=== PATIENT | female | born 1935 | race American Indian/Alaskan Native ===

== ENCOUNTER 2018-09-12 00:26 | Inpatient (IN) | payer MEDICARE ==
--- NOTE | 2018-09-12 01:00 | ED PDOC ---
Arrival/HPI <Nicolas Pruitt - Last Filed: 09/12/18 03:29> - General Historian: Patient - History of Present Illness Narrative History of Present Illness (Text): 09/12/18 00:57 83F w/ complaints of r shoulder pain. Patient is AAO3 on interview; reporting complaints of R shoulder pain w/ sudden onset over the past 48 hours. She reports pain is interfering w/ her ability to sleep very tender / sensitive to movement. No complaint of numbness/ tingling in her arm. Patient cannot recall any trauma or inciting factor as to cause of her new onset R shoulder pain. Has never had such issue in the past either. Remainder 12 point ROS is otherwise negative; no complaints of chest pain, sob, abd pain, n/v/d/c, urinary discomfort <Petros Marrero - Last Filed: 09/12/18 03:49> - General Chief Complaint: Upper Extremity Problem/Injury Time Seen by Provider: 09/12/18 00:57 Past Medical History - Provider Review Nursing Documentation Reviewed: Yes - Infectious Disease Hx of Infectious Diseases: None - Cardiac Hx Hypertension: Yes - Pulmonary Hx Respiratory Disorders: No - Neurological Hx Neurological Disorder: Yes (syncope) - HEENT Hx HEENT Disorder: Yes (eyeglasses) - Renal Hx Renal Disorder: No - Endocrine/Metabolic Hx Diabetes Mellitus Type 2: Yes - Hematological/Oncological Hx Blood Disorders: No - Integumentary Hx Dermatological Disorder: Yes - Musculoskeletal/Rheumatological Hx Falls: Yes (past) Other/Comment: DVT in left leg - Gastrointestinal Hx Gastrointestinal Disorders: No - Genitourinary/Gynecological Hx Incontinence: Yes - Psychiatric Hx Psychophysiologic Disorder: No Hx Substance Use: No - Surgical History Other/Comment: R/T BLEEDING ULCER - Anesthesia Hx Anesthesia Reactions: No <Petros Marrero - Last Filed: 09/12/18 03:49> Family/Social History - Physician Review Nursing Documentation Reviewed: Yes Family/Social History: Unknown Family HX Smoking Status: Former Smoker Hx Alcohol Use: No Hx Substance Use: No <Petros Marrero - Last Filed: 09/12/18 03:49> Allergies/Home Meds <Nicolas Pruitt - Last Filed: 09/12/18 03:29> <Petros Marrero - Last Filed: 09/12/18 03:49> Allergies/Adverse Reactions: Allergies No Known Allergies Allergy (Verified 09/12/18 00:33) Home Medications: Home Meds Medication Instructions Recorded Confirmed Pentoxifylline [Pentoxil] 400 mg PO TID 06/09/16 04/03/18 Warfarin Sodium [Jantoven] 1 mg PO ONCE 04/03/18 04/03/18 Warfarin [Coumadin] 3 mg PO ONCE 04/03/18 04/03/18 amLODIPine [Norvasc] 10 mg PO DAILY 04/03/18 04/03/18 [id number] CD [Cardizem CD] 240 mg PO DAILY 04/03/18 04/03/18 hydrALAZINE [Apresoline] 50 mg PO TID 04/03/18 04/03/18 Review of Systems - Review of Systems Constitutional: Normal Eyes: Normal ENT: Normal Respiratory: Normal Cardiovascular: Normal Gastrointestinal: Normal Genitourinary Female: Normal Musculoskeletal: Other (R shouler pain) Skin: Normal Neurological: Normal Endocrine: Normal Hemo/Lymphatic: Normal Psychiatric: Normal <Petros Marrero - Last Filed: 09/12/18 03:49> Physical Exam Vital Signs Temp Pulse Resp BP Pulse Ox 09/12/18 02:11 98.1 F 94 H 203/104 H 09/12/18 00:31 97 H 18 175/82 H 99 <Nicolas Pruitt - Last Filed: 09/12/18 03:29> Temperature: Afebrile Blood Pressure: Normal Pulse: Regular Respiratory Rate: Normal Appearance: Positive for: Well-Appearing, Non-Toxic, Comfortable Pain Distress: None Mental Status: Positive for: Alert and Oriented X 3 - Systems Exam Head: Present: Atraumatic, Normocephalic Pupils: Present: PERRL Extroacular Muscles: Present: EOMI Conjunctiva: Present: Normal Mouth: Present: Moist Mucous Membranes Neck: Present: Normal Range of Motion Respiratory/Chest: Present: Clear to Auscultation, Good Air Exchange. No: Respiratory Distress, Accessory Muscle Use Cardiovascular: Present: Regular Rate and Rhythm, Normal S1, S2. No: Murmurs Abdomen: No: Tenderness, Distention, Peritoneal Signs Back: Present: Normal Inspection Upper Extremity: Present: Other (RUE is neurovascularly intact however there is significant tenderness to palpation in the area of the R scapular spine , no tenderness noted over the humeral head, ACTIVE AND PASSIVE ROM is signifcantly reduced by pain). No: Normal ROM Lower Extremity: Present: Normal Inspection. No: Edema Neurological: Present: GCS=15, CN II-XII Intact, Speech Normal Skin: Present: Warm, Dry, Normal Color. No: Rashes Psychiatric: Present: Alert, Oriented x 3, Normal Insight, Normal Concentration <Petros Marrero - Last Filed: 09/12/18 03:49> Medical Decision Making - Lab Interpretations Lab Results: PT 55.5 SECONDS (9.4-12.5) H 09/12/18 02:20 INR 5.00 H* 09/12/18 02:20 APTT 58.9 Seconds (26.9-38.3) H 09/12/18 02:20 - RAD Interpretation Radiology Orders: 09/12/18 00:56 SHOULDER RIGHT [RAD] Stat - Medication Orders Current Medication Orders: Discontinued Medications Acetaminophen (Tylenol 325mg Tab) 650 mg PO STAT STA Stop: 09/12/18 00:57 Last Admin: 09/12/18 01:03 Dose: 650 mg MAR Pain/Vitals Document 09/12/18 01:03 RD (Rec: 09/12/18 01:04 RD [id number]) Pain Reassessment Is This A Pain ReAssessment? No Sleep Is patient sleeping during reassessment? No Presence of Pain Presence of Pain Yes Location Left, Right or Bilateral Right Pain Location Body Site Shoulder Labetalol HCl (Trandate) 20 mg IV STAT STA Stop: 09/12/18 02:13 Last Admin: 09/12/18 02:35 Dose: 20 mg eMAR Start Stop Document 09/12/18 02:35 RD (Rec: 09/12/18 02:35 RD [id number]) Intravenous Solution Start Date 09/12/18 Start Time 02:33 End Date 09/12/18 End time 02:35 Total Infusion Time 2 Lidocaine (Lidoderm) 1 ea TD ONCE ONE Stop: 09/12/18 01:41 Last Admin: 09/12/18 02:07 Dose: 1 ea MAR Transdermal Patch Site Document 09/12/18 02:07 RD (Rec: 09/12/18 02:07 RD [id number]) Transdermal Patch Site Transdermal Patch Site Right Shoulder <Nicolas Pruitt - Last Filed: 09/12/18 03:29> ED Course and Treatment: 09/12/18 01:03 83F w/ new onset R shoulder pain Analgesia R/o fracture plan: R shoulder XR tylenol progress note: 09/12/18 02:13 XR completed pending results Patient hypertensive systolic 200s Labetolol 20 IVP 09/12/18 03:38 Pressures improved XR shows no overt fracture or abnormality; pending radiologist reading INR elevated - 5.0 Patient still has intractable pain despite Tylenol + Lidocaine patch 09/12/18 03:[address] Adamson who accepts patient to her service w/ dx of HTN urgency, Elevated INR, Intractable Shoulder pain - RAD Interpretation Radiology Orders: 09/12/18 00:56 SHOULDER RIGHT [RAD] Stat <Petros Marrero - Last Filed: 09/12/18 03:49> Disposition/Present on Arrival <Nicolas Pruitt - Last Filed: 09/12/18 03:29> - Present on Arrival Any Indicators Present on Arrival: Yes History of DVT/PE: No History of Uncontrolled Diabetes: Yes Urinary Catheter: No History of Decub. Ulcer: No History Surgical Site Infection Following: None - Disposition Have Diagnosis and Disposition been Completed?: Yes Disposition Time: 03:48 Patient Plan: Admission <Petros Marrero - Last Filed: 09/12/18 03:49> - Disposition Diagnosis: Hypertensive urgency, Intractable pain, Elevated INR Disposition: HOSPITALIZED Patient Problems: Current Active Problems Problem Status Onset Elevated INR Acute Hypertensive urgency Acute Intractable pain Acute Condition: STABLE Forms: Epic! Connect (Spanish)
[2018-09-12] MEDS ORDERED: Lidocaine 5% Patch TD ONE (01:40)
[2018-09-12] MEDS ORDERED: Labetalol 5mg/ml (4ml) IV STA (02:12)
[2018-09-12 03:07] LABS: PARTIAL THROMBOPLASTIN TIME 58.9 Seconds (26.9-38.3)
[2018-09-12 03:19] LABS: PROTHROMBIN TIME 55.5 SECONDS (9.4-12.5)
[2018-09-12 04:25] LABS: BASO # 0.01 K/mm3 (0.0-2.0); BASO % 0.1 % (0.0-3.0); EOS % 0.1 % (1.5-5.0); HEMOGLOBIN 8.2 g/dL (12.0-16.0); LYMPH # 0.5 (1.2-3.4); LYMPH % 5.9 % (22.0-35.0); MEAN CELL VOLUME 88.8 fl (80.0-105.0); MEAN CORPUSCULAR HEMOGLOBIN 27.8 pg (25.0-35.0); MEAN CORPUSCULAR HGB CONC 31.3 g/dl (31.0-37.0); MEAN PLATELET VOLUME 9.5 fl (7.0-11.0); MONO # 0.3 (0.1-0.6); MONO % 3.9 % (1.0-6.0); RBC 2.95 10^6/uL (3.5-6.1); RED CELL DISTRIBUTION WIDTH 15.1 % (11.5-14.5); WHITE BLOOD COUNT 8.1 10^3/uL (4.5-11.0)
[2018-09-12 04:51] LABS: ALB/GLOB RATIO 1.2 (1.1-1.8); ALBUMIN 4.3 g/dL (3.0-4.8); AST/SGOT 21 U/L (14-36); BLOOD UREA NITROGEN 61 mg/dL (7-21); CALCIUM 9.3 mg/dL (8.4-10.5); GFR NON-AFRICAN AMERICAN 10
[2018-09-12 05:02] LABS: ALT/SGPT < 6 U/L (7-56)
[2018-09-12] MEDS ORDERED: Morphine 2 mg/ml ISec IVP STA (05:14)
[2018-09-12 05:51] LABS: PH,URINE 6.5 (4.7-8.0); URINE BILIRUBIN NEGATIVE (NEGATIVE); URINE BLOOD SMALL (NEGATIVE); URINE GLUCOSE (UA) NEGATIVE (NEGATIVE); URINE LEUKOCYTE ESTERASE NEGATIVE Leu/uL (NEGATIVE); URINE PROTEIN 100 mg/dL (<30 mg/dL); URINE UROBILINOGEN 0.2 E.U./dL (<1 E.U./dL)
[2018-09-12 06:06] LABS: URINE APPEARANCE SL CLOUDY (CLEAR); URINE COLOR LIGHT YELLOW (YELLOW)
[2018-09-12 06:20] LABS: URINE BACTERIA MANY /hpf
--- NOTE | 2018-09-12 09:31 | RAD ---
PROCEDURE: Radiographs of the Right Shoulder HISTORY: R shoulder pain r/o FX COMPARISON: None available. FINDINGS: BONES: No acute displaced fracture. The distal clavicle and underlying ribs appear intact. JOINTS: No acute dislocation. Clinic humeral joint space narrowing. Acromioclavicular arthropathy. SOFT TISSUES: Soft tissues appear unremarkable.No evidence of radiopaque foreign body. Calcified granulomas scattered the included portions right hemithorax. IMPRESSION: Degenerative changes. No acute displaced fracture or dislocation evident. If symptoms persist or if there is continued clinical concern, x-ray follow-up in 7-10 days should be considered. Evidence of prior granulomatous infection.
[2018-09-12] MEDS: diltiaZEM 240 mg/24 Hours CD Cap PO SCH (11:44)
--- NOTE | 2018-09-12 14:39 | CARD ---
APPROVED REPORT Date of service: 09/12/2018 EKG Measurement Heart [id number] 336P [id number] <Conclusion> Sinus rhythm with 1st degree AV block with occasional premature ventricular complexes Right bundle branch block Left anterior fascicular block Bifascicular block Abnormal ECG
[2018-09-12] MEDS ORDERED: Oxycodone/Acetaminophen 5/325 mg Tab PO PRN (17:44)
[2018-09-12] MEDS ORDERED: Sodium Chloride 0.45% 1,000 ML IV SCH (17:45)
--- NOTE | 2018-09-12 20:15 | CON ---
DATE: 09/12/2018 LOCATION: Room 577, bed 1. HISTORY OF PRESENT ILLNESS: The patient is an 83-year-old female, came in complaining of severe unremitting pain of the right shoulder. 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 Has a large calcium deposit subacromial area. She must have had a fall at home. She came in complaining of severe pain and swelling of the right shoulder. The aspirated fluid from the shoulder was 40 mL of blood, no fat particles and we injected with Depo-Medrol and Marcaine after I irrigated out the shoulder with normal saline. We will see how she does. If the fluid reaccumulates, I could re-aspirate again and send it for culture, but does not look infectious, it looks like severe case of calcific bursitis and tendinitis of the right shoulder with hemorrhagic synovitis. There is a question of trauma, but she cannot relate to it right now. PLAN: So, I will see how she does with the cortisone injection of the right shoulder and I will follow her while she is in the hospital. Phoenix Zee DO
--- NOTE | 2018-09-12 21:00 | HP ---
DATE OF EXAM: 09/12/2018 HISTORY OF PRESENT ILLNESS: The patient is an 83-year-old who came to emergency room because of severe intractable right shoulder pain. Patient states she woke up this morning, she had some pain for the last day or two, but it got worse this morning and was having difficulty moving right arm. Denies any weakness, but it is pain that is letting her not move her right arm. No history of fall. No history of trauma to that area. PAST MEDICAL HISTORY: She has past medical history significant for; 1. Mild dementia. 2. History of DVT. 3. Hypertension. 4. Hyperlipidemia. 5. Noninsulin-dependent diabetes. 6. Chronic kidney disease. 7. Chronic anemia. 8. Mild dementia. 9. Aortic regurgitation. 10. History of mitral regurgitation. ALLERGIES: SHE IS NOT ALLERGIC TO ANY MEDICATION. HOME MEDICATIONS: She is on lorazepam 0.5 mg twice a day as needed. She is on tramadol 1 tablet three times a day as needed, hydralazine 550 mg twice a day, metformin 500 mg twice a day, Coumadin 4 mg daily. SOCIAL HISTORY: She lives with her son. Denies smoking, drinking or alcohol use. She used to be smoker in the past. 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 PHYSICAL EXAMINATION GENERAL: She is awake, alert, oriented, complaining of right shoulder pain. VITAL SIGNS: She is afebrile, pulse 80, respirations 16, blood pressure 166/72. CARDIOPULMONARY: Heart is S1, S2 audible. LUNGS: Bilateral fair airflow. No rhonchi or crackle. ABDOMEN: Soft, nontender. No rebound. No guarding. EXTREMITIES: Right shoulder, she has pain in her right shoulder and right upper arm. NEUROLOGIC: She is awake and alert, able to communicate. LABORATORY DATA: WBC is 8.1, hemoglobin 8.2, hematocrit 26.2, platelet 266. PT 55.5, INR 5.0. Chemistry; sodium 139, potassium 4.2, chloride 107, CO2 of 21, BUN 61, creatinine 4.4, blood sugar of 86. Wbc is 123, urinalysis is unremarkable. She has x-ray of the shoulder done that shows severe degenerative changes, no acute displaced fracture or dislocation evident. ASSESSMENT: 1. Supratherapeutic PT/INR. 2. Intractable right shoulder pain. 3. Acute on chronic kidney disease. 4. Hypertension. 5. Hyperlipidemia. 6. History of deep venous thrombosis. PLAN: We will hold her Coumadin for today. Request Dr. Zee to evaluate the patient for right shoulder pain. We will follow up her CBC and CMP in the a.m. Currently she is on Cardizem 240 mg daily, she is on clonidine, she is on amlodipine 10 mg daily. We will start her on Protonix, start her on IV fluids. Follow up her electrolytes, CBC, and CMP in a.m. Torrie Adamson MD
[2018-09-13] MEDS: Pantoprazole 40 mg EC Tab PO SCH (06:41)
--- NOTE | 2018-09-13 07:33 | PN ---
DATE: 09/12/2018 I just talked to the family at about 3:45 p.m. The family said she was on Coumadin, but was brought in with a high INR. I see the labs, it was 5.0. So the blood in the right shoulder could very well be from a coagulopathy of too much Coumadin. The INR is quite high and aggravated by calcific bursitis because there is no fracture and there is no fat particles in the blood. So hopefully, she will better with stopping the Coumadin that she was on and the cortisone drip take over also. FINAL DIAGNOSIS: Hemorrhagic synovitis, right shoulder from coagulopathy of too much Coumadin. Phoenix Zee DO
[2018-09-13 08:02] LABS: LYMPH # 0.4 (1.2-3.4); LYMPH % 6.4 % (22.0-35.0); MEAN CELL VOLUME 87.3 fl (80.0-105.0); MEAN CORPUSCULAR HEMOGLOBIN 28.1 pg (25.0-35.0); MEAN CORPUSCULAR HGB CONC 32.2 g/dl (31.0-37.0); MEAN PLATELET VOLUME 9.4 fl (7.0-11.0); MONO # 0.1 (0.1-0.6); MONO % 2.4 % (1.0-6.0); PLATELET COUNT 218 10^3/uL (120.0-450.0); RBC 2.28 10^6/uL (3.5-6.1); RED CELL DISTRIBUTION WIDTH 14.9 % (11.5-14.5); WHITE BLOOD COUNT 5.8 10^3/uL (4.5-11.0)
[2018-09-13 08:12] LABS: PROTHROMBIN TIME 41.8 SECONDS (9.4-12.5)
[2018-09-13 08:15] LABS: INR 3.7
[2018-09-13 08:23] LABS: HEMOGLOBIN 6.4 g/dL (12.0-16.0)
[2018-09-13 08:25] LABS: ALB/GLOB RATIO 1.1 (1.1-1.8); ALBUMIN 3.5 g/dL (3.0-4.8); CALCIUM 8.8 mg/dL (8.4-10.5)
[2018-09-13 09:15] LABS: LYMPHOCYTE 6 % (22.0-35.0); NEUTROPHIL 94 % (50.0-70.0)
[2018-09-13 09:16] LABS: ANISOCYTOSIS SLIGHT; MICROCYTOSIS SLIGHT; PLATELET ESTIMATE NORMAL (NORMAL)
[2018-09-13] MEDS: diltiaZEM 240 mg/24 Hours CD Cap PO SCH (09:42)
[2018-09-13] MEDS: Sodium Chloride 0.45% 1,000 ML IV SCH ×2 (17:34→22:36)
--- NOTE | 2018-09-14 00:25 | PN ---
DATE: 09/13/2018 SUBJECTIVE: The patient is an 83-year-old, seen and examined, looks more alert. States her shoulder pain is better. Denies any nausea or vomiting. PHYSICAL EXAMINATION: VITAL SIGNS: She is afebrile. Pulse 64, respirations 14, blood pressure 156/57. LUNGS: Bilateral fair airflow. No rhonchi or crackle. HEART: S1 and S2 audible. ABDOMEN: Soft, nontender. No rebound. No guarding. NEUROLOGIC: The patient is awake and alert, able to communicate. LABORATORY DATA: WBC 5.8, hemoglobin 6.4, hematocrit 19.9, platelets 280. PT 41.8, INR 3.70. Chemistry: Sodium 133, potassium 5.6, chloride 106, CO2 of 19, BUN 69, creatinine 4.1, blood sugar of 93. ASSESSMENT: 1. Anemia, etiology unclear yet. 2. Bdats-or-rlbibvk renal failure. 3. History of deep venous thrombosis. PLAN: The patient will get 2+ packed RBCs. We will give her one dose of Kayexalate and order stool for Hemoccult. Continue her on IV fluid. We will follow up her CBC and CMP in a.m. I have also requested Dr. Martell for evaluation if her stool for Hemoccult is positive. Torrie Adamson MD
[2018-09-14 07:27] LABS: LYMPH # 0.3 (1.2-3.4); LYMPH % 3.5 % (22.0-35.0); MEAN CORPUSCULAR HEMOGLOBIN 28.2 pg (25.0-35.0); MEAN CORPUSCULAR HGB CONC 33.1 g/dl (31.0-37.0); MEAN PLATELET VOLUME 9.6 fl (7.0-11.0); MONO # 0.7 (0.1-0.6); MONO % 7.9 % (1.0-6.0); RBC 3.8 10^6/uL (3.5-6.1); RED CELL DISTRIBUTION WIDTH 14.4 % (11.5-14.5); WHITE BLOOD COUNT 8.2 10^3/uL (4.5-11.0)
[2018-09-14 07:34] LABS: HEMOGLOBIN 10.7 g/dL (12.0-16.0)
[2018-09-14 07:39] LABS: ALBUMIN 3.1 g/dL (3.0-4.8); CALCIUM 8.1 mg/dL (8.4-10.5)
[2018-09-14] MEDS: diltiaZEM 240 mg/24 Hours CD Cap PO SCH (09:42)
[2018-09-14] MEDS ORDERED: Albuterol-Ipratrop 3 mg / 0.5 (3 ml) UD ONE (11:48)
[2018-09-14] MEDS: Albuterol-Ipratrop 3 mg / 0.5 (3 ml) UD IH PRN ×2 (11:51→16:12)
[2018-09-14] MEDS ORDERED: Phytonadione 10 mg/ml Inj (Adult) SC ONE (12:38)
--- NOTE | 2018-09-14 15:28 | PN ---
DATE: 09/14/2018 SUBJECTIVE: The patient is an 83-year-old, seen and examined, complaining of cough and she had multiple episodes of hemoptysis. Complaining of feeling nauseous and did not have appetite today, although she was feeling well up until yesterday evening. PHYSICAL EXAMINATION VITAL SIGNS: He is afebrile, pulse 76, respirations 18, blood pressure 143/73. LUNGS: Bilateral soft crackles in upper lung region. HEART: S1 and S2 audible. ABDOMEN: Soft, nontender. No rebound. No guarding. NEUROLOGICAL: The patient is awake, alert, oriented, able to communicate. EXTREMITIES: Bilateral leg, no edema. Right shoulder has mobility secondary to pain; however, she has good motor in left upper and both lower extremities. LABORATORY DATA: WBC is 8.2, hemoglobin 10.7, hematocrit 32.3, platelet 222. Chemistry; sodium 131, potassium 4.1, chloride 103, CO2 of 17, BUN 85, creatinine 4.5, blood sugar of 76. ASSESSMENT: 1. Intractable right shoulder pain. 2. Supratherapeutic PT/INR. 3. Acute on chronic kidney disease. 4. Hypertension. 5. History of deep venous thrombosis. PLAN: The patient is currently on IV fluids. She is on hydralazine. We will continue her on diltiazem. Her Coumadin on hold, I will give her 5 mg subcutaneous vitamin K. We will follow up her CBC and CMP in a.m. I will request for Dr. Rand to evaluate the patient. I will order CT scan of the chest also. We will follow CBC and CMP. Torrie Adamson MD
[2018-09-14 17:08] LABS: INR 2.65; PROTHROMBIN TIME 29.4 SECONDS (9.4-12.5)
--- NOTE | 2018-09-14 19:00 | CON ---
DATE OF CONSULTATION: 09/14/2018 The patient is admitted for Dr. Adamson. REQUESTING PHYSICIAN: Dr. Adamson. REASON FOR CONSULTATION: Evaluation of the patient unknown to me, who presents with acute renal failure superimposed on chronic kidney disease stage III in the setting of hemoptysis and right shoulder pain. HISTORY OF PRESENT ILLNESS: The patient is an 83-year-old black female with a history of mild dementia, history of anemia, history of chronic kidney disease stage III with a baseline BUN in the 20-30 range and baseline creatinine in the 1.6-1.8 range, history of NIDDM, history of valvular heart disease, history of DVT on chronic anticoagulation, and history of hypertension. The patient presented to the hospital with increased right shoulder pain. The patient is status post an aspiration of the shoulder with bloody fluid. According to the nursing staff, the patient has been having hemoptysis today. Her INR when she came into the hospital was 5, is currently down to 2.65, status post vitamin K. The patient does have a history of DVT. The patient's BUN and creatinine on admission were 61 with a BUN up to 85, creatinine was 4.4 up to 4.5. Again, her baseline BUN is in the 20-30 and a creatinine in the 1.6-1.8 range. We are asked to evaluate the patient for her worsening renal parameters. PAST MEDICAL HISTORY: Significant for dementia, past history of cigarette smoking, history of hypertension, history of chronic kidney disease stage III, history of anemia, history of mild valvular heart disease, history of a DVT on chronic anticoagulation. MEDICATIONS AT HOME: Include that of clonidine patch, Pentoxil, Coumadin, Cardizem, Norvasc, hydralazine, MultiVites, and Pepcid. ALLERGIES: NO KNOWN ALLERGIES TO MEDICATIONS. CURRENT MEDICATIONS IN HOSPITAL: Include that of hydralazine, diltiazem, clonidine, DuoNeb, Norvasc, Percocet, Protonix, half-normal saline at 60 mL an hour, and Tylenol p.r.n. SOCIAL HISTORY: Past history of cigarette smoking. No history of alcohol use. FAMILY HISTORY: Unobtainable from the patient. REVIEW OF SYSTEMS: Review of systems is for the last part unobtainable from the patient. She denies having any weight loss or loss of appetite. Denies having any vision or hearing problems. PULMONARY: No shortness of breath. CARDIAC: No history of ASHD. GASTROINTESTINAL: No nausea, vomiting, diarrhea, constipation, or abdominal pain. GENITOURINARY: History of chronic kidney disease stage III. GYNECOLOGICAL: Postmenopausal. ENDOCRINE: History of NIDDM. The patient is diet-controlled. MUSCULOSKELETAL: Right shoulder pain as noted above. NEURO: No history of CVA, TIA, seizures, or syncope. HEMATOLOGY-ONCOLOGY: History of anemia. No history of malignancy. PSYCHIATRIC: History is negative. PHYSICAL EXAMINATION: GENERAL: The patient is currently seen on 5R. She is lying comfortable in bed. She appears to be in no acute distress. She appears to be somewhat confused when she is relating information to me. VITAL SIGNS: Blood pressure 151/63, temperature 98.6, pulse of 52 with a respiratory rate of 18, pulse ox is 97%. HEENT: Exam shows her to be normocephalic, atraumatic. Conjunctivae are pale. Sclerae are nonicteric. Pupils equal and reactive to light and accommodation. Extraocular muscles are intact. Posterior pharynx is normal. NECK: Supple. No neck vein distention. No thyromegaly. No lymphadenopathy. No bruits. CHEST: Decreased breath sounds. No audible rales, rhonchi or wheezing. CARDIOVASCULAR: Shows a regular rate and rhythm with soft systolic murmur at the left lower sternal border. Positive AI/MR. No S3, no S4, no rub. ABDOMEN: Soft. Bowel sounds normal. No rebound, guarding, or masses. BACK: No CVAT. No spinal tenderness. EXTREMITIES: Showed decreased range of motion of her right shoulder. No lower extremity cyanosis, clubbing, or edema. Diminished lower extremity pulses 1 to 2+ bilaterally. NEURO: Shows her to be alert, oriented, but somewhat confused when relating information. No gross focal motor or sensory deficits noted. LABORATORY DATA AND IMAGING STUDIES: X-ray of her right shoulder showed DJD. EKG on admission showed a first-degree AV block, right bundle-branch block, left anterior hemiblock. No chest x-ray was done. A chest CT scan is pending. No renal ultrasound was done. Labs: CBC, white blood cell count 8.2, hemoglobin was as low as 6.4, post 2 units of blood it is 10.7?, platelet count is 222,000. Coags showed an INR of 5 on admission and is currently down to 2.65. Coumadin is on hold. The patient did receive vitamin K. Chemistries show a sodium level, which was 139, it has dropped to 131. Potassium was as high as 5.6 yesterday. The patient was not hemolyzed. Repeat potassium level today was 4.1. CO2 level was low at 17. BUN is 85, up from 61. Her baseline is in the 20-30 range. Her creatinine is up from 4.1-4.4, now 4.5. Baseline is in the 1.6-1.8 range. Calcium level was 8.1. Albumin 3.1, corrects to normal. Liver enzymes are normal. Glucose was 76. Urine showed 2+ protein. Positive red blood cells, few white blood cells, positive bacteria, positive yeast. Microbiology, no cultures available for comment. ASSESSMENT: 1. Acute renal failure superimposed on chronic kidney disease stage III. This is in the setting of significant right shoulder pain. The patient denied taking any anti-inflammatories at home, nonsteroidals, or MURILLO-2 inhibitors. We will need to rule out acute interstitial nephritis, obstructive uropathy, renal hypoperfusion, or possible acute tubular necrosis. No documented hypotension. Of note, the patient did have 1 to 2 episodes of hemoptysis. We will also rule out any kind of pulmonary renal syndrome, vasculitis, microscopic polyangiitis, Bela's, Goodpasture's disease, etc. Appropriate serologies will be ordered. 2. Status post mild hyperkalemia with developing metabolic acidosis. I will switch the patient over to IV fluids with sodium bicarbonate. We will obtain a renal ultrasound. We will obtain a urine sodium creatinine, a urine Prabhakar stain, and a urine culture and sensitivities. We will need to monitor accurate I's and O's. A Wick device will be placed to try and obtain accurate urine output without placing a Fish catheter. 3. Baseline chronic kidney disease stage III. 4. History of hypertension, currently controlled on medication in the outpatient setting. 5. History of [id number] diabetes mellitus, perhaps diet controlled. The patient is on no medication. 6. History of severe anemia, perhaps secondary to bleeding associated with her coagulopathy. No evidence for gastrointestinal bleeding as best I could tell. No stool guaiacs were sent. We will obtain stool for occult blood. 7. History of mild dementia. 8. History of deep venous thrombosis with recent history of anticoagulation. 9. History of aortic insufficiency/mitral regurgitation. 10. 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 11. 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 PLAN: 1. The patient is in the process of going down for a chest CT in light of her episode of hemoptysis. 2. We will obtain a renal ultrasound. 3. May continue the patient on current blood pressure medication, avoid CRISTOBAL inhibitors, and angiotensin receptor blockers. 4. Urine Prabhakar stain, urine sodium, urine creatinine, and urine C and S as noted above. 5. Stool for occult blood. 6. We will switch IV fluids over to half-normal saline with sodium bicarbonate in light of her CO2 dropped to 17, developing metabolic acidosis. 7. We will obtain ABBEY, ANCA titer, and anti-GBM in light of the fact that she has hemoptysis associated with her renal failure. 8. I did verify with her that she did not take any anti-inflammatories, aspirin, Aleve, Motrin, or any MURILLO-2 inhibitors for her shoulder pain. 9. Case discussed with nursing staff. 10. Need to obtain accurate I's and O's. Thank you for letting me partake and share in the care of your patient. Roderick Faith MD SUNDE[facility]
[2018-09-15] MEDS: Albuterol-Ipratrop 3 mg / 0.5 (3 ml) UD IH PRN ×3 (00:57→11:25)
[2018-09-15 02:21] LABS: CREATININE,RANDOM URINE 49 mg/dL
[2018-09-15] MEDS: Pantoprazole 40 mg EC Tab PO SCH (05:17)
[2018-09-15 07:08] LABS: INR 2.56; PROTHROMBIN TIME 28.9 SECONDS (9.4-12.5)
[2018-09-15 07:11] LABS: EOS % 0.1 % (1.5-5.0); HEMOGLOBIN 9.7 g/dL (12.0-16.0); LYMPH # 0.5 (1.2-3.4); LYMPH % 3.5 % (22.0-35.0); MEAN CELL VOLUME 84.4 fl (80.0-105.0); MEAN CORPUSCULAR HEMOGLOBIN 28.5 pg (25.0-35.0); MEAN CORPUSCULAR HGB CONC 33.8 g/dl (31.0-37.0); MEAN PLATELET VOLUME 9.4 fl (7.0-11.0); MONO # 0.5 (0.1-0.6); MONO % 3.5 % (1.0-6.0); RBC 3.4 10^6/uL (3.5-6.1); RED CELL DISTRIBUTION WIDTH 14.6 % (11.5-14.5); WHITE BLOOD COUNT 14.7 10^3/uL (4.5-11.0)
[2018-09-15 07:26] LABS: ALBUMIN 2.9 g/dL (3.0-4.8); CALCIUM 7.9 mg/dL (8.4-10.5)
[2018-09-15] MEDS: diltiaZEM 240 mg/24 Hours CD Cap PO SCH (09:47)
--- NOTE | 2018-09-15 10:45 | CT ---
Date of service: 09/14/2018 PROCEDURE: CT Chest without contrast HISTORY: hemoptysis COMPARISON: None available. TECHNIQUE: Contiguous axial images were obtained through the chest without intravenous contrast enhancement. Sagittal and coronal reconstructions were performed. Radiation dose: Total exam DLP = 197.05 mGy-cm. This CT exam was performed using one or more of the following dose reduction techniques: Automated exposure control, adjustment of the mA and/or kV according to patient size, and/or use of iterative reconstruction technique. FINDINGS: LUNGS: There is an extensive alveolar infiltrate in the right upper lobe and right lower lobe consistent with pneumonia. Air bronchograms are seen. Minimal patchy infiltrates are seen in the periphery of the left upper lobe MEDIASTINUM: Unremarkable thoracic aorta. No aneurysm. Normal sized heart. Main pulmonary artery unremarkable. No vascular congestion. No lymphadenopathy. Aortic and coronary artery calcifications are seen PLEURA: No pleural fluid. No pneumothorax. BONES: No fracture. No destructive lesion. UPPER ABDOMEN: Grossly unremarkable. OTHER FINDINGS: None. IMPRESSION: There is an extensive alveolar infiltrate in the right upper lobe and right lower lobe consistent with pneumonia. Air bronchograms are seen. Minimal patchy infiltrates are seen in the periphery of the left upper lobe
--- NOTE | 2018-09-15 12:41 | US ---
Date of service: 09/14/2018 PROCEDURE: Ultrasound of the Kidneys HISTORY: ARF, CKD 3 baseline COMPARISON: 09/11/2016 abdominal ultrasound including both kidneys. TECHNIQUE: Sonogram of the kidneys. FINDINGS: RIGHT KIDNEY: Measures: 4.6 x 7.5 cm. Normal in size, contour and echogenicity. No stone, solid mass lesion or hydronephrosis visualized. Multiple simple renal cysts similar to that seen previously LEFT KIDNEY: Measures: 6.1 x 9.4 cm. Normal in size, contour and echogenicity. No stone, solid mass lesion or hydronephrosis visualized. Stable simple hepatic cysts. The largest cyst midpole region 2.4 x 2.7 cm. OTHER FINDINGS: None. IMPRESSION: No acute findings related to/ accounting for the clinical presentation. Medical renal disease identified. Bilateral simple cysts. No significant interval change compared to the prior examination(s).
[2018-09-15] MEDS ORDERED: Vancomycin 500mg in NS 500 MG/100 ML BAG IVPB STA (12:44)
[2018-09-15] MEDS ORDERED: Cefepime 1gm in NS 100ml 1 GM/100 ML BAG IVPB SCH ×2 (12:45→16:28)
[2018-09-15 12:47] LABS: COMPLEMENT C4 37.4 mg/dL (14.0-44.0)
--- NOTE | 2018-09-15 14:54 | PN ---
DATE: 09/15/2018 SUBJECTIVE: The patient is seen lying in bed. She is awake, she is alert. She is complaining of pain in her butt. She denies any shortness of breath today. She denies any nausea or vomiting. She reports that she ate breakfast. PHYSICAL EXAMINATION GENERAL: Elderly lady lying in bed. VITAL SIGNS: Blood pressure 147/49, heart rate 78, respiratory rate 18 and temperature 98.5. HEENT: Normocephalic, atraumatic, positive pallor. NECK: Supple, no JVD. LUNGS: Bilateral equal entry, bilateral equal expansion, basal rales right greater than left. CARDIAC: S1 and S2, regular rate and rhythm, no murmur, no rub. ABDOMEN: Soft, nondistended, nontender, bowel sounds present. EXTREMITIES: No lower extremity edema. INTAKE AND OUTPUT: 900/500. LABORATORY DATA: WBC 14.7, hemoglobin 9.7, hematocrit 28.7 and platelets 235. Sodium 134, potassium 3.5, chloride 105, CO2 of 21, BUN 84, creatinine 4.5, glucose 74, calcium 7.9, uric acid 7.0 and albumin 2.9. Urine eosinophils negative, urine sodium 100, and urine creatinine 49. CT of the chest; extensive alveolar infiltrate in the right upper lobe and the right lower lobe consistent with pneumonia, air bronchograms are seen, minimal patchy infiltrates are seen in the periphery of the left upper lobe. The patient is status post 2 units of blood transfusion on the 4th. INR is 2.5. CURRENT MEDICATIONS: Apresoline 50 t.i.d., Cardizem CD 240, Catapres 0.1 p.o. q.i.d. p.r.n., amlodipine 10, Percocet and Protonix. Half-normal saline with 50 mEq of sodium bicarbonate at 75 mL/hour. ASSESSMENT: 1. Acute kidney injury superimposed on chronic kidney disease stage IV, in the setting of hemoptysis, severe anemia, and multilobar pneumonia. 2. Hyperkalemia secondary to acute kidney injury, now resolved. 3. Hypertension. 4. Noninsulin-dependent diabetes mellitus. 5. Severe anemia in the setting of coagulopathy, multilobar pneumonia, hemoptysis. 6. Mild dementia. 7. Aortic insufficiency/mitral regurgitation. 8. Degenerative joint disease. PLAN: 1. Continue IV fluids, reduced to 60 mL/hour. 2. Correct coagulopathy. 3. ID evaluation for treatment of multilobar pneumonia. 4. Avoid nephrotoxins. 5. Dose all antibiotics for creatinine clearance 10-30 mL/minute. 6. Monitor urine output closely. 7. No indication for renal replacement therapy at this time. 8. Discussed with . . Samantha Rand MD
[2018-09-15] MEDS: Albuterol-Ipratrop 3 mg / 0.5 (3 ml) UD IH SCH ×2 (14:56→19:47)
--- NOTE | 2018-09-15 16:05 | PN ---
DATE: 09/15/2018 SUBJECTIVE: The patient is 83-year-old seen and examined, lying in bed, complained of pain in the buttock area. According to nurse there is no wound there noted. She is eating and tolerating. OBJECTIVE: VITAL SIGNS: She is afebrile, pulse 78, respiration 18, blood pressure 147/49. LUNGS: Bilateral fair airflow. No rhonchi or crackle. HEART: S1, S2 audible. ABDOMEN: Soft, nontender. No rebound, no guarding. NEUROLOGIC: She is awake and alert. Able to communicate. LABORATORY EXAMINATION: WBC 14.7, hemoglobin 9.7, hematocrit 28.7, platelet of 235. PT 28.9, INR 2.56. Chemistry; sodium 134, potassium 3.5, chloride 105, CO2 of 21, BUN 84, creatinine 4.5, blood sugar of 74. She had CT scan of the chest done that shows infiltrates in the right upper lobe and right lower lobe consistent with pneumonia. ASSESSMENT AND PLAN: 1. Right upper lobe pneumonia. 2. Status post right shoulder pain and had intra-articular injection done with significant improvement. 3. History of deep venous thrombosis. 4. Supratherapeutic INR. 5. Hypertension. 6. Deconditioning and difficulty walking. PLAN: I will request Dr. Frausto to evaluate the patient for coagulopathy and aggressive physical therapy both the input noted and appreciated for followup her electrolyte and CBC and CMP in a.m. and start her on IV antibiotic and watch her closely clinically. Torrie Adamson MD
[2018-09-16] MEDS: Albuterol-Ipratrop 3 mg / 0.5 (3 ml) UD IH SCH ×6 (00:05→20:47)
[2018-09-16 07:58] LABS: BASO # 0.01 K/mm3 (0.0-2.0); BASO % 0.1 % (0.0-3.0); EOS % 0.1 % (1.5-5.0); LYMPH # 0.5 (1.2-3.4); LYMPH % 3.4 % (22.0-35.0); MEAN CELL VOLUME 84.6 fl (80.0-105.0); MEAN CORPUSCULAR HEMOGLOBIN 28.8 pg (25.0-35.0); MEAN CORPUSCULAR HGB CONC 34.1 g/dl (31.0-37.0); MEAN PLATELET VOLUME 9.6 fl (7.0-11.0); MONO # 0.6 (0.1-0.6); MONO % 3.6 % (1.0-6.0); PLATELET COUNT 241 10^3/uL (120.0-450.0); RBC 3.12 10^6/uL (3.5-6.1); RED CELL DISTRIBUTION WIDTH 14.5 % (11.5-14.5)
[2018-09-16 08:22] LABS: ALBUMIN 3.1 g/dL (3.0-4.8); CALCIUM 8.1 mg/dL (8.4-10.5)
[2018-09-16] MEDS: diltiaZEM 240 mg/24 Hours CD Cap PO SCH (09:35)
[2018-09-16 10:20] LABS: LYMPHOCYTE 3 % (22.0-35.0); MONOCYTE 4 % (1.0-6.0); NEUTROPHIL 93 % (50.0-70.0)
--- NOTE | 2018-09-16 11:19 | CON ---
DATE: 09/16/2018 HISTORY OF PRESENT ILLNESS: Ms. Liz is an 83-year-old female admitted to the hospital with right shoulder pain. She was found to have B/L pneumonia, difficulty in walking, weakness. She is not very mobile. [facility] It showed that she had DVT in 2016 in left femoral vein. She has been on Coumadin since then. She was admitted with supratherapeutic INR and low hemoglobin of 6 g/dL, receiving 2 units of blood transfusion during this hospitalization. PAST MEDICAL HISTORY: Dementia, history of DVT, hypertension, hyperlipidemia, chronic kidney disease, chronic anemia, aortic regurgitation, history of mitral regurgitation. ALLERGIES: NO KNOWN DRUG ALLERGIES. HOME MEDICATIONS: Lorazepam, tramadol, hydralazine, metformin, and Coumadin. SOCIAL HISTORY: Lives at home with her son. No history of smoking. No history of alcohol abuse. REVIEW OF SYSTEMS: She is complaining of back pain. Not able to ambulate. Shortness of breath. Rest of 12-point review of systems were reviewed and negative. PHYSICAL EXAMINATION: GENERAL: Awake, alert, and oriented. VITAL SIGNS: Stable. Afebrile. Temperature 98.7, heart rate 85, respiratory rate 15 per minute, blood pressure 160/70. HEART: S1 and S2 normal. No murmur or gallops. ABDOMEN: Soft, nontender. No hepatosplenomegaly. EXTREMITIES: Bilateral extremities; no edema. No calf tenderness. No tenderness on the thigh area. NEUROLOGIC: Awake, alert, and oriented. SKIN: Pallor positive. LABORATORY DATA: White count 16,000, hemoglobin 9, hematocrit 26.4, platelet 241. Sodium 136, potassium 3.9, creatinine 4, bilirubin 0.3. ASSESSMENT: 1. Coagulopathy, on hypercoagulable state, supratherapeutic INR on admission 2. Severe anemia. 3. Eebxg-zw-cmmyste renal failure. 4. Bilateral pneumonia. PLAN: She is not a candidate for anticoagulation. No acute DVT now. She had DVT in 2016 in left femoral. she is high risk for DVT and pulmonary embolism. I would recommend IVC filter and observe her off anticoagulation. Newer anticoagulation have increased risk of bleeding and because of the acute renal failure, she is not a candidate for that. She is home bound and medical management is done at home only. If she develops acute DVT in lower extremity, Coumadin can be restarted. Severe anemia, status post 2 units of blood transfusion, she will need erythropoietin support to maintain normal hemoglobin. Hemoglobin is 9, now we will give one dose aranesp 100 mcgm now. Thank you, Dr. Adamson, for allowing us to participate in Ms. Liz's care. Shiloh Frausto MD MTDD
[2018-09-16 11:23] LABS: IRON 17 ug/dL (45-180)
[2018-09-16 11:32] LABS: % IRON SATURATION 9 % (20-55); TOTAL IRON BINDING CAPACITY 194 ug/dL (265-497)
--- NOTE | 2018-09-16 13:19 | PN ---
DATE: 09/16/2018 SUBJECTIVE: The patient is currently seen on 5R. She appears to be comfortable. She is continuing on IV antibiotic therapy for her multi lobe pneumonia. Her creatinine is stable in the low four range. Actually, improved down to 4.0 from 4.5. Initial workup for vasculitis appears to be negative. MEDICATIONS: Medication list reviewed. The patient is currently on Apresoline, Cardizem, clonidine, doxycycline, DuoNeb, meropenem, Norvasc, Protonix, IV fluid with sodium bicarbonate, Tylenol p.r.n. OBJECTIVE: INTAKE/OUTPUT: Intake is 1320, output is 400. VITAL SIGNS: Blood pressure is 157/58, temperature 98.3, respiratory rate 80 with a pulse of 77. Oxygen saturation is 94%. HEENT: Shows her to be normocephalic, atraumatic. Conjunctivae are pale. Sclerae nonicteric. NECK: Supple. No neck vein distention. CHEST: Decreased breath sounds with scattered rhonchi and rales. No wheezing. CARDIOVASCULAR: Shows a regular rate and rhythm with a soft systolic murmur left lower sternal border. Positive AI/MR. No S3, no S4, no rub. ABDOMEN: Soft. Bowel sounds normal, no rebound, guarding or masses. EXTREMITIES: Show decreased range of motion of her right shoulder. No lower extremity cyanosis, clubbing, or edema. Diminished lower extremity pulses bilaterally. LABORATORY DATA AND IMAGING STUDIES: Chest CT on admission showed a multi lobe pneumonia. Renal ultrasound showed chronic medical renal disease with no hydronephrosis and simple renal cysts. Labs, CBC, white blood cell count is up 16 from 8.1 on admission, hemoglobin 9.0, platelet count is 241,000. Last PT was 28.9 with an INR of 2.56. Chemistries show a normal electrolytes with the exception of a CO2 level which is improved up from 17-20 on sodium bicarbonate. BUN remains elevated, with a creatinine of 4.0. The creatinine of 4.0 is down from 4.5. Her baseline creatinine is in the 1.6-1.8 range with a baseline BUN in the 20-30 range. Calcium is 8.1. His phosphorus level is pending. Liver enzymes are normal. Albumin level was low at 3.1. Urine showed 2+ protein. Urine eosinophil stain was negative. Fractional secretion of sodium was greater than 1%. ABBEY was negative. ANCA titers were negative. C3 and C4 normal. Anti-GBM is pending. Microbiology, urine cultures were positive at greater than 100,000, sensitivities are pending. I do not see any results of blood cultures or sputum cultures. ASSESSMENT: 1. Acute renal failure in a patient with a history of chronic kidney disease stage III. This is in the setting of multi lobe pneumonia. Likely no evidence for any systemic vasculitis. No evidence for interstitial nephritis, obstructive uropathy. Possible acute tubular necrosis. Fractional secretion of sodium is greater than 1%. 2. Metabolic acidosis. The patient will continue IV fluid with sodium bicarbonate. Continue to monitor accurate intake and output. 3. Status post hyperkalemia. This has resolved. 4. Baseline chronic kidney disease stage III. 5. History of hypertension, controlled on calcium channel wily therapy. 6. History of NIDDM. The patient is on no medication. She is diet controlled in the outpatient setting. 7. History of severe anemia. No evidence for any GI bleeding. Stool guaiacs were requested but not done. Hemoglobin is stable at 9.0. Would check iron TIBC and ferritin. The patient may receive Aranesp on an as-needed basis. 8. History of mild dementia, stable. 9. History of deep venous thrombosis with a recent history of anticoagulation. 10. History of aortic insufficiency / mitral regurgitation. 11. 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 12. 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 13. Status post episode of hemoptysis, likely secondary to coagulopathy with pneumonia. PLAN: 1. We will continue to monitor the patient closely. Avoid CRISTOBAL inhibitors, angiotensin receptor blockers. 2. Check stool for occult blood. 3. Continue IV fluid with sodium bicarbonate. 4. Followup for the anti-GBM titers. 5. Avoid all nephrotoxic agents. 6. Hoping to see improvement in her urine output with treatment of her pneumonia and stabilization of her acute state. 7. Check phosphorus level. 8. Check iron studies and start Aranesp on an as-needed basis. Roderick Faith MD [facility] # [id number] SUN[place]
--- NOTE | 2018-09-16 18:25 | CON ---
DATE OF CONSULTATION: 09/16/2018 The patient is in bed. CHIEF COMPLAINT: Weakness times several days. HISTORY OF PRESENT ILLNESS: This is an 83-year-old female with hypertension, diabetes, peripheral vascular disease, DVT, concentric left ventricular hypertrophy, aortic and mitral valve regurgitation, left foot heel ulcer and coag-negative staph, was found to have CT scan of the chest on 09/14/2018, 2 days after her admission, which was on 09/12/2018. The patient had extensive alveolar infiltrate. Infectious Disease consultation requested. REVIEW OF SYSTEMS: Reveals the patient has had low-grade fevers, no chills. Review of system reveals a 12-point review of systems performed. No abdominal pain, diarrhea, or constipation now. PAST MEDICAL HISTORY: Significant for hypertension, diabetes, peripheral vascular disease, DVT, concentric left ventricular hypertrophy, aortic and mitral valve regurgitation, left foot and left heel ulcer, history of coag-negative staph bacteremia. PAST SURGICAL HISTORY: Significant for a Pap smear. ALLERGIES: THE PATIENT HAS NO KNOWN ALLERGIES TO ANY ANTIBIOTICS. MEDICATIONS: Medications at home reviewed and reveals the patient to be on clonidine, Pantec, Coumadin, , and Norvasc. PHYSICAL EXAMINATION: GENERAL: The patient is in bed, in no acute distress, nontoxic. VITAL SIGNS: Temperature of 98, blood pressure is 150/70, respiratory rate of 18, heart rate of 77. HEENT: Examination of HEENT is unremarkable. NECK: Supple. LUNGS: Have decreased breath sounds. HEART: Normal S1, S2. ABDOMEN: Soft, nontender. LABORATORY DATA: Laboratory examination reveals a white count of 16,000, hemoglobin of 9, creatinine is 4. Urinalysis is noted. Immunology is reviewed. Microbiology reveals a gram-positive cocci in the urine. CT scan of the chest is reviewed. Renal ultrasound is noted. Dr. Adamson's note is reviewed. ASSESSMENT AND PLAN: An 83-year-old female, admitted with bilateral community-acquired multilobar pneumonia with acute kidney injury on top of chronic kidney injury, stage IV kidney disease, and with a history of deep venous thrombosis, supratherapeutic INR, hypertension, diabetes, and aortic and mitral valve regurgitation. We will treat the patient with p.o. doxycycline, and one dose of vancomycin was given. The patient will be started on meropenem and doxycycline pending urine Legionella antigen, procalcitonin, blood cultures, urine cultures, sputum cultures, and we will make further recommendations. Urbano Herring MD
--- NOTE | 2018-09-16 18:47 | CP.PCM.PCO ---
Physician Communication Note - Physician Communication Note Physician Communication Note: Check DVT-?IVC Filter vs anticoag Rx/Pneumonia delay now
--- NOTE | 2018-09-16 21:02 | CP.PCM.CON ---
<John Wall - Last Filed: 09/16/18 20:55> History of Present Illness - History of Present Illness History of Present Illness: Surgery Consult Note for Dr. Guzmán Consult: IVC Filter HPI: 83F, past medical history significant for Dementia, DVT, HTN, HLD, CKD, DM, and anemia, consulted for IVC filter placement. Patient initially admitted for shoulder pain, found to have hemarthroses. Patient was taking Coumadin for a femoral DVT diagnosed in 2016, which was then discontinued on this admission secondary to being supratherapeutic. After discontinuation, patient developed hemoptysis and was found to have a significantly large right upper/middle lobe consolidation consistent with pneumonia. ID began antibiotics. Heme/onc was also consulted for "hypercoagulable state" and stated that patient may be a candidate for IVC filter instead of anticoagulation. Patient states hemoptysis has improved and decreased since initial episode. Denies f/c, n/v/d, SOB, CP, headaches, dizziness, melena, or urinary symptoms. PMH: See above PSH: Denies FH: Noncontributory SH: Smokes approximately 1PPD for over 30 years, denies alcohol or drug usage. Lives in [place] alone. Son is primary mental hygiene consultant. ALL: NKDA Meds: See MAR Review of Systems - Constitutional Constitutional: absent: Chills, Fever, Weakness - EENT Eyes: absent: Blurred Vision, Change in Vision Nose/Mouth/Throat: absent: Nasal Congestion, Nasal Discharge - Cardiovascular Cardiovascular: absent: Chest Pain, Dyspnea - Respiratory Respiratory: Cough, Hemoptysis - Gastrointestinal Gastrointestinal: absent: Abdominal Pain, Melena, Nausea, Vomiting - Genitourinary Genitourinary: absent: Difficulty Urinating, Dysuria - Musculoskeletal Musculoskeletal: absent: Back Pain, Neck Pain - Integumentary Integumentary: absent: Bleeding Lesions, Changing Lesions - Neurological Neurological: absent: Confusion, Dizziness - Psychiatric Psychiatric: absent: Anxiety, Depression Past Patient History - Infectious Disease Hx of Infectious Diseases: None - Past Social History Smoking Status: Former Smoker - CARDIAC Hx Hypercholesterolemia: Yes Hx Hypertension: Yes - PULMONARY Hx Respiratory Disorders: No - NEUROLOGICAL Hx Neurological Disorder: Yes (syncope) - HEENT Hx HEENT Problems: Yes (eyeglasses) - RENAL Hx Chronic Kidney Disease: No - ENDOCRINE/METABOLIC Hx Diabetes Mellitus Type 2: Yes - HEMATOLOGICAL/ONCOLOGICAL Hx Blood Disorders: No - INTEGUMENTARY Hx Dermatological Problems: Yes - MUSCULOSKELETAL/RHEUMATOLOGICAL Hx Falls: Yes Other/Comment: DVT in left leg - GASTROINTESTINAL Hx Gastrointestinal Disorders: No Hx Crohn's Disease: Yes - GENITOURINARY/GYNECOLOGICAL Hx Incontinence: Yes - PSYCHIATRIC Hx Psychophysiologic Disorder: No Hx Substance Use: No - SURGICAL HISTORY Other/Comment: R/T BLEEDING ULCER - ANESTHESIA Hx Anesthesia Reactions: No Meds Allergies/Adverse Reactions: Allergies Allergy/AdvReac Type Severity Reaction Status Date / Time No Known Allergies Allergy Verified 09/12/18 00:33 - Medications Medications: Current Medications Acetaminophen (Tylenol 325mg Tab) 650 mg PO Q6H PRN PRN Reason: Pain, moderate (4-7) Last Admin: 09/16/18 09:35 Dose: 650 mg Albuterol/Ipratropium (Duoneb 3 Mg/0.5 Mg (3 Ml) Ud) 3 ml IH [id number] [facility] Last Admin: 09/16/18 20:47 Dose: 3 ml Amlodipine Besylate (Norvasc) 10 mg PO DAILY [facility] Last Admin: 09/16/18 09:36 Dose: 10 mg Aspirin (Ecotrin) 81 mg PO DAILY [facility] Clonidine HCl (Catapres) 0.1 mg PO QID PRN PRN Reason: SBP above 150 Last Admin: 09/12/18 08:53 Dose: 0.1 mg Diltiazem HCl (Cardizem Cd) 240 mg PO DAILY [facility] Last Admin: 09/16/18 09:35 Dose: 240 mg Doxycycline Hyclate (Doryx) 100 mg PO Q12 [facility]; Protocol Stop: 09/24/18 22:01 Last Admin: 09/16/18 09:36 Dose: 100 mg Hydralazine HCl (Apresoline) 50 mg PO TID [facility] Last Admin: 09/16/18 17:17 Dose: 50 mg Sodium Bicarbonate 50 meq/ (Sodium Chloride) 1,050 mls @ 60 mls/hr IV .[id number] [facility] Last Admin: 09/16/18 17:18 Dose: 60 mls/hr Meropenem 250 mg/ Sodium (Chloride) 100 mls @ 100 mls/hr IVPB Q12H [facility]; Protocol Stop: 09/20/18 21:31 Last Admin: 09/16/18 09:36 Dose: 100 mls/hr Pantoprazole Sodium (Protonix Ec Tab) 40 mg PO 0630 [facility] Last Admin: 09/15/18 05:17 Dose: 40 mg Physical Exam - Constitutional Appears: Well, Non-toxic, No Acute Distress - Head Exam Head Exam: ATRAUMATIC, NORMAL INSPECTION, NORMOCEPHALIC - Eye Exam Eye Exam: EOMI - ENT Exam ENT Exam: Mucous Membranes Dry - Respiratory Exam Respiratory Exam: NORMAL BREATHING PATTERN. absent: Respiratory Distress - Cardiovascular Exam Cardiovascular Exam: REGULAR RHYTHM. absent: Tachycardia - GI/Abdominal Exam GI & Abdominal Exam: Normal Bowel Sounds, Soft. absent: Tenderness - Extremities Exam Extremities exam: Negative for: calf tenderness, joint swelling, pedal edema, tenderness, pedal pulses present Additional comments: Nonpalpable DP/PT pulses bilaterally, cool extremities No tenderness to palpation in the LE bilaterally - Neurological Exam Neurological exam: Alert - Psychiatric Exam Psychiatric exam: Normal Affect, Normal Mood - Skin Skin Exam: Dry, Intact, Normal Color, Warm Results - Vital Signs Recent Vital Signs: Last Vital Signs Temp 99.2 F 09/16/18 14:52 Pulse 76 09/16/18 17:17 Resp 20 09/16/18 14:52 BP 136/86 09/16/18 17:17 Pulse Ox 90 L 09/16/18 14:52 - Labs Result Diagrams: 09/16/18 07:30 09/16/18 07:30 Labs: Laboratory Results - last 24 hr 09/15/18 09/16/18 09/16/18 21:58 07:30 07:30 WBC 16.0 H RBC 3.12 L Hgb 9.0 L Hct 26.4 L MCV 84.6 MCH 28.8 MCHC 34.1 RDW 14.5 Plt Count 241 MPV 9.6 Neut % (Auto) 92.8 H Lymph % (Auto) 3.4 L [place] % (Auto) 3.6 Eos % (Auto) 0.1 L Baso % (Auto) 0.1 Lymph # (Auto) 0.5 L [place] # (Auto) 0.6 Eos # (Auto) 0.0 Baso # (Auto) 0.01 Absolute Neuts (auto) 14.84 H Neutrophils % (Manual) 93 H Lymphocytes % (Manual) 3 L Monocytes % (Manual) 4 Sodium 136 Potassium 3.9 Chloride 106 Carbon Dioxide 20 L Anion Gap 13 BUN 88 H Creatinine 4.0 H Est GFR ( Amer) 13 Est GFR (Non-Af Amer) 11 Random Glucose 101 Calcium 8.1 L Iron TIBC % Saturation Ferritin Total Bilirubin 0.3 AST 16 ALT 12 Alkaline Phosphatase 53 Total Protein 6.2 Albumin 3.1 Globulin 3.1 Albumin/Globulin Ratio 1.0 L Procalcitonin 117.39 H Stool Occult Blood 09/16/18 09/16/18 09/16/18 11:00 11:00 18:00 WBC RBC Hgb Hct MCV MCH MCHC RDW Plt Count MPV Neut % (Auto) Lymph % (Auto) [place] % (Auto) Eos % (Auto) Baso % (Auto) Lymph # (Auto) [place] # (Auto) Eos # (Auto) Baso # (Auto) Absolute Neuts (auto) Neutrophils % (Manual) Lymphocytes % (Manual) Monocytes % (Manual) Sodium Potassium Chloride Carbon Dioxide Anion Gap BUN Creatinine Est GFR ( Amer) Est GFR (Non-Af Amer) Random Glucose Calcium Iron 17 L TIBC 194 L % Saturation 9 L Ferritin 181.0 Total Bilirubin AST ALT Alkaline Phosphatase Total Protein Albumin Globulin Albumin/Globulin Ratio Procalcitonin Stool Occult Blood Positive H Assessment & Plan - Assessment and Plan (Free Text) Assessment: 83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 Ramirez Wall PGY1 <Ghanshyam Guzmán - Last Filed: 09/17/18 11:29> Meds - Medications Medications: Current Medications Acetaminophen (Tylenol 325mg Tab) 650 mg PO Q6H PRN PRN Reason: Pain, moderate (4-7) Last Admin: 09/17/18 11:04 Dose: 650 mg Albuterol/Ipratropium (Duoneb 3 Mg/0.5 Mg (3 Ml) Ud) 3 ml IH [id number] Last Admin: 09/17/18 11:06 Dose: 3 ml Amlodipine Besylate (Norvasc) 10 mg PO DAILY [facility] Last Admin: 09/17/18 09:44 Dose: 10 mg Aspirin (Ecotrin) 81 mg PO DAILY [facility] Last Admin: 09/17/18 09:44 Dose: 81 mg Clonidine HCl (Catapres) 0.1 mg PO QID PRN PRN Reason: SBP above 150 Last Admin: 09/12/18 08:53 Dose: 0.1 mg Diltiazem HCl (Cardizem Cd) 240 mg PO DAILY [facility] Last Admin: 09/17/18 09:44 Dose: 240 mg Doxycycline Hyclate (Doryx) 100 mg PO Q12 [facility]; Protocol Stop: 09/24/18 22:01 Last Admin: 09/17/18 09:43 Dose: 100 mg Hydralazine HCl (Apresoline) 50 mg PO TID [facility] Last Admin: 09/17/18 09:44 Dose: 50 mg Sodium Bicarbonate 50 meq/ (Sodium Chloride) 1,050 mls @ 60 mls/hr IV .[id number] [facility] Last Admin: 09/17/18 09:45 Dose: 60 mls/hr Meropenem 250 mg/ Sodium (Chloride) 100 mls @ 100 mls/hr IVPB Q12H [facility]; Protocol Stop: 09/20/18 21:31 Last Admin: 09/17/18 09:44 Dose: 100 mls/hr Pantoprazole Sodium (Protonix Ec Tab) 40 mg PO 0630 [facility] Last Admin: 09/15/18 05:17 Dose: 40 mg Results - Vital Signs Recent Vital Signs: Last Vital Signs Temp 98.7 F 09/17/18 06:00 Pulse 69 09/17/18 09:44 Resp 18 09/17/18 06:00 BP 152/65 H 09/17/18 09:44 Pulse Ox 91 L 09/17/18 06:00 - Labs Result Diagrams: 09/17/18 06:20 09/17/18 06:20 Labs: Laboratory Results - last 24 hr 09/15/18 09/16/18 09/16/18 21:58 11:00 11:00 WBC RBC Hgb Hct MCV MCH MCHC RDW Plt Count MPV PT INR APTT Sodium Potassium Chloride Carbon Dioxide Anion Gap BUN Creatinine Est GFR ( Amer) Est GFR (Non-Af Amer) Random Glucose Calcium Phosphorus TIBC 194 L % Saturation 9 L Ferritin 181.0 Total Bilirubin AST ALT Alkaline Phosphatase Total Protein Albumin Globulin Albumin/Globulin Ratio Procalcitonin 117.39 H Stool Occult Blood 09/16/18 09/17/18 09/17/18 18:00 06:20 06:20 WBC 15.3 H RBC 3.15 L Hgb 8.8 L Hct 26.7 L MCV 84.8 MCH 27.9 MCHC 33.0 RDW 14.4 Plt Count 268 MPV 9.5 PT INR APTT Sodium 136 Potassium 3.7 Chloride 106 Carbon Dioxide 22 Anion Gap 13 BUN 84 H Creatinine 4.0 H Est GFR ( Amer) 13 Est GFR (Non-Af Amer) 11 Random Glucose 82 Calcium 8.6 Phosphorus 4.4 TIBC % Saturation Ferritin Total Bilirubin 0.3 AST 22 ALT 9 Alkaline Phosphatase 59 Total Protein 6.4 Albumin 3.2 Globulin 3.2 Albumin/Globulin Ratio 1.0 L Procalcitonin Stool Occult Blood Positive H 09/17/18 06:20 WBC RBC Hgb Hct MCV MCH MCHC RDW Plt Count MPV PT 15.6 H INR 1.38 APTT 30.3 Sodium Potassium Chloride Carbon Dioxide Anion Gap BUN Creatinine Est GFR ( Amer) Est GFR (Non-Af Amer) Random Glucose Calcium Phosphorus TIBC % Saturation Ferritin Total Bilirubin AST ALT Alkaline Phosphatase Total Protein Albumin Globulin Albumin/Globulin Ratio Procalcitonin Stool Occult Blood Assessment & Plan - Assessment and Plan (Free Text) Plan: Hem-Onc rerco IVC Filter NOT Coumadin DVT PAD Eval in progress OR Delayed by aspir pneumoniaThis consult done under my direct supervision Thong Guzmán MD FACS
--- NOTE | 2018-09-16 21:55 | PN ---
DATE: 09/16/2018 SUBJECTIVE: The patient is 83 years old. Seen and examined. Still had cough, congestion, scanty phlegm upon expectorating but felt fine. PHYSICAL EXAMINATION: VITAL SIGNS: The patient is afebrile. Pulse 79, respirations 20, blood pressure 133/49. LUNGS: Bilateral soft crackles in upper lung region. HEART: S1 and S2 audible. ABDOMEN: Soft, nontender. No rebound. No guarding. NEUROLOGICAL: The patient is awake and alert, able to communicate. LABORATORY DATA: WBC of 16, hemoglobin 9, hematocrit 26.4, platelets 241. Chemistry: Sodium 136, potassium 3.9, chloride 106, CO2 of 20, BUN 88, creatinine 4, blood sugar of 101. Procalcitonin . CT scan of the chest, bilateral pneumonia. Renal ultrasound, bilateral simple cysts. ASSESSMENT: 1. Bilateral pneumonia. 2. Hemoptysis. 3. History of deep venous thrombosis. PLAN: The patient was on Coumadin for almost two years. Discussed with Dr. Frausto. We will discontinue Coumadin. We will put her on Plavix and aspirin. Continue her on IV fluids. She is on meropenem and doxycycline as per ID recommendation. Continue nebulizer treatment. Discuss with Dr. Guzmán. Plan for inferior vena cava filter. We will start her on Plavix after IVC placement. Torrie Adamson MD
[2018-09-17] MEDS: Albuterol-Ipratrop 3 mg / 0.5 (3 ml) UD IH SCH ×6 (00:30→20:50)
[2018-09-17 06:48] LABS: HEMOGLOBIN 8.8 g/dL (12.0-16.0); MEAN CELL VOLUME 84.8 fl (80.0-105.0); MEAN CORPUSCULAR HEMOGLOBIN 27.9 pg (25.0-35.0); MEAN PLATELET VOLUME 9.5 fl (7.0-11.0); RBC 3.15 10^6/uL (3.5-6.1); RED CELL DISTRIBUTION WIDTH 14.4 % (11.5-14.5); WHITE BLOOD COUNT 15.3 10^3/uL (4.5-11.0)
[2018-09-17 06:52] LABS: INR 1.38; PARTIAL THROMBOPLASTIN TIME 30.3 Seconds (26.9-38.3); PROTHROMBIN TIME 15.6 SECONDS (9.4-12.5)
[2018-09-17 07:06] LABS: ALBUMIN 3.2 g/dL (3.0-4.8); CALCIUM 8.6 mg/dL (8.4-10.5)
--- NOTE | 2018-09-17 08:49 | RAD ---
Date of service: 09/16/2018 HISTORY: f/u pneumonia COMPARISON: 09/10/2016 TECHNIQUE: Chest PA and lateral FINDINGS: LUNGS: There is dense consolidation in the right upper lobe consistent with pneumonia. There is also an infiltrate at the right lung base. PLEURA: No significant pleural effusion identified. No pneumothorax apparent. CARDIOVASCULAR: Aortic calcification Mild cardiomegaly no pulmonary vascular congestion. OSSEOUS STRUCTURES: No significant abnormalities. VISUALIZED UPPER ABDOMEN: Normal. OTHER FINDINGS: None. IMPRESSION: There is dense consolidation in the right upper lobe consistent with pneumonia. There is also an infiltrate at the right lung base.
--- NOTE | 2018-09-17 09:02 | CP.PCM.PN ---
Subjective - Date & Time of Evaluation Date of Evaluation: 09/17/18 Time of Evaluation: 08:59 - Subjective Subjective: Surgery Progress Note for Dr. Guzmán S/E at bedside. Sleeping comfortably prior to examination. No acute complaints. Denied fevers, cp, sob, n/v, constipation or diarrhea, and dysuria. Objective - Vital Signs/Intake and Output Vital Signs (last 24 hours): Temp Pulse Resp BP Pulse Ox 98.7 F 69 18 152/65 H 91 L 09/17/18 06:00 09/17/18 06:00 09/17/18 06:00 09/17/18 06:00 09/17/18 06:00 Intake and Output: 09/17/18 09/17/18 06:59 18:59 Intake Total 120 Balance 120 - Medications Medications: Current Medications Acetaminophen (Tylenol 325mg Tab) 650 mg PO Q6H PRN PRN Reason: Pain, moderate (4-7) Last Admin: 09/16/18 09:35 Dose: 650 mg Albuterol/Ipratropium (Duoneb 3 Mg/0.5 Mg (3 Ml) Ud) 3 ml IH [id number] [facility] Last Admin: 09/17/18 07:39 Dose: 3 ml Amlodipine Besylate (Norvasc) 10 mg PO DAILY [facility] Last Admin: 09/16/18 09:36 Dose: 10 mg Aspirin (Ecotrin) 81 mg PO DAILY [facility] Clonidine HCl (Catapres) 0.1 mg PO QID PRN PRN Reason: SBP above 150 Last Admin: 09/12/18 08:53 Dose: 0.1 mg Diltiazem HCl (Cardizem Cd) 240 mg PO DAILY [facility] Last Admin: 09/16/18 09:35 Dose: 240 mg Doxycycline Hyclate (Doryx) 100 mg PO Q12 [facility]; Protocol Stop: 09/24/18 22:01 Last Admin: 09/16/18 23:04 Dose: 100 mg Hydralazine HCl (Apresoline) 50 mg PO TID [facility] Last Admin: 09/16/18 17:17 Dose: 50 mg Sodium Bicarbonate 50 meq/ (Sodium Chloride) 1,050 mls @ 60 mls/hr IV .[id number] [facility] Last Admin: 09/16/18 17:18 Dose: 60 mls/hr Meropenem 250 mg/ Sodium (Chloride) 100 mls @ 100 mls/hr IVPB Q12H [facility]; Protocol Stop: 09/20/18 21:31 Last Admin: 09/16/18 23:04 Dose: 100 mls/hr Pantoprazole Sodium (Protonix Ec Tab) 40 mg PO 0630 [facility] Last Admin: 09/15/18 05:17 Dose: 40 mg - Labs Labs: 09/17/18 06:20 09/17/18 06:20 PT 15.6 SECONDS (9.4-12.5) H 09/17/18 06:20 INR 1.38 09/17/18 06:20 APTT 30.3 Seconds (26.9-38.3) 09/17/18 06:20 - Constitutional Appears: Non-toxic, No Acute Distress - Head Exam Head Exam: NORMAL INSPECTION, NORMOCEPHALIC - Eye Exam Eye Exam: EOMI. absent: Nystagmus, Scleral icterus - Respiratory Exam Respiratory Exam: NORMAL BREATHING PATTERN. absent: Respiratory Distress - Cardiovascular Exam Cardiovascular Exam: absent: JVD - GI/Abdominal Exam GI & Abdominal Exam: Soft. 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 Guzmán PGY-1 Juan David Castaneda
[2018-09-17] MEDS: diltiaZEM 240 mg/24 Hours CD Cap PO SCH (09:44)
--- NOTE | 2018-09-17 11:26 | CP.PCM.PCO ---
Physician Communication Note - Physician Communication Note Physician Communication Note: IVC Filter on hold today-Pneumo trevor(?Aspir)resolving
--- NOTE | 2018-09-17 15:45 | PN ---
DATE: 09/17/2018 SUBJECTIVE: The patient is 83-year-old, seen and examined. Fully awake, alert, oriented and communicative. According to nurse she ate well this morning. Still has productive cough. PHYSICAL EXAMINATION: VITAL SIGNS: She is afebrile. Pulse 69, respiration 18 and blood pressure 152/65. LUNGS: Bilateral fair airflow. Soft crackle in bilateral upper lung region. HEART: S1 and S2, audible. ABDOMEN: Soft and nontender. No rebound. No guarding. NEUROLOGIC: She is awake, alert and able to communicate. LABORATORY DATA: WBC 15.6, hemoglobin 8.8, hematocrit 26.7 and platelet 268. Her PT is 15.6 and INR 1.38. Chemistry; sodium 136, potassium 3.7, chloride 106, CO2 of 22, BUN 84, creatinine 4.0 and blood sugar 82. Urine has beta hemolytic Streptococcus group B. Blood cultures are negative. ASSESSMENT: 1. Bilateral pneumonia. 2. Supratherapeutic INR. 3. Acute on chronic renal failure. 4. Hypertension. PLAN: We will continue the patient on hydralazine and diltiazem. She is on doxycycline. Continue nebulizer treatment. Continue meropenem. We will continue current medical treatment. We will followup arterial and venous Doppler. Then, we will make plan for the choice of anticoagulation, because DVT has resolved. She might benefit from IVC, otherwise we have to put her on anticoagulation. Torrie Adamson MD
--- NOTE | 2018-09-17 16:41 | US ---
PROCEDURE: Lower extremity DEDE exam HISTORY: Peripheral vascular disease with ischemic rest pain. Smoker. Diabetes. PHYSICIAN(S): Michael Brown MD. FINDINGS: The resting DEDE's are severely abnormal: Right, 0.42 and left, 0.3 The brachial systolic pressures are symmetric. The high thigh PVR waveforms are relatively normal and symmetric. However, there is a significant gradient between the high thigh pressures, lower on the left. This is suggestive of left iliac and/or common femoral artery disease The calf PVR waveforms are very blunted bilaterally. This is consistent with bilateral SFA disease. There are significant gradients across both knees. In addition the ankle and metatarsal waveforms are severely blunted and nearly flat. This is consistent with bilateral popliteal, trifurcation, and/or tibial disease IMPRESSION: 1. Severely abnormal ABIs at rest. 2. Bilateral SFA occlusive disease. 3. Bilateral popliteal, trifurcation, and/or tibial disease. 4. Left iliac and/or common femoral artery disease. 5. If clinically indicated, further evaluation with MRA with gadolinium runoff, CTA runoff, or conventional arteriography can be considered
--- NOTE | 2018-09-17 17:28 | US ---
HISTORY: Leg pain and swelling. Evaluate for DVT PHYSICIAN(S): Michael Brown MD. TECHNIQUE: Duplex sonography and color-flow Doppler with graded compression were used to evaluate the deep venous systems of both lower extremities. The exam is somewhat limited by edema FINDINGS: The visualized deep venous systems of both lower extremities are sonographically normal and compressible. Normal wave forms and augmentation are seen. There is no sonographic evidence for deep venous thrombosis in the visualized segments of both lower extremities. IMPRESSION: No sonographic evidence for deep venous thrombosis in the visualized segments of both lower extremities.
--- NOTE | 2018-09-17 17:34 | PN ---
DATE: 09/17/2018 SUBJECTIVE: The patient is currently seen on 5R. She appears to be comfortable lying supine in bed. She continues on IV fluid with sodium bicarbonate and continues on IV antibiotics for her bilateral multi lobe pneumonia. The patient's creatinine remains stable at 4.0, her baseline creatinine is in the upper 1 range. Her BUN is 84. Her baseline BUN is in the 20-30 range. MEDICATIONS: Medication list reviewed. The patient is currently on hydralazine, Cardizem, clonidine, doxycycline, DuoNeb, Ecotrin, meropenem, Norvasc, Protonix, IV fluid with sodium bicarbonate, and Tylenol p.r.n. OBJECTIVE INTAKE/OUTPUT: Intake is 420, output is 100, which would be a significant fall in urine output if correct. VITAL SIGNS: Blood pressure 152/65, temperature 98.7, respiratory rate 18 with a pulse of 69 and a pulse ox of 91%. HEENT: Shows her to be normocephalic, atraumatic. Conjunctivae are pale. Sclerae are nonicteric. NECK: Supple. No neck vein distention. CHEST: Decreased breath sounds with scattered rhonchi and rales bilaterally. No wheezing. CARDIOVASCULAR: Shows a regular rate and rhythm with a soft systolic murmur left lower sternal border. Positive AI/MR. No ST, no S4, no rub. ABDOMEN: Soft. Bowel sounds normal. No rebound, guarding or masses. EXTREMITIES: Show no lower extremity edema. No cyanosis or clubbing. LABORATORY DATA AND IMAGING: CBC; white blood cell count today slightly improved at 15.3, hemoglobin low at 8.8 with a platelet count of 268,000. Chemistries show a BUN of 84 with a creatinine of 4.0. Her CO2 is slightly improved at 22 up from 17 with sodium bicarbonate and her IV fluids. Glucose is 82. Calcium is 8.6 with a phosphorus of 4.4, iron saturations were low at 9%. Urine is negative for eosinophils. Fractional excretion of sodium is greater than 1%. Screen for vasculitis; negative ABBEY, negative ANCA titers, C3 and C4 are normal. Legionella pneumophila antigen is negative. HIV is negative. Blood cultures are negative. Urine is positive for beta-hemolytic strep. ASSESSMENT 1. Acute renal failure in a patient with a history of chronic kidney disease, stage III. This is in the setting of multi lobe pneumonia. There does not appear to be any evidence at this point in time for vasculitis or anti-GBM. Titer is pending. Possible acute tubular necrosis. No evidence for acute interstitial nephritis. 2. Metabolic acidosis. Right now, we will continue the patient on IV fluid with sodium bicarbonate as her CO2 level continues to improve. Her potassium levels have remained normal with correction of the acidosis. 3. Chronic kidney disease, stage III, baseline. 4. History of hypertension, controlled on calcium channel wily therapy. 5. History of noninsulin-dependent diabetes mellitus. The patient is on no medication. 6. History of severe anemia. No evidence for gastrointestinal bleeding. Stool guaiacs were requested, but not done. Her iron saturations are low at 9%. The patient may start iron supplements. The patient will receive Aranesp to help raise her hemoglobin to the 9-10 range. 7. History of dementia, stable. 8. History of deep venous thrombosis with a recent history of anticoagulation. 9. History of aortic insufficiency, mitral regurgitation. 10. 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 11. 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 12. Status post isolated episode of hemoptysis, likely secondary to coagulopathy with pneumonia. Again, no evidence for vasculitis presently. PLAN 1. We will continue the patient on IV fluids, continue to monitor her urine output. Hope to see an improvement in her urine output as the last 24-hour total was charted at 100 ml. 2. Still awaiting for stool occult blood studies. 3. Continue IV fluid with sodium bicarbonate. 4. Followup with anti-GBM titers. 5. Avoid all nephrotoxic agents. 6. Hoping disease stability of her BUN and creatinine with fall back to her baseline levels. 7. We will start the patient on iron and Aranesp. The patient may receive IV Venofer as her blood cultures to date are negative. Roderick Faith MD
[2018-09-18] MEDS: Albuterol-Ipratrop 3 mg / 0.5 (3 ml) UD IH SCH ×6 (00:46→19:25)
--- NOTE | 2018-09-18 00:59 | PN ---
DATE: 09/17/2018 LOCATION: Room 577, bed 1. SUBJECTIVE: The patient is in bed, in no acute distress. PHYSICAL EXAMINATION: VITAL SIGNS: Temperature is 98, blood pressure is 150/60, respiratory rate of 18. HEENT: Unremarkable. NECK: Supple. LUNGS: Have decreased breath sounds. HEART: Normal S1, S2. ABDOMEN: Soft. LABORATORY DATA: Laboratory examination reveals a white count of 15,300, BUN 84, creatinine of 4. Urinalysis is noted. Urine for Legionella antigen is negative. Microbiology reveals a group B strep, resistant to clindamycin and sensitive to ampicillin, penicillin. The patient had an ultrasound of the lower extremities, normal ABIs at rest. Review of medications reveals the patient is on doxycycline and meropenem. 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 Currently on p.o. doxycycline and intravenous meropenem day #2. Concerned about the leukocytosis still. HIV is negative and urine Legionella is negative. Procalcitonin of 117.39, however, with a creatinine of 4. We will follow the WBCs and make further recommendations. Urbano Herring MD
[2018-09-18] MEDS: Pantoprazole 40 mg EC Tab PO SCH (06:39)
[2018-09-18 07:54] LABS: HEMOGLOBIN 8.5 g/dL (12.0-16.0); MEAN CELL VOLUME 86.4 fl (80.0-105.0); MEAN CORPUSCULAR HEMOGLOBIN 28.2 pg (25.0-35.0); MEAN CORPUSCULAR HGB CONC 32.7 g/dl (31.0-37.0); MEAN PLATELET VOLUME 9.5 fl (7.0-11.0); RBC 3.01 10^6/uL (3.5-6.1); RED CELL DISTRIBUTION WIDTH 14.5 % (11.5-14.5); WHITE BLOOD COUNT 9.5 10^3/uL (4.5-11.0)
[2018-09-18 08:16] LABS: CALCIUM 8.4 mg/dL (8.4-10.5)
[2018-09-18] MEDS ORDERED: Darbepoetin Alfa 60 mcg/ml Inj SC ONE (10:00)
[2018-09-18] MEDS: diltiaZEM 240 mg/24 Hours CD Cap PO SCH (10:13)
--- NOTE | 2018-09-18 10:34 | PN ---
DATE: 09/18/2018 UPDATED REPORT LOCATION: Room 577, bed 2. SUBJECTIVE: Right shoulder discomfort is much better; no effusion and Coumadin level has been corrected. Otherwise, the patient is doing well; no complaint of right shoulder pain. Just do mild physical therapy. Phoenix Zee DO
--- NOTE | 2018-09-18 11:03 | PN ---
DATE: 09/18/2018 SUBJECTIVE: The patient is in bed, in no acute distress, was seen earlier today in 570. PHYSICAL EXAMINATION: VITAL SIGNS: Temperature is 99, blood pressure is 150/70, respiratory rate 16. HEENT: Unremarkable. NECK: Supple. LUNGS: Have decreased breath sounds. HEART: Normal S1, S2. ABDOMEN: Soft, nontender. LABORATORY DATA: The patient's microbiology is a group B strep in the urine, beta-hemolytic strep and resistant to clindamycin. The patient's white count of 15,000 from yesterday is reviewed. This morning's white count is pending. Creatinine is 4. Procalcitonin is elevated to 117. Review of orders reveals the patient to be on doxycycline, meropenem. The patient had an ultrasound of the extremities, shows severe abnormal ABIs at rest. ASSESSMENT AND PLAN: This is an 83-year-old female with hypertension, diabetes, peripheral vascular disease, deep vein thrombosis, concentric left ventricular hypertrophy, aortic and mitral valve regurgitation, left heel ulcer, coagulase-negative Staphylococcus, found to have a CAT scan that demonstrated pneumonia after 2 days of admission, with alveolar, admitted with bilateral community-acquired pneumonia, acute kidney injury on top of chronic kidney injury and stage 4 kidney disease with a history of deep vein thrombosis and a supratherapeutic INR, hypertension, diabetes. Currently on p.o. doxycycline and IV meropenem day #3. We will follow the white count and make further recommendations. Urbano Herring MD
--- NOTE | 2018-09-18 17:44 | CP.PCM.PN ---
Subjective - Date & Time of Evaluation Date of Evaluation: 09/18/18 Time of Evaluation: 16:00 - Subjective Subjective: Providing nephrology coverage for Dr. Faith: 83F, w/ pmh of Dementia, DVT, HTN, HLD, DM, and CKD IIIB/IV, admitted with BREANA; Not eating as much lately per nursing staff; Objective - Vital Signs/Intake and Output Vital Signs (last 24 hours): Temp Pulse Resp BP Pulse Ox 98.0 F 69 16 135/86 92 L 09/18/18 14:00 09/18/18 17:36 09/18/18 14:00 09/18/18 17:36 09/18/18 14:00 Intake and Output: 09/18/18 09/18/18 06:59 18:59 Intake Total 960 240 Balance 960 240 - Medications Medications: Current Medications Acetaminophen (Tylenol 325mg Tab) 650 mg PO Q6H PRN PRN Reason: Pain, moderate (4-7) Last Admin: 09/18/18 17:35 Dose: 650 mg Albuterol/Ipratropium (Duoneb 3 Mg/0.5 Mg (3 Ml) Ud) 3 ml IH [id number] [facility] Last Admin: 09/18/18 14:33 Dose: 3 ml Amlodipine Besylate (Norvasc) 10 mg PO DAILY [facility] Last Admin: 09/18/18 10:12 Dose: 10 mg Aspirin (Ecotrin) 81 mg PO DAILY [facility] Last Admin: 09/18/18 10:13 Dose: 81 mg Clonidine HCl (Catapres) 0.1 mg PO QID PRN PRN Reason: SBP above 150 Last Admin: 09/12/18 08:53 Dose: 0.1 mg Diltiazem HCl (Cardizem Cd) 240 mg PO DAILY [facility] Last Admin: 09/18/18 10:13 Dose: 240 mg Doxycycline Hyclate (Doryx) 100 mg PO Q12 [facility]; Protocol Stop: 09/24/18 22:01 Last Admin: 09/18/18 10:12 Dose: 100 mg Hydralazine HCl (Apresoline) 50 mg PO TID [facility] Last Admin: 09/18/18 17:36 Dose: 50 mg Sodium Bicarbonate 50 meq/ (Sodium Chloride) 1,050 mls @ 60 mls/hr IV .[id number] [facility] Last Admin: 09/18/18 10:14 Dose: 60 mls/hr Meropenem 250 mg/ Sodium (Chloride) 100 mls @ 100 mls/hr IVPB Q12H [facility]; Protocol Stop: 09/20/18 21:31 Last Admin: 09/18/18 10:12 Dose: 100 mls/hr Pantoprazole Sodium (Protonix Ec Tab) 40 mg PO 0630 [facility] Last Admin: 09/18/18 06:39 Dose: 40 mg - Labs Labs: 09/18/18 07:45 09/18/18 07:00 PT 15.6 SECONDS (9.4-12.5) H 09/17/18 06:20 INR 1.38 09/17/18 06:20 APTT 30.3 Seconds (26.9-38.3) 09/17/18 06:20 - Constitutional Appears: Non-toxic, No Acute Distress - Eye Exam Eye Exam: Normal appearance - Respiratory Exam Respiratory Exam: Clear to Ausculation Bilateral. absent: Respiratory Distress - Cardiovascular Exam Cardiovascular Exam: RRR, +S1, +S2 - GI/Abdominal Exam GI & Abdominal Exam: Soft. absent: Distended, Tenderness - Extremities Exam Additional comments: mild leg edema - Neurological Exam Neurological Exam: Alert, Awake - Psychiatric Exam Psychiatric exam: absent: Agitated - Skin Skin Exam: Warm. absent: Cyanosis Assessment and Plan (1) Acute kidney injury superimposed on CKD Assessment & Plan: BREANA on CKD IIIB/IV (eGFR 20 ml/min in Mar 2018); etiology not entirely clear; does have 2+ proteinuria on UA; slight improvement in renal function since yesterday; relatively stable volume and electrolyte status but decreased appet ite may reflect uremic symptoms; no definite indication for initiating dialysis at this time; -continue gentle IVF since patient not eating much; -avoid nephrotoxic agents; -obtaining random urine to assess total protein/creatinine; Status: Acute (2) Hypertensive chronic kidney disease Assessment & Plan: SBP consistently in 150's; will increase hydralazine to 75 mg tid, continue cardizem and norvasc; Status: Acute (3) Anemia in CKD (chronic kidney disease) Assessment & Plan: Hgb below goal, getting dose of aranesp today; starting IV iron loading; Status: Acute
[2018-09-19] MEDS: Albuterol-Ipratrop 3 mg / 0.5 (3 ml) UD IH SCH ×6 (00:56→20:14)
[2018-09-19] MEDS: Pantoprazole 40 mg EC Tab PO SCH (06:24)
[2018-09-19 07:34] LABS: HEMOGLOBIN 8.8 g/dL (12.0-16.0); MEAN CELL VOLUME 86.4 fl (80.0-105.0); MEAN CORPUSCULAR HEMOGLOBIN 27.8 pg (25.0-35.0); MEAN CORPUSCULAR HGB CONC 32.1 g/dl (31.0-37.0); MEAN PLATELET VOLUME 9.3 fl (7.0-11.0); RBC 3.17 10^6/uL (3.5-6.1); RED CELL DISTRIBUTION WIDTH 14.3 % (11.5-14.5); WHITE BLOOD COUNT 7.9 10^3/uL (4.5-11.0)
[2018-09-19 08:02] LABS: ALBUMIN 3.1 g/dL (3.0-4.8); CALCIUM 8.6 mg/dL (8.4-10.5)
[2018-09-19] MEDS: diltiaZEM 240 mg/24 Hours CD Cap PO SCH (10:51)
--- NOTE | 2018-09-19 15:23 | PN ---
DATE: 09/19/2018 SUBJECTIVE: The patient is in bed in no acute distress, nontoxic. PHYSICAL EXAMINATION VITAL SIGNS: On exam, temperature is 97, blood pressure is 150/60 and respiratory rate of 18. HEENT: Unremarkable. NECK: Supple. LUNGS: Have decreased breath sounds. HEART: Normal S1 and S2. ABDOMEN: Soft. LABORATORY EXAMINATION: Reveals a white count of 7.9, and hemoglobin of 8. Chemistries reveals creatinine is 3.8. The patient did have a procalcitonin of 117. Urinalysis is noted and immunology is noted. HIV is negative. Urine for Legionella antigen is negative. Microbiology reveals urine is positive for group B beta hemolytic strep. Blood cultures are no growth. ASSESSMENT AND PLAN: This is an 83-year-old female with hypertension, diabetes, peripheral vascular disease, deep venous thrombosis, concentric left ventricular hypertrophy, aortic and mitral valve regurgitation, left heel ulcer, coag-negative Staphylococcus, found to have a CT scan demonstrated pneumonia after 2 days of admission with alveolar infiltrates admitted with bilateral community-acquired pneumonia and acute kidney injury on top of chronic kidney injury, stage IV kidney disease, history of deep venous thrombosis. Currently on p.o. doxycycline and meropenem day #4, would complete 4-7 days of antibiotics, today is day #4 of 4-7 days of antibiotics. Urbano Herring MD
--- NOTE | 2018-09-19 18:37 | RAD ---
Date of service: 09/19/2018 HISTORY: preop COMPARISON: Chest radiographs 09/16/2018. FINDINGS: LUNGS: No interval change in right upper lobe infiltrate. Right hemidiaphragm is obscured which may reflect atelectasis though added infiltrate is not excluded here as well. No left-sided infiltrate appreciable. Bilateral punctate granulomata scattered diffusely once again. PLEURA: No significant pleural effusion identified, no pneumothorax apparent. CARDIOVASCULAR: Calcific atherosclerotic changes are seen related to the thoracic aorta. Stable mild cardiomegaly. No pulmonary vascular congestion. OSSEOUS STRUCTURES: No significant abnormalities. VISUALIZED UPPER ABDOMEN: Normal. OTHER FINDINGS: None. IMPRESSION: No interval change in right upper lobe infiltrate. Atelectasis versus added infiltrate minimally noted right base.
--- NOTE | 2018-09-19 21:33 | CP.PCM.PN ---
Subjective - Date & Time of Evaluation Date of Evaluation: 09/19/18 Time of Evaluation: 17:00 - Subjective Subjective: Providing nephrology coverage for Dr. Faith: 83F, w/ pmh of Dementia, DVT, HTN, HLD, DM, and CKD IIIB/IV, admitted with pneumonia, BREANA; Consuming about half of her meal per nursing staff; still with dyspnea at times; reports urinating normally; Objective - Vital Signs/Intake and Output Vital Signs (last 24 hours): Temp Pulse Resp BP Pulse Ox 98.3 F 70 22 156/85 H 92 L 09/19/18 14:00 09/19/18 14:48 09/19/18 14:00 09/19/18 14:48 09/19/18 14:00 - Medications Medications: Current Medications Acetaminophen (Tylenol 325mg Tab) 650 mg PO Q6H PRN PRN Reason: Pain, moderate (4-7) Last Admin: 09/18/18 22:04 Dose: 650 mg Albuterol/Ipratropium (Duoneb 3 Mg/0.5 Mg (3 Ml) Ud) 3 ml IH [id number] [facility] Last Admin: 09/19/18 20:14 Dose: 3 ml Amlodipine Besylate (Norvasc) 10 mg PO DAILY [facility] Last Admin: 09/19/18 10:51 Dose: 10 mg Aspirin (Ecotrin) 81 mg PO DAILY [facility] Last Admin: 09/19/18 10:51 Dose: 81 mg Clonidine HCl (Catapres) 0.1 mg PO QID PRN PRN Reason: SBP above 150 Last Admin: 09/12/18 08:53 Dose: 0.1 mg Diltiazem HCl (Cardizem Cd) 240 mg PO DAILY [facility] Last Admin: 09/19/18 10:51 Dose: 240 mg Doxycycline Hyclate (Doryx) 100 mg PO Q12 [facility]; Protocol Stop: 09/24/18 22:01 Last Admin: 09/19/18 10:51 Dose: 100 mg Hydralazine HCl (Apresoline) 75 mg PO Q8 [facility] Meropenem 250 mg/ Sodium (Chloride) 100 mls @ 100 mls/hr IVPB Q12H [facility]; Protocol Stop: 09/20/18 21:31 Last Admin: 09/19/18 10:52 Dose: 100 mls/hr Iron Sucrose 100 mg/ Sodium (Chloride) 105 mls @ 210 mls/hr IVPB DAILY [facility] Stop: 09/28/18 10:29 Last Admin: 09/19/18 10:53 Dose: 210 mls/hr Pantoprazole Sodium (Protonix Ec Tab) 40 mg PO 0630 [facility] Last Admin: 09/19/18 06:24 Dose: 40 mg Warfarin Sodium (Coumadin) 3 mg PO 1800 [facility]; Protocol - Labs Labs: 09/19/18 07:00 09/19/18 07:00 PT 15.6 SECONDS (9.4-12.5) H 09/17/18 06:20 INR 1.38 09/17/18 06:20 APTT 30.3 Seconds (26.9-38.3) 09/17/18 06:20 - Constitutional Appears: Non-toxic, No Acute Distress - Eye Exam Eye Exam: Normal appearance - Respiratory Exam Respiratory Exam: absent: Respiratory Distress Additional comments: decreased breath sounds on R, clear on L; - Cardiovascular Exam Cardiovascular Exam: RRR, +S1, +S2 - GI/Abdominal Exam GI & Abdominal Exam: Soft. absent: Distended, Tenderness - Extremities Exam Additional comments: no leg edema; - Neurological Exam Neurological Exam: Alert, Awake - Psychiatric Exam Psychiatric exam: Normal Mood. absent: Agitated - Skin Skin Exam: Warm. absent: Cyanosis Assessment and Plan (1) Acute kidney injury superimposed on CKD Assessment & Plan: BREANA on advanced CKD; relatively stable renal function; stable electrolyte and volume status; no definite indication to initiate dialysis at this time; -avoid nephrotoxic agents; -avoid precipitous drops in BP; Status: Acute (2) Hypertensive chronic kidney disease Assessment & Plan: BP still elevated, should try to bring down BP closer to 140 systolic slowly; -stopping IVF; -increasing hydralazine to 75 mg q8h; Status: Acute (3) Anemia in CKD (chronic kidney disease) Assessment & Plan: Secondary to renal failure and component of iron deficiency; starting IV iron loading; Status: Acute
--- NOTE | 2018-09-19 23:03 | PN ---
DATE: 09/19/2018 SUBJECTIVE: The patient has no complaints. PHYSICAL EXAMINATION: VITAL SIGNS: Temperature is 98.3, pulse of 70, blood pressure is 156/85, and respiration is 22. GENERAL: The patient is lying in bed, flat, comfortable. HEENT: No oral lesion. Anicteric sclerae. Moist mucosa. NECK: No JVD, adenopathy, or thyromegaly. CARDIOVASCULAR: S1 and S2, regular. No murmurs, rubs, or gallops. LUNGS: Clear to auscultation bilaterally. No wheeze, rales, or rhonchi. ABDOMEN: Bowel sounds are positive, soft, nontender and nondistended. EXTREMITIES: No cyanosis, clubbing or edema. LABORATORY DATA: White count of 7.9, hemoglobin 8.8, and creatinine is 3.8. ASSESSMENT AND PLAN: 1. Bilateral community-acquired pneumonia. 2. Diabetes type 2. 3. Hypertension. 4. Peripheral arterial disease. 5. Acute kidney injury. 6. Anemia, iron deficiency. PLAN: The patient is currently comfortable. She is on clonidine and Norvasc for her hypertension. She is receiving IV iron because of iron deficiency. The patient is on doxycycline and antibiotics. She is on Protonix daily. The patient is on a heart-healthy diet. Hemoglobin is 8.8. The patient's creatinine remains stable at 3.8. The patient's Coumadin had been on hold because of an elevated INR. I will restart the patient's Coumadin. Gerard Sebastian MD
[2018-09-20] MEDS: Albuterol-Ipratrop 3 mg / 0.5 (3 ml) UD IH SCH ×6 (00:30→23:46)
[2018-09-20] MEDS: Pantoprazole 40 mg EC Tab PO SCH (05:37)
[2018-09-20 08:01] LABS: HEMOGLOBIN 8.5 g/dL (12.0-16.0); MEAN CELL VOLUME 87.2 fl (80.0-105.0); MEAN CORPUSCULAR HGB CONC 32.1 g/dl (31.0-37.0); MEAN PLATELET VOLUME 9.2 fl (7.0-11.0); RBC 3.04 10^6/uL (3.5-6.1); RED CELL DISTRIBUTION WIDTH 14.2 % (11.5-14.5); WHITE BLOOD COUNT 10.1 10^3/uL (4.5-11.0)
[2018-09-20 08:16] LABS: ALBUMIN 3.4 g/dL (3.0-4.8); CALCIUM 8.8 mg/dL (8.4-10.5)
--- NOTE | 2018-09-20 09:07 | PN ---
DATE: 09/18/2018 SUBJECTIVE: The patient is 83 years old, seen and examined, seems to be more alert, still has productive cough. No hemoptysis is noted. PHYSICAL EXAMINATION: VITAL SIGNS: She is afebrile. Pulse 60, respirations 20, blood pressure 153/54. LUNGS: Bilateral soft crackle in upper lung region. HEART: S1, S2 audible. ABDOMEN: Soft. Nontender. No rebound. No guarding. NEUROLOGIC: She is awake and alert. Able to communicate. A little hard of hearing. LABORATORY DATA: WBC 9.5, hemoglobin 8.5, hematocrit 26, and platelet 76. D-dimer 783. Chemistry; sodium 137, potassium 3.8, chloride 107, CO2 of 22, BUN 74, creatinine 3.8. Blood cultures are negative. ASSESSMENT: 1. Status post bilateral pneumonia. Currently on intravenous antibiotic and nebulizer treatment. 2. History of leg deep venous thrombosis. 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 3. Acute on chronic renal failure. 4. Anemia status post blood transfusion. PLAN: So the plan is currently the patient is on intravenous antibiotics. She is on nebulizer treatment. Currently she is on aspirin 81 mg daily. She is getting intravenous Venofer Thursday, Thursday and Thursday. We will continue on meropenem. She is on Norvasc and she is on gastrointestinal prophylaxis. Continue intravenous fluids. We will reevaluate the patient. Torrie Adamson MD
[2018-09-20] MEDS: diltiaZEM 240 mg/24 Hours CD Cap PO SCH (10:15)
--- NOTE | 2018-09-20 11:16 | CP.PCM.PCO ---
Physician Communication Note - Physician Communication Note Physician Communication Note: NO IVC Filter Now/RUL Infiltrate still present
--- NOTE | 2018-09-20 18:24 | PN ---
DATE: 09/20/2018 SUBJECTIVE: The patient is 83 years old, seen and examined, lying in bed, complaining of left lower quadrant discomfort, feeling gassy, she did not have bowel movements for two days. She has cough and congestion. PHYSICAL EXAMINATION: VITAL SIGNS: She is afebrile, pulse 82, respirations 18, blood pressure 145/58. LUNGS: Bilateral fair airflow. Soft crackle in upper lung region, right more than the left. HEART: S1, S2 audible. ABDOMEN: Soft. Nontender. No rebound. No guarding. NEUROLOGIC: The patient is awake and alert. Able to communicate. LABORATORY DATA: WBC 10.1, hemoglobin 8.5, hematocrit 26.5, and platelet 332. D-dimer 783. Chemistry; sodium 141, potassium 4.1, chloride 109, CO2 of 20, BUN 65, creatinine 4. Blood sugar 171. Vitamin D is less than 12. Blood cultures, urine cultures are negative. ASSESSMENT: 1. Bilateral upper lobe infiltrate, currently on antibiotics. 2. History of peripheral vascular disease. 3. History of deep venous thrombosis. 4. Acute on chronic renal failure. 5. History of hypertension. 6. Constipation. PLAN: Currently the patient is on hydralazine. She is on diltiazem. She is on clonidine. Continue her on doxycycline. Continue nebulizer treatment. She is getting meropenem. Out of bed to chair. We will reevaluate in the morning. If the patient is stable, she will be transferred to subacute rehab. Torrie Adamson MD
--- NOTE | 2018-09-20 21:37 | PN ---
DATE: 09/20/2018 SUBJECTIVE: The patient is in bed in no acute distress, nontoxic. PHYSICAL EXAMINATION VITAL SIGNS: Temperature is 98, blood pressure is 160/70, respiratory rate 16. HEENT: Unremarkable. NECK: Supple. CARDIOPULMONARY: Heart, normal S1, S2. LUNGS: Have decreased breath sounds. ABDOMEN: Soft. LABORATORY DATA: Reveals a white count is now 10,000, creatinine is 4. Urinalysis is noted. Serology HIV is negative. Urine for Legionella antigen is negative. Urine cultures noted to have beta strep. MEDICATIONS: Review of orders reveal the patient to be on doxycycline and meropenem. Dr. Ghanshyam Guzmán's communication report is noted. No IVC filter now. There is a right upper lobe infiltrate that is still present. Dr. Sebastian's note is reviewed. ASSESSMENT AND PLAN: An 83-year-old female with hypertension, diabetes, peripheral vascular ease, deep venous thrombosis, concentric left ventricular hypertrophy, aortic and mitral valve regurgitation, left heel ulcer, coagulase-negative staphylococcus and I have on CT scan pneumonia of 2 days with alveolar infiltrates with; 1. Bilateral community-acquired pneumonia with acute kidney injury on top of chronic kidney injury and stage IV kidney disease. 2. History of deep venous thrombosis, currently on doxycycline and meropenem day #5. Would complete 4 to 7 days of antibiotics. The patient's white count is improved. Urbano Herring MD
[2018-09-20] MEDS ORDERED: Darbepoetin Alfa 60 mcg/ml Inj SC ONE (21:43)
--- NOTE | 2018-09-21 02:25 | PN ---
DATE: 09/20/2018 SUBJECTIVE: The patient is seen lying in bed. She is awake. She alert. She is comfortable. She complains of pain in her belly. PHYSICAL EXAMINATION: GENERAL: Elderly lady, lying in bed. VITAL SIGNS: Blood pressure 160/62, heart rate 89, respiratory rate 18, temperature 97.6. HEENT: Normocephalic, atraumatic, positive pallor. NECK: Supple. No JVD. LUNGS: Bilateral equal air entry, bilateral equal expansion, scattered rhonchi. CARDIAC: S1 and S2, regular rate and rhythm. No murmur, no rub. ABDOMEN: Soft, nondistended, positive tenderness in the lower abdomen. EXTREMITIES: No lower extremity edema. LABORATORY DATA: WBC 10, hemoglobin 8.5, hematocrit 27, platelets 332. Sodium 141, potassium 4.1, chloride 109, CO2 of 20, BUN 65, creatinine 4, glucose 71, calcium 8.8. Blood cultures, no growth. Urine culture, beta-hemolytic Strep from 09/15/2018. CURRENT MEDICATIONS: Apresoline 75 every 8 hours, Cardizem 240, Catapres 0.1 four times daily p.r.n., Coumadin, doxycycline, aspirin, Venofer 100 mg IV piggyback daily, amlodipine 10, Protonix 40, Solu-Medrol 125 daily, meropenem 250 every 12 hours. ASSESSMENT: 1. Acute kidney injury superimposed on chronic kidney disease stage IV. 2. Pneumonia. 3. Severe anemia. 4. Hypertension. 5. [id number] diabetes mellitus. 6. History of deep venous thrombosis. 7. History of dementia. PLAN: 1. Stable renal parameters, somewhat improved. Avoid nephrotoxins. 2. Continue current antihypertensives. 3. Continue IV iron. 4. Aranesp 60 mcg subcu x1 dose. Samantha Rand MD
[2018-09-21] MEDS: Albuterol-Ipratrop 3 mg / 0.5 (3 ml) UD IH SCH ×5 (03:07→21:11)
[2018-09-21] MEDS: Pantoprazole 40 mg EC Tab PO SCH ×2 (06:27→06:29)
[2018-09-21 07:54] LABS: HEMOGLOBIN 8.1 g/dL (12.0-16.0); MEAN CELL VOLUME 87.8 fl (80.0-105.0); MEAN CORPUSCULAR HEMOGLOBIN 28.1 pg (25.0-35.0); MEAN PLATELET VOLUME 9.4 fl (7.0-11.0); RBC 2.88 10^6/uL (3.5-6.1); RED CELL DISTRIBUTION WIDTH 14.3 % (11.5-14.5); WHITE BLOOD COUNT 7.9 10^3/uL (4.5-11.0)
[2018-09-21 08:09] LABS: ALB/GLOB RATIO 1.1 (1.1-1.8); ALBUMIN 3.5 g/dL (3.0-4.8); CALCIUM 9.1 mg/dL (8.4-10.5)
[2018-09-21] MEDS: diltiaZEM 240 mg/24 Hours CD Cap PO SCH (09:42)
[2018-09-21] MEDS ORDERED: MethylPREDNISolone 40 mg Vial IVP SCH (10:00)
--- NOTE | 2018-09-21 12:20 | PN ---
DATE: 09/21/2018 SUBJECTIVE: The patient is currently seen on 5R. She appears to be comfortable lying in bed. She remains on oxygen. She is continuing her IV antibiotic therapy. She is off IV fluid hydration. It is not clear to me if she is taking in enough fluids orally. Her BUN has risen from 65 to 73. Her creatinine has risen from 4 to 4.4. Her CO2 level remains at 17. MEDICATIONS: Medication list reviewed. The patient is currently on hydralazine, Cardizem, clonidine, doxycycline, DuoNeb, Ecotrin, iron, Norvasc, Protonix, Risperdal, Solu-Medrol, and Tylenol p.r.n. OBJECTIVE: INTAKE: 640. OUTPUT: Not charted. VITAL SIGNS: Blood pressure 130/90, temperature 98.3, respiratory rate 18 with a pulse of 88. HEENT: Exam shows her to be normocephalic, atraumatic. Conjunctivae are pale. Sclerae nonicteric. NECK: No neck vein distention. Supple. CHEST: Decreased breath sounds with no rhonchi, wheezing or rales audible today. CARDIOVASCULAR: Regular rate and rhythm with a soft systolic murmur left lower sternal border. Positive AI/MR. No S3, no S4, no rub. ABDOMEN: Soft. Bowel sounds normal. No rebound, guarding or masses. EXTREMITIES: No lower extremity cyanosis, clubbing or edema. LABORATORY DATA: CBC; white blood cell count improved at 7.9, hemoglobin low at 8.1 but stable. Platelet count 391,000. Chemistries show normal sodium 141, potassium 4.7, CO2 is low at 17. BUN is 73 with a creatinine of 4.4. Glucose is 141. Liver enzymes are normal. Albumin is 3.5. Microbiology; urine cultures are positive for beta hemolytic strep group B. All other cultures were negative. Followup urine cultures were negative. All studies for possible vasculitis including anti-glomerular basement membrane antibody were negative. ASSESSMENT: 1. Acute renal failure superimposed on chronic kidney disease stage III. Her baseline BUN is in the 20-30 range with baseline creatinine in the upper 1 range. No evidence for vasculitis. This is all in the setting of bilateral pneumonia with possible acute renal failure secondary to acute tubular necrosis. No evidence for acute interstitial nephritis. No evidence for obstructive uropathy. 2. Metabolic acidosis. The patient's carbon dioxide level remains low. Her intravenous fluids have been discontinued. It is not clear to me that she is taking in enough fluid, perhaps intravenous fluid should be restarted once again. 3. Baseline chronic kidney disease stage III. 4. History of hypertension, controlled on calcium channel wily therapy, hydralazine and as-needed clonidine. No angiotensin-converting enzyme inhibitors, no angiotensin receptor blockers. 5. History of anemia. No evidence for gastrointestinal bleeding. Iron saturations were low and the patient is currently receiving intravenous Venofer. She is also receiving Aranesp to increase her hemoglobin. 6. History of dementia, stable. 7. Past history of deep venous thrombosis with a recent history of anticoagulation. 8. History of aortic insufficiency/mitral regurgitation. 9. 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 10. 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 11. Status post one isolated episode of hemoptysis, likely secondary to coagulopathy with pneumonia. Again, no evidence for vasculitis. PLAN: 1. Encouraging the patient to increase oral fluid intake. If this is not going to be possible, then the patient will need to be restarted back on IV fluid hydration. 2. For metabolic acidosis we will start the patient on oral sodium bicarbonate supplements. Should we restart IV fluids, IV fluid may contain sodium bicarbonate. 3. Stool occult blood is positive. Perhaps, GI evaluation. 4. Avoid all nephrotoxic agents. 5. Continue Aranesp and iron for her anemia. 6. Monitor accurate Is and Os and again we will restart IV fluids in the next 24 hours if her BUN and creatinine continue to drift upward and her p.o. intake is low. Roderick Faith MD
--- NOTE | 2018-09-21 15:23 | CT ---
Date of service: 09/21/2018 PROCEDURE: CT Chest without contrast HISTORY: sob, r/o pneumonia COMPARISON: Comparison is made to the previous study dated 09/14/2018 TECHNIQUE: Contiguous axial images were obtained through the chest without intravenous contrast enhancement. Sagittal and coronal reconstructions were performed. Radiation dose: Total exam DLP = 1121.72 mGy-cm. This CT exam was performed using one or more of the following dose reduction techniques: Automated exposure control, adjustment of the mA and/or kV according to patient size, and/or use of iterative reconstruction technique. FINDINGS: LUNGS: There is interval mild increase in the size of the previously seen airspace consolidation and I volar infiltrate at the right lung since the prior study. Interval appearance of a new opacities at the left upper lobe since the prior study. Foci of ground-glass opacities and bronchiectasis are again noted. Air bronchogram in the right upper lobe consolidation is again noted. The main airway is patent. MEDIASTINUM: Unremarkable thoracic aorta. No aneurysm. Mildly enlarged. Main pulmonary artery unremarkable. [id number] pulmonary vascular congestion is noted.. There are calcified mediastinal and hilar lymph nodes noted again. Diffuse atherosclerotic calcification noted in the thoracic aorta. PLEURA: There is a moderate to large right pleural effusion. There is a small to moderate-sized left pleural effusion. BONES: No fracture. No destructive lesion. UPPER ABDOMEN: Again noted is round low-attenuation lesion the region of the left adrenal gland measures 3.6 centimeter in the transverse diameter and 4.5 centimeter in the AP diameter. OTHER FINDINGS: None. IMPRESSION: Interval mild increase in the size of airspace consolidation and infiltrate at the right lung since the prior study. Interval appearance of new opacities at the left upper lobe since the prior exam. Moderate to large right and small to moderate left pleural effusions. Additional findings as discussed above.
--- NOTE | 2018-09-21 16:27 | PN ---
DATE: 09/21/2018 SUBJECTIVE: The patient is 83-year-old seen and examined. She seem to be more alert. She states I feel can I do you nasal cannula. I got a call later on by the nurse that she seems to be short of breath and she is on Ventimask. PHYSICAL EXAMINATION GENERAL: The patient is awake and alert. Able to communicate. VITAL SIGNS: She has temperature 100.9, pulse 63, respiration 24 and blood pressure 177/67. LUNGS: Bilateral soft crackle in upper lung region better than yesterday. HEART: S1 and S2 audible. ABDOMEN: Soft. Left lower quadrant discomfort. NEUROLOGIC: She is awake and alert. Able to communicate. EXTREMITIES: Bilateral leg no edema. LABORATORY DATA: WBC 7.9, hemoglobin 8.1, hematocrit 25.3 and platelet 391. Chemistry, sodium 141, potassium 4.7, chloride 107, CO2 of 22, BUN 73, creatinine 4.4 and blood sugar of 123. ASSESSMENT: 1. Bilateral pneumonia. 2. Worsening renal failure. 3. Anemia. 4. Hypertension. PLAN: Currently, the patient is on doxycycline. I will increase her prednisone to 40 every 8 hours and we will get CT scan of the chest stat. We will closely follow up the patient. Torrie Adamson MD
[2018-09-21] MEDS: MethylPREDNISolone 40 mg Vial IVP SCH (17:13)
[2018-09-21 20:56] LABS: ARTERIAL BLOOD GAS HCO3 16.6 mmol/L (21-28); ARTERIAL BLOOD GAS O2 CAPACITY 12.5 mL/dl (16-24); ARTERIAL BLOOD GAS O2 CONTENT 12.3 ML/dl (15-23); ARTERIAL BLOOD GAS O2 SAT 98.6 % (95-98); ARTERIAL BLOOD GAS PCO2 25 mm/Hg (35-45); ARTERIAL BLOOD GAS PH 7.43 (7.35-7.45); ARTERIAL BLOOD GAS TCO2 17.4 mmol.L (22-28)
[2018-09-21] MEDS ORDERED: Vancomycin 1gm in NS 250ml 1 GM/250 ML BAG IVPB STA (21:44)
[2018-09-21] MEDS ORDERED: MEROPENEM 500 MG in NS 500 MG/50 ML BAG IVPB SCH (22:00)
--- NOTE | 2018-09-21 22:06 | CP.PCM.CON ---
<Facundo Moeller - Last Filed: 09/21/18 23:00> History of Present Illness - History of Present Illness History of Present Illness: Facundo Moeller DO, PGY-2: ICU Consult Note for Dr. Bob 83-year-old female with a past medical history of dementia, DVT, hypertension, dyslipidemia, CKD, aortic and mitral regurgition who came in for intractable of right shoulder pain and was found to have a supratherapeutic INR, hemarthrosis of the right shoulder, and a right upper lobe consolidation pneumonia. During the course of the patient's hospital stay she was noted to have interval worsening of her pneumonia, likely secondary to aspiration. Today in the evening the patient's opxygen saturation was noted to be in the 80s and was subsequently placed on 100% nonrebreather mask and was maintaining an oxygen saturation in the 90s. An ABG was performed that show the patient had a PaO2 of 87 and a PCO2 of 25 while on 100% FIO2 via Non-rebreather. ICU was consulted for the patient's worsening respiratory status. The patient had no complaints aside from feeling short of breath. A full ROS was limited secondary to the patient's respiratory status and her dementia. The patient denies fever, sputum production, chills, nausea vomiting, diarrhea, or chest pain. Chart review indicates patient has be en febrile and her O2 requirements have increased. PMH: as above PSH: Denies Allergies: NKA Social: Former smoker; denies alcohol or illicit drug use Review of Systems - Review of Systems All systems: reviewed and no additional remarkable complaints except (as per HPI) Past Patient History - Infectious Disease Hx of Infectious Diseases: None - Past Social History Smoking Status: Former Smoker - CARDIAC Hx Hypercholesterolemia: Yes Hx Hypertension: Yes - PULMONARY Hx Respiratory Disorders: No - NEUROLOGICAL Hx Neurological Disorder: Yes (syncope) - HEENT Hx HEENT Problems: Yes (eyeglasses) - RENAL Hx Chronic Kidney Disease: No - ENDOCRINE/METABOLIC Hx Diabetes Mellitus Type 2: Yes - HEMATOLOGICAL/ONCOLOGICAL Hx Blood Disorders: No - INTEGUMENTARY Hx Dermatological Problems: Yes - MUSCULOSKELETAL/RHEUMATOLOGICAL Hx Falls: Yes Other/Comment: DVT in left leg - GASTROINTESTINAL Hx Gastrointestinal Disorders: No Hx Crohn's Disease: Yes - GENITOURINARY/GYNECOLOGICAL Hx Incontinence: Yes - PSYCHIATRIC Hx Psychophysiologic Disorder: No Hx Substance Use: No - SURGICAL HISTORY Other/Comment: R/T BLEEDING ULCER - ANESTHESIA Hx Anesthesia Reactions: No Meds Allergies/Adverse Reactions: Allergies Allergy/AdvReac Type Severity Reaction Status Date / Time No Known Allergies Allergy Verified 09/12/18 00:33 - Medications Medications: Current Medications Acetaminophen (Tylenol 325mg Tab) 650 mg PO Q6H PRN PRN Reason: Pain, moderate (4-7) Last Admin: 09/18/18 22:04 Dose: 650 mg Acetaminophen (Tylenol 325mg Tab) 650 mg PO Q4H PRN PRN Reason: Fever >100.4 F Last Admin: 09/21/18 12:38 Dose: 650 mg Albuterol/Ipratropium (Duoneb 3 Mg/0.5 Mg (3 Ml) Ud) 3 ml IH [id number] [facility] Last Admin: 09/21/18 21:11 Dose: Not Given Amlodipine Besylate (Norvasc) 10 mg PO DAILY [facility] Last Admin: 09/21/18 09:42 Dose: 10 mg Aspirin (Ecotrin) 81 mg PO DAILY [facility] Last Admin: 09/21/18 09:42 Dose: 81 mg Clonidine HCl (Catapres) 0.1 mg PO QID PRN PRN Reason: SBP above 150 Last Admin: 09/12/18 08:53 Dose: 0.1 mg Diltiazem HCl (Cardizem Cd) 240 mg PO DAILY [facility] Last Admin: 09/21/18 09:42 Dose: 240 mg Hydralazine HCl (Apresoline) 75 mg PO Q8 [facility] Last Admin: 09/21/18 14:04 Dose: 75 mg Iron Sucrose 100 mg/ Sodium (Chloride) 105 mls @ 210 mls/hr IVPB DAILY [facility] Stop: 09/28/18 10:29 Last Admin: 09/21/18 09:17 Dose: 210 mls/hr Doxycycline Hyclate 100 mg/ (Sodium Chloride) 100 mls @ 100 mls/hr IVPB Q12 [facility]; Protocol Metronidazole (Flagyl) 500 mg in 100 mls @ 100 mls/hr IVPB Q8 [facility]; Protocol Meropenem 250 mg/ Sodium (Chloride) 100 mls @ 100 mls/hr IVPB Q12H [facility]; Protocol Stop: 09/28/18 22:01 Vancomycin HCl (Vancomycin 1gm) 1 gm in 250 mls @ 167 mls/hr IVPB STAT STA; Pr otocol Stop: 09/21/18 23:13 Methylprednisolone (Solu-Medrol) 40 mg IVP Q6 [facility] Last Admin: 09/21/18 17:13 Dose: 40 mg Pantoprazole Sodium (Protonix Ec Tab) 40 mg PO 0630 [facility] Last Admin: 09/21/18 06:29 Dose: Not Given Risperidone (Risperdal Tab) 0.25 mg PO DAILY PRN; Protocol PRN Reason: Other Sodium Bicarbonate (Sodium Bicarbonate Tab) 650 mg PO BID [facility] Last Admin: 09/21/18 17:13 Dose: 650 mg Physical Exam - Constitutional Appears: Non-toxic, Confused - Head Exam Head Exam: ATRAUMATIC, NORMOCEPHALIC - Eye Exam Eye Exam: EOMI, Normal appearance - ENT Exam ENT Exam: Mucous Membranes Moist, Normal Oropharynx - Neck Exam Neck exam: Positive for: Normal Inspection - Respiratory Exam Respiratory Exam: Decreased Breath Sounds (bilaterally, decreased maximally in RUL field). absent: Accessory Muscle Use - Cardiovascular Exam Cardiovascular Exam: RRR, +S1, +S2 - GI/Abdominal Exam GI & Abdominal Exam: Normal Bowel Sounds, Soft - Extremities Exam Extremities exam: Positive for: normal inspection. Negative for: calf tenderness - Neurological Exam Neurological exam: Alert, CN II-XII Intact - Psychiatric Exam Psychiatric exam: Normal Affect, Normal Mood - Skin Skin Exam: Dry, Intact, Normal Color, Warm Results - Vital Signs Recent Vital Signs: Last Vital Signs Temp 98.4 F 09/21/18 21:08 Pulse 92 H 09/21/18 21:08 Resp 18 09/21/18 14:00 BP 156/56 H 09/21/18 21:08 Pulse Ox 80 L 09/21/18 21:08 - Labs Result Diagrams: 09/21/18 07:30 09/21/18 07:30 Labs: Laboratory Results - last 24 hr 09/18/18 09/19/18 09/19/18 19:40 07:00 10:06 WBC RBC Hgb Hct MCV MCH MCHC RDW Plt Count MPV pCO2 pO2 HCO3 ABG pH ABG Total CO2 ABG O2 Saturation ABG O2 Content ABG Base Excess ABG Hemoglobin ABG Carboxyhemoglobin POC ABG HHb (Measured) ABG Methemoglobin ABG O2 Capacity Hgb O2 Saturation FiO2 Sodium Potassium Chloride Carbon Dioxide Anion Gap BUN Creatinine Est GFR ( Amer) Est GFR (Non-Af Amer) POC Glucose (mg/dL) Random Glucose Calcium Total Bilirubin AST ALT Alkaline Phosphatase Total Protein Albumin Globulin Albumin/Globulin Ratio PTH Intact Whole Molec 453 H U Random Total Protein 3778 H Urine Creatinine 63 Urine Microalbumin 89.3 Microalb/Creat Ratio 1418 H 09/21/18 09/21/18 09/21/18 02:11 06:26 07:30 WBC 7.9 D RBC 2.88 L Hgb 8.1 L Hct 25.3 L MCV 87.8 MCH 28.1 MCHC 32.0 RDW 14.3 Plt Count 391 MPV 9.4 pCO2 pO2 HCO3 ABG pH ABG Total CO2 ABG O2 Saturation ABG O2 Content ABG Base Excess ABG Hemoglobin ABG Carboxyhemoglobin POC ABG HHb (Measured) ABG Methemoglobin ABG O2 Capacity Hgb O2 Saturation FiO2 Sodium Potassium Chloride Carbon Dioxide Anion Gap BUN Creatinine Est GFR ( Amer) Est GFR (Non-Af Amer) POC Glucose (mg/dL) 110 133 H Random Glucose Calcium Total Bilirubin AST ALT Alkaline Phosphatase Total Protein Albumin Globulin Albumin/Globulin Ratio PTH Intact Whole Molec U Random Total Protein Urine Creatinine Urine Microalbumin Microalb/Creat Ratio 09/21/18 09/21/18 09/21/18 07:30 11:04 16:19 WBC RBC Hgb Hct MCV MCH MCHC RDW Plt Count MPV pCO2 pO2 HCO3 ABG pH ABG Total CO2 ABG O2 Saturation ABG O2 Content ABG Base Excess ABG Hemoglobin ABG Carboxyhemoglobin POC ABG HHb (Measured) ABG Methemoglobin ABG O2 Capacity Hgb O2 Saturation FiO2 Sodium 141 Potassium 4.7 Chloride 107 Carbon Dioxide 17 L Anion Gap 22 H BUN 73 H Creatinine 4.4 H Est GFR ( Amer) 12 Est GFR (Non-Af Amer) 10 POC Glucose (mg/dL) 123 H 111 H Random Glucose 141 H Calcium 9.1 Total Bilirubin 0.4 AST 32 ALT 10 Alkaline Phosphatase 61 Total Protein 6.7 Albumin 3.5 Globulin 3.3 Albumin/Globulin Ratio 1.1 PTH Intact Whole Molec U Random Total Protein Urine Creatinine Urine Microalbumin Microalb/Creat Ratio 09/21/18 20:50 WBC RBC Hgb Hct MCV MCH MCHC RDW Plt Count MPV pCO2 25 L pO2 87.0 HCO3 16.6 L ABG pH 7.43 ABG Total CO2 17.4 L ABG O2 Saturation 98.6 H ABG O2 Content 12.3 L ABG Base Excess -6.6 L ABG Hemoglobin 9.0 L ABG Carboxyhemoglobin 1.3 POC ABG HHb (Measured) 1.4 ABG Methemoglobin 0.8 ABG O2 Capacity 12.5 L Hgb O2 Saturation 96.5 FiO2 100.0 Sodium Potassium Chloride Carbon Dioxide Anion Gap BUN Creatinine Est GFR ( Amer) Est GFR (Non-Af Amer) POC Glucose (mg/dL) Random Glucose Calcium Total Bilirubin AST ALT Alkaline Phosphatase Total Protein Albumin Globulin Albumin/Globulin Ratio PTH Intact Whole Molec U Random Total Protein Urine Creatinine Urine Microalbumin Microalb/Creat Ratio Assessment & Plan - Assessment and Plan (Free Text) Assessment: 83-year-old female with a past medical history of dementia, DVT, hypertension, dyslipidemia, CKD, aortic and mitral regurgition admitted to the ICU for impending respiratory failure with worsening pneumonia and increased oxygen req uirement. 1) Impending hypoxemic respiratory failure - NRB with 10 -15 L/min with target oxygen saturation above 94 - PaO2/FIO2 = 87 - Repeat ABG in morning - Duonebs q4h - Solumedrol 40 q6 - HOB 35 - Aspiration precautions 2) Pneumonia with aspiration components - Continue Doxycycline, Merropenem, Vancomycin and Metronidazole - tylenol for fever 3) Hypertension - Clonidine 0.1 mg QID - Diltiazem 240 mg - Amlodipine 10 mg - Hydralazine 75 q8 4) Iron deficiency anemia - Iron Sucrose IV 3 of 10 given 5) CKD - Bicarbonate 650 BID - Aranesp as per nephrology - Avoid nephrotoxins 6) DVT/GI prophylaxis - SCD - Protonix 40 mg 0630 Case was reviewed and discussed with attending physician, Dr. Bob - Date & Time Date: 09/21/18 Time: 22:39 <Norma Bob - Last Filed: 09/22/18 01:30> Meds - Medications Medications: Current Medications Acetaminophen (Tylenol 325mg Tab) 650 mg PO Q6H PRN PRN Reason: Pain, moderate (4-7) Last Admin: 09/18/18 22:04 Dose: 650 mg Acetaminophen (Tylenol 325mg Tab) 650 mg PO Q4H PRN PRN Reason: Fever >100.4 F Last Admin: 09/21/18 12:38 Dose: 650 mg Albuterol/Ipratropium (Duoneb 3 Mg/0.5 Mg (3 Ml) Ud) 3 ml IH [id number] [facility] Last Admin: 09/22/18 00:10 Dose: 3 ml Amlodipine Besylate (Norvasc) 10 mg PO DAILY [facility] Last Admin: 09/21/18 09:42 Dose: 10 mg Aspirin (Ecotrin) 81 mg PO DAILY [facility] Last Admin: 09/21/18 09:42 Dose: 81 mg Clonidine HCl (Catapres) 0.1 mg PO QID PRN PRN Reason: SBP above 150 Last Admin: 09/12/18 08:53 Dose: 0.1 mg Diltiazem HCl (Cardizem Cd) 240 mg PO DAILY [facility] Last Admin: 09/21/18 09:42 Dose: 240 mg Hydralazine HCl (Apresoline) 75 mg PO Q8 [facility] Last Admin: 09/21/18 22:22 Dose: 75 mg Iron Sucrose 100 mg/ Sodium (Chloride) 105 mls @ 210 mls/hr IVPB DAILY [facility] Stop: 09/28/18 10:29 Last Admin: 09/21/18 09:17 Dose: 210 mls/hr Doxycycline Hyclate 100 mg/ (Sodium Chloride) 100 mls @ 100 mls/hr IVPB Q12 [facility]; Protocol Metronidazole (Flagyl) 500 mg in 100 mls @ 100 mls/hr IVPB Q8 [facility]; Protocol Last Admin: 09/21/18 22:22 Dose: 100 mls/hr Meropenem 250 mg/ Sodium (Chloride) 100 mls @ 100 mls/hr IVPB Q12H [facility]; Protocol Stop: 09/28/18 22:01 Methylprednisolone (Solu-Medrol) 40 mg IVP Q6 [facility] Last Admin: 09/22/18 01:04 Dose: 40 mg Pantoprazole Sodium (Protonix Ec Tab) 40 mg PO 0630 [facility] Last Admin: 09/21/18 06:29 Dose: Not Given Risperidone (Risperdal Tab) 0.25 mg PO DAILY [facility]; Protocol PRN Reason: Other Sodium Bicarbonate (Sodium Bicarbonate Tab) 650 mg PO BID [facility] Last Admin: 09/21/18 17:13 Dose: 650 mg Results - Vital Signs Recent Vital Signs: Last Vital Signs Temp 98.4 F 09/21/18 21:08 Pulse 80 09/21/18 22:22 Resp 18 09/21/18 14:00 BP 156/56 H 09/21/18 21:08 Pulse Ox 92 L 09/21/18 21:08 - Labs Result Diagrams: 09/21/18 07:30 09/21/18 07:30 Labs: Laboratory Results - last 24 hr 09/18/18 09/19/18 09/19/18 19:40 07:00 10:06 WBC RBC Hgb Hct MCV MCH MCHC RDW Plt Count MPV pCO2 pO2 HCO3 ABG pH ABG Total CO2 ABG O2 Saturation ABG O2 Content ABG Base Excess ABG Hemoglobin ABG Carboxyhemoglobin POC ABG HHb (Measured) ABG Methemoglobin ABG O2 Capacity Hgb O2 Saturation FiO2 Sodium Potassium Chloride Carbon Dioxide Anion Gap BUN Creatinine Est GFR ( Amer) Est GFR (Non-Af Amer) POC Glucose (mg/dL) Random Glucose Calcium Total Bilirubin AST ALT Alkaline Phosphatase Total Protein Albumin Globulin Albumin/Globulin Ratio PTH Intact Whole Molec 453 H U Random Total Protein 3778 H Urine Creatinine 63 Urine Microalbumin 89.3 Microalb/Creat Ratio 1418 H 09/21/18 09/21/18 09/21/18 02:11 06:26 07:30 WBC 7.9 D RBC 2.88 L Hgb 8.1 L Hct 25.3 L MCV 87.8 MCH 28.1 MCHC 32.0 RDW 14.3 Plt Count 391 MPV 9.4 pCO2 pO2 HCO3 ABG pH ABG Total CO2 ABG O2 Saturation ABG O2 Content ABG Base Excess ABG Hemoglobin ABG Carboxyhemoglobin POC ABG HHb (Measured) ABG Methemoglobin ABG O2 Capacity Hgb O2 Saturation FiO2 Sodium Potassium Chloride Carbon Dioxide Anion Gap BUN Creatinine Est GFR ( Amer) Est GFR (Non-Af Amer) POC Glucose (mg/dL) 110 133 H Random Glucose Calcium Total Bilirubin AST ALT Alkaline Phosphatase Total Protein Albumin Globulin Albumin/Globulin Ratio PTH Intact Whole Molec U Random Total Protein Urine Creatinine Urine Microalbumin Microalb/Creat Ratio 09/21/18 09/21/18 09/21/18 07:30 11:04 16:19 WBC RBC Hgb Hct MCV MCH MCHC RDW Plt Count MPV pCO2 pO2 HCO3 ABG pH ABG Total CO2 ABG O2 Saturation ABG O2 Content ABG Base Excess ABG Hemoglobin ABG Carboxyhemoglobin POC ABG HHb (Measured) ABG Methemoglobin ABG O2 Capacity Hgb O2 Saturation FiO2 Sodium 141 Potassium 4.7 Chloride 107 Carbon Dioxide 17 L Anion Gap 22 H BUN 73 H Creatinine 4.4 H Est GFR ( Amer) 12 Est GFR (Non-Af Amer) 10 POC Glucose (mg/dL) 123 H 111 H Random Glucose 141 H Calcium 9.1 Total Bilirubin 0.4 AST 32 ALT 10 Alkaline Phosphatase 61 Total Protein 6.7 Albumin 3.5 Globulin 3.3 Albumin/Globulin Ratio 1.1 PTH Intact Whole Molec U Random Total Protein Urine Creatinine Urine Microalbumin Microalb/Creat Ratio 09/21/18 20:50 WBC RBC Hgb Hct MCV MCH MCHC RDW Plt Count MPV pCO2 25 L pO2 87.0 HCO3 16.6 L ABG pH 7.43 ABG Total CO2 17.4 L ABG O2 Saturation 98.6 H ABG O2 Content 12.3 L ABG Base Excess -6.6 L ABG Hemoglobin 9.0 L ABG Carboxyhemoglobin 1.3 POC ABG HHb (Measured) 1.4 ABG Methemoglobin 0.8 ABG O2 Capacity 12.5 L Hgb O2 Saturation 96.5 FiO2 100.0 Sodium Potassium Chloride Carbon Dioxide Anion Gap BUN Creatinine Est GFR ( Amer) Est GFR (Non-Af Amer) POC Glucose (mg/dL) Random Glucose Calcium Total Bilirubin AST ALT Alkaline Phosphatase Total Protein Albumin Globulin Albumin/Globulin Ratio PTH Intact Whole Molec U Random Total Protein Urine Creatinine Urine Microalbumin Microalb/Creat Ratio Attending/Attestation - Attestation I have personally seen and examined this patient.: Yes I have fully participated in the care of the patient.: Yes I have reviewed all pertinent clinical information: Yes Notes (Text): 09/22/18 01:30 Received a call from returned item clerk to evaluate patient for ICU admission. Agree with consult note.
[2018-09-21] MEDS: metroNIDAZOLE IV 500 mg/100 ml 500 MG/100 ML BAG IVPB SCH (22:22)
[2018-09-22] MEDS: Albuterol-Ipratrop 3 mg / 0.5 (3 ml) UD IH SCH ×6 (00:10→20:15)
--- NOTE | 2018-09-22 00:22 | PN ---
DATE: 09/21/2018 SUBJECTIVE: The patient is in bed, in no acute distress. The patient was seen earlier this morning in room 577. The patient is weak. However, later tonight the patient had a temperature of 100.9 and transferred to the ICU. PHYSICAL EXAMINATION: VITAL SIGNS: Blood pressure is 150/60, respiratory rate of 18, goes up to 24; saturation 93%. HEENT: Unremarkable. NECK: Supple. LUNGS: Decreased breath sounds. HEART: Normal S1 and S2. ABDOMEN: Soft. LABORATORY DATA: Reveals white count of 7.9, hemoglobin of 8. Chemistries reveals a BUN of 73, creatinine of 4.4, urinalysis is noted and serology is noted. Microbiology reveals beta-hemolytic strep. The patient had a CT of the chest without contrast which shows increase in air space consolidation, infiltrates. ASSESSMENT AND PLAN: This is an 83-year-old female with hypertension, diabetes, peripheral vascular disease, deep venous thrombosis, concentric left ventricular hypertrophy, aortic and mitral valve regurgitation, now with what appears to be bilateral community acquired pneumonia with acute kidney injury, and now with new systemic inflammatory response syndrome and sepsis with healthcare associated pneumonia and history of deep venous thrombosis. The patient is on doxycycline and meropenem. with renal failure. Follow with you. Urbano Herring MD
[2018-09-22] MEDS: MethylPREDNISolone 40 mg Vial IVP SCH ×4 (01:04→21:36)
[2018-09-22] MEDS: Pantoprazole 40 mg EC Tab PO SCH ×2 (05:25→06:38)
[2018-09-22] MEDS: metroNIDAZOLE IV 500 mg/100 ml 500 MG/100 ML BAG IVPB SCH (05:25)
[2018-09-22 06:36] LABS: ARTERIAL BLOOD GAS HCO3 13.6 mmol/L (21-28); ARTERIAL BLOOD GAS O2 CONTENT 9.9 ML/dl (15-23); ARTERIAL BLOOD GAS O2 SAT 89.9 % (95-98); ARTERIAL BLOOD GAS PCO2 23 mm/Hg (35-45); ARTERIAL BLOOD GAS PH 7.38 (7.35-7.45); ARTERIAL BLOOD GAS TCO2 14.3 mmol.L (22-28)
[2018-09-22 06:44] LABS: HEMOGLOBIN 7.3 g/dL (12.0-16.0); MEAN CELL VOLUME 87.9 fl (80.0-105.0); MEAN CORPUSCULAR HEMOGLOBIN 27.7 pg (25.0-35.0); MEAN CORPUSCULAR HGB CONC 31.5 g/dl (31.0-37.0); MEAN PLATELET VOLUME 9.2 fl (7.0-11.0); RBC 2.64 10^6/uL (3.5-6.1); RED CELL DISTRIBUTION WIDTH 14.4 % (11.5-14.5); WHITE BLOOD COUNT 9.6 10^3/uL (4.5-11.0)
[2018-09-22 06:59] LABS: ALB/GLOB RATIO 1.1 (1.1-1.8); ALBUMIN 3.3 g/dL (3.0-4.8)
[2018-09-22] MEDS ORDERED: MethylPREDNISolone 40 mg Vial IVP SCH (07:30)
--- NOTE | 2018-09-22 09:12 | CON ---
DATE: 09/22/2018 PULMONARY CONSULTATION REFERRING PHYSICIAN: Dr. Adamson REASON FOR CONSULTATION: Pneumonia. History is obtained via extensive discussion with the ICU nurse. I have also reviewed the chart at length, and discussed the case with the patient at length. The patient is a chronically ill 83-year-old female, with past medical history significant for dementia, chronic kidney disease, diabetes mellitus, history of deep venous thrombosis, chronic anemia, valvular heart disease, who presented to [facility] - originally on 09/12/2018 - with severe intractable right shoulder pain. The patient was then admitted for additional evaluation and treatment. Again, I did discuss the case with the night nurse at length. On 09/14/2018, the patient did have a CAT scan of the chest. The CAT scan revealed findings consistent with a right-sided pneumonia. The patient was then started on antibiotic therapy. Input by Dr. Herring is noted. I did review the notes by Dr. Bob. Apparently, during the last shift, the patient began to experience more shortness of breath with oxygen desaturation. The patient was then transferred to the medical ICU for additional management. There is no history of significant cough or sputum production. There is no history of chest pain, coughing up of blood, or chest pain - brought on with deep respirations. The patient did have low-grade fevers during the initial part of her hospital stay. These fevers have now resolved. There is no history of chills or infectious exposure. There is no history of night sweats, weight loss, or appetite change prior to the above events. No history of leg or calf pains. No history of syncope or diaphoresis. No history of recent travel or trauma. REVIEW OF SYSTEMS: No history of nausea, vomiting, or diarrhea. No acute urinary symptoms. No new neurologic complaints. Rest of the review of systems is negative. ALLERGIES: NO KNOWN ALLERGIES. SOCIAL HISTORY: Positive for former tobacco usage. No alcohol. FAMILY HISTORY: No inheritable diseases. HOME MEDICATIONS: Include clonidine, Coumadin, Cardizem, Norvasc, Apresoline, Pepcid. PHYSICAL EXAMINATION: GENERAL: The patient appears mildly short of breath this morning. She is in no acute distress. VITALS: Temperature is 98.1, pulse 75, respirations 22, blood pressure 158/72. Oxygen saturation on nasal cannula is 93%. HEENT: Normocephalic, atraumatic. No JVD. CARDIOVASCULAR: Systolic ejection murmur at the lower left sternal border. No S3 gallop. LUNGS: Decreased breath sounds with crackles at both bases. Minimal bilateral rhonchi. No wheezing. EXTREMITIES: Mild edema. No cyanosis, no clubbing. Calves are nontender to palpation. GASTROINTESTINAL: Abdomen is soft, nontender, nondistended. Bowel sounds are positive. 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 There are no acute rashes. NEUROLOGIC: Exam limited at the present time. PERTINENT LABORATORY DATA: CAT scan of the chest was done and reviewed. There are bilateral pulmonary infiltrates noted. There is a large right pleural effusion with compressive atelectasis. There is also a small left pleural effusion. CBC: White count 9.6K, hemoglobin 7.3, hematocrit 23.2, platelets of 389,000. Arterial blood gas was done on nasal cannula. Results are: pH 7.38, pCO2 of 23, pO2 of 51. Complete metabolic profile: Chloride 109, carbon dioxide 16, anion gap 21, BUN 87, creatinine 4.8, glucose 114, phosphorus 6.7, magnesium 1.6. Rest of the metabolic profile is within normal limits. IMPRESSION: 1. Bilateral pneumonia. 2. Bilateral pleural effusions. 3. Acute on chronic renal failure. 4. Severe anemia. 5. Hypoxemia PLAN: Again, I did discuss the case with the night nurse at length. I have also reviewed the chart at length, and discussed the case with the patient at length. The patient originally presented to [facility] - on 09/12/2018 - with intractable severe right shoulder pain. A CAT scan of the chest was done on 09/14/2018. The CAT scan showed findings consistent with a right-sided pneumonia. The patient was started on appropriate antibiotic therapy as per Infectious Disease (Dr. Herring). However, last night, the patient began to experience more shortness of breath with oxygen desaturation. She was thus transferred to the medical ICU. I did review the CAT scan of the chest. Findings are noted above. There are bilateral pulmonary infiltrates noted. The infiltrates do contain air bronchograms and are consistent with pneumonia. There are also bilateral pleural effusions (right much worse than left). I would consider consulting Interventional Radiology for a thoracentesis - given the patient's symptoms and large alveolar-arterial gradient. I will discuss this with the ICU team later this morning. The patient remains on antibiotic therapy as per Infectious Disease. I did discuss the case with Dr. Herring this morning. Temperatures have resolved. The leukocytosis has also resolved. Echocardiogram is also ordered. I will also order a B-type natriuretic peptide - given the bilateral effusions. Cardiology evaluation with Dr. Bird has been ordered. On physical exam, there is only mild bronchospasm noted. I will continue the current nebulizer treatments and decrease the intravenous steroids this morning. The patient appears critically ill at this point in time. I will discuss the above with the entire ICU team in the next few moments. I will also discuss the above with the attending physician later this morning. Thank you very much for this pulmonary consultation. Charles Roland MD [facility]
[2018-09-22] MEDS: diltiaZEM 240 mg/24 Hours CD Cap PO SCH (10:30)
--- NOTE | 2018-09-22 12:00 | CON ---
DATE: 09/22/2018 PAST MEDICAL HISTORY: Mild dementia, history of DVT, hypertension, hyperlipidemia, diabetes mellitus type 2, chronic kidney disease, chronic anemia, aortic regurgitation, history of mitral regurgitation. ALLERGIES: PENICILLIN. HOME MEDICATIONS: Ativan, tramadol, hydralazine, metformin, Coumadin. SOCIAL HISTORY: The patient lives with her son. She used to smoke but not anymore. No alcohol or illicit drug abuse. REVIEW OF SYSTEMS: Review of 12-organ system other than mentioned in history of present illness is negative. FAMILY HISTORY: Noncontributory. HISTORY OF PRESENT ILLNESS: This is an 83-year-old lady who presented to [facility] on 09/12/2018 (10 days ago) with right shoulder pain. On further examination, she was found to have right lobar pneumonia and was started on broad-spectrum antibiotics. Septic workup was initiated, however, did not reveal any diagnostic information. Blood culture, urine culture, urine for Legionella were negative. Procalcitonin was found to be highly elevated; however, the patient did have chronic kidney disease which worsened during the hospital course, and interpretation of highly elevated procalcitonin level is difficult in this situation. The patient was also evaluated by Surgical service to see if putting IVC filter for DVT prophylaxis rather than continuing therapeutic anticoagulation would be indicated; however, it was decided to avoid the procedure. Nephrology service was following the patient as well, however, did not recommend renal replacement therapy up until this point. Last night, the patient developed tachypnea, tachycardia, was restless, and appeared to be in respiratory distress. The patient was transferred to ICU at that point in time for further management and monitoring. No fever, no chills, no sweats. No nausea, no vomiting, no diarrhea, no constipation. PHYSICAL EXAMINATION: VITAL SIGNS: The patient is on 6 liters per minute nasal cannula, her oxygen saturation varies between 88 and 93. Blood pressure 147/67, heart rate 72, respiratory rate 20-30, T-max 100.9, current temperature 98.1. HEENT: Head and neck atraumatic. LUNGS: Few squeaks and crackles bilaterally, right more than left. HEART: Regular rate and rhythm. S1, S2 distant. ABDOMEN: Soft, nontender, nondistended. MUSCULOSKELETAL: No C/C/E. NEUROLOGIC: The patient moves all extremities spontaneously. SKIN: Moist. PSYCHIATRIC: The patient is alert, awake, and oriented. Surprisingly comfortable during the conversation and denies shortness of breath. LABORATORY DATA: WBC 9.6; hemoglobin 7.3, down from 8.1; platelet count 389. Sodium 142, potassium 4.5, chloride 109, carbon dioxide 16, BUN 87, creatinine 4.8, glucose 114, total bilirubin 0.7, AST 63, ALT 32. AB.38/23/51 on 40% FiO2. Complement C3 and compliment C4 are within normal limits. Anti-glomerular basement membrane antibodies negative. ANCA and ABBEY are negative. MEDICATIONS IN HOSPITAL: Tylenol p.r.n., DuoNeb every 6 hours, Norvasc, aspirin, clonidine, Cardizem CD, doxycycline, Flagyl, Lasix 40 mg IV every 12, hydralazine, iron, meropenem, Solu-Medrol 20 mg IV every 12, Protonix, risperidone, sodium bicarb. CT chest showed interval mild increase in the size of airspace consolidation and infiltrate in the right lung since the prior study, interval appearance of new opacities in the left upper lobe since the prior exam, moderate to large right and small to moderate left pleural effusion. ASSESSMENT AND PLAN: This is an 83-year-old lady with hypoxemic respiratory failure, requiring incremental FiO2 supplementation secondary to severe and progressive community-acquired pneumonia in the setting of acute on chronic kidney disease, mild dementia. The patient currently is on intermittent vancomycin, meropenem, and doxycycline. It appears that the pneumonia is progressing despite broad-spectrum antibiotics. Blood culture, urine culture are not revealing. Sputum culture showed yeast, but no other microorganisms. Procalcitonin is highly elevated; however, it is hard to interpret that in the setting of acute on chronic kidney disease. I will get echocardiogram, proBNP to evaluate whether there is a cardiac component to her hypoxemic respiratory failure. I will try and diurese her and then touch base with Renal service whether renal replacement therapy will be of any value. The patient, however, does not appear to be significantly fluid overloaded. I will continue with low-dose steroids. We will continue to maintaining mean arterial pressure more than 65, to avoiding any hyperchloremia and maintaining euvolemia and euglycemia. Maintain blood glucose within 140-180 range according to NICE-SUGAR trial. Nephrology followup will also be appreciated. Low threshold for intubation. ccm time 40 min Patrick Pierson MD [facility]
--- NOTE | 2018-09-22 14:04 | CP.CCUPN ---
<Burak Serrano - Last Filed: 09/22/18 15:59> CCU Subjective - Physician Review Events Since Last Encounter (Free Text): 09/22/18 14:01 Pt transferred to ICU last night due to progressive SOB Subjective (Free Text): 09/22/18 14:03 Pt seen and examined this morning at bedside. Pt reports SOB, but denies chest pain. Critical Care Time Spent (in minutes): 45 CCU Objective - Vital Signs / Intake & Output Vital Signs (Last 4 hours): Vital Signs Pulse Resp BP Pulse Ox 09/22/18 12:30 72 34 H 97 09/22/18 12:20 75 34 H 98 09/22/18 12:12 79 38 H 09/22/18 12:10 77 17 78 L 09/22/18 12:00 76 164/54 H 73 L 09/22/18 11:50 78 26 H 95 09/22/18 11:40 70 83 L 09/22/18 11:30 77 85 L 09/22/18 11:20 73 37 H 94 L 09/22/18 11:10 68 32 H 89 L 09/22/18 11:00 70 30 H 160/57 H 91 L 09/22/18 10:50 72 36 H 96 09/22/18 10:40 76 32 H 84 L 09/22/18 10:30 78 30 H 134/81 90 L 09/22/18 10:29 134/81 09/22/18 10:20 74 32 H 93 L 09/22/18 10:10 74 30 H 92 L 09/22/18 10:01 78 30 H 134/81 89 L Intake and Output (Last 8hrs): Intake & Output 09/21/18 09/22/18 09/22/18 22:59 06:59 14:59 Intake Total 850 Balance 850 Intake: IV 650 Left Antecubital 650 Oral 200 Other: # Voids Urine, Voided 2 - Physical Exam Head: Positive for: Atraumatic, Normocephalic Pupils: Positive for: PERRL Extroacular Muscles: Positive for: EOMI Conjunctiva: Positive for: Normal Mouth: Positive for: Moist Mucous Membranes Neck: Positive for: Normal Range of Motion Respiratory/Chest: Positive for: Clear to Auscultation, Good Air Exchange, Wheezes. Negative for: Respiratory Distress, Accessory Muscle Use Cardiovascular: Positive for: Regular Rate and Rhythm, Normal S1, S2. Negative for: Murmurs Abdomen: Positive for: Normal Bowel Sounds. Negative for: Tenderness, Distention, Peritoneal Signs Back: Positive for: Normal Inspection Upper Extremity: Positive for: Other (RUE is neurovascularly intact however there is significant tenderness to palpation in the area of the R scapular spine , no tenderness noted over the humeral head, ACTIVE AND PASSIVE ROM is signifcantly reduced by pain). Negative for: Normal ROM Lower Extremity: Positive for: Normal Inspection. Negative for: Edema Neurological: Positive for: GCS=15, CN II-XII Intact, Speech Normal Skin: Positive for: Warm, Dry, Normal Color. Negative for: Rashes Psychiatric: Positive for: Alert, Oriented x 3, Normal Insight, Normal Concentr ation - Medications Active Medications: Active Medications Generic Name Dose Route Start Last Admin Trade Name Freq PRN Reason Stop Dose Admin Acetaminophen 650 mg 09/12/18 05:16 09/18/18 22:04 Tylenol 325mg Tab PO 650 mg Q6H PRN Administration Pain, moderate (4-7) Acetaminophen 650 mg 09/21/18 12:17 09/21/18 12:38 Tylenol 325mg Tab PO 650 mg Q4H PRN Administration Fever >100.4 F Albuterol/Ipratropium 3 ml 09/22/18 08:00 09/22/18 13:09 Duoneb 3 Mg/0.5 Mg (3 Ml) Ud IH 3 ml [id number] JESUS Administration Amlodipine Besylate 10 mg 09/12/18 08:28 09/22/18 10:29 Norvasc PO 10 mg DAILY JESUS Administration Aspirin 81 mg 09/17/18 10:00 09/22/18 10:31 Ecotrin PO 81 mg DAILY JESUS Administration Clonidine HCl 0.1 mg 09/12/18 08:28 09/22/18 03:11 Catapres PO 0.1 mg QID PRN Administration SBP above 150 Clonidine HCl 1 patch 09/22/18 10:15 Catapres-Tts2 0.2 Mg/24 Hr TD Q7D@1000 JESUS Diltiazem HCl 240 mg 09/12/18 10:00 09/22/18 10:30 Cardizem Cd PO 240 mg DAILY JESUS Administration Furosemide 40 mg 09/22/18 10:00 09/22/18 10:29 Lasix IVP 40 mg Q12 JESUS Administration Hydralazine HCl 75 mg 09/19/18 15:00 09/22/18 05:25 Apresoline PO 75 mg Q8 JESUS Administration Iron Sucrose 100 mg/ Sodium 105 mls @ 210 mls/hr 09/19/18 10:00 09/22/18 10:25 Chloride IVPB 09/28/18 10:29 210 mls/hr DAILY JESUS Administration Doxycycline Hyclate 100 mg/ 100 mls @ 100 mls/hr 09/21/18 22:00 09/22/18 10:26 Sodium Chloride IVPB 100 mls/hr Q12 JESUS Administration Protocol Meropenem 250 mg/ Sodium 100 mls @ 100 mls/hr 09/22/18 10:00 09/22/18 10:22 Chloride IVPB 09/28/18 22:01 100 mls/hr Q12H JESUS Administration Protocol Methylprednisolone 20 mg 09/22/18 09:15 09/22/18 10:28 Solu-Medrol IVP 20 mg Q12H JESUS Administration Pantoprazole Sodium 40 mg 09/13/18 06:30 09/22/18 06:38 Protonix Ec Tab PO 40 mg 0630 JESUS Administration Risperidone 0.25 mg 09/20/18 21:40 Risperdal Tab PO DAILY PRN Other Protocol Sodium Bicarbonate 650 mg 09/21/18 11:15 09/22/18 10:30 Sodium Bicarbonate Tab PO 650 mg BID JESUS Administration - Patient Studies Lab Studies: Microbiology Studies 09/20/18 16:55 Gram Stain - Final Sputum Sputum Culture - Final Yeast Species Lab Studies 09/22/18 09/22/18 09/22/18 Range/Units 13:25 11:10 09:12 WBC (4.5-11.0) 10^3/uL RBC (3.5-6.1) 10^6/uL Hgb (12.0-16.0) g/dL Hct (36.0-48.0) % MCV (80.0-105.0) fl MCH (25.0-35.0) pg MCHC (31.0-37.0) g/dl RDW (11.5-14.5) % Plt Count (120.0-450.0) 10^3/uL MPV (7.0-11.0) fl pCO2 (35-45) mm/Hg pO2 (80-100) mm/Hg HCO3 (21-28) mmol/L ABG pH (7.35-7.45) ABG Total CO2 (22-28) mmol.L ABG O2 Saturation (95-98) % ABG O2 Content (15-23) ML/dl ABG Base Excess (-2.0-3.0) mmol/L ABG Hemoglobin (11.7-17.4) g/dL ABG Carboxyhemoglobin (0.5-1.5) % POC ABG HHb (Measured) (0-5) % ABG Methemoglobin (0.0-3.0) % ABG O2 Capacity (16-24) mL/dl Hgb O2 Saturation (95.0-98.0) % FiO2 % Sodium (132-148) mmol/L Potassium (3.6-5.0) mmol/L Chloride (98-107) mmol/L Carbon Dioxide (21-33) mmol/L Anion Gap (10-20) BUN (7-21) mg/dL Creatinine (0.7-1.2) mg/dl Est GFR ( Amer) Est GFR (Non-Af Amer) POC Glucose (mg/dL) 135 H (65-110) mg/dL Random Glucose (70-110) mg/dL Calcium (8.4-10.5) mg/dL Phosphorus (2.5-4.5) mg/dL Magnesium (1.7-2.2) mg/dL Total Bilirubin (0.2-1.3) mg/dL AST (14-36) U/L ALT (7-56) U/L Alkaline Phosphatase (38-126) U/L NT-Pro-B Natriuret Pep 22973 H (0-450) pg/mL Total Protein (5.8-8.3) g/dL Albumin (3.0-4.8) g/dL Globulin gm/dL Albumin/Globulin Ratio (1.1-1.8) Crossmatch See Detail BBK History Checked Patient has bt 09/22/18 09/22/18 09/22/18 Range/Units 06:10 05:40 05:40 WBC 9.6 D (4.5-11.0) 10^3/uL RBC 2.64 L (3.5-6.1) 10^6/uL Hgb 7.3 L (12.0-16.0) g/dL Hct 23.2 L (36.0-48.0) % MCV 87.9 (80.0-105.0) fl MCH 27.7 (25.0-35.0) pg MCHC 31.5 (31.0-37.0) g/dl RDW 14.4 (11.5-14.5) % Plt Count 389 (120.0-450.0) 10^3/uL MPV 9.2 (7.0-11.0) fl pCO2 23 L (35-45) mm/Hg pO2 51.0 L (80-100) mm/Hg HCO3 13.6 L (21-28) mmol/L ABG pH 7.38 (7.35-7.45) ABG Total CO2 14.3 L (22-28) mmol.L ABG O2 Saturation 89.9 L (95-98) % ABG O2 Content 9.9 L (15-23) ML/dl ABG Base Excess -10.3 L (-2.0-3.0) mmol/L ABG Hemoglobin 8.0 L (11.7-17.4) g/dL ABG Carboxyhemoglobin 1.7 H (0.5-1.5) % POC ABG HHb (Measured) 9.8 H (0-5) % ABG Methemoglobin 0.8 (0.0-3.0) % ABG O2 Capacity 11.0 L (16-24) mL/dl Hgb O2 Saturation 87.7 L (95.0-98.0) % FiO2 40.0 % Sodium 142 (132-148) mmol/L Potassium 4.5 (3.6-5.0) mmol/L Chloride 109 H (98-107) mmol/L Carbon Dioxide 16 L (21-33) mmol/L Anion Gap 21 H (10-20) BUN 87 H (7-21) mg/dL Creatinine 4.8 H (0.7-1.2) mg/dl Est GFR ( Amer) 10 Est GFR (Non-Af Amer) 9 POC Glucose (mg/dL) (65-110) mg/dL Random Glucose 114 H (70-110) mg/dL Calcium 9.0 (8.4-10.5) mg/dL Phosphorus 6.7 H (2.5-4.5) mg/dL Magnesium 1.6 L (1.7-2.2) mg/dL Total Bilirubin 0.7 (0.2-1.3) mg/dL AST 63 H D (14-36) U/L ALT 32 (7-56) U/L Alkaline Phosphatase 61 (38-126) U/L NT-Pro-B Natriuret Pep (0-450) pg/mL Total Protein 6.3 (5.8-8.3) g/dL Albumin 3.3 (3.0-4.8) g/dL Globulin 3.0 gm/dL Albumin/Globulin Ratio 1.1 (1.1-1.8) Crossmatch BBK History Checked 09/21/18 09/21/18 Range/Units 20:50 16:19 WBC (4.5-11.0) 10^3/uL RBC (3.5-6.1) 10^6/uL Hgb (12.0-16.0) g/dL Hct (36.0-48.0) % MCV (80.0-105.0) fl MCH (25.0-35.0) pg MCHC (31.0-37.0) g/dl RDW (11.5-14.5) % Plt Count (120.0-450.0) 10^3/uL MPV (7.0-11.0) fl pCO2 25 L (35-45) mm/Hg pO2 87.0 (80-100) mm/Hg HCO3 16.6 L (21-28) mmol/L ABG pH 7.43 (7.35-7.45) ABG Total CO2 17.4 L (22-28) mmol.L ABG O2 Saturation 98.6 H (95-98) % ABG O2 Content 12.3 L (15-23) ML/dl ABG Base Excess -6.6 L (-2.0-3.0) mmol/L ABG Hemoglobin 9.0 L (11.7-17.4) g/dL ABG Carboxyhemoglobin 1.3 (0.5-1.5) % POC ABG HHb (Measured) 1.4 (0-5) % ABG Methemoglobin 0.8 (0.0-3.0) % ABG O2 Capacity 12.5 L (16-24) mL/dl Hgb O2 Saturation 96.5 (95.0-98.0) % FiO2 100.0 % Sodium (132-148) mmol/L Potassium (3.6-5.0) mmol/L Chloride (98-107) mmol/L Carbon Dioxide (21-33) mmol/L Anion Gap (10-20) BUN (7-21) mg/dL Creatinine (0.7-1.2) mg/dl Est GFR ( Amer) Est GFR (Non-Af Amer) POC Glucose (mg/dL) 111 H (65-110) mg/dL Random Glucose (70-110) mg/dL Calcium (8.4-10.5) mg/dL Phosphorus (2.5-4.5) mg/dL Magnesium (1.7-2.2) mg/dL Total Bilirubin (0.2-1.3) mg/dL AST (14-36) U/L ALT (7-56) U/L Alkaline Phosphatase (38-126) U/L NT-Pro-B Natriuret Pep (0-450) pg/mL Total Protein (5.8-8.3) g/dL Albumin (3.0-4.8) g/dL Globulin gm/dL Albumin/Globulin Ratio (1.1-1.8) Crossmatch BBK History Checked Laboratory Results - last 24 hr 09/21/18 09/21/18 09/22/18 16:19 20:50 05:40 WBC 9.6 D RBC 2.64 L Hgb 7.3 L Hct 23.2 L MCV 87.9 MCH 27.7 MCHC 31.5 RDW 14.4 Plt Count 389 MPV 9.2 pCO2 25 L pO2 87.0 HCO3 16.6 L ABG pH 7.43 ABG Total CO2 17.4 L ABG O2 Saturation 98.6 H ABG O2 Content 12.3 L ABG Base Excess -6.6 L ABG Hemoglobin 9.0 L ABG Carboxyhemoglobin 1.3 POC ABG HHb (Measured) 1.4 ABG Methemoglobin 0.8 ABG O2 Capacity 12.5 L Hgb O2 Saturation 96.5 FiO2 100.0 Sodium Potassium Chloride Carbon Dioxide Anion Gap BUN Creatinine Est GFR ( Amer) Est GFR (Non-Af Amer) POC Glucose (mg/dL) 111 H Random Glucose Calcium Phosphorus Magnesium Total Bilirubin AST ALT Alkaline Phosphatase NT-Pro-B Natriuret Pep Total Protein Albumin Globulin Albumin/Globulin Ratio Crossmatch BBK History Checked 09/22/18 09/22/18 09/22/18 05:40 06:10 09:12 WBC RBC Hgb Hct MCV MCH MCHC RDW Plt Count MPV pCO2 23 L pO2 51.0 L HCO3 13.6 L ABG pH 7.38 ABG Total CO2 14.3 L ABG O2 Saturation 89.9 L ABG O2 Content 9.9 L ABG Base Excess -10.3 L ABG Hemoglobin 8.0 L ABG Carboxyhemoglobin 1.7 H POC ABG HHb (Measured) 9.8 H ABG Methemoglobin 0.8 ABG O2 Capacity 11.0 L Hgb O2 Saturation 87.7 L FiO2 40.0 Sodium 142 Potassium 4.5 Chloride 109 H Carbon Dioxide 16 L Anion Gap 21 H BUN 87 H Creatinine 4.8 H Est GFR ( Amer) 10 Est GFR (Non-Af Amer) 9 POC Glucose (mg/dL) Random Glucose 114 H Calcium 9.0 Phosphorus 6.7 H Magnesium 1.6 L Total Bilirubin 0.7 AST 63 H D ALT 32 Alkaline Phosphatase 61 NT-Pro-B Natriuret Pep 06553 H Total Protein 6.3 Albumin 3.3 Globulin 3.0 Albumin/Globulin Ratio 1.1 Crossmatch BBK History Checked 09/22/18 09/22/18 11:10 13:25 WBC RBC Hgb Hct MCV MCH MCHC RDW Plt Count MPV pCO2 pO2 HCO3 ABG pH ABG Total CO2 ABG O2 Saturation ABG O2 Content ABG Base Excess ABG Hemoglobin ABG Carboxyhemoglobin POC ABG HHb (Measured) ABG Methemoglobin ABG O2 Capacity Hgb O2 Saturation FiO2 Sodium Potassium Chloride Carbon Dioxide Anion Gap BUN Creatinine Est GFR ( Amer) Est GFR (Non-Af Amer) POC Glucose (mg/dL) 135 H Random Glucose Calcium Phosphorus Magnesium Total Bilirubin AST ALT Alkaline Phosphatase NT-Pro-B Natriuret Pep Total Protein Albumin Globulin Albumin/Globulin Ratio Crossmatch See Detail BBK History Checked Patient has bt Radiology Impressions: Radiology Impressions Chest CT 09/21/18 12:19 IMPRESSION: Interval mild increase in the size of airspace consolidation and infiltrate at the right lung since the prior study. Interval appearance of new opacities at the left upper lobe since the prior exam. Moderate to large right and small to moderate left pleural effusions. Additional findings as discussed above. Fingerstick Blood Sugar Results: 111 Critical Care Progress Note - Nutrition Nutrition: Nutrition Category Date Time Status Heart Healthy Diet [DIET] Diets 09/12/18 Breakfast Active Assessment/Plan - Assessment and Plan (Free Text) Assessment: Pt is am 83 yo female with a PMH of DVT, HTN, HLD, CKD, dementia who presented to the emergency department after a fall and injuring her right shoulder, and who was later transferred to the ICU because of worsening SOB. Plan: Neuro - AOx3 Cadio - Maintain MAP >65 - BNP 80437 - no tachycardia - amlodipine, ASA, clonidine, diltiazem, hydralazine - ECHO completed, waiting for official read Pulm - PNA - duonebs - Maintain O2 sat >92 - Chest CT: new opacity of BRETT, left and right pleural effusion - CXR shows signs of PNA - lasix, solu medrol - Pulm consulted, Dr Roland BL PNA, BL pleural effusions, acute on chronic renal failure GI - continue to monitor - FOBT positive 09/16/18 - GI ppx, pantoprazole Heme - monitor H/H - Hgb 7.3 - INR 1.38 - D dimer 783 - LEUS: no radiographic signs of DVT - venofer Nephro - BREANA on CKD - continue to monitor electrolytes - Cr 4.8 - BUN 87 - sodium bicarb - renal US simple cysts Endo - maintain euglycemia ID - no leukocytosis - BL PNA continue doxy and merrem, pt is in renal failure - doxy, merrem - ID consulted, following Pt seen, examined, assessment and plan discussed with Dr Dangelo Serrano PGY1 - Date & Time Date: 09/22/18 Time: 07:00 <Patrick Pierson - Last Filed: 09/22/18 18:08> CCU Objective - Vital Signs / Intake & Output Vital Signs (Last 4 hours): Vital Signs Temp Pulse Resp BP Pulse Ox 09/22/18 17:30 146/59 L 03/13/19 17:29 77 46 H 80 L 09/22/18 17:20 76 38 H 92 L 09/22/18 17:15 77 35 H 148/68 100 09/22/18 17:10 72 40 H 96 09/22/18 17:00 71 29 H 145/56 L 96 09/22/18 16:53 98 F 74 30 H 153/64 H 09/22/18 16:50 76 32 H 96 09/22/18 16:45 78 50 H 153/64 H 100 09/22/18 16:40 72 32 H 89 L 09/22/18 16:37 98 F 71 28 H 140/52 L 09/22/18 16:35 98 F 80 28 H 140/52 L 09/22/18 16:30 77 140 H 89 L 09/22/18 16:20 69 44 H 98 09/22/18 16:10 71 29 H 93 L 09/22/18 16:01 74 59 H 140/52 L 94 L 09/22/18 16:00 98 F 76 51 H 94 L 09/22/18 15:50 76 31 H 89 L 09/22/18 15:40 78 26 H 87 L 09/22/18 15:30 72 30 H 140/82 89 L 09/22/18 15:20 72 21 95 09/22/18 15:10 76 31 H 96 09/22/18 15:00 81 127/69 97 09/22/18 14:50 77 59 H 95 09/22/18 14:40 69 27 H 97 09/22/18 14:30 70 31 H 96 09/22/18 14:20 74 36 H 95 09/22/18 14:10 71 30 H 94 L Intake and Output (Last 8hrs): Intake & Output 09/22/18 09/22/18 09/22/18 06:59 14:59 22:59 Intake Total 850 0 Balance 850 0 Intake: IV 650 Left Antecubital 650 Oral 200 Blood Product 0 Red Blood Cells Cpd As1 0 Lr Unit [id number] Other: # Voids Urine, Voided 2 - Medications Active Medications: Active Medications Generic Name Dose Route Start Last Admin Trade Name Freq PRN Reason Stop Dose Admin Acetaminophen 650 mg 09/12/18 05:16 09/18/18 22:04 Tylenol 325mg Tab PO 650 mg Q6H PRN Administration Pain, moderate (4-7) Acetaminophen 650 mg 09/21/18 12:17 09/21/18 12:38 Tylenol 325mg Tab PO 650 mg Q4H PRN Administration Fever >100.4 F Albuterol/Ipratropium 3 ml 09/22/18 08:00 09/22/18 13:09 Duoneb 3 Mg/0.5 Mg (3 Ml) Ud IH 3 ml [id number] JESUS Administration Amlodipine Besylate 10 mg 09/12/18 08:28 09/22/18 10:29 Norvasc PO 10 mg DAILY JESUS Administration Aspirin 81 mg 09/17/18 10:00 09/22/18 10:31 Ecotrin PO 81 mg DAILY JESUS Administration Clonidine HCl 0.1 mg 09/12/18 08:28 09/22/18 03:11 Catapres PO 0.1 mg QID PRN Administration SBP above 150 Clonidine HCl 1 patch 09/22/18 10:15 Catapres-Tts2 0.2 Mg/24 Hr TD Q7D@1000 JESUS Diltiazem HCl 240 mg 09/12/18 10:00 09/22/18 10:30 Cardizem Cd PO 240 mg DAILY JESUS Administration Furosemide 40 mg 09/22/18 10:00 09/22/18 10:29 Lasix IVP 40 mg Q12 JESUS Administration Hydralazine HCl 75 mg 09/19/18 15:00 09/22/18 15:30 Apresoline PO 75 mg Q8 JESUS Administration Iron Sucrose 100 mg/ Sodium 105 mls @ 210 mls/hr 09/19/18 10:00 09/22/18 10:25 Chloride IVPB 09/28/18 10:29 210 mls/hr DAILY JESUS Administration Doxycycline Hyclate 100 mg/ 100 mls @ 100 mls/hr 09/21/18 22:00 09/22/18 10:26 Sodium Chloride IVPB 100 mls/hr Q12 JESUS Administration Protocol Meropenem 250 mg/ Sodium 100 mls @ 100 mls/hr 09/22/18 10:00 09/22/18 10:22 Chloride IVPB 09/28/18 22:01 100 mls/hr Q12H JESUS Administration Protocol Methylprednisolone 20 mg 09/22/18 09:15 09/22/18 10:28 Solu-Medrol IVP 20 mg Q12H JESUS Administration Pantoprazole Sodium 40 mg 09/13/18 06:30 09/22/18 06:38 Protonix Ec Tab PO 40 mg 0630 JESUS Administration Risperidone 0.25 mg 09/20/18 21:40 Risperdal Tab PO DAILY PRN Other Protocol Sodium Bicarbonate 650 mg 09/21/18 11:15 09/22/18 10:30 Sodium Bicarbonate Tab PO 650 mg BID JESUS Administration - Patient Studies Lab Studies: Microbiology Studies 09/20/18 16:55 Gram Stain - Final Sputum Sputum Culture - Final Yeast Species Lab Studies 09/22/18 09/22/18 09/22/18 Range/Units 15:52 13:25 11:10 WBC (4.5-11.0) 10^3/uL RBC (3.5-6.1) 10^6/uL Hgb (12.0-16.0) g/dL Hct (36.0-48.0) % MCV (80.0-105.0) fl MCH (25.0-35.0) pg MCHC (31.0-37.0) g/dl RDW (11.5-14.5) % Plt Count (120.0-450.0) 10^3/uL MPV (7.0-11.0) fl pCO2 (35-45) mm/Hg pO2 (80-100) mm/Hg HCO3 (21-28) mmol/L ABG pH (7.35-7.45) ABG Total CO2 (22-28) mmol.L ABG O2 Saturation (95-98) % ABG O2 Content (15-23) ML/dl ABG Base Excess (-2.0-3.0) mmol/L ABG Hemoglobin (11.7-17.4) g/dL ABG Carboxyhemoglobin (0.5-1.5) % POC ABG HHb (Measured) (0-5) % ABG Methemoglobin (0.0-3.0) % ABG O2 Capacity (16-24) mL/dl Hgb O2 Saturation (95.0-98.0) % FiO2 % Sodium (132-148) mmol/L Potassium (3.6-5.0) mmol/L Chloride (98-107) mmol/L Carbon Dioxide (21-33) mmol/L Anion Gap (10-20) BUN (7-21) mg/dL Creatinine (0.7-1.2) mg/dl Est GFR ( Amer) Est GFR (Non-Af Amer) POC Glucose (mg/dL) 178 H 135 H (65-110) mg/dL Random Glucose (70-110) mg/dL Calcium (8.4-10.5) mg/dL Phosphorus (2.5-4.5) mg/dL Magnesium (1.7-2.2) mg/dL Total Bilirubin (0.2-1.3) mg/dL AST (14-36) U/L ALT (7-56) U/L Alkaline Phosphatase (38-126) U/L NT-Pro-B Natriuret Pep (0-450) pg/mL Total Protein (5.8-8.3) g/dL Albumin (3.0-4.8) g/dL Globulin gm/dL Albumin/Globulin Ratio (1.1-1.8) Blood Type A POSITIVE Antibody Screen Negative Crossmatch See Detail BBK History Checked Patient has bt 09/22/18 09/22/18 09/22/18 Range/Units 09:12 06:10 05:40 WBC (4.5-11.0) 10^3/uL RBC (3.5-6.1) 10^6/uL Hgb (12.0-16.0) g/dL Hct (36.0-48.0) % MCV (80.0-105.0) fl MCH (25.0-35.0) pg MCHC (31.0-37.0) g/dl RDW (11.5-14.5) % Plt Count (120.0-450.0) 10^3/uL MPV (7.0-11.0) fl pCO2 23 L (35-45) mm/Hg pO2 51.0 L (80-100) mm/Hg HCO3 13.6 L (21-28) mmol/L ABG pH 7.38 (7.35-7.45) ABG Total CO2 14.3 L (22-28) mmol.L ABG O2 Saturation 89.9 L (95-98) % ABG O2 Content 9.9 L (15-23) ML/dl ABG Base Excess -10.3 L (-2.0-3.0) mmol/L ABG Hemoglobin 8.0 L (11.7-17.4) g/dL ABG Carboxyhemoglobin 1.7 H (0.5-1.5) % POC ABG HHb (Measured) 9.8 H (0-5) % ABG Methemoglobin 0.8 (0.0-3.0) % ABG O2 Capacity 11.0 L (16-24) mL/dl Hgb O2 Saturation 87.7 L (95.0-98.0) % FiO2 40.0 % Sodium 142 (132-148) mmol/L Potassium 4.5 (3.6-5.0) mmol/L Chloride 109 H (98-107) mmol/L Carbon Dioxide 16 L (21-33) mmol/L Anion Gap 21 H (10-20) BUN 87 H (7-21) mg/dL Creatinine 4.8 H (0.7-1.2) mg/dl Est GFR ( Amer) 10 Est GFR (Non-Af Amer) 9 POC Glucose (mg/dL) (65-110) mg/dL Random Glucose 114 H (70-110) mg/dL Calcium 9.0 (8.4-10.5) mg/dL Phosphorus 6.7 H (2.5-4.5) mg/dL Magnesium 1.6 L (1.7-2.2) mg/dL Total Bilirubin 0.7 (0.2-1.3) mg/dL AST 63 H D (14-36) U/L ALT 32 (7-56) U/L Alkaline Phosphatase 61 (38-126) U/L NT-Pro-B Natriuret Pep 18702 H (0-450) pg/mL Total Protein 6.3 (5.8-8.3) g/dL Albumin 3.3 (3.0-4.8) g/dL Globulin 3.0 gm/dL Albumin/Globulin Ratio 1.1 (1.1-1.8) Blood Type Antibody Screen Crossmatch BBK History Checked 09/22/18 09/21/18 09/21/18 Range/Units 05:40 20:50 16:19 WBC 9.6 D (4.5-11.0) 10^3/uL RBC 2.64 L (3.5-6.1) 10^6/uL Hgb 7.3 L (12.0-16.0) g/dL Hct 23.2 L (36.0-48.0) % MCV 87.9 (80.0-105.0) fl MCH 27.7 (25.0-35.0) pg MCHC 31.5 (31.0-37.0) g/dl RDW 14.4 (11.5-14.5) % Plt Count 389 (120.0-450.0) 10^3/uL MPV 9.2 (7.0-11.0) fl pCO2 25 L (35-45) mm/Hg pO2 87.0 (80-100) mm/Hg HCO3 16.6 L (21-28) mmol/L ABG pH 7.43 (7.35-7.45) ABG Total CO2 17.4 L (22-28) mmol.L ABG O2 Saturation 98.6 H (95-98) % ABG O2 Content 12.3 L (15-23) ML/dl ABG Base Excess -6.6 L (-2.0-3.0) mmol/L ABG Hemoglobin 9.0 L (11.7-17.4) g/dL ABG Carboxyhemoglobin 1.3 (0.5-1.5) % POC ABG HHb (Measured) 1.4 (0-5) % ABG Methemoglobin 0.8 (0.0-3.0) % ABG O2 Capacity 12.5 L (16-24) mL/dl Hgb O2 Saturation 96.5 (95.0-98.0) % FiO2 100.0 % Sodium (132-148) mmol/L Potassium (3.6-5.0) mmol/L Chloride (98-107) mmol/L Carbon Dioxide (21-33) mmol/L Anion Gap (10-20) BUN (7-21) mg/dL Creatinine (0.7-1.2) mg/dl Est GFR ( Amer) Est GFR (Non-Af Amer) POC Glucose (mg/dL) 111 H (65-110) mg/dL Random Glucose (70-110) mg/dL Calcium (8.4-10.5) mg/dL Phosphorus (2.5-4.5) mg/dL Magnesium (1.7-2.2) mg/dL Total Bilirubin (0.2-1.3) mg/dL AST (14-36) U/L ALT (7-56) U/L Alkaline Phosphatase (38-126) U/L NT-Pro-B Natriuret Pep (0-450) pg/mL Total Protein (5.8-8.3) g/dL Albumin (3.0-4.8) g/dL Globulin gm/dL Albumin/Globulin Ratio (1.1-1.8) Blood Type Antibody Screen Crossmatch BBK History Checked 09/13/18 Range/Units 09:35 WBC (4.5-11.0) 10^3/uL RBC (3.5-6.1) 10^6/uL Hgb (12.0-16.0) g/dL Hct (36.0-48.0) % MCV (80.0-105.0) fl MCH (25.0-35.0) pg MCHC (31.0-37.0) g/dl RDW (11.5-14.5) % Plt Count (120.0-450.0) 10^3/uL MPV (7.0-11.0) fl pCO2 (35-45) mm/Hg pO2 (80-100) mm/Hg HCO3 (21-28) mmol/L ABG pH (7.35-7.45) ABG Total CO2 (22-28) mmol.L ABG O2 Saturation (95-98) % ABG O2 Content (15-23) ML/dl ABG Base Excess (-2.0-3.0) mmol/L ABG Hemoglobin (11.7-17.4) g/dL ABG Carboxyhemoglobin (0.5-1.5) % POC ABG HHb (Measured) (0-5) % ABG Methemoglobin (0.0-3.0) % ABG O2 Capacity (16-24) mL/dl Hgb O2 Saturation (95.0-98.0) % FiO2 % Sodium (132-148) mmol/L Potassium (3.6-5.0) mmol/L Chloride (98-107) mmol/L Carbon Dioxide (21-33) mmol/L Anion Gap (10-20) BUN (7-21) mg/dL Creatinine (0.7-1.2) mg/dl Est GFR ( Amer) Est GFR (Non-Af Amer) POC Glucose (mg/dL) (65-110) mg/dL Random Glucose (70-110) mg/dL Calcium (8.4-10.5) mg/dL Phosphorus (2.5-4.5) mg/dL Magnesium (1.7-2.2) mg/dL Total Bilirubin (0.2-1.3) mg/dL AST (14-36) U/L ALT (7-56) U/L Alkaline Phosphatase (38-126) U/L NT-Pro-B Natriuret Pep (0-450) pg/mL Total Protein (5.8-8.3) g/dL Albumin (3.0-4.8) g/dL Globulin gm/dL Albumin/Globulin Ratio (1.1-1.8) Blood Type Antibody Screen Crossmatch See Detail BBK History Checked Laboratory Results - last 24 hr 09/13/18 09/21/18 09/21/18 09:35 16:19 20:50 WBC RBC Hgb Hct MCV MCH MCHC RDW Plt Count MPV pCO2 25 L pO2 87.0 HCO3 16.6 L ABG pH 7.43 ABG Total CO2 17.4 L ABG O2 Saturation 98.6 H ABG O2 Content 12.3 L ABG Base Excess -6.6 L ABG Hemoglobin 9.0 L ABG Carboxyhemoglobin 1.3 POC ABG HHb (Measured) 1.4 ABG Methemoglobin 0.8 ABG O2 Capacity 12.5 L Hgb O2 Saturation 96.5 FiO2 100.0 Sodium Potassium Chloride Carbon Dioxide Anion Gap BUN Creatinine Est GFR ( Amer) Est GFR (Non-Af Amer) POC Glucose (mg/dL) 111 H Random Glucose Calcium Phosphorus Magnesium Total Bilirubin AST ALT Alkaline Phosphatase NT-Pro-B Natriuret Pep Total Protein Albumin Globulin Albumin/Globulin Ratio Blood Type Antibody Screen Crossmatch See Detail BBK History Checked 09/22/18 09/22/18 09/22/18 05:40 05:40 06:10 WBC 9.6 D RBC 2.64 L Hgb 7.3 L Hct 23.2 L MCV 87.9 MCH 27.7 MCHC 31.5 RDW 14.4 Plt Count 389 MPV 9.2 pCO2 23 L pO2 51.0 L HCO3 13.6 L ABG pH 7.38 ABG Total CO2 14.3 L ABG O2 Saturation 89.9 L ABG O2 Content 9.9 L ABG Base Excess -10.3 L ABG Hemoglobin 8.0 L ABG Carboxyhemoglobin 1.7 H POC ABG HHb (Measured) 9.8 H ABG Methemoglobin 0.8 ABG O2 Capacity 11.0 L Hgb O2 Saturation 87.7 L FiO2 40.0 Sodium 142 Potassium 4.5 Chloride 109 H Carbon Dioxide 16 L Anion Gap 21 H BUN 87 H Creatinine 4.8 H Est GFR ( Amer) 10 Est GFR (Non-Af Amer) 9 POC Glucose (mg/dL) Random Glucose 114 H Calcium 9.0 Phosphorus 6.7 H Magnesium 1.6 L Total Bilirubin 0.7 AST 63 H D ALT 32 Alkaline Phosphatase 61 NT-Pro-B Natriuret Pep Total Protein 6.3 Albumin 3.3 Globulin 3.0 Albumin/Globulin Ratio 1.1 Blood Type Antibody Screen Crossmatch BBK History Checked 09/22/18 09/22/18 09/22/18 09:12 11:10 13:25 WBC RBC Hgb Hct MCV MCH MCHC RDW Plt Count MPV pCO2 pO2 HCO3 ABG pH ABG Total CO2 ABG O2 Saturation ABG O2 Content ABG Base Excess ABG Hemoglobin ABG Carboxyhemoglobin POC ABG HHb (Measured) ABG Methemoglobin ABG O2 Capacity Hgb O2 Saturation FiO2 Sodium Potassium Chloride Carbon Dioxide Anion Gap BUN Creatinine Est GFR ( Amer) Est GFR (Non-Af Amer) POC Glucose (mg/dL) 135 H Random Glucose Calcium Phosphorus Magnesium Total Bilirubin AST ALT Alkaline Phosphatase NT-Pro-B Natriuret Pep [id number] H Total Protein Albumin Globulin Albumin/Globulin Ratio Blood Type A POSITIVE Antibody Screen Negative Crossmatch See Detail BBK History Checked Patient has bt 09/22/18 15:52 WBC RBC Hgb Hct MCV MCH MCHC RDW Plt Count MPV pCO2 pO2 HCO3 ABG pH ABG Total CO2 ABG O2 Saturation ABG O2 Content ABG Base Excess ABG Hemoglobin ABG Carboxyhemoglobin POC ABG HHb (Measured) ABG Methemoglobin ABG O2 Capacity Hgb O2 Saturation FiO2 Sodium Potassium Chloride Carbon Dioxide Anion Gap BUN Creatinine Est GFR ( Amer) Est GFR (Non-Af Amer) POC Glucose (mg/dL) 178 H Random Glucose Calcium Phosphorus Magnesium Total Bilirubin AST ALT Alkaline Phosphatase NT-Pro-B Natriuret Pep Total Protein Albumin Globulin Albumin/Globulin Ratio Blood Type Antibody Screen Crossmatch BBK History Checked Critical Care Progress Note - Nutrition Nutrition: Nutrition Category Date Time Status Heart Healthy Diet [DIET] Diets 09/12/18 Breakfast Active Attending/Attestation - Attestation I have personally seen and examined this patient.: Yes I have fully participated in the care of the patient.: Yes I have reviewed all pertinent clinical information: Yes Notes (Text): 09/22/18 18:[address] Pierson note
--- NOTE | 2018-09-22 15:57 | PN ---
DATE: 09/22/2018 SUBJECTIVE: The patient is an 83-year-old, yesterday evenings events noted. The patient was hypoxic, tachycardic and tachypneic. She was on 100% nonrebreather, I spoke to the patient's [id number] who states that the patient is not DNR. She wants everything done. The patient was transferred to ICU. Started on IV antibiotic again. She has been intermittently on diuretics. She is on nebulizer treatment. She is on steroids. PHYSICAL EXAMINATION: GENERAL: This morning, she is doing fairly well. Awake, alert, oriented and communicative. Shortness of breath is better. She is on nasal cannula, saturating 93%. VITAL SIGNS: She is afebrile. Pulse 75, respiration 23 and blood pressure 158/72. LUNGS: Bilateral soft crackle in upper lung region. HEART: S1 and S2, audible. ABDOMEN: Soft and nontender. No rebound. No guarding. NEUROLOGIC: The patient is awake, alert and able to communicate. Able to move all extremities. No complaint of abdominal pain anymore. LABORATORY DATA: WBC 9.6, hemoglobin 7.3, hematocrit 23.2 and platelet of 389. Chemistry; sodium 142, potassium 4.5, chloride 109, CO2 of 16, BUN 87, creatinine 4.8, blood sugar 135 and BNP 39,100. Stool Hemoccult is positive. ASSESSMENT: 1. Bilateral worsening pneumonia. 2. Congestive heart failure. 3. Anemia. 4. History of severe peripheral vascular disease. PLAN: Currently, the patient is on amlodipine. The patient is on doxycycline again. She is on meropenem. She is on Protonix. She was given a dose of vancomycin. Echo has been ordered. We will followup. We will give her one blood transfusions. I will followup her electrolyte and H and H in a.m. Torrie Adamson MD
--- NOTE | 2018-09-22 16:21 | CP.PCM.PN ---
<Carlos Munson - Last Filed: 09/22/18 16:17> Subjective - Date & Time of Evaluation Date of Evaluation: 09/22/18 Time of Evaluation: 10:00 - Subjective Subjective: Carlos Munson D.O. PGY-3, Internal Medicine Resident, Infectious Disease Progress Note 83-year-old female with a past medical history of hypertension, diabetes, PVD, DVT, LVH, and aortic and mitral regurg [place] [facility] [place] being treated for bilateral community-acquired pneumonia with acute kidney injury. Now with sepsis with HAP. Patient was seen and examined at bedside. Somewhat tired. No major complaints Feeling somewhat better. Objective - Vital Signs/Intake and Output Vital Signs (last 24 hours): Temp Pulse Resp BP Pulse Ox 98.1 F 72 34 H 164/54 H 97 09/22/18 06:00 09/22/18 12:30 09/22/18 12:30 09/22/18 12:00 09/22/18 12:30 Intake and Output: 09/22/18 09/22/18 06:59 18:59 Intake Total 850 Balance 850 - Medications Medications: Current Medications Acetaminophen (Tylenol 325mg Tab) 650 mg PO Q6H PRN PRN Reason: Pain, moderate (4-7) Last Admin: 09/18/18 22:04 Dose: 650 mg Acetaminophen (Tylenol 325mg Tab) 650 mg PO Q4H PRN PRN Reason: Fever >100.4 F Last Admin: 09/21/18 12:38 Dose: 650 mg Albuterol/Ipratropium (Duoneb 3 Mg/0.5 Mg (3 Ml) Ud) 3 ml IH [id number] [facility] Last Admin: 09/22/18 13:09 Dose: 3 ml Amlodipine Besylate (Norvasc) 10 mg PO DAILY [facility] Last Admin: 09/22/18 10:29 Dose: 10 mg Aspirin (Ecotrin) 81 mg PO DAILY [facility] Last Admin: 09/22/18 10:31 Dose: 81 mg Clonidine HCl (Catapres) 0.1 mg PO QID PRN PRN Reason: SBP above 150 Last Admin: 09/22/18 03:11 Dose: 0.1 mg Clonidine HCl (Catapres-Tts2 0.2 Mg/24 Hr) 1 patch TD Q7D@1000 [facility] Diltiazem HCl (Cardizem Cd) 240 mg PO DAILY [facility] Last Admin: 09/22/18 10:30 Dose: 240 mg Furosemide (Lasix) 40 mg IVP Q12 [facility] Last Admin: 09/22/18 10:29 Dose: 40 mg Hydralazine HCl (Apresoline) 75 mg PO Q8 [facility] Last Admin: 09/22/18 05:25 Dose: 75 mg Iron Sucrose 100 mg/ Sodium (Chloride) 105 mls @ 210 mls/hr IVPB DAILY [facility] Stop: 09/28/18 10:29 Last Admin: 09/22/18 10:25 Dose: 210 mls/hr Doxycycline Hyclate 100 mg/ (Sodium Chloride) 100 mls @ 100 mls/hr IVPB Q12 S ; Protocol Last Admin: 09/22/18 10:26 Dose: 100 mls/hr Meropenem 250 mg/ Sodium (Chloride) 100 mls @ 100 mls/hr IVPB Q12H [facility]; Protocol Stop: 09/28/18 22:01 Last Admin: 09/22/18 10:22 Dose: 100 mls/hr Methylprednisolone (Solu-Medrol) 20 mg IVP Q12H [facility] Last Admin: 09/22/18 10:28 Dose: 20 mg Pantoprazole Sodium (Protonix Ec Tab) 40 mg PO 0630 [facility] Last Admin: 09/22/18 06:38 Dose: 40 mg Risperidone (Risperdal Tab) 0.25 mg PO DAILY PRN; Protocol PRN Reason: Other Sodium Bicarbonate (Sodium Bicarbonate Tab) 650 mg PO BID [facility] Last Admin: 09/22/18 10:30 Dose: 650 mg - Labs Labs: 09/22/18 05:40 09/22/18 05:40 PT 15.6 SECONDS (9.4-12.5) H 09/17/18 06:20 INR 1.38 09/17/18 06:20 APTT 30.3 Seconds (26.9-38.3) 09/17/18 06:20 - Constitutional Appears: Non-toxic, Cachectic, Chronically Ill - Head Exam Head Exam: ATRAUMATIC - Eye Exam Eye Exam: absent: Scleral icterus - ENT Exam ENT Exam: Mucous Membranes Moist, Normal Oropharynx - Neck Exam Neck Exam: Normal Inspection - Respiratory Exam Respiratory Exam: absent: Rales - Cardiovascular Exam Cardiovascular Exam: +S1, +S2 - GI/Abdominal Exam GI & Abdominal Exam: Soft. absent: Tenderness - Extremities Exam Extremities Exam: absent: Tenderness - Neurological Exam Neurological Exam: Alert, Awake - Skin Skin Exam: Dry, Warm Assessment and Plan - Assessment and Plan (Free Text) Assessment: 83-year-old female with a past medical history of hypertension, diabetes, PVD, DVT, LVH, and aortic and mitral regurg presented to [facility] [place] and was being treated for bilateral community-acquired pneumonia with acute kidney injury. Now with sepsis with HAP. Plan: Sepsis HAP BREANA No leukocytosis Last fever was 100.9 yesterday at noon Still with some tachypnea times Continue with doxycycline day 2 Continue with meropenem day 1 We will continue to follow Patient was seen and examined and case will be discussed with attending physician Thank you for the pleasure participating in the care of this interesting patient <Urbano Herring - Last Filed: 09/22/18 21:28> Objective - Vital Signs/Intake and Output Vital Signs (last 24 hours): Temp Pulse Resp BP Pulse Ox 98 F 74 33 H 162/68 H 95 09/22/18 19:35 09/22/18 20:00 09/22/18 20:00 09/22/18 20:00 09/22/18 20:00 Intake and Output: 09/22/18 09/23/18 18:59 06:59 Intake Total 1075 325 Balance 1075 325 - Medications Medications: Current Medications Acetaminophen (Tylenol 325mg Tab) 650 mg PO Q6H PRN PRN Reason: Pain, moderate (4-7) Last Admin: 09/18/18 22:04 Dose: 650 mg Acetaminophen (Tylenol 325mg Tab) 650 mg PO Q4H PRN PRN Reason: Fever >100.4 F Last Admin: 09/21/18 12:38 Dose: 650 mg Albuterol/Ipratropium (Duoneb 3 Mg/0.5 Mg (3 Ml) Ud) 3 ml IH [id number] [facility] Last Admin: 09/22/18 20:15 Dose: 3 ml Amlodipine Besylate (Norvasc) 10 mg PO DAILY [facility] Last Admin: 09/22/18 10:29 Dose: 10 mg Aspirin (Ecotrin) 81 mg PO DAILY [facility] Last Admin: 09/22/18 10:31 Dose: 81 mg Clonidine HCl (Catapres) 0.1 mg PO QID PRN PRN Reason: SBP above 150 Last Admin: 09/22/18 03:11 Dose: 0.1 mg Clonidine HCl (Catapres-Tts2 0.2 Mg/24 Hr) 1 patch TD Q7D@1000 [facility] Diltiazem HCl (Cardizem Cd) 240 mg PO DAILY [facility] Last Admin: 09/22/18 10:30 Dose: 240 mg Furosemide (Lasix) 40 mg IVP Q12 [facility] Last Admin: 09/22/18 10:29 Dose: 40 mg Hydralazine HCl (Apresoline) 75 mg PO Q8 [facility] Last Admin: 09/22/18 15:30 Dose: 75 mg Iron Sucrose 100 mg/ Sodium (Chloride) 105 mls @ 210 mls/hr IVPB DAILY [facility] Stop: 09/28/18 10:29 Last Admin: 09/22/18 10:25 Dose: 210 mls/hr Doxycycline Hyclate 100 mg/ (Sodium Chloride) 100 mls @ 100 mls/hr IVPB Q12 [facility]; Protocol Last Admin: 09/22/18 10:26 Dose: 100 mls/hr Meropenem 250 mg/ Sodium (Chloride) 100 mls @ 100 mls/hr IVPB Q12H [facility]; Protocol Stop: 09/28/18 22:01 Last Admin: 09/22/18 10:22 Dose: 100 mls/hr Methylprednisolone (Solu-Medrol) 20 mg IVP Q12H [facility] Last Admin: 09/22/18 10:28 Dose: 20 mg Pantoprazole Sodium (Protonix Ec Tab) 40 mg PO 0630 [facility] Last Admin: 09/22/18 06:38 Dose: 40 mg Risperidone (Risperdal Tab) 0.25 mg PO DAILY PRN; Protocol PRN Reason: Other Sodium Bicarbonate (Sodium Bicarbonate Tab) 650 mg PO BID [facility] Last Admin: 09/22/18 10:30 Dose: 650 mg - Labs Labs: 09/22/18 05:40 09/22/18 05:40 PT 15.6 SECONDS (9.4-12.5) H 09/17/18 06:20 INR 1.38 09/17/18 06:20 APTT 30.3 Seconds (26.9-38.3) 09/17/18 06:20 Attending/Attestation - Attestation I have personally seen and examined this patient.: Yes I have fully participated in the care of the patient.: Yes I have reviewed all pertinent clinical information, including history, physical exam and plan: Yes
--- NOTE | 2018-09-22 19:58 | CON ---
DATE: 09/22/2018 REASON FOR CONSULTATION: Cardiac evaluation, shortness of breath, moved to ICU, and initially admitted on 09/14/2018 with pneumonia. BRIEF CLINICAL HISTORY: This is an 83-year-old female, very poor historian, history of dementia, history of chronic kidney disease, diabetes, history of deep vein thrombosis, history of chronic anemia, and history of valvular heart disease who initially came to the [facility] on 09/12/2018 with severe intractable right shoulder pain. The patient was admitted for evaluation and found to be pneumonia. The patient was in the floor, being treated there. Yesterday, the patient becomes hypotensive, had a rapid response, and moved to ICU. CAT scan was done yesterday, which shows bilateral pleural effusion and infiltrate, so the patient moved to ICU after rapid response. The patient denies any chest pain. Denies any shortness of breath, lying flat, but claims right shoulder pain. PAST MEDICAL HISTORY: Significant for DVT, hypertension, hyperlipidemia, chronic kidney disease, and mitral regurgitation. SOCIAL HISTORY: Ex-smoker, quit many years ago. No history of substance abuse. No history of illicit drug abuse in the chart. Information obtained from the chart because the patient is a very poor historian. ALLERGIES: NO KNOWN DRUG ALLERGY REPORTED. CURRENT MEDICATIONS AT HOME: Before admission, the patient was taking clonidine 0.3 mg, Catapres patch, pentoxifylline, Coumadin 3 mg daily because of history of DVT/PE, history of Cardizem, history of amlodipine, hydralazine and multivitamin as well as Pepcid. PREVIOUS CARDIAC WORKUP FOLLOWS: The patient had EKG on that shows normal sinus first-degree A-V block, occasional premature APCs, right bundle with left anterior hemiblock, and right fascicular block. The patient had echocardiography done and 09/15/2016 that revealed aortic valve moderately sclerotic, mild pulmonary hypertension, prior to that the patient had echo on 06/10/2016 that revealed ejection fraction 70% to 75% trace aortic regurgitation, [id number] valvular aortic stenosis, mild mitral regurgitation, mild tricuspid regurgitation, and RV systolic pressure 54. REVIEW OF SYSTEMS: As per HPI. PHYSICAL EXAMINATION: VITAL SIGNS: Height of the patient is 5 feet 4 inches, weight of the patient is 116 pounds, and body mass index 20 kg/m2. Rest of the vitals; temperature is afebrile, heart rate is 75, and blood pressure 158/72. HEENT: PERRLA. Extraocular muscles intact. NECK: Supple. No carotid bruit or thyromegaly. CHEST: Clear to auscultation. HEART: S1 and S2 regular. ABDOMEN: Soft. EXTREMITIES: Clubbing and cyanosis negative. LABORATORY DATA: EKG shows normal sinus right bundle, left anterior hemiblock, no change from earlier EKG available in the computer on 09/12/2018. Blood workup as follows; WBC 9.6, hemoglobin 7.3, hematocrit 23.2 , and platelet count 389. Chemistry shows sodium 142, potassium 4.5, chloride 109, carbon dioxide 16, anion gap of 21, BUN 87, creatinine 4.8, phosphorus 6.7, magnesium 1.6, total protein 6.3, albumin 3, and albumin-globulin ratio 1.1. Also lab shows severe anemia which is new, EKG did not show any significant change, but the patient has baseline right bundle-branch block and left anterior hemiblock (bifascicular block, but no change from 09/2018). So far, no evidence of acute IN. IMPRESSION: An 83-year-old female with past medical history significant for hypertension, hyperlipidemia, possible dementia, history of chronic kidney disease, admitted with shortness of breath, pneumonia, yesterday the patient get more short of breath, and moved to Intensive Care Unit. Chest x-ray shows pleural effusion. The patient had CT chest done yesterday that shows interval increase in size of airspace consolidation, worsening pneumonia right lobe as well as moderate right pleural effusion is [id number] left pleural effusion, bilateral pleural effusion and worsening of pneumonia, moved to Intensive Care Unit, history of chronic kidney disease with acute kidney injury, chronic renal insufficiency, prior echocardiograms in 2016 and 2017 shows [id number] aortic stenosis, mitral regurgitation and tricuspid regurgitation. RECOMMENDATIONS: We will get echo to assess LV function, monitor closely with Nephrology, consider packed RBC transfusion if hemoglobin less than 10, and continue broad-spectrum antibiotics. We will put clonidine patch No. 3 for blood pressure because p.o. is not reliable and the patient is still hypertensive. We will get lipid profile, TSH, and hemoglobin A1c. We will follow with you. Thank you Dr. Adamson for providing us the opportunity in taking care of the patient, Jaclyn Agusto. Suzie Bird MD
--- NOTE | 2018-09-22 23:00 | PN ---
DATE: 09/22/2018 SUBJECTIVE: The patient is seen lying in bed in the ICU. She reports that she is feeling better. She appeared to be in moderate respiratory distress, but she denies any shortness of breath. She denies any pain at this time. She denies any nausea or vomiting. The patient was transferred to the ICU early this morning because of tachypnea, tachycardia, altered mental status, respiratory failure. No fever, no chills, no sweats. No nausea, vomiting, or diarrhea. No constipation. PHYSICAL EXAMINATION: GENERAL: Elderly lady, lying in bed in the ICU. VITAL SIGNS: Blood pressure 148/68, heart rate 77, respiratory rate 35 to 45, temperature 98. T-max is 100.9. HEENT: Normocephalic and atraumatic. Positive pallor. NECK: Supple. No JVD. LUNGS: Bilateral equal entry, bilateral equal expansion, bilateral scattered rhonchi. CARDIAC: S1 and S2, regular rate and rhythm. No murmur, no rub. ABDOMEN: Soft, nondistended, nontender. Bowel sounds present. EXTREMITIES: No lower extremity edema. LABORATORY DATA: WBC 9.6, hemoglobin 11.3, hematocrit 23, platelets 389. Sodium 142, potassium 4.9, earlier 4.5, chloride 109, CO2 of 16, BUN 87, creatinine 4.8, glucose 114, calcium 9, phosphorus 6.7, magnesium 1.6. BNP 39,000, albumin 3.3, PTH 453. Stool occult positive. Complements normal. Anti-GBM antibody less than 1. ABBEY negative. Gram stain from sputum, yeast. Blood cultures, no growth. Urine culture, beta-hemolytic strep. CURRENT MEDICATIONS: Apresoline 75 mg every 8 hours, Cardizem 240 mg, Catapres 0.1 mg four times a day p.r.n., Catapres patch 0.2 mg, doxycycline 100 mg every 12 hours, DuoNeb, aspirin 81 mg, Venofer 100 mg IV daily, Lasix 40 mg IV every 12 hours, meropenem 250 mg every 12 hours, amlodipine 10 mg, Protonix 40 mg, Risperdal, sodium bicarbonate 650 mg b.i.d., Solu-Medrol 20 mg IV every 12 hours, Tylenol. ASSESSMENT: 1. Acute kidney injury superimposed on chronic kidney disease stage 3, progressively worsening renal parameters. No evidence of vasculitis. No evidence of acute interstitial nephritis. Suspect this is acute tubular necrosis in the setting of sepsis, respiratory failure. 2. Anion gap metabolic acidosis in the setting of worsening renal parameters. 3. Underlying chronic kidney disease stage 3. 4. Respiratory distress/respiratory failure/bilateral pneumonia/bilateral pleural effusion. 5. History of hypertension. 6. Severe anemia with low iron stores. 7. Dementia. 8. History of deep venous thrombosis. 9. History of degenerative joint disease. 10. Status post hemoptysis. 11. History of deep venous thrombosis/aortic insufficiency/mitral regurgitation/right bundle-branch block. PLAN: 1. At this time in light of her worsening renal parameters and worsening metabolic acidosis, definitely need to consider renal replacement therapy. 2. Continue Lasix 40 mg IV every 12 hours. 3. Monitor urine output closely. 4. Continue antibiotics as per ID recommendations. 5. Dose all antibiotics for creatinine clearance about 10 mL per minute. 6. Continue hydralazine, Cardizem, and Catapres. 7. We will discuss with Dr. Adamson. Case discussed with Dr. Pierson. Transfuse the hemoglobin of 9. More than 35 minutes was spent in the care of this critically ill patient. Samantha Radn MD
--- NOTE | 2018-09-23 01:21 | CP.PCM.PN ---
Subjective - Date & Time of Evaluation Date of Evaluation: 09/23/18 Time of Evaluation: 01:20 - Subjective Subjective: To be dictated. Hypoxic. Rx, ABG ordered. 01:38 ABG-07.19/46/57/17.6 on 70 % , partial mask. Patient is keeping oxygen off-pulse ox 83%. Will keep pt on 100 % NRM and restrain wrist to maintain. Objective - Vital Signs/Intake and Output Vital Signs (last 24 hours): Temp Pulse Resp BP Pulse Ox 97.5 F L 64 28 H 143/53 L 82 L 09/22/18 22:00 09/22/18 23:20 09/22/18 23:20 09/22/18 22:00 09/22/18 23:20 Intake and Output: 09/22/18 09/23/18 18:59 06:59 Intake Total 1075 325 Balance 1075 325 - Medications Medications: Current Medications Acetaminophen (Tylenol 325mg Tab) 650 mg PO Q6H PRN PRN Reason: Pain, moderate (4-7) Last Admin: 09/18/18 22:04 Dose: 650 mg Acetaminophen (Tylenol 325mg Tab) 650 mg PO Q4H PRN PRN Reason: Fever >100.4 F Last Admin: 09/21/18 12:38 Dose: 650 mg Albuterol/Ipratropium (Duoneb 3 Mg/0.5 Mg (3 Ml) Ud) 3 ml IH [id number] [facility] Last Admin: 09/22/18 20:15 Dose: 3 ml Amlodipine Besylate (Norvasc) 10 mg PO DAILY [facility] Last Admin: 09/22/18 10:29 Dose: 10 mg Aspirin (Ecotrin) 81 mg PO DAILY [facility] Last Admin: 09/22/18 10:31 Dose: 81 mg Clonidine HCl (Catapres) 0.1 mg PO QID PRN PRN Reason: SBP above 150 Last Admin: 09/22/18 03:11 Dose: 0.1 mg Clonidine HCl (Catapres-Tts2 0.2 Mg/24 Hr) 1 patch TD Q7D@1000 [facility] Diltiazem HCl (Cardizem Cd) 240 mg PO DAILY [facility] Last Admin: 09/22/18 10:30 Dose: 240 mg Furosemide (Lasix) 40 mg IVP Q12 [facility] Last Admin: 09/22/18 21:33 Dose: 40 mg Hydralazine HCl (Apresoline) 75 mg PO Q8 [facility] Last Admin: 09/22/18 21:31 Dose: 75 mg Iron Sucrose 100 mg/ Sodium (Chloride) 105 mls @ 210 mls/hr IVPB DAILY [facility] Stop: 09/28/18 10:29 Last Admin: 09/22/18 10:25 Dose: 210 mls/hr Doxycycline Hyclate 100 mg/ (Sodium Chloride) 100 mls @ 100 mls/hr IVPB Q12 [facility]; Protocol Last Admin: 09/22/18 21:37 Dose: 100 mls/hr Meropenem 250 mg/ Sodium (Chloride) 100 mls @ 100 mls/hr IVPB Q12H [facility]; P rotocol Stop: 09/28/18 22:01 Last Admin: 09/22/18 21:38 Dose: 100 mls/hr Methylprednisolone (Solu-Medrol) 20 mg IVP Q12H [facility] Last Admin: 09/22/18 21:36 Dose: 20 mg Pantoprazole Sodium (Protonix Ec Tab) 40 mg PO 0630 [facility] Last Admin: 09/22/18 06:38 Dose: 40 mg Risperidone (Risperdal Tab) 0.25 mg PO DAILY [facility]; Protocol PRN Reason: Other Sodium Bicarbonate (Sodium Bicarbonate Tab) 650 mg PO BID [facility] Last Admin: 09/22/18 10:30 Dose: 650 mg - Labs Labs: 09/22/18 05:40 09/22/18 05:40 PT 15.6 SECONDS (9.4-12.5) H 09/17/18 06:20 INR 1.38 09/17/18 06:20 APTT 30.3 Seconds (26.9-38.3) 09/17/18 06:20
[2018-09-23] MEDS: Albuterol-Ipratrop 3 mg / 0.5 (3 ml) UD IH SCH ×4 (01:30→19:32)
[2018-09-23 01:33] LABS: ARTERIAL BLOOD GAS HCO3 17.6 mmol/L (21-28); ARTERIAL BLOOD GAS HEMOGLOBIN 8.1 g/dL (11.7-17.4); ARTERIAL BLOOD GAS O2 CAPACITY 11.1 mL/dl (16-24); ARTERIAL BLOOD GAS O2 CONTENT 10.1 ML/dl (15-23); ARTERIAL BLOOD GAS PCO2 46 mm/Hg (35-45); ARTERIAL BLOOD GAS PH 7.19 (7.35-7.45)
[2018-09-23] MEDS ORDERED: Sodium Bicarbonate (8.4%) 50 Meq Syringe IVP ONE (04:25)
[2018-09-23] MEDS: Sodium Bicarbonate (8.4%) 50 mEq Vial ONE (04:44)
[2018-09-23] MEDS: Pantoprazole 40 mg EC Tab PO SCH (06:04)
[2018-09-23 06:45] LABS: BASO # 0.01 K/mm3 (0.0-2.0); BASO % 0.1 % (0.0-3.0); HEMOGLOBIN 8.5 g/dL (12.0-16.0); LYMPH # 0.5 (1.2-3.4); LYMPH % 3.2 % (22.0-35.0); MEAN CELL VOLUME 87.1 fl (80.0-105.0); MEAN CORPUSCULAR HEMOGLOBIN 27.4 pg (25.0-35.0); MEAN CORPUSCULAR HGB CONC 31.5 g/dl (31.0-37.0); MEAN PLATELET VOLUME 9.5 fl (7.0-11.0); MONO # 0.4 (0.1-0.6); MONO % 2.3 % (1.0-6.0); PLATELET COUNT 415 10^3/uL (120.0-450.0); RED CELL DISTRIBUTION WIDTH 16.1 % (11.5-14.5)
[2018-09-23 06:53] LABS: WHITE BLOOD COUNT 15.9 10^3/uL (4.5-11.0)
[2018-09-23 07:09] LABS: ARTERIAL BLOOD GAS HCO3 17.6 mmol/L (21-28); ARTERIAL BLOOD GAS HEMOGLOBIN 8.6 g/dL (11.7-17.4); ARTERIAL BLOOD GAS O2 CAPACITY 11.8 mL/dl (16-24); ARTERIAL BLOOD GAS O2 CONTENT 10.8 ML/dl (15-23); ARTERIAL BLOOD GAS O2 SAT 91.5 % (95-98); ARTERIAL BLOOD GAS PCO2 46 mm/Hg (35-45); ARTERIAL BLOOD GAS PH 7.19 (7.35-7.45)
[2018-09-23 07:12] LABS: ALB/GLOB RATIO 1.2 (1.1-1.8); ALBUMIN 3.5 g/dL (3.0-4.8)
[2018-09-23] MEDS ORDERED: Propofol 10 mg/ml Inj (20 ML) ONE (07:42)
[2018-09-23] MEDS ORDERED: NOREPINEPHRINE BIT/0.9 % NACL 4 MG/250 ML BAG IV ONE (07:42)
[2018-09-23 07:47] LABS: CORRECTED WBC 15.1 K/mm3 (4.5-11.0); LYMPHOCYTE 2 % (22.0-35.0); MONOCYTE 1 % (1.0-6.0); NEUTROPHIL 97 % (50.0-70.0); NUCLEATED RED BLOOD CELL 5 %
[2018-09-23 07:48] LABS: ANISOCYTOSIS SLIGHT; PLATELET ESTIMATE HIGH (NORMAL); POLYCHROMASIA SLIGHT
--- NOTE | 2018-09-23 07:49 | RAD ---
Date of service: 09/23/2018 HISTORY: f/u COMPARISON: Portable chest 09/19/2018. FINDINGS: LUNGS: Right upper lobe infiltrate is not significantly changed however the minor fissure appears elevated which may indicate an element of right upper lobe atelectasis developing. Bilateral hemidiaphragms remains silhouetted suggesting persistent airspace disease at the right base and interval left basilar atelectasis or infiltrate. Left perihilar patchy density has developed as well. Scattered granulomata again seen bilaterally. PLEURA: Small bilateral pleural effusions are likely. No pneumothorax bilaterally. CARDIOVASCULAR: Calcific atherosclerotic changes are seen related to the thoracic aorta. Mild cardiomegaly reiterated. No pulmonary vascular congestion. OSSEOUS STRUCTURES: No significant abnormalities. VISUALIZED UPPER ABDOMEN: Normal. OTHER FINDINGS: None. IMPRESSION: Perihilar and basilar infiltrate or atelectasis are now identified with persistent right upper lobe and right basilar airspace disease. Volume loss at the right upper lobe suggest developing atelectasis. Small bilateral pleural effusions are likely.
[2018-09-23] MEDS ORDERED: Propofol 10 mg/ml Inj (20 ML) IVP ONE (08:10)
[2018-09-23] MEDS ORDERED: Midazolam 2 MG/2 ML VIAL IVP ONE ×2 (08:10→08:15)
[2018-09-23] MEDS: Fentanyl 1000mcg/100ml NS 1,000 MCG/100 ML BAG IV PRN ×2 (08:15→18:16)
[2018-09-23] MEDS ORDERED: Midazolam 2 MG/2 ML VIAL ONE (08:16)
[2018-09-23] MEDS ORDERED: Sodium Chloride 0.9% 1,000 ML IV STA ×3 (08:30→10:09)
[2018-09-23] MEDS ORDERED: Sodium Bicarbonate 8.4% 150 MEQ in Dextrose 5% In Water 1,000 ML IV SCH (09:00)
[2018-09-23] MEDS: DOBUTamine 500mg/250ml D5W 500 MG/250 ML BAG IV PRN (09:03)
[2018-09-23] MEDS ORDERED: NOREPINEPHRINE BIT/0.9 % NACL 4 MG/250 ML BAG IV PRN (09:06)
[2018-09-23 09:14] LABS: ARTERIAL BLOOD GAS HCO3 14.8 mmol/L (21-28); ARTERIAL BLOOD GAS HEMOGLOBIN 7.2 g/dL (11.7-17.4); ARTERIAL BLOOD GAS O2 CAPACITY 10.1 mL/dl (16-24); ARTERIAL BLOOD GAS O2 CONTENT 10.1 ML/dl (15-23); ARTERIAL BLOOD GAS O2 SAT 99.6 % (95-98); ARTERIAL BLOOD GAS PCO2 33 mm/Hg (35-45); ARTERIAL BLOOD GAS PH 7.26 (7.35-7.45); ARTERIAL BLOOD GAS TCO2 15.8 mmol.L (22-28)
[2018-09-23] MEDS: Midazolam 100 mg/100ml in NS 100 MG/100 ML SOL IV PRN (09:19)
[2018-09-23] MEDS: MethylPREDNISolone 40 mg Vial IVP SCH ×2 (09:32→21:51)
--- NOTE | 2018-09-23 10:14 | CARD ---
APPROVED REPORT Date of service: 09/22/2018 EXAM: Two-dimensional and M-mode echocardiogram with Doppler and color Doppler. INDICATION LV Function:SystolicDiastolic MR/ 2D DIMENSIONS Left Atrium (2D)3.4 (1.6-4.0cm)IVSd1.4 (0.7-1.1cm) LVDd4.2 (3.9-5.9cm)PWd1.2 (0.7-1.1cm) LVDs2.7 (2.5-4.0cm)FS (%) 35.8 % LVEF (%)65.8 (>50%) M-Mode DIMENSIONS Aortic Root2.50 (2.2-3.7cm)Aortic Cusp Exc.1.10 (1.5-2.0cm) Aortic Valve AoV Peak Yiqgxvds263.0cm/Mao Peak GR.22mmHg Mitral Valve E/A ratio0.0 TDI E/Lateral E'0.0E/Medial E'0.0 Tricuspid Valve TR Peak [id number]/sRAP [id number] Peak Gr.32mmHg [id number] LEFT VENTRICLE The left ventricle is normal size. There is mild to moderate concentric left ventricular hypertrophy. The left ventricular function is normal.EF-60-65% There is normal LV segmental wall motion. Transmitral Doppler flow pattern is Grade II-pseudonormal filling dynamics. No left ventricle thrombus noted on this study. There is no ventricular septal defect visualized. There is no left ventricular aneurysm. There is no mass noted in the left ventricle. RIGHT VENTRICLE The right ventricle is moderately dilated. There is normal right ventricular wall thickness. Systolic function of RV is mildly to moderately reduced. ATRIA The left atrium size is normal. The right atrium is borderline dilated. The interatrial septum is intact with no evidence for an atrial septal defect. AORTIC VALVE The aortic valve is calcified and displays decreased opening. There is trace aortic regurgitation. There is mild to moderate valvular aortic stenosis. There is no aortic valvular vegetation. MITRAL VALVE The mitral valve is thickened but opens well. Mitral regurgitation is mild to moderate. There is no mitral valve stenosis. There is no evidence of mitral valve prolapse. TRICUSPID VALVE The tricuspid valve leaflets are thickened , but open well. There is mild tricuspid regurgitation.RVSP-42 mmof Hg. There is no tricuspid valve stenosis. There is no tricuspid valve prolapse or vegetation. PULMONIC VALVE The pulmonic valve is not well visualized. GREAT VESSELS The aortic root is normal in size. The ascending aorta is normal in size. The pulmonary artery is normal. The IVC is normal in size and collapses >50% with inspiration. PERICARDIAL EFFUSION There is no pleural effusion. There is no pericardial effusion. <Conclusion> The left ventricle is normal size. There is mild to moderate concentric left ventricular hypertrophy. The left ventricular function is normal.EF-60-65% The right ventricle is moderately dilated. Systolic function of RV is mildly to moderately reduced. There is trace aortic regurgitation. There is mild to moderate valvular aortic stenosis. Mitral regurgitation is mild to moderate. There is mild tricuspid regurgitation.RVSP-42 mmof Hg. The IVC is normal in size and collapses >50% with inspiration. There is no pericardial effusion.
--- NOTE | 2018-09-23 10:48 | PN ---
DATE: 09/23/2018(640am-730am) PULMONARY NOTE SUBJECTIVE: The patient is moderately short of breath this morning. She is in no acute distress. She is awake and alert. PHYSICAL EXAMINATION: VITAL SIGNS: Temperature is 97.6, pulse on the monitor is 68, respiratory rate 24/26, blood pressure 139/49. Oxygen saturation on a nonrebreather is 100%. HEENT: Normocephalic, atraumatic. No JVD. CARDIOVASCULAR: Systolic ejection murmur at the lower left sternal border. No S3 gallop. LUNGS: Decreased breath sounds with crackles at both bases. Less rhonchi. No wheezing. GI: Abdomen is soft, nontender and nondistended. Bowel sounds are positive. EXTREMITIES: Mild edema. No cyanosis, no clubbing. Calves are nontender to palpation. SKIN: No acute rash. NEUROLOGIC: Exam limited at the present time. PERTINENT LABORATORY DATA: Chest x-ray was done this morning and reviewed. The chest x-ray shows increasing right lung haziness - compared to yesterday's film. There are also mild infiltrates in the left lung. Arterial blood gas was done on 100% nonrebreather. Results are: PH 7.19, pCO2 46, pO2 of 62. IMPRESSION: 1. Bilateral pneumonia. 2. Bilateral pleural effusions. 3. Acute on chronic renal failure. 4. Severe anemia. 5. Hypoxemia. 6. Rule out congestive heart failure. PLAN: The patient appears moderately short of breath this morning. She is in no acute distress. She is awake and alert. I did discuss the case with the night nurse at length. The night nurse did inform me that the patient did get short of breath during the night, with oxygen desaturation. She is now on a 100% nonrebreather mask. I did review the chest x-ray as above. The chest x-ray is worse this morning. Findings are noted above. Official results are pending. I have also reviewed the arterial blood gas. The arterial blood gas reveals a severe mixed acidosis with a significant increase in the alveolar-arterial gradient. The patient may need intubation. I will discuss this issue with the ICU team SATYA. I also reviewed the laboratory data from yesterday. A significant rise in the B-type natriuretic peptide [place] noted - [id number]. The patient was started on intravenous Lasix yesterday. Inputs by Cardiology and Renal are also noted. The patient remains on antibiotic therapy - as per Infectious Disease. There are no temperatures noted. There is a new leukocytosis. The patient was put on intravenous steroids yesterday. The patient is critically ill at this point in time. Dr. Brown (Interventional Radiology) has been called on the case for thoracentesis. I will discuss the above with the entire ICU team in the next few moments. I will also discuss the above with the attending physician later this morning. Charles Roland MD MTDD
--- NOTE | 2018-09-23 11:14 | CP.PCM.PN ---
<Carlos Munson - Last Filed: 09/23/18 11:14> Subjective - Date & Time of Evaluation Date of Evaluation: 09/23/18 Time of Evaluation: 09:45 - Subjective Subjective: Carlos Munson D.O. PGY-3, Internal Medicine Resident, Infectious Disease Progress Note 83 year old female with a PMH of HTN, DM, DVT, PVD, mitral and aortic regurg who was being managed for BL CAP now with sepsis and HAP. Patient was seen and examined at bedside. Has issues overnight with deterioration and was intubated. Intubated and sedated. Objective - Vital Signs/Intake and Output Vital Signs (last 24 hours): Temp Pulse Resp BP Pulse Ox 97.6 F 58 L 28 H 108/41 L 100 09/23/18 06:00 09/23/18 06:03 09/23/18 06:00 09/23/18 09:32 09/23/18 06:00 Intake and Output: 09/23/18 09/23/18 06:59 18:59 Intake Total 525 Output Total 100 Balance 425 - Medications Medications: Current Medications Acetaminophen (Tylenol 325mg Tab) 650 mg PO Q6H PRN PRN Reason: Pain, moderate (4-7) Last Admin: 09/18/18 22:04 Dose: 650 mg Acetaminophen (Tylenol 325mg Tab) 650 mg PO Q4H PRN PRN Reason: Fever >100.4 F Last Admin: 09/21/18 12:38 Dose: 650 mg Albuterol/Ipratropium (Duoneb 3 Mg/0.5 Mg (3 Ml) Ud) 3 ml IH [id number] [facility] Last Admin: 09/23/18 08:25 Dose: 3 ml Amlodipine Besylate (Norvasc) 10 mg PO DAILY [facility] Last Admin: 09/22/18 10:29 Dose: 10 mg Aspirin (Ecotrin) 81 mg PO DAILY [facility] Last Admin: 09/23/18 09:56 Dose: 81 mg Clonidine HCl (Catapres) 0.1 mg PO QID PRN PRN Reason: SBP above 150 Last Admin: 09/22/18 03:11 Dose: 0.1 mg Clonidine HCl (Catapres-Tts2 0.2 Mg/24 Hr) 1 patch TD Q7D@1000 [facility] Diltiazem HCl (Cardizem Cd) 240 mg PO DAILY [facility] Last Admin: 09/22/18 10:30 Dose: 240 mg Furosemide (Lasix) 40 mg IVP Q12 [facility] Last Admin: 09/23/18 09:32 Dose: 40 mg Heparin Sodium (Porcine) (Heparin) 5,000 units SC Q12 [facility]; Protocol Last Admin: 09/23/18 09:32 Dose: 5,000 units Hydralazine HCl (Apresoline) 75 mg PO Q8 [facility] Last Admin: 09/23/18 06:03 Dose: 75 mg Iron Sucrose 100 mg/ Sodium (Chloride) 105 mls @ 210 mls/hr IVPB DAILY [facility] Stop: 09/28/18 10:29 Last Admin: 09/23/18 09:44 Dose: 210 mls/hr Doxycycline Hyclate 100 mg/ (Sodium Chloride) 100 mls @ 100 mls/hr IVPB Q12 [facility]; Protocol Last Admin: 09/23/18 09:44 Dose: 100 mls/hr Meropenem 250 mg/ Sodium (Chloride) 100 mls @ 100 mls/hr IVPB Q12H [facility]; Protocol Stop: 09/28/18 22:01 Last Admin: 09/23/18 09:43 Dose: 100 mls/hr Fentanyl Citrate (Fentanyl Citrate/Sodium Chloride 1 Mg/100 Ml) 1,000 mcg in 100 mls @ 5 mls/hr IV .Q20H PRN; Protocol PRN Reason: TITRATE PER MD ORDER Last Admin: 09/23/18 08:15 Dose: 75 mcg/hr, 7.5 mls/hr Midazolam 100 mg/100ml in NS (Midazolam 100 Mg/100ml In Ns) 100 mg in 100 mls @ 2 mls/hr IV .Q24H PRN; Protocol PRN Reason: Sedation Last Admin: 09/23/18 09:19 Dose: 2 mg/hr, 2 mls/hr Sodium Bicarbonate 150 meq/ (Dextrose) 1,150 mls @ 150 mls/hr IV .Q7H40M [facility] Dobutamine HCl/Dextrose (Dobutamine/Dextrose 5% 500mg/250ml) 500 mg in 250 mls @ 3.232 mls/hr IV .Q24H PRN; Protocol PRN Reason: TITRATE PER PROTOCOL Last Admin: 09/23/18 09:03 Dose: 2.5 mcg/kg/min, 3.232 mls/hr NOREPINEPHRINE BIT/0.9 % NACL (Levophed 4 Mg/ 250 Ml Ns Premixed) 4 mg in 250 mls @ 15 mls/hr IV .[id number] PRN; Protocol PRN Reason: TITRATE PER MD ORDER Last Admin: 09/23/18 09:21 Dose: 8 mcg/min, 30 mls/hr Methylprednisolone (Solu-Medrol) 20 mg IVP Q12H [facility] Last Admin: 09/23/18 09:32 Dose: 20 mg Pantoprazole Sodium (Protonix Ec Tab) 40 mg PO 0630 [facility] Last Admin: 09/23/18 06:04 Dose: 40 mg Risperidone (Risperdal Tab) 0.25 mg PO DAILY PRN; Protocol PRN Reason: Other Sodium Bicarbonate (Sodium Bicarbonate Tab) 650 mg PO BID [facility] Last Admin: 09/22/18 10:30 Dose: 650 mg - Labs Labs: 09/23/18 05:30 09/23/18 05:30 PT 15.6 SECONDS (9.4-12.5) H 09/17/18 06:20 INR 1.38 09/17/18 06:20 APTT 30.3 Seconds (26.9-38.3) 09/17/18 06:20 - Constitutional Appears: No Acute Distress, Cachectic, Chronically Ill - Head Exam Head Exam: ATRAUMATIC, NORMOCEPHALIC - Eye Exam Eye Exam: absent: Scleral icterus - ENT Exam ENT Exam: Mucous Membranes Moist Additional comments: intubated - Neck Exam Neck Exam: Normal Inspection - Respiratory Exam Respiratory Exam: Rhonchi - Cardiovascular Exam Cardiovascular Exam: +S1, +S2. absent: Rubs - GI/Abdominal Exam GI & Abdominal Exam: Soft. absent: Tenderness - Extremities Exam Extremities Exam: absent: Calf Tenderness, Tenderness - Neurological Exam Additional comments: intubated and sedated - Skin Skin Exam: Dry, Warm Assessment and Plan - Assessment and Plan (Free Text) Assessment: 83 year old female with a PMH of HTN, DM, DVT, PVD, mitral and aortic regurg who was being managed for BL CAP now with sepsis and HAP. Plan: Sepsis HAP BREANA Worsening hypoxemia requiring intubation BL Pleural effusions Clinically worsening Agree that thoracentesis should assist in her recovery Thoracentesis fluid should be sent for analysis Continue with doxy and merrem day 3 Sputum grew yeast likely contaminant BCxs 2/2 negative day 2 UCx showed beta hemolytic strep Will repeat procalcitonin We will follow Patient was seen and examined at bedside and case will be discussed with a ttending physician Thank you for the pleasure of participating in the care of this interesting patient <Urbano Herring - Last Filed: 09/23/18 13:04> Objective - Vital Signs/Intake and Output Vital Signs (last 24 hours): Temp Pulse Resp BP Pulse Ox 97.6 F 70 16 112/55 L 100 09/23/18 06:00 09/23/18 11:30 09/23/18 10:00 09/23/18 11:30 09/23/18 11:30 Intake and Output: 09/23/18 09/23/18 06:59 18:59 Intake Total 525 Output Total 100 Balance 425 - Medications Medications: Current Medications Acetaminophen (Tylenol 325mg Tab) 650 mg PO Q6H PRN PRN Reason: Pain, moderate (4-7) Last Admin: 09/18/18 22:04 Dose: 650 mg Acetaminophen (Tylenol 325mg Tab) 650 mg PO Q4H PRN PRN Reason: Fever >100.4 F Last Admin: 09/21/18 12:38 Dose: 650 mg Albuterol/Ipratropium (Duoneb 3 Mg/0.5 Mg (3 Ml) Ud) 3 ml IH [id number] [facility] Last Admin: 09/23/18 08:25 Dose: 3 ml Amlodipine Besylate (Norvasc) 10 mg PO DAILY [facility] Last Admin: 09/22/18 10:29 Dose: 10 mg Aspirin (Ecotrin) 81 mg PO DAILY [facility] Last Admin: 09/23/18 09:56 Dose: 81 mg Clonidine HCl (Catapres) 0.1 mg PO QID PRN PRN Reason: SBP above 150 Last Admin: 09/22/18 03:11 Dose: 0.1 mg Clonidine HCl (Catapres-Tts2 0.2 Mg/24 Hr) 1 patch TD Q7D@1000 [facility] Diltiazem HCl (Cardizem Cd) 240 mg PO DAILY [facility] Last Admin: 09/22/18 10:30 Dose: 240 mg Furosemide (Lasix) 40 mg IVP Q12 [facility] Last Admin: 09/23/18 09:32 Dose: 40 mg Heparin Sodium (Porcine) (Heparin) 5,000 units SC Q12 [facility]; Protocol Last Admin: 09/23/18 09:32 Dose: 5,000 units Hydralazine HCl (Apresoline) 75 mg PO Q8 [facility] Last Admin: 09/23/18 06:03 Dose: 75 mg Iron Sucrose 100 mg/ Sodium (Chloride) 105 mls @ 210 mls/hr IVPB DAILY [facility] Stop: 09/28/18 10:29 Last Admin: 09/23/18 09:44 Dose: 210 mls/hr Doxycycline Hyclate 100 mg/ (Sodium Chloride) 100 mls @ 100 mls/hr IVPB Q12 [facility]; Protocol Last Admin: 09/23/18 09:44 Dose: 100 mls/hr Meropenem 250 mg/ Sodium (Chloride) 100 mls @ 100 mls/hr IVPB Q12H [facility]; Protocol Stop: 09/28/18 22:01 Last Admin: 09/23/18 09:43 Dose: 100 mls/hr Fentanyl Citrate (Fentanyl Citrate/Sodium Chloride 1 Mg/100 Ml) 1,000 mcg in 100 mls @ 5 mls/hr IV .Q20H PRN; Protocol PRN Reason: TITRATE PER MD ORDER Last Admin: 09/23/18 08:15 Dose: 75 mcg/hr, 7.5 mls/hr Midazolam 100 mg/100ml in NS (Midazolam 100 Mg/100ml In Ns) 100 mg in 100 mls @ 2 mls/hr IV .Q24H PRN; Protocol PRN Reason: Sedation Last Admin: 09/23/18 09:19 Dose: 2 mg/hr, 2 mls/hr Sodium Bicarbonate 150 meq/ (Dextrose) 1,150 mls @ 150 mls/hr IV .Q7H40M [facility] Dobutamine HCl/Dextrose (Dobutamine/Dextrose 5% 500mg/250ml) 500 mg in 250 mls @ 3.232 mls/hr IV .Q24H PRN; Protocol PRN Reason: TITRATE PER PROTOCOL Last Admin: 09/23/18 09:03 Dose: 2.5 mcg/kg/min, 3.232 mls/hr NOREPINEPHRINE BIT/0.9 % NACL (Levophed 4 Mg/ 250 Ml Ns Premixed) 4 mg in 250 mls @ 15 mls/hr IV .P15L28M PRN; Protocol PRN Reason: TITRATE PER MD ORDER Last Admin: 09/23/18 09:21 Dose: 8 mcg/min, 30 mls/hr Methylprednisolone (Solu-Medrol) 20 mg IVP Q12H [facility] Last Admin: 09/23/18 09:32 Dose: 20 mg Pantoprazole Sodium (Protonix Inj) 40 mg IVP DAILY [facility] Risperidone (Risperdal Tab) 0.25 mg PO DAILY PRN; Protocol PRN Reason: Other Sodium Bicarbonate (Sodium Bicarbonate Tab) 650 mg PO BID [facility] Last Admin: 09/22/18 10:30 Dose: 650 mg - Labs Labs: 09/23/18 05:30 09/23/18 05:30 PT 15.6 SECONDS (9.4-12.5) H 09/17/18 06:20 INR 1.38 09/17/18 06:20 APTT 30.3 Seconds (26.9-38.3) 09/17/18 06:20 Attending/Attestation - Attestation I have personally seen and examined this patient.: Yes I have fully participated in the care of the patient.: Yes I have reviewed all pertinent clinical information, including history, physical exam and plan: Yes
--- NOTE | 2018-09-23 13:15 | RAD ---
Date of service: 09/23/2018 HISTORY: postintubation COMPARISON: Portable chest 09/23/2018, 5:59 a.m.. FINDINGS: Endotracheal tube is in placed with the tip terminating 2.2 cm above the alphonse. Right central venous dialysis catheter is identified placed by right internal jugular approach with the tip terminating at the cavoatrial junction. A nasogastric feeding tube has been placed entering into the left betty abdomen with the tip off the image. LUNGS: Persistent infiltrate seen in the right upper lobe though volume loss has receded here. Left perihilar infiltrate slightly diminished with right basilar atelectasis or infiltrate unchanged. Improved aeration is appreciate the left brace with no atelectasis or infiltrate present there. PLEURA: Limited right pleural effusion is difficult to exclude. None is seen the left. No pneumothorax bilaterally. CARDIOVASCULAR: Calcific atherosclerotic changes are seen related to the thoracic aorta. Stable cardiac silhouette. No pulmonary vascular congestion. OSSEOUS STRUCTURES: No significant abnormalities. VISUALIZED UPPER ABDOMEN: Normal. OTHER FINDINGS: None. IMPRESSION: Persistent left upper lobe and perihilar infiltrates with diminished atelectasis right upper lobe. Limited atelectasis right base. No left basilar infiltrate in the interval. Interval endotracheal and nasogastric/feeding tube deployment as per above as well as right central venous dialysis catheter.
--- NOTE | 2018-09-23 14:09 | CP.CCUPN ---
CCU Subjective - Physician Review Events Since Last Encounter (Free Text): 09/23/18 14:03 Pt has been intubated and central line has been placed. Subjective (Free Text): 09/22/18 14:03 Pt seen and examined this morning at bedside. Pt reports SOB, but denies chest pain. Critical Care Time Spent (in minutes): 45 CCU Objective - Vital Signs / Intake & Output Vital Signs (Last 4 hours): Vital Signs Pulse BP Pulse Ox 09/23/18 11:30 70 112/55 L 100 09/23/18 11:20 79 100 09/23/18 11:11 71 141/47 L 100 09/23/18 11:10 69 100 09/23/18 11:00 75 100 09/23/18 10:50 85 100 09/23/18 10:40 81 100 09/23/18 10:30 72 112/41 L 100 09/23/18 10:20 76 100 09/23/18 10:10 67 100 Intake and Output (Last 8hrs): Intake & Output 09/22/18 09/23/18 09/23/18 22:59 06:59 14:59 Intake Total 1400 200 Output Total 100 Balance 1400 100 Weight 95 lb Intake: IV 350 200 Left Upper arm 350 200 Oral 400 Blood Product 650 Red Blood Cells Cpd As1 325 Lr Unit [id number] Output: Urine 100 Urine, Voided 100 Other: # Voids Urine, Voided 0 # Bowel Movements 0 0 - Physical Exam Head: Positive for: Atraumatic, Normocephalic Pupils: Positive for: PERRL Extroacular Muscles: Positive for: EOMI Conjunctiva: Positive for: Normal Mouth: Positive for: Moist Mucous Membranes Neck: Positive for: Normal Range of Motion Respiratory/Chest: Positive for: Good Air Exchange, Wheezes. Negative for: Respiratory Distress, Accessory Muscle Use Cardiovascular: Positive for: Regular Rate and Rhythm, Normal S1, S2. Negative for: Murmurs Abdomen: Positive for: Normal Bowel Sounds. Negative for: Tenderness, Distention, Peritoneal Signs Back: Positive for: Normal Inspection Upper Extremity: Positive for: Other (RUE is neurovascularly intact however there is significant tenderness to palpation in the area of the R scapular spine , no tenderness noted over the humeral head, ACTIVE AND PASSIVE ROM is signifcantly reduced by pain). Negative for: Normal ROM Lower Extremity: Positive for: Normal Inspection. Negative for: Edema Neurological: Positive for: GCS=15, CN II-XII Intact, Speech Normal Skin: Positive for: Warm, Dry, Normal Color. Negative for: Rashes - Medications Active Medications: Active Medications Generic Name Dose Route Start Last Admin Trade Name Freq PRN Reason Stop Dose Admin Acetaminophen 650 mg 09/12/18 05:16 09/18/18 22:04 Tylenol 325mg Tab PO 650 mg Q6H PRN Administration Pain, moderate (4-7) Acetaminophen 650 mg 09/21/18 12:17 09/21/18 12:38 Tylenol 325mg Tab PO 650 mg Q4H PRN Administration Fever >100.4 F Albuterol/Ipratropium 3 ml 09/22/18 08:00 09/23/18 13:09 Duoneb 3 Mg/0.5 Mg (3 Ml) Ud IH 3 ml [id number] JESUS Administration Amlodipine Besylate 10 mg 09/12/18 08:28 09/22/18 10:29 Norvasc PO 10 mg DAILY JESUS Administration Aspirin 81 mg 09/17/18 10:00 09/23/18 09:56 Ecotrin PO 81 mg DAILY JESUS Administration Clonidine HCl 0.1 mg 09/12/18 08:28 09/22/18 03:11 Catapres PO 0.1 mg QID PRN Administration SBP above 150 Clonidine HCl 1 patch 09/22/18 10:15 Catapres-Tts2 0.2 Mg/24 Hr TD Q7D@1000 JESUS Diltiazem HCl 240 mg 09/12/18 10:00 09/22/18 10:30 Cardizem Cd PO 240 mg DAILY JESUS Administration Furosemide 40 mg 09/22/18 10:00 09/23/18 09:32 Lasix IVP 40 mg Q12 JESUS Administration Heparin Sodium (Porcine) 5,000 units 09/23/18 10:00 09/23/18 09:32 Heparin SC 5,000 units Q12 JESUS Administration Protocol Hydralazine HCl 75 mg 09/19/18 15:00 09/23/18 06:03 Apresoline PO 75 mg Q8 JESUS Administration Iron Sucrose 100 mg/ Sodium 105 mls @ 210 mls/hr 09/19/18 10:00 09/23/18 09:44 Chloride IVPB 09/28/18 10:29 210 mls/hr DAILY JESUS Administration Doxycycline Hyclate 100 mg/ 100 mls @ 100 mls/hr 09/21/18 22:00 09/23/18 09:44 Sodium Chloride IVPB 100 mls/hr Q12 JESUS Administration Protocol Meropenem 250 mg/ Sodium 100 mls @ 100 mls/hr 09/22/18 10:00 09/23/18 09:43 Chloride IVPB 09/28/18 22:01 100 mls/hr Q12H JESUS Administration Protocol Fentanyl Citrate 1,000 mcg in 100 mls @ 5 mls/hr 09/23/18 08:14 09/23/18 08:15 Fentanyl Citrate/Sodium Chloride 1 Mg/100 Ml IV 75 mcg/hr .Q20H PRN 7.5 mls/hr TITRATE PER MD ORDER Administration Protocol 50 MCG/HR Midazolam 100 mg/100ml in NS 100 mg in 100 mls @ 2 mls/hr 09/23/18 08:15 09/23/18 09:19 Midazolam 100 Mg/100ml In Ns IV 2 mg/hr .Q24H PRN 2 mls/hr Sedation Administration Protocol 2 MG/HR Sodium Bicarbonate 150 meq/ 1,150 mls @ 150 mls/hr 09/23/18 09:00 Dextrose IV .[id number] JESUS Dobutamine HCl/Dextrose 500 mg in 250 mls @ 3.232 mls/hr 09/23/18 08:55 09/23/18 09:03 Dobutamine/Dextrose 5% 500mg/250ml IV 2.5 mcg/kg/min .Q24H PRN 3.232 mls/hr TITRATE PER PROTOCOL Administration Protocol 2.5 MCG/KG/MIN NOREPINEPHRINE BIT/0.9 % NACL 4 mg in 250 mls @ 15 mls/hr 09/23/18 09:06 09/23/18 09:21 Levophed 4 Mg/ 250 Ml Ns Premixed IV 8 mcg/min .[id number] PRN 30 mls/hr TITRATE PER MD ORDER Administration Protocol 4 MCG/MIN Methylprednisolone 20 mg 09/22/18 09:15 09/23/18 09:32 Solu-Medrol IVP 20 mg Q12H JESUS Administration Pantoprazole Sodium 40 mg 09/24/18 10:00 Protonix Inj IVP DAILY JESUS Risperidone 0.25 mg 09/20/18 21:40 Risperdal Tab PO DAILY PRN Other Protocol Sodium Bicarbonate 650 mg 09/21/18 11:15 09/22/18 10:30 Sodium Bicarbonate Tab PO 650 mg BID JESUS Administration - Patient Studies Lab Studies: Microbiology Studies 09/20/18 16:55 Gram Stain - Final Sputum Sputum Culture - Final Yeast Species Lab Studies 09/23/18 09/23/18 09/23/18 Range/Units 12:34 09:00 06:40 WBC (4.5-11.0) 10^3/uL RBC (3.5-6.1) 10^6/uL Hgb (12.0-16.0) g/dL Hct (36.0-48.0) % MCV (80.0-105.0) fl MCH (25.0-35.0) pg MCHC (31.0-37.0) g/dl RDW (11.5-14.5) % Plt Count (120.0-450.0) 10^3/uL MPV (7.0-11.0) fl Neut % (Auto) (50.0-68.0) % Lymph % (Auto) (22.0-35.0) % [place] % (Auto) (1.0-6.0) % Eos % (Auto) (1.5-5.0) % Baso % (Auto) (0.0-3.0) % Lymph # (Auto) (1.2-3.4) [place] # (Auto) (0.1-0.6) Eos # (Auto) (0.0-0.7) Baso # (Auto) (0.0-2.0) K/mm3 Absolute Neuts (auto) (1.4-6.5) Corrected WBC (Man) (4.5-11.0) K/mm3 Neutrophils % (Manual) (50.0-70.0) % Lymphocytes % (Manual) (22.0-35.0) % Monocytes % (Manual) (1.0-6.0) % Nucleated RBC % % Platelet Evaluation (NORMAL) Polychromasia Anisocytosis (manual) pCO2 33 L 46 H (35-45) mm/Hg pO2 138.0 H 62.0 L (80-100) mm/Hg HCO3 14.8 L 17.6 L (21-28) mmol/L ABG pH 7.26 L 7.19 L* (7.35-7.45) ABG Total CO2 15.8 L 19.0 L (22-28) mmol.L ABG O2 Saturation 99.6 H 91.5 L (95-98) % ABG O2 Content 10.1 L 10.8 L (15-23) ML/dl ABG Base Excess -11.3 L -10.0 L (-2.0-3.0) mmol/L ABG Hemoglobin 7.2 L 8.6 L (11.7-17.4) g/dL ABG Carboxyhemoglobin 1.5 2.0 H (0.5-1.5) % POC ABG HHb (Measured) 0.4 8.2 H (0-5) % ABG Methemoglobin 1.1 1.3 (0.0-3.0) % ABG O2 Capacity 10.1 L 11.8 L (16-24) mL/dl Hgb O2 Saturation 96.9 88.5 L (95.0-98.0) % FiO2 50.0 100.0 % Crit Value Called To Bisi gómez rn Crit Value Called By Djd Blood Gas Notified Time 700 Sodium (132-148) mmol/L Potassium (3.6-5.0) mmol/L Chloride (98-107) mmol/L Carbon Dioxide (21-33) mmol/L Anion Gap (10-20) BUN (7-21) mg/dL Creatinine (0.7-1.2) mg/dl Est GFR ( Amer) Est GFR (Non-Af Amer) POC Glucose (mg/dL) 186 H (65-110) mg/dL Random Glucose (70-110) mg/dL Hemoglobin A1c (4.2-6.5) % Calcium (8.4-10.5) mg/dL Phosphorus (2.5-4.5) mg/dL Magnesium (1.7-2.2) mg/dL Total Bilirubin (0.2-1.3) mg/dL AST (14-36) U/L ALT (7-56) U/L Alkaline Phosphatase (38-126) U/L Total Protein (5.8-8.3) g/dL Albumin (3.0-4.8) g/dL Globulin gm/dL Albumin/Globulin Ratio (1.1-1.8) Triglycerides (35-160) mg/dL Cholesterol (130-200) mg/dL LDL Cholesterol Direct (0-129) mg/dL HDL Cholesterol (29-60) mg/dL TSH 3rd Generation (0.46-4.68) mIU/mL Blood Type Antibody Screen Crossmatch BBK History Checked 09/23/18 09/23/18 09/23/18 Range/Units 05:30 05:30 05:30 WBC (4.5-11.0) 10^3/uL RBC (3.5-6.1) 10^6/uL Hgb (12.0-16.0) g/dL Hct (36.0-48.0) % MCV (80.0-105.0) fl MCH (25.0-35.0) pg MCHC (31.0-37.0) g/dl RDW (11.5-14.5) % Plt Count (120.0-450.0) 10^3/uL MPV (7.0-11.0) fl Neut % (Auto) (50.0-68.0) % Lymph % (Auto) (22.0-35.0) % [place] % (Auto) (1.0-6.0) % Eos % (Auto) (1.5-5.0) % Baso % (Auto) (0.0-3.0) % Lymph # (Auto) (1.2-3.4) [place] # (Auto) (0.1-0.6) Eos # (Auto) (0.0-0.7) Baso # (Auto) (0.0-2.0) K/mm3 Absolute Neuts (auto) (1.4-6.5) Corrected WBC (Man) (4.5-11.0) K/mm3 Neutrophils % (Manual) (50.0-70.0) % Lymphocytes % (Manual) (22.0-35.0) % Monocytes % (Manual) (1.0-6.0) % Nucleated RBC % % Platelet Evaluation (NORMAL) Polychromasia Anisocytosis (manual) pCO2 (35-45) mm/Hg pO2 (80-100) mm/Hg HCO3 (21-28) mmol/L ABG pH (7.35-7.45) ABG Total CO2 (22-28) mmol.L ABG O2 Saturation (95-98) % ABG O2 Content (15-23) ML/dl ABG Base Excess (-2.0-3.0) mmol/L ABG Hemoglobin (11.7-17.4) g/dL ABG Carboxyhemoglobin (0.5-1.5) % POC ABG HHb (Measured) (0-5) % ABG Methemoglobin (0.0-3.0) % ABG O2 Capacity (16-24) mL/dl Hgb O2 Saturation (95.0-98.0) % FiO2 % Crit Value Called To Crit Value Called By Blood Gas Notified Time Sodium 144 (132-148) mmol/L Potassium 4.9 (3.6-5.0) mmol/L Chloride 109 H (98-107) mmol/L Carbon Dioxide 19 L (21-33) mmol/L Anion Gap 21 H (10-20) BUN 106 H (7-21) mg/dL Creatinine 5.3 H (0.7-1.2) mg/dl Est GFR ( Amer) 9 Est GFR (Non-Af Amer) 8 POC Glucose (mg/dL) (65-110) mg/dL Random Glucose 132 H (70-110) mg/dL Hemoglobin A1c 5.3 (4.2-6.5) % Calcium 9.0 (8.4-10.5) mg/dL Phosphorus 8.8 H (2.5-4.5) mg/dL Magnesium 1.8 (1.7-2.2) mg/dL Total Bilirubin 0.5 (0.2-1.3) mg/dL AST 115 H D (14-36) U/L ALT 81 H (7-56) U/L Alkaline Phosphatase 77 (38-126) U/L Total Protein 6.4 (5.8-8.3) g/dL Albumin 3.5 (3.0-4.8) g/dL Globulin 2.9 gm/dL Albumin/Globulin Ratio 1.2 (1.1-1.8) Triglycerides 87 (35-160) mg/dL Cholesterol 169 (130-200) mg/dL LDL Cholesterol Direct 59 (0-129) mg/dL HDL Cholesterol 67 H (29-60) mg/dL TSH 3rd Generation 0.69 (0.46-4.68) mIU/mL Blood Type Antibody Screen Crossmatch BBK History Checked 09/23/18 09/23/18 09/22/18 Range/Units 05:30 01:27 21:42 WBC 15.9 H D (4.5-11.0) 10^3/uL RBC 3.10 L (3.5-6.1) 10^6/uL Hgb 8.5 L (12.0-16.0) g/dL Hct 27.0 L (36.0-48.0) % MCV 87.1 (80.0-105.0) fl MCH 27.4 (25.0-35.0) pg MCHC 31.5 (31.0-37.0) g/dl RDW 16.1 H (11.5-14.5) % Plt Count 415 (120.0-450.0) 10^3/uL MPV 9.5 (7.0-11.0) fl Neut % (Auto) 94.4 H (50.0-68.0) % Lymph % (Auto) 3.2 L (22.0-35.0) % [place] % (Auto) 2.3 (1.0-6.0) % Eos % (Auto) 0.0 L (1.5-5.0) % Baso % (Auto) 0.1 (0.0-3.0) % Lymph # (Auto) 0.5 L (1.2-3.4) [place] # (Auto) 0.4 (0.1-0.6) Eos # (Auto) 0.0 (0.0-0.7) Baso # (Auto) 0.01 (0.0-2.0) K/mm3 Absolute Neuts (auto) 15.00 H (1.4-6.5) Corrected WBC (Man) 15.1 H (4.5-11.0) K/mm3 Neutrophils % (Manual) 97 H (50.0-70.0) % Lymphocytes % (Manual) 2 L (22.0-35.0) % Monocytes % (Manual) 1 (1.0-6.0) % Nucleated RBC % 5 % Platelet Evaluation High (NORMAL) Polychromasia Slight Anisocytosis (manual) Slight pCO2 46 H (35-45) mm/Hg pO2 57.0 L (80-100) mm/Hg HCO3 17.6 L (21-28) mmol/L ABG pH 7.19 L* (7.35-7.45) ABG Total CO2 19.0 L (22-28) mmol.L ABG O2 Saturation 91.0 L (95-98) % ABG O2 Content 10.1 L (15-23) ML/dl ABG Base Excess -10.0 L (-2.0-3.0) mmol/L ABG Hemoglobin 8.1 L (11.7-17.4) g/dL ABG Carboxyhemoglobin 2.3 H (0.5-1.5) % POC ABG HHb (Measured) 8.7 H (0-5) % ABG Methemoglobin 0.7 (0.0-3.0) % ABG O2 Capacity 11.1 L (16-24) mL/dl Hgb O2 Saturation 88.3 L (95.0-98.0) % FiO2 70.0 % Crit Value Called To Bisi gómez rn Crit Value Called By Djd Blood Gas Notified Time 130 Sodium (132-148) mmol/L Potassium (3.6-5.0) mmol/L Chloride (98-107) mmol/L Carbon Dioxide (21-33) mmol/L Anion Gap (10-20) BUN (7-21) mg/dL Creatinine (0.7-1.2) mg/dl Est GFR ( Amer) Est GFR (Non-Af Amer) POC Glucose (mg/dL) 127 H (65-110) mg/dL Random Glucose (70-110) mg/dL Hemoglobin A1c (4.2-6.5) % Calcium (8.4-10.5) mg/dL Phosphorus (2.5-4.5) mg/dL Magnesium (1.7-2.2) mg/dL Total Bilirubin (0.2-1.3) mg/dL AST (14-36) U/L ALT (7-56) U/L Alkaline Phosphatase (38-126) U/L Total Protein (5.8-8.3) g/dL Albumin (3.0-4.8) g/dL Globulin gm/dL Albumin/Globulin Ratio (1.1-1.8) Triglycerides (35-160) mg/dL Cholesterol (130-200) mg/dL LDL Cholesterol Direct (0-129) mg/dL HDL Cholesterol (29-60) mg/dL TSH 3rd Generation (0.46-4.68) mIU/mL Blood Type Antibody Screen Crossmatch BBK History Checked 09/22/18 09/22/18 09/13/18 Range/Units 15:52 13:25 09:35 WBC (4.5-11.0) 10^3/uL RBC (3.5-6.1) 10^6/uL Hgb (12.0-16.0) g/dL Hct (36.0-48.0) % MCV (80.0-105.0) fl MCH (25.0-35.0) pg MCHC (31.0-37.0) g/dl RDW (11.5-14.5) % Plt Count (120.0-450.0) 10^3/uL MPV (7.0-11.0) fl Neut % (Auto) (50.0-68.0) % Lymph % (Auto) (22.0-35.0) % [place] % (Auto) (1.0-6.0) % Eos % (Auto) (1.5-5.0) % Baso % (Auto) (0.0-3.0) % Lymph # (Auto) (1.2-3.4) [place] # (Auto) (0.1-0.6) Eos # (Auto) (0.0-0.7) Baso # (Auto) (0.0-2.0) K/mm3 Absolute Neuts (auto) (1.4-6.5) Corrected WBC (Man) (4.5-11.0) K/mm3 Neutrophils % (Manual) (50.0-70.0) % Lymphocytes % (Manual) (22.0-35.0) % Monocytes % (Manual) (1.0-6.0) % Nucleated RBC % % Platelet Evaluation (NORMAL) Polychromasia Anisocytosis (manual) pCO2 (35-45) mm/Hg pO2 (80-100) mm/Hg HCO3 (21-28) mmol/L ABG pH (7.35-7.45) ABG Total CO2 (22-28) mmol.L ABG O2 Saturation (95-98) % ABG O2 Content (15-23) ML/dl ABG Base Excess (-2.0-3.0) mmol/L ABG Hemoglobin (11.7-17.4) g/dL ABG Carboxyhemoglobin (0.5-1.5) % POC ABG HHb (Measured) (0-5) % ABG Methemoglobin (0.0-3.0) % ABG O2 Capacity (16-24) mL/dl Hgb O2 Saturation (95.0-98.0) % FiO2 % Crit Value Called To Crit Value Called By Blood Gas Notified Time Sodium (132-148) mmol/L Potassium (3.6-5.0) mmol/L Chloride (98-107) mmol/L Carbon Dioxide (21-33) mmol/L Anion Gap (10-20) BUN (7-21) mg/dL Creatinine (0.7-1.2) mg/dl Est GFR ( Amer) Est GFR (Non-Af Amer) POC Glucose (mg/dL) 178 H (65-110) mg/dL Random Glucose (70-110) mg/dL Hemoglobin A1c (4.2-6.5) % Calcium (8.4-10.5) mg/dL Phosphorus (2.5-4.5) mg/dL Magnesium (1.7-2.2) mg/dL Total Bilirubin (0.2-1.3) mg/dL AST (14-36) U/L ALT (7-56) U/L Alkaline Phosphatase (38-126) U/L Total Protein (5.8-8.3) g/dL Albumin (3.0-4.8) g/dL Globulin gm/dL Albumin/Globulin Ratio (1.1-1.8) Triglycerides (35-160) mg/dL Cholesterol (130-200) mg/dL LDL Cholesterol Direct (0-129) mg/dL HDL Cholesterol (29-60) mg/dL TSH 3rd Generation (0.46-4.68) mIU/mL Blood Type A POSITIVE Antibody Screen Negative Crossmatch See Detail See Detail BBK History Checked Patient has bt Laboratory Results - last 24 hr 09/13/18 09/22/18 09/22/18 09:35 13:25 15:52 WBC RBC Hgb Hct MCV MCH MCHC RDW Plt Count MPV Neut % (Auto) Lymph % (Auto) [place] % (Auto) Eos % (Auto) Baso % (Auto) Lymph # (Auto) [place] # (Auto) Eos # (Auto) Baso # (Auto) Absolute Neuts (auto) Corrected WBC (Man) Neutrophils % (Manual) Lymphocytes % (Manual) Monocytes % (Manual) Nucleated RBC % Platelet Evaluation Polychromasia Anisocytosis (manual) pCO2 pO2 HCO3 ABG pH ABG Total CO2 ABG O2 Saturation ABG O2 Content ABG Base Excess ABG Hemoglobin ABG Carboxyhemoglobin POC ABG HHb (Measured) ABG Methemoglobin ABG O2 Capacity Hgb O2 Saturation FiO2 Crit Value Called To Crit Value Called By Blood Gas Notified Time Sodium Potassium Chloride Carbon Dioxide Anion Gap BUN Creatinine Est GFR ( Amer) Est GFR (Non-Af Amer) POC Glucose (mg/dL) 178 H Random Glucose Hemoglobin A1c Calcium Phosphorus Magnesium Total Bilirubin AST ALT Alkaline Phosphatase Total Protein Albumin Globulin Albumin/Globulin Ratio Triglycerides Cholesterol LDL Cholesterol Direct HDL Cholesterol TSH 3rd Generation Blood Type A POSITIVE Antibody Screen Negative Crossmatch See Detail See Detail BBK History Checked Patient has bt 09/22/18 09/23/18 09/23/18 21:42 01:27 05:30 WBC 15.9 H D RBC 3.10 L Hgb 8.5 L Hct 27.0 L MCV 87.1 MCH 27.4 MCHC 31.5 RDW 16.1 H Plt Count 415 MPV 9.5 Neut % (Auto) 94.4 H Lymph % (Auto) 3.2 L [place] % (Auto) 2.3 Eos % (Auto) 0.0 L Baso % (Auto) 0.1 Lymph # (Auto) 0.5 L [place] # (Auto) 0.4 Eos # (Auto) 0.0 Baso # (Auto) 0.01 Absolute Neuts (auto) 15.00 H Corrected WBC (Man) 15.1 H Neutrophils % (Manual) 97 H Lymphocytes % (Manual) 2 L Monocytes % (Manual) 1 Nucleated RBC % 5 Platelet Evaluation High Polychromasia Slight Anisocytosis (manual) Slight pCO2 46 H pO2 57.0 L HCO3 17.6 L ABG pH 7.19 L* ABG Total CO2 19.0 L ABG O2 Saturation 91.0 L ABG O2 Content 10.1 L ABG Base Excess -10.0 L ABG Hemoglobin 8.1 L ABG Carboxyhemoglobin 2.3 H POC ABG HHb (Measured) 8.7 H ABG Methemoglobin 0.7 ABG O2 Capacity 11.1 L Hgb O2 Saturation 88.3 L FiO2 70.0 Crit Value Called To Bisi gómez rn Crit Value Called By Pam Blood Gas Notified Time 130 Sodium Potassium Chloride Carbon Dioxide Anion Gap BUN Creatinine Est GFR ( Amer) Est GFR (Non-Af Amer) POC Glucose (mg/dL) 127 H Random Glucose Hemoglobin A1c Calcium Phosphorus Magnesium Total Bilirubin AST ALT Alkaline Phosphatase Total Protein Albumin Globulin Albumin/Globulin Ratio Triglycerides Cholesterol LDL Cholesterol Direct HDL Cholesterol TSH 3rd Generation Blood Type Antibody Screen Crossmatch BBK History Checked 09/23/18 09/23/18 09/23/18 05:30 05:30 05:30 WBC RBC Hgb Hct MCV MCH MCHC RDW Plt Count MPV Neut % (Auto) Lymph % (Auto) [place] % (Auto) Eos % (Auto) Baso % (Auto) Lymph # (Auto) [place] # (Auto) Eos # (Auto) Baso # (Auto) Absolute Neuts (auto) Corrected WBC (Man) Neutrophils % (Manual) Lymphocytes % (Manual) Monocytes % (Manual) Nucleated RBC % Platelet Evaluation Polychromasia Anisocytosis (manual) pCO2 pO2 HCO3 ABG pH ABG Total CO2 ABG O2 Saturation ABG O2 Content ABG Base Excess ABG Hemoglobin ABG Carboxyhemoglobin POC ABG HHb (Measured) ABG Methemoglobin ABG O2 Capacity Hgb O2 Saturation FiO2 Crit Value Called To Crit Value Called By Blood Gas Notified Time Sodium 144 Potassium 4.9 Chloride 109 H Carbon Dioxide 19 L Anion Gap 21 H BUN 106 H Creatinine 5.3 H Est GFR ( Amer) 9 Est GFR (Non-Af Amer) 8 POC Glucose (mg/dL) Random Glucose 132 H Hemoglobin A1c 5.3 Calcium 9.0 Phosphorus 8.8 H Magnesium 1.8 Total Bilirubin 0.5 AST 115 H D ALT 81 H Alkaline Phosphatase 77 Total Protein 6.4 Albumin 3.5 Globulin 2.9 Albumin/Globulin Ratio 1.2 Triglycerides 87 Cholesterol 169 LDL Cholesterol Direct 59 HDL Cholesterol 67 H TSH 3rd Generation 0.69 Blood Type Antibody Screen Crossmatch BBK History Checked 09/23/18 09/23/18 09/23/18 06:40 09:00 12:34 WBC RBC Hgb Hct MCV MCH MCHC RDW Plt Count MPV Neut % (Auto) Lymph % (Auto) [place] % (Auto) Eos % (Auto) Baso % (Auto) Lymph # (Auto) [place] # (Auto) Eos # (Auto) Baso # (Auto) Absolute Neuts (auto) Corrected WBC (Man) Neutrophils % (Manual) Lymphocytes % (Manual) Monocytes % (Manual) Nucleated RBC % Platelet Evaluation Polychromasia Anisocytosis (manual) pCO2 46 H 33 L pO2 62.0 L 138.0 H HCO3 17.6 L 14.8 L ABG pH 7.19 L* 7.26 L ABG Total CO2 19.0 L 15.8 L ABG O2 Saturation 91.5 L 99.6 H ABG O2 Content 10.8 L 10.1 L ABG Base Excess -10.0 L -11.3 L ABG Hemoglobin 8.6 L 7.2 L ABG Carboxyhemoglobin 2.0 H 1.5 POC ABG HHb (Measured) 8.2 H 0.4 ABG Methemoglobin 1.3 1.1 ABG O2 Capacity 11.8 L 10.1 L Hgb O2 Saturation 88.5 L 96.9 FiO2 100.0 50.0 Crit Value Called To Bisi gómez rn Crit Value Called By Pam Blood Gas Notified Time 700 Sodium Potassium Chloride Carbon Dioxide Anion Gap BUN Creatinine Est GFR ( Amer) Est GFR (Non-Af Amer) POC Glucose (mg/dL) 186 H Random Glucose Hemoglobin A1c Calcium Phosphorus Magnesium Total Bilirubin AST ALT Alkaline Phosphatase Total Protein Albumin Globulin Albumin/Globulin Ratio Triglycerides Cholesterol LDL Cholesterol Direct HDL Cholesterol TSH 3rd Generation Blood Type Antibody Screen Crossmatch BBK History Checked Radiology Impressions: Radiology Impressions Chest X-Ray 09/23/18 06:00 IMPRESSION: Perihilar and basilar infiltrate or atelectasis are now identified with persistent right upper lobe and right basilar airspace disease. Volume loss at the right upper lobe suggest developing atelectasis. Small bilateral pleural effusions are likely. Chest X-Ray 09/23/18 08:54 IMPRESSION: Persistent left upper lobe and perihilar infiltrates with diminished atelectasis right upper lobe. Limited atelectasis right base. No left basilar infiltrate in the interval. Interval endotracheal and nasogastric/feeding tube deployment as per above as well as right central venous dialysis catheter. Fingerstick Blood Sugar Results: 127 Critical Care Progress Note - Nutrition Nutrition: Nutrition Category Date Time Status NPO Diet [DIET] Diets 09/23/18 Breakfast Ordered Assessment/Plan - Assessment and Plan (Free Text) Assessment: Pt is am 83 yo female with a PMH of DVT, HTN, HLD, CKD, dementia who presented to the emergency department after a fall and injuring her right shoulder, and who was later transferred to the ICU because of worsening SOB. Plan: Neuro - AOx3 - intubated and sedated - fetanyl drip, midazolam drip Cadio - Maintain MAP >65 - BNP 62656 - amlodipine, ASA, clonidine, diltiazem, hydralazine, dobutamine drip, norepinephrine - ECHO LVH, EF60-65%, RVSP 42mmHg Pulm - PNA - Maintain O2 sat >92 - lasix, solu medrol, duonebs - CXR shows signs of PNA - Chest CT: opacity of BRETT, left and right pleural effusion - Pulm consulted, Dr Roland BL PNA, BL pleural effusions GI - continue to monitor - FOBT positive 09/16/18 - GI ppx, pantoprazole Heme - monitor H/H - Hgb 8.5 - INR 1.38 - D dimer 783 - LEUS: no radiographic signs of DVT - venofer Nephro - BREANA on CKD - continue to monitor electrolytes - Cr 5.3, BUN 106 - sodium bicarb - renal US simple cysts - dialysis today, transfuse 1 unit today Endo - maintain euglycemia ID - WBC 15.9 - doxy, merrem - ID consulted, following Pt seen, examined, assessment and plan discussed with Dr Dangelo Serrano PGY1 - Date & Time Date: 09/23/18 Time: 07:00
[2018-09-23] MEDS ORDERED: Vancomycin 1gm in NS 250ml 1 GM/250 ML BAG IVPB STA (14:34)
--- NOTE | 2018-09-23 15:26 | PN ---
DATE: 09/23/2018 SUBJECTIVE: The patient is an 83-year-old, had episode of respiratory distress, was hypoxic, intubated this morning. PHYSICAL EXAMINATION VITAL SIGNS: She is afebrile. Pulse 70, respirations 20, blood pressure 112/55. LUNGS: Bilateral fair airflow. No rhonchi or crackles. HEART: S1 and S2 audible. ABDOMEN: Soft, nontender. No rebound. No guarding. NEUROLOGICAL: The patient is sedated. LABORATORY DATA: WBC 15.9, hemoglobin 8.5, hematocrit 27, platelet of 450. Chemistry; sodium 145, potassium 4.9, chloride 109, CO2 of 19, BUN 26, creatinine 5.3. Blood sugar of 186. Urine beta hemolytic Streptococcus B. ASSESSMENT: 1. Respiratory failure. 2. Acute on chronic renal failure. 3. Hypertension. 4. Anemia. 5. Bilateral pneumonia. PLAN: Currently, the patient is on vent support. We will continue her current medications. She is on doxycycline, she is on Venofer, she is on meropenem. Followup her electrolytes, CBC and CMP in a.m. Torrie Adamson MD
[2018-09-23 15:53] LABS: ARTERIAL BLOOD GAS HCO3 24.5 mmol/L (21-28); ARTERIAL BLOOD GAS O2 SAT 94.7 % (95-98); ARTERIAL BLOOD GAS PCO2 36 mm/Hg (35-45); ARTERIAL BLOOD GAS PH 7.44 (7.35-7.45); ARTERIAL BLOOD GAS TCO2 25.6 mmol.L (22-28)
[2018-09-23 16:26] LABS: HEPATITIS B SURFACE AG Negative (NEGATIVE)
[2018-09-23 16:31] LABS: HEPATITIS B CORE AB NEGATIVE (NEGATIVE)
--- NOTE | 2018-09-23 19:11 | PN ---
DATE: 09/23/2018 SUBJECTIVE: The patient was seen and examined at bedside. She deteriorated early in the morning and had to be intubated for airway protection as well as to help with decompensated metabolic acidosis with pH 7.19. PCO2 at that time was 46 which shows that she was clearly unable to compensate for metabolic acidosis and respiratory acidosis joined as well. The patient also required emergent dialysis which was discussed with Dr. Rand and hemodialysis catheter was placed after obtaining informed consent. The patient tolerated first session of hemodialysis well. The patient currently is on norepinephrine 2 mcg per minute, dobutamine 2.5 mcg per minute, bicarb drip 150 mg per hour (that was started before dialysis was available and was discussed with Dr. Rand as well. Her response as to whether continue bicarb drip after dialysis is pending. ABG are pending as well). The patient is on fentanyl 75 mcg per hour and Versed 2 mg per hour for sedation. At present time, the patient is on PRVC 400/16/5/50%. PHYSICAL EXAMINATION: VITAL SIGNS: Blood pressure 141/65, oxygen saturation 100%, end-tidal CO2 29, temperature 93.6, and heart rate 72. ENT: Head and neck atraumatic. The patient is intubated. Right IJ position HD catheter. LUNGS: Decreased breath sounds on the right side. Some crackles, right more than left. No wheezes. ABDOMEN: Soft, nontender, nondistended. MUSCULOSKELETAL: Trace bilateral pedal and ankle edema. NEURO: The patient was seen moving all extremities spontaneously prior to intubation. SKIN: Moist. PSYCH: The patient was poorly responsive prior to intubation in the morning. Currently, the patient is sedated. LABORATORY DATA: Sodium 144, potassium 4.9, chloride 109, carbon dioxide 19, BUN 106, creatinine 5.3, glucose 186, AST 115, ALT 81, total bilirubin 0.5. ProBNP was in 39,000. WBC 15.9, hemoglobin 8.5, platelet count 415. ABG after intubation 7.26/33/138 (this ABG was done prior to hemodialysis. Current ABG is pending after dialysis). Chest x-ray showed correct position of the right IJ dialysis catheter and endotracheal tube. Whiteout of the right lung which signifies progression of the likely infectious process on the right side. Echocardiogram showed normal left ventricular ejection fraction 60-65, some changes suggesting diastolic dysfunction of the left ventricle. RV, however, is moderately dilated. Systolic function of the right ventricle is mildly to moderately reduced. MEDICATIONS: Tylenol p.r.n., DuoNeb every 6 hours, amlodipine, aspirin, clonidine p.r.n., clonidine patch, Cardizem 240 mg daily, dobutamine, Lasix 40 mg IV every 12 hours (will put on hold), hydralazine 75 mg p.o. every 8 hours, however, I will hold as the patient is hypotensive, amlodipine is on hold, clonidine patch is on hold, heparin subcu, doxycycline, fentanyl, hydralazine is on hold, iron, meropenem, Solu-Medrol 20 mg IV every 12 hours, norepinephrine, Protonix daily, bicarb drip and sodium bicarb p.o., vancomycin. ASSESSMENT AND PLAN: This is an 83-year-old lady who presented to ICU with hypoxemic respiratory failure secondary to progressive severe community-acquired pneumonia in the setting of right ventricular failure and acute on chronic kidney disease requiring hemodialysis. At present time, the patient is hypothermic and white cell count is going up which coupled with vasopressor requirements despite initial fluid resuscitation suggest progression of the community-acquired pneumonia to septic shock. 1. Neuro: At present time, the patient is sedated with fentanyl and Versed drip, however, we will proceed with daily sedation vacation starting tomorrow. I will do electroencephalogram to make sure that the patient does not have nonconvulsive status. As the patient was seen moving all extremities, I have low suspicion for significant acute intracranial pathology. 2. Pulmonary: The patient has hypoxemic respiratory failure secondary to right lobar severe community-acquired pneumonia progressing to septic shock. I will continue with low tidal volume ventilation maintaining plateau pressure less than 30 cm of water. Once shock resolved, conservative fluid management will be considered. Conservative oxygen management will be instituted. We will continue with daily sedation vacation and daily weaning trials. Head of bed elevated more than 35 degrees and oral hygiene. We will send endotracheal aspirate for analysis. We will continue to taper down FIO2 and use higher PEEP to FIO2 ratio. 3. Cardiovascular: The patient has right ventricular failure. I will start the patient on small dose of dobutamine for right ventricular support. The patient is also in distributive shock and currently on norepinephrine. As norepinephrine requirement is going down (from 10 mcg per minute to 2 mcg per minute), I will not start stress dose steroids right of the bat, however, we will have low threshold for it if patient is unable to wean off of vasopressor support. 4. ID: The patient has septic shock secondary to severe community-acquired pneumonia. We will continue with vancomycin, meropenem and doxycycline. ID service is following the patient as well. We will send endotracheal aspirate for the culture. Procalcitonin is highly elevated, but as was mentioned in my previous note, the patient has acute on chronic kidney disease, thus interpretation of the results can be difficult in this situation. 5. GI: Today, we will keep the patient n.p.o., and if weaned off of pressors by tomorrow, we will consider starting enteral nutrition. GI prophylaxis. 6. Endocrine. We will maintain blood glucose within 140-180 range according to NICE-SUGAR trial. The patient is hypothermic, we will put the patient on warming blankets. It appears that she responded to that and her temperature is rising up. ccm time 40 min Patrick Pierson MD [email or web address]
[2018-09-23] MEDS: diltiaZEM 240 mg/24 Hours CD Cap PO SCH (19:12)
--- NOTE | 2018-09-23 19:20 | PROCN ---
DATE: 09/23/2018 PROCEDURE: Right internal jugular hemodialysis catheter placement. INDICATION: Emergent dialysis. After obtaining informed consent, operational area was sterilized. Maximum barrier precautions used. Right IJ was cannulated by sterile standard technique under real-time ultrasound guidance. Guidewire removed. Hemostasis achieved. Sterile dressing applied. The patient tolerated the procedure well. Chest x-ray confirmed correct position of the right IJ hemodialysis catheter and no pneumothorax. Patrick Pierson MD
--- NOTE | 2018-09-24 00:07 | PROCN ---
PROCEDURE DATE: 09/23/2018 PROCEDURE: Endotracheal intubation. INDICATION: Hypoxemic respiratory failure. DESCRIPTION OF PROCEDURE: The patient was pre-oxygenated via Ambu bag with 100% FiO2. Vital signs were monitored throughout the procedure every one minute. One liter of normal saline wide open was started intraoperative period to optimize right ventricle acutely, it was stopped after the procedure. Norepinephrine was on standby as well. The patient was sedated with 100 mcg of propofol. Direct laryngoscopy performed with MAC 3 curved blade. Vocal cord visualized and trachea cannulated with first attempt. Stylette removed. End-tidal CO2 changed color. Bilateral auscultation confirmed correct position of the endotracheal tube. The patient tolerated the procedure well. Chest x-ray confirmed correct position of the endotracheal tube. Patrick Pierson MD [facility]
[2018-09-24] MEDS: Albuterol-Ipratrop 3 mg / 0.5 (3 ml) UD IH SCH ×4 (01:30→19:50)
[2018-09-24 05:43] LABS: HEMOGLOBIN 9.8 g/dL (12.0-16.0); MEAN CELL VOLUME 86.5 fl (80.0-105.0); MEAN CORPUSCULAR HEMOGLOBIN 28.7 pg (25.0-35.0); MEAN CORPUSCULAR HGB CONC 33.2 g/dl (31.0-37.0); MEAN PLATELET VOLUME 9.4 fl (7.0-11.0); RBC 3.41 10^6/uL (3.5-6.1); RED CELL DISTRIBUTION WIDTH 15.8 % (11.5-14.5); WHITE BLOOD COUNT 15.5 10^3/uL (4.5-11.0)
[2018-09-24 06:30] LABS: ALB/GLOB RATIO 1.1 (1.1-1.8); ALBUMIN 2.9 g/dL (3.0-4.8); CALCIUM 8.2 mg/dL (8.4-10.5)
[2018-09-24 06:58] LABS: ARTERIAL BLOOD GAS HCO3 25.3 mmol/L (21-28); ARTERIAL BLOOD GAS HEMOGLOBIN 11.1 g/dL (11.7-17.4); ARTERIAL BLOOD GAS O2 CAPACITY 15.4 mL/dl (16-24); ARTERIAL BLOOD GAS O2 CONTENT 14.8 ML/dl (15-23); ARTERIAL BLOOD GAS O2 SAT 96.4 % (95-98); ARTERIAL BLOOD GAS PCO2 39 mm/Hg (35-45); ARTERIAL BLOOD GAS PH 7.42 (7.35-7.45); ARTERIAL BLOOD GAS TCO2 26.5 mmol.L (22-28)
[2018-09-24] MEDS: Fentanyl 1000mcg/100ml NS 1,000 MCG/100 ML BAG IV PRN ×2 (07:11→19:56)
--- NOTE | 2018-09-24 08:18 | PN ---
DATE: 09/23/2018 REASON FOR THE CONSULTATION AND FOLLOWUP: Shortness of breath, cardiac evaluation, pneumonia, moved to ICU. This morning, the patient had acute respiratory distress, during the rounds, the patient was being attempted for intubation. SUBJECTIVE: The patient was short of breath, moderate to severe distress, Dr. Pierson is trying to intubate her. PHYSICAL EXAMINATION: GENERAL: Not in apparent distress. VITAL SIGNS: Temperature afebrile, heart rate 70, and blood pressure 112/55. HEENT: PERRLA. Extraocular muscles intact. Using accessory muscles. ABDOMEN: Soft. EXTREMITIES: Clubbing, cyanosis negative. LABORATORY DATA: Blood workup: WBC 15.9, hemoglobin 8.5, hematocrit 27, and platelet count 415. Chemistry shows sodium 144, potassium 4.9, chloride 109, carbon dioxide 19, anion gap of 20, BUN , and creatinine 5.3. The patient had an echocardiography done yesterday that revealed ejection fraction 65%, right ventricle moderately dilated, RV systolic function is moderately reduced, trace aortic regurgitation, [id number] valvular aortic stenosis, dafu-rx-[id number] mitral regurgitation, mild tricuspid regurgitation, RV systolic pressure of 42. IMPRESSION: An 83-year-old female who was initially admitted to the medical floor with history of hyperlipidemia, possible dementia, admitted to the medical floor with bilateral pneumonia, chronic kidney disease. Her respiratory status got worse, moved to intensive care unit. This morning, the patient was in acute respiratory distress, being intubated now. Possible bilateral pneumonia. Echo shows preserved left ventricular function, dilated right ventricle, decreased right ventricle function, [id number]-[id number] aortic stenosis. Ejection fraction preserved 60 to 65%, mild tricuspid regurgitation, right ventricular systolic pressure of 42. Dheq-nv-hpotimmk, as mentioned, aortic stenosis, mirc-lk-ywprvqwn mitral regurgitation, status post in the process of being intubated, anemia, acute kidney injury, chronic renal insufficiency, bilateral pneumonia, hypoxemia. RECOMMENDATIONS: As the patient is being intubated, broad-spectrum antibiotics, gentle diuretics to keep negative fluid balance. Change p.o. meds to IV as needed. Now the blood pressure is normotensive. We will monitor closely. Overall, the patient's condition is critical. fitter type bar and segment prognosis is guarded. We will follow with you. Thank you Dr. Adamson to provide us opportunity in taking care of the patient, Jaclyn Liz. Suzie Bird MD
--- NOTE | 2018-09-24 08:23 | PN ---
DATE: 09/23/2018 SUBJECTIVE: The patient is seen in the ICU. She is on mechanical ventilation. She was intubated this morning because of severe respiratory acidosis, respiratory failure, respiratory distress. Her pH was 7.19 with pCO2 of 46, pO2 of 62. She is currently sedated. The family members are at bedside. A dialysis catheter was also placed. Over the last 24 hours, her urine output was only 100 mL. She received 1 unit of blood yesterday. Her hemoglobin this morning was 8.5. Her BUN was 106 and her creatinine was 5.3. Decision was made for acute dialysis. Family was consented. PHYSICAL EXAMINATION: GENERAL: A thinly built elderly lady, lying in bed, in the ICU, on mechanical ventilation. VITAL SIGNS: Blood pressure 140/54, heart rate 76, respiratory rate 16, temperature 95.9. HEENT: Normocephalic, atraumatic, positive pallor, no icterus. NECK: Supple, no JVD. LUNGS: Bilateral equal entry, bilateral equal expansion, bilateral rhonchi. CARDIAC: S1 and S2, regular rate and rhythm, no murmur, no rub. ABDOMEN: Soft, nondistended, bowel sounds present. EXTREMITIES: No lower extremity edema. INTAKE AND OUTPUT: 1600/100. LABORATORY DATA: WBC 15.9, hemoglobin 8.5, hematocrit 27, platelets 415. Sodium 144, potassium 4.9, chloride 109, CO2 of 19, BUN 106, creatinine 5.3, glucose 132, calcium 9, phosphorus 8.8, magnesium 1.8, AST 115, ALT 81, albumin 3.5, procalcitonin 4.9, PTH 453, phosphorus 8.8. Chest x-ray: Right upper lobe infiltrate, perihilar and basilar infiltrate, small bilateral pleural effusions. CURRENT MEDICATIONS: Apresoline 75 mg every 8 hours, Cardizem 240 mg, Catapres 0.1 mg four times a day p.r.n., Catapres patch 0.2 mg, dobutamine, doxycycline 100 mg, aspirin, Venofer, meropenem 250 mg every 12 hours, amlodipine on hold, sodium bicarbonate 650 mg b.i.d., Solu-Medrol, Tylenol. ASSESSMENT: 1. Respiratory failure, multilobar pneumonia, bilateral pleural effusions. 2. Combined metabolic and respiratory acidosis. 3. Oligoanuric acute kidney injury superimposed on chronic kidney disease stage 4. 4. Severe anemia, suspect gastrointestinal blood loss. 5. Severe hyperphosphatemia. 6. Severe secondary hyperparathyroidism. 7. Chronic obstructive pulmonary disease. PLAN: 1. Transfuse 1 unit of PRBC. 2. Urgent dialysis. 3. Discontinue sodium bicarbonate IV after dialysis. 4. Monitor H and H. 5. Will require dialysis again tomorrow. 6. Continue PPI. 7. Continue IV Solu-Medrol. 8. Case discussed at length with family members at bedside, case discussed with dialysis nursing staff, case discussed with Dr. Pierson. More than 35 minutes were spent in the care of this critically ill patient. Samantha Rand MD
[2018-09-24] MEDS: Midazolam 100 mg/100ml in NS 100 MG/100 ML SOL IV PRN (09:18)
--- NOTE | 2018-09-24 10:04 | CP.PCM.PN ---
<Carlos Munson - Last Filed: 09/24/18 10:00> Subjective - Date & Time of Evaluation Date of Evaluation: 09/24/18 Time of Evaluation: 09:00 - Subjective Subjective: Carlos Munson D.O. PGY-3, Internal Medicine Resident, Infectious Disease Progress Note 83 year old female with a PMH of HTN, DM, DVT, PVD, mitral and aortic regurg who was being managed for BL CAP now with sepsis and HAP. Patient was seen and examined at bedside. Continues to be sedated and intubated. Undergoing dialysis at this time. Objective - Vital Signs/Intake and Output Vital Signs (last 24 hours): Temp Pulse Resp BP Pulse Ox 99.1 F 83 20 149/84 100 09/23/18 23:30 09/24/18 08:47 09/24/18 07:06 09/23/18 23:30 09/23/18 23:30 Intake and Output: 09/24/18 09/24/18 06:59 18:59 Intake Total 2800 180 Balance 2800 180 - Medications Medications: Current Medications Acetaminophen (Tylenol 325mg Tab) 650 mg PO Q6H PRN PRN Reason: Pain, moderate (4-7) Last Admin: 09/18/18 22:04 Dose: 650 mg Acetaminophen (Tylenol 325mg Tab) 650 mg PO Q4H PRN PRN Reason: Fever >100.4 F Last Admin: 09/21/18 12:38 Dose: 650 mg Albuterol/Ipratropium (Duoneb 3 Mg/0.5 Mg (3 Ml) Ud) 3 ml IH [id number] [facility] Last Admin: 09/24/18 07:30 Dose: 3 ml Amlodipine Besylate (Norvasc) 10 mg PO DAILY [facility] Last Admin: 09/23/18 15:31 Dose: Not Given Aspirin (Ecotrin) 81 mg PO DAILY [facility] Last Admin: 09/24/18 09:20 Dose: 81 mg Clonidine HCl (Catapres) 0.1 mg PO QID PRN PRN Reason: SBP above 150 Last Admin: 09/22/18 03:11 Dose: 0.1 mg Clonidine HCl (Catapres-Tts2 0.2 Mg/24 Hr) 1 patch TD Q7D@1000 [facility] Diltiazem HCl (Cardizem Cd) 240 mg PO DAILY [facility] Last Admin: 09/23/18 19:12 Dose: Not Given Heparin Sodium (Porcine) (Heparin) 5,000 units SC Q8 [facility]; Protocol Last Admin: 09/24/18 06:19 Dose: 5,000 units Hydralazine HCl (Apresoline) 75 mg PO Q8 [facility] Last Admin: 09/23/18 19:12 Dose: Not Given Iron Sucrose 100 mg/ Sodium (Chloride) 105 mls @ 210 mls/hr IVPB DAILY [facility] Stop: 09/28/18 10:29 Last Admin: 09/24/18 09:19 Dose: 210 mls/hr Doxycycline Hyclate 100 mg/ (Sodium Chloride) 100 mls @ 100 mls/hr IVPB Q12 [facility]; Protocol Last Admin: 09/24/18 08:23 Dose: 100 mls/hr Meropenem 250 mg/ Sodium (Chloride) 100 mls @ 100 mls/hr IVPB Q12H [facility]; Protocol Stop: 09/28/18 22:01 Last Admin: 09/24/18 09:19 Dose: 100 mls/hr Fentanyl Citrate (Fentanyl Citrate/Sodium Chloride 1 Mg/100 Ml) 1,000 mcg in 100 mls @ 5 mls/hr IV .Q20H PRN; Protocol PRN Reason: TITRATE PER MD ORDER Last Admin: 09/24/18 07:11 Dose: 75 mcg/hr, 7.5 mls/hr Midazolam 100 mg/100ml in NS (Midazolam 100 Mg/100ml In Ns) 100 mg in 100 mls @ 2 mls/hr IV .Q24H PRN; Protocol PRN Reason: Sedation Last Admin: 09/24/18 09:18 Dose: 1 mg/hr, 1 mls/hr Dobutamine HCl/Dextrose (Dobutamine/Dextrose 5% 500mg/250ml) 500 mg in 250 mls @ 3.232 mls/hr IV .Q24H PRN; Protocol PRN Reason: TITRATE PER PROTOCOL Last Admin: 09/23/18 09:03 Dose: 2.5 mcg/kg/min, 3.232 mls/hr NOREPINEPHRINE BIT/0.9 % NACL (Levophed 4 Mg/ 250 Ml Ns Premixed) 4 mg in 250 mls @ 15 mls/hr IV .[id number] PRN; Protocol PRN Reason: TITRATE PER MD ORDER Last Titration: 09/23/18 15:29 Dose: 0 mcg/min, 0 mls/hr Methylprednisolone (Solu-Medrol) 20 mg IVP Q12H [facility] Last Admin: 09/23/18 21:51 Dose: 20 mg Pantoprazole Sodium (Protonix Inj) 40 mg IVP DAILY [facility] Last Admin: 09/24/18 09:19 Dose: 40 mg Risperidone (Risperdal Tab) 0.25 mg PO DAILY PRN; Protocol PRN Reason: Other Sodium Bicarbonate (Sodium Bicarbonate Tab) 650 mg PO BID [facility] Last Admin: 09/24/18 09:20 Dose: 650 mg - Labs Labs: 09/24/18 05:08 09/24/18 05:08 PT 15.6 SECONDS (9.4-12.5) H 09/17/18 06:20 INR 1.38 09/17/18 06:20 APTT 30.3 Seconds (26.9-38.3) 09/17/18 06:20 - Constitutional Appears: No Acute Distress, Cachectic, Chronically Ill - Head Exam Head Exam: ATRAUMATIC, NORMOCEPHALIC - Eye Exam Eye Exam: absent: Scleral icterus - ENT Exam ENT Exam: Mucous Membranes Moist, intubated - Neck Exam Neck Exam: Normal Inspection - Respiratory Exam Respiratory Exam: Rhonchi throughout, decreased breath sounds - Cardiovascular Exam Cardiovascular Exam: +S1, +S2. absent: Rubs - GI/Abdominal Exam GI & Abdominal Exam: Soft. absent: Tenderness - Extremities Exam Extremities Exam: absent: Calf Tenderness, Tenderness - Neurological Exam Additional comments: intubated and sedated - Skin Skin Exam: Dry, Warm Assessment and Plan - Assessment and Plan (Free Text) Assessment: 83 year old female with a PMH of HTN, DM, DVT, PVD, mitral and aortic regurg who was being managed for BL CAP now with sepsis and HAP. Plan: Plan: Sepsis HAP BREANA on CKD BL Pleural effusions Afebrile but still with leukocytosis and tachypnea Thoracentesis recommended Repeat procal significantly decreased Pleural effusions are most likely 2/2 worsening fluid status Undergoing dialysis now CXR reviewed, appears to be improving, official read pending Continue with doxy and merrem day 4 BCxs 2/2 negative day 5 We will follow Patient was seen and examined at bedside and case will be discussed with attending physician Thank you for the pleasure of participating in the care of this interesting patient <Urbano Herring - Last Filed: 09/24/18 12:35> Objective - Vital Signs/Intake and Output Vital Signs (last 24 hours): Temp Pulse Resp BP Pulse Ox 99.1 F 90 20 149/84 100 09/23/18 23:30 09/24/18 10:10 09/24/18 07:06 09/23/18 23:30 09/23/18 23:30 Intake and Output: 09/24/18 09/24/18 06:59 18:59 Intake Total 2800 180 Balance 2800 180 - Medications Medications: Current Medications Acetaminophen (Tylenol 325mg Tab) 650 mg PO Q6H PRN PRN Reason: Pain, moderate (4-7) Last Admin: 09/18/18 22:04 Dose: 650 mg Acetaminophen (Tylenol 325mg Tab) 650 mg PO Q4H PRN PRN Reason: Fever >100.4 F Last Admin: 09/21/18 12:38 Dose: 650 mg Albuterol/Ipratropium (Duoneb 3 Mg/0.5 Mg (3 Ml) Ud) 3 ml IH [id number] [facility] Last Admin: 09/24/18 07:30 Dose: 3 ml Amlodipine Besylate (Norvasc) 10 mg PO DAILY [facility] Last Admin: 09/23/18 15:31 Dose: Not Given Aspirin (Ecotrin) 81 mg PO DAILY [facility] Last Admin: 09/24/18 09:20 Dose: 81 mg Clonidine HCl (Catapres) 0.1 mg PO QID PRN PRN Reason: SBP above 150 Last Admin: 09/22/18 03:11 Dose: 0.1 mg Clonidine HCl (Catapres-Tts2 0.2 Mg/24 Hr) 1 patch TD Q7D@1000 [facility] Diltiazem HCl (Cardizem Cd) 240 mg PO DAILY [facility] Last Admin: 09/23/18 19:12 Dose: Not Given Heparin Sodium (Porcine) (Heparin) 5,000 units SC Q8 [facility]; Protocol Last Admin: 09/24/18 06:19 Dose: 5,000 units Hydralazine HCl (Apresoline) 75 mg PO Q8 [facility] Last Admin: 09/23/18 19:12 Dose: Not Given Iron Sucrose 100 mg/ Sodium (Chloride) 105 mls @ 210 mls/hr IVPB DAILY [facility] Stop: 09/28/18 10:29 Last Admin: 09/24/18 09:19 Dose: 210 mls/hr Doxycycline Hyclate 100 mg/ (Sodium Chloride) 100 mls @ 100 mls/hr IVPB Q12 [facility]; Protocol Last Admin: 09/24/18 08:23 Dose: 100 mls/hr Meropenem 250 mg/ Sodium (Chloride) 100 mls @ 100 mls/hr IVPB Q12H [facility]; Protocol Stop: 09/28/18 22:01 Last Admin: 09/24/18 09:19 Dose: 100 mls/hr Fentanyl Citrate (Fentanyl Citrate/Sodium Chloride 1 Mg/100 Ml) 1,000 mcg in 100 mls @ 5 mls/hr IV .Q20H PRN; Protocol PRN Reason: TITRATE PER MD ORDER Last Admin: 09/24/18 07:11 Dose: 75 mcg/hr, 7.5 mls/hr Midazolam 100 mg/100ml in NS (Midazolam 100 Mg/100ml In Ns) 100 mg in 100 mls @ 2 mls/hr IV .Q24H PRN; Protocol PRN Reason: Sedation Last Admin: 09/24/18 09:18 Dose: 1 mg/hr, 1 mls/hr Dobutamine HCl/Dextrose (Dobutamine/Dextrose 5% 500mg/250ml) 500 mg in 250 mls @ 3.232 mls/hr IV .Q24H PRN; Protocol PRN Reason: TITRATE PER PROTOCOL Last Admin: 09/23/18 09:03 Dose: 2.5 mcg/kg/min, 3.232 mls/hr NOREPINEPHRINE BIT/0.9 % NACL (Levophed 4 Mg/ 250 Ml Ns Premixed) 4 mg in 250 mls @ 15 mls/hr IV .[id number] PRN; Protocol PRN Reason: TITRATE PER MD ORDER Last Titration: 09/23/18 15:29 Dose: 0 mcg/min, 0 mls/hr Methylprednisolone (Solu-Medrol) 20 mg IVP Q12H [facility] Last Admin: 09/23/18 21:51 Dose: 20 mg Pantoprazole Sodium (Protonix Inj) 40 mg IVP DAILY [facility] Last Admin: 09/24/18 09:19 Dose: 40 mg Risperidone (Risperdal Tab) 0.25 mg PO DAILY PRN; Protocol PRN Reason: Other Sodium Bicarbonate (Sodium Bicarbonate Tab) 650 mg PO BID [facility] Last Admin: 09/24/18 09:20 Dose: 650 mg - Labs Labs: 09/24/18 05:08 09/24/18 05:08 PT 48.4 SECONDS (9.4-12.5) H 09/24/18 10:15 INR 4.28 H* 09/24/18 10:15 APTT 30.3 Seconds (26.9-38.3) 09/17/18 06:20 Attending/Attestation - Attestation I have personally seen and examined this patient.: Yes I have fully participated in the care of the patient.: Yes I have reviewed all pertinent clinical information, including history, physical exam and plan: Yes
--- NOTE | 2018-09-24 10:14 | RAD ---
Date of service: 09/24/2018 HISTORY: f/u COMPARISON: Chest x-ray 09/23/2018 TECHNIQUE: Chest one view . FINDINGS: LUNGS: Bilateral diffuse airspace opacities, right greater than left, appear mildly increased compared to prior exam. Endotracheal tube tip is above the alphonse. PLEURA: Moderate right pleural effusion with likely associated atelectasis. Probable trace left pleural effusion. CARDIOVASCULAR: Heart size is within normal limits. Atherosclerotic calcifications noted of the aorta. Stable right-sided central venous line with tip overlying the region the SVC. OSSEOUS STRUCTURES: Mild hypertrophic degenerative changes noted of the bilateral acromioclavicular joints. High-riding humeral heads bilaterally, suggestive of chronic rotator cuff tears. VISUALIZED UPPER ABDOMEN: Unremarkable. OTHER FINDINGS: Stable catheter/tubing to the left of midline of unclear significance, correlate clinically. IMPRESSION: See above
[2018-09-24 10:43] LABS: PROTHROMBIN TIME 48.4 SECONDS (9.4-12.5)
--- NOTE | 2018-09-24 10:43 | CON ---
DATE: 09/24/2018 GASTROENTEROLOGY CONSULT REQUESTING PHYSICIAN: Dr. Adamson REASON FOR CONSULT: I have been asked to see this 83-year-old female with respiratory failure, pneumonia, metabolic acidosis, on the ventilator, for possible rectal prolapse. Nurses tell me that she appeared to have rectal prolapse during taking of rectal temperature. She has had some mild rectal bleeding. The patient also had warfarin toxicity with coagulopathy. She is awake and her eyes are open. She is unable to give any history, history is obtained from the chart. PAST MEDICAL HISTORY: Notable for dementia, DVT, type 2 diabetes mellitus, chronic kidney disease, chronic anemia, aortic regurgitation, mitral regurgitation, hyperlipidemia, chronic kidney disease. SOCIAL HISTORY: She lives at home with her son. There is no history of cigarette smoking or alcohol use. FAMILY HISTORY: Noncontributory. REVIEW OF SYSTEMS: Fourteen-point review of systems is unobtainable as the patient is on the ventilator. MEDICATIONS AT HOME: Include tramadol, hydralazine, metformin, Coumadin, and lorazepam. PHYSICAL EXAMINATION: GENERAL: Elderly female lying in bed, eyes open, on the ventilator. VITAL SIGNS: Reveal temperature of 99.1, blood pressure 149/84, heart rate of 80. HEENT: Reveal sclerae to be white, conjunctivae pale. NECK: Supple. CHEST: Reveal scattered rhonchi. HEART: Exam reveals an irregular rate. ABDOMEN: Soft, nontender. EXTREMITIES: Show no edema. RECTAL: Exam shows no evidence of rectal prolapse. She has a scant amount of blood in the rectal vault. She does have internal hemorrhoids. LABORATORY DATA: Reveals hemoglobin of 9.8, white blood cell count 15.5. Chemistries reveal BUN 63, creatinine 3.4, AST 54, ALT 62. Her PT on 09/12/2018 was 55.5 with an INR of 5. On 09/17/2018, the PT was 15.6 with an INR of 1.38. IMPRESSION: An 83-year-old female with multiple comorbidities including chronic kidney disease, chronic anemia, dementia, valvular heart disease, with rectal prolapse, seen by the nurse. Currently, she does not have rectal prolapse. She does have some internal hemorrhoids with bleeding. RECOMMENDATIONS: 1. Would obtain a surgical evaluation if rectal prolapse recurs. 2. The patient can have an elective flexible sigmoidoscopy/colonoscopy when her overall medical condition improves. Thank you. Reginald Jimenez MD
[2018-09-24 10:45] LABS: INR 4.28
[2018-09-24] MEDS: diltiaZEM 240 mg/24 Hours CD Cap PO SCH (11:00)
--- NOTE | 2018-09-24 11:49 | PN ---
DATE: 09/24/2018([id number]) PULMONARY NOTE SUBJECTIVE: The patient remains on the ventilator. She remains sedated. PHYSICAL EXAMINATION: VITAL SIGNS: Last temperature recorded is 99.1, pulse on the monitor is 78, respiratory rate 20/16, blood pressure 149/84. HEENT: Normocephalic, atraumatic. No JVD. CARDIOVASCULAR: Systolic ejection murmur at the lower left sternal border. No S3 gallop. LUNGS: Decreased breath sounds at the bases with crackles. Minimal/less rhonchi. No wheezing. GI: Abdomen is soft, nondistended. Bowel sounds are positive. EXTREMITIES: Mild edema. No cyanosis, no clubbing. SKIN: No acute rash. NEUROLOGIC: Exam limited at the present time. PERTINENT LABORATORY DATA: Chest x-ray was done this morning and reviewed. There remains a diffuse infiltrate throughout the right lung. There are also minimal infiltrates in the left lung. Arterial blood gas was done on PRVC 16, tidal volume 350, FIO2 50%, PEEP of 5. Results are: PH 7.42, pCO2 of 39, pO2 of 75. IMPRESSION: 1. Bilateral pneumonia. 2. Bilateral pleural effusions. 3. Acute on chronic renal failure. 4. Severe anemia. 5. Rule out congestive heart failure. PLAN: The patient remains on the ventilator this morning. She is sedated. I did discuss case with the night nurse at length. The night nurse stated the patient had an uneventful night. I did go back to the ICU late morning yesterday and discussed the case with Dr. Pierson. The patient was intubated for progressive respiratory difficulties. I did review the chest x-ray as above. Findings are noted. Official results are pending. I have also reviewed the arterial blood gas. The arterial blood gas has significantly improved- with resolution of the acidosis, and a decrease in the alveolar-arterial gradient. The patient did get dialyzed yesterday. She will also get dialyzed this morning (discussed with nurse). I would continue with the antibiotic coverage as per Infectious Disease. Input by Dr. Herring is noted. Inputs by Renal and Cardiology are also noted. Clinical status of the patient has certainly improved - compared to a few days ago. However, the patient does remain critically ill with very guarded prognosis. I will discuss the above with the entire ICU team in the next few moments. I will also discuss the above with the attending physician later this morning. Charles Roland MD MT[facility]ven
--- NOTE | 2018-09-24 11:53 | CP.CCUPN ---
<Burak Serrano - Last Filed: 09/24/18 12:20> CCU Subjective - Physician Review Events Since Last Encounter (Free Text): 09/24/18 11:48 Pt had no acute events overnight, no acute distress over night. Subjective (Free Text): 09/24/18 11:51 Pt seen and examined this morning at bedside in the ICU. Pt is in no acute distress. Critical Care Time Spent (in minutes): 45 CCU Objective - Vital Signs / Intake & Output Vital Signs (Last 4 hours): Vital Signs Pulse 09/24/18 10:10 90 09/24/18 08:47 83 Intake and Output (Last 8hrs): Intake & Output 09/23/18 09/24/18 09/24/18 22:59 06:59 14:59 Intake Total 3100 180 Balance 3100 180 Intake: IV 3100 180 Right Internal Jugular 2800 - Physical Exam Head: Positive for: Atraumatic, Normocephalic Pupils: Positive for: PERRL Extroacular Muscles: Positive for: EOMI Conjunctiva: Positive for: Normal Mouth: Positive for: Moist Mucous Membranes Neck: Positive for: Normal Range of Motion Respiratory/Chest: Positive for: Clear to Auscultation, Good Air Exchange, Wheezes. Negative for: Respiratory Distress, Accessory Muscle Use Cardiovascular: Positive for: Regular Rate and Rhythm, Normal S1, S2. Negative for: Murmurs Abdomen: Positive for: Normal Bowel Sounds. Negative for: Tenderness, Distention, Peritoneal Signs Back: Positive for: Normal Inspection Upper Extremity: Positive for: Other (RUE is neurovascularly intact however there is significant tenderness to palpation in the area of the R scapular spine , no tenderness noted over the humeral head, ACTIVE AND PASSIVE ROM is signifcantly reduced by pain). Negative for: Normal ROM Lower Extremity: Positive for: Normal Inspection. Negative for: Edema Neurological: Positive for: GCS=15, CN II-XII Intact, Speech Normal Skin: Positive for: Warm, Dry, Normal Color. Negative for: Rashes Psychiatric: Positive for: Alert, Oriented x 3, Normal Insight, Normal Concentration - Medications Active Medications: Active Medications Generic Name Dose Route Start Last Admin Trade Name Freq PRN Reason Stop Dose Admin Acetaminophen 650 mg 09/12/18 05:16 09/18/18 22:04 Tylenol 325mg Tab PO 650 mg Q6H PRN Administration Pain, moderate (4-7) Acetaminophen 650 mg 09/21/18 12:17 09/21/18 12:38 Tylenol 325mg Tab PO 650 mg Q4H PRN Administration Fever >100.4 F Albuterol/Ipratropium 3 ml 09/22/18 08:00 09/24/18 07:30 Duoneb 3 Mg/0.5 Mg (3 Ml) Ud IH 3 ml [id number] JESUS Administration Amlodipine Besylate 10 mg 09/12/18 08:28 09/23/18 15:31 Norvasc PO Not Given DAILY JESUS Aspirin 81 mg 09/17/18 10:00 09/24/18 09:20 Ecotrin PO 81 mg DAILY JESUS Administration Clonidine HCl 0.1 mg 09/12/18 08:28 09/22/18 03:11 Catapres PO 0.1 mg QID PRN Administration SBP above 150 Clonidine HCl 1 patch 09/22/18 10:15 Catapres-Tts2 0.2 Mg/24 Hr TD Q7D@1000 JESUS Diltiazem HCl 240 mg 09/12/18 10:00 09/23/18 19:12 Cardizem Cd PO Not Given DAILY JESUS Heparin Sodium (Porcine) 5,000 units 09/23/18 15:15 09/24/18 06:19 Heparin SC 5,000 units Q8 JESUS Administration Protocol Hydralazine HCl 75 mg 09/19/18 15:00 09/23/18 19:12 Apresoline PO Not Given Q8 JESUS Iron Sucrose 100 mg/ Sodium 105 mls @ 210 mls/hr 09/19/18 10:00 09/24/18 09:19 Chloride IVPB 09/28/18 10:29 210 mls/hr DAILY JESUS Administration Doxycycline Hyclate 100 mg/ 100 mls @ 100 mls/hr 09/21/18 22:00 09/24/18 08:23 Sodium Chloride IVPB 100 mls/hr Q12 JESUS Administration Protocol Meropenem 250 mg/ Sodium 100 mls @ 100 mls/hr 09/22/18 10:00 09/24/18 09:19 Chloride IVPB 09/28/18 22:01 100 mls/hr Q12H JESUS Administration Protocol Fentanyl Citrate 1,000 mcg in 100 mls @ 5 mls/hr 09/23/18 08:14 03/15/19 07:11 Fentanyl Citrate/Sodium Chloride 1 Mg/100 Ml IV 75 mcg/hr .Q20H PRN 7.5 mls/hr TITRATE PER MD ORDER Administration Protocol 50 MCG/HR Midazolam 100 mg/100ml in NS 100 mg in 100 mls @ 2 mls/hr 09/23/18 08:15 09/24/18 09:18 Midazolam 100 Mg/100ml In Ns IV 1 mg/hr .Q24H PRN 1 mls/hr Sedation Administration Protocol 2 MG/HR Dobutamine HCl/Dextrose 500 mg in 250 mls @ 3.232 mls/hr 09/23/18 08:55 09/23/18 09:03 Dobutamine/Dextrose 5% 500mg/250ml IV 2.5 mcg/kg/min .Q24H PRN 3.232 mls/hr TITRATE PER PROTOCOL Administration Protocol 2.5 MCG/KG/MIN NOREPINEPHRINE BIT/0.9 % NACL 4 mg in 250 mls @ 15 mls/hr 09/23/18 09:06 09/23/18 15:29 Levophed 4 Mg/ 250 Ml Ns Premixed IV 0 mcg/min .[id number] PRN 0 mls/hr TITRATE PER MD ORDER Titration Protocol 4 MCG/MIN Methylprednisolone 20 mg 09/22/18 09:15 09/23/18 21:51 Solu-Medrol IVP 20 mg Q12H JESUS Administration Pantoprazole Sodium 40 mg 09/24/18 10:00 09/24/18 09:19 Protonix Inj IVP 40 mg DAILY JESUS Administration Risperidone 0.25 mg 09/20/18 21:40 Risperdal Tab PO DAILY PRN Other Protocol Sodium Bicarbonate 650 mg 09/21/18 11:15 09/24/18 09:20 Sodium Bicarbonate Tab PO 650 mg BID JESUS Administration - Patient Studies Lab Studies: Microbiology Studies 09/22/18 01:00 MRSA Culture (Admit) - Final Nose MRSA NOT DETECTED Lab Studies 09/24/18 09/24/18 09/24/18 Range/Units 11:18 10:15 08:31 WBC (4.5-11.0) 10^3/uL RBC (3.5-6.1) 10^6/uL Hgb (12.0-16.0) g/dL Hct (36.0-48.0) % MCV (80.0-105.0) fl MCH (25.0-35.0) pg MCHC (31.0-37.0) g/dl RDW (11.5-14.5) % Plt Count (120.0-450.0) 10^3/uL MPV (7.0-11.0) fl PT 48.4 H (9.4-12.5) SECONDS INR 4.28 H* pCO2 (35-45) mm/Hg pO2 (80-100) mm/Hg HCO3 (21-28) mmol/L ABG pH (7.35-7.45) ABG Total CO2 (22-28) mmol.L ABG O2 Saturation (95-98) % ABG O2 Content (15-23) ML/dl ABG Base Excess (-2.0-3.0) mmol/L ABG Hemoglobin (11.7-17.4) g/dL ABG Carboxyhemoglobin (0.5-1.5) % POC ABG HHb (Measured) (0-5) % ABG Methemoglobin (0.0-3.0) % ABG O2 Capacity (16-24) mL/dl ABG Potassium (3.6-5.2) mmol/L Hgb O2 Saturation (95.0-98.0) % Sodium (132-148) mmol/L Chloride (98-107) mmol/L Glucose (65-105) mg/dl Lactate (0.7-2.1) mmol/L Mechanical Rate FiO2 % Tidal Volume PEEP Potassium (3.6-5.0) mmol/L Carbon Dioxide (21-33) mmol/L Anion Gap (10-20) BUN (7-21) mg/dL Creatinine (0.7-1.2) mg/dl Est GFR ( Amer) Est GFR (Non-Af Amer) POC Glucose (mg/dL) 80 76 (65-110) mg/dL Random Glucose (70-110) mg/dL Hemoglobin A1c (4.2-6.5) % Calcium (8.4-10.5) mg/dL Total Bilirubin (0.2-1.3) mg/dL AST (14-36) U/L ALT (7-56) U/L Alkaline Phosphatase (38-126) U/L Total Protein (5.8-8.3) g/dL Albumin (3.0-4.8) g/dL Globulin gm/dL Albumin/Globulin Ratio (1.1-1.8) Procalcitonin (0.19-0.49) NG/ML Arterial Blood Potassium (3.6-5.2) mmol/L Hep Bs Antigen (NEGATIVE) Hep Bs Antibody (NEGATIVE) Hep B Core IgM Ab (NEGATIVE) Blood Type Antibody Screen Crossmatch BBK History Checked 09/24/18 09/24/18 09/24/18 Range/Units 06:30 05:08 05:08 WBC 15.5 H (4.5-11.0) 10^3/uL RBC 3.41 L (3.5-6.1) 10^6/uL Hgb 9.8 L (12.0-16.0) g/dL Hct 29.5 L (36.0-48.0) % MCV 86.5 (80.0-105.0) fl MCH 28.7 (25.0-35.0) pg MCHC 33.2 (31.0-37.0) g/dl RDW 15.8 H (11.5-14.5) % Plt Count 322 (120.0-450.0) 10^3/uL MPV 9.4 (7.0-11.0) fl PT (9.4-12.5) SECONDS INR pCO2 39 (35-45) mm/Hg pO2 75.0 L (80-100) mm/Hg HCO3 25.3 (21-28) mmol/L ABG pH 7.42 (7.35-7.45) ABG Total CO2 26.5 (22-28) mmol.L ABG O2 Saturation 96.4 (95-98) % ABG O2 Content 14.8 L (15-23) ML/dl ABG Base Excess 0.8 (-2.0-3.0) mmol/L ABG Hemoglobin 11.1 L (11.7-17.4) g/dL ABG Carboxyhemoglobin 1.6 H (0.5-1.5) % POC ABG HHb (Measured) 3.5 (0-5) % ABG Methemoglobin 0.7 (0.0-3.0) % ABG O2 Capacity 15.4 L (16-24) mL/dl ABG Potassium (3.6-5.2) mmol/L Hgb O2 Saturation 94.3 L (95.0-98.0) % Sodium 142 (132-148) mmol/L Chloride 106 (98-107) mmol/L Glucose (65-105) mg/dl Lactate (0.7-2.1) mmol/L Mechanical Rate FiO2 40.0 % Tidal Volume PEEP Potassium 4.2 (3.6-5.0) mmol/L Carbon Dioxide 25 (21-33) mmol/L Anion Gap 15 (10-20) BUN 63 H (7-21) mg/dL Creatinine 3.4 H (0.7-1.2) mg/dl Est GFR ( Amer) 16 Est GFR (Non-Af Amer) 13 POC Glucose (mg/dL) (65-110) mg/dL Random Glucose 73 (70-110) mg/dL Hemoglobin A1c (4.2-6.5) % Calcium 8.2 L (8.4-10.5) mg/dL Total Bilirubin 0.5 (0.2-1.3) mg/dL AST 54 H D (14-36) U/L ALT 62 H (7-56) U/L Alkaline Phosphatase 71 (38-126) U/L Total Protein 5.6 L (5.8-8.3) g/dL Albumin 2.9 L (3.0-4.8) g/dL Globulin 2.7 gm/dL Albumin/Globulin Ratio 1.1 (1.1-1.8) Procalcitonin (0.19-0.49) NG/ML Arterial Blood Potassium (3.6-5.2) mmol/L Hep Bs Antigen (NEGATIVE) Hep Bs Antibody (NEGATIVE) Hep B Core IgM Ab (NEGATIVE) Blood Type Antibody Screen Crossmatch BBK History Checked 09/23/18 09/23/18 09/23/18 Range/Units 21:22 16:01 15:45 WBC (4.5-11.0) 10^3/uL RBC (3.5-6.1) 10^6/uL Hgb (12.0-16.0) g/dL Hct (36.0-48.0) % MCV (80.0-105.0) fl MCH (25.0-35.0) pg MCHC (31.0-37.0) g/dl RDW (11.5-14.5) % Plt Count (120.0-450.0) 10^3/uL MPV (7.0-11.0) fl PT (9.4-12.5) SECONDS INR pCO2 36 (35-45) mm/Hg pO2 62.0 L (80-100) mm/Hg HCO3 24.5 (21-28) mmol/L ABG pH 7.44 (7.35-7.45) ABG Total CO2 25.6 (22-28) mmol.L ABG O2 Saturation 94.7 L (95-98) % ABG O2 Content (15-23) ML/dl ABG Base Excess 0.6 (-2.0-3.0) mmol/L ABG Hemoglobin (11.7-17.4) g/dL ABG Carboxyhemoglobin (0.5-1.5) % POC ABG HHb (Measured) (0-5) % ABG Methemoglobin (0.0-3.0) % ABG O2 Capacity (16-24) mL/dl ABG Potassium 3.0 L (3.6-5.2) mmol/L Hgb O2 Saturation (95.0-98.0) % Sodium 142.0 (132-148) mmol/L Chloride 109.0 H (98-107) mmol/L Glucose 134 H (65-105) mg/dl Lactate 0.7 (0.7-2.1) mmol/L Mechanical Rate 20 FiO2 40.0 % Tidal Volume 350 PEEP 5 Potassium (3.6-5.0) mmol/L Carbon Dioxide (21-33) mmol/L Anion Gap (10-20) BUN (7-21) mg/dL Creatinine (0.7-1.2) mg/dl Est GFR ( Amer) Est GFR (Non-Af Amer) POC Glucose (mg/dL) 68 143 H (65-110) mg/dL Random Glucose (70-110) mg/dL Hemoglobin A1c (4.2-6.5) % Calcium (8.4-10.5) mg/dL Total Bilirubin (0.2-1.3) mg/dL AST (14-36) U/L ALT (7-56) U/L Alkaline Phosphatase (38-126) U/L Total Protein (5.8-8.3) g/dL Albumin (3.0-4.8) g/dL Globulin gm/dL Albumin/Globulin Ratio (1.1-1.8) Procalcitonin (0.19-0.49) NG/ML Arterial Blood Potassium 3.0 L (3.6-5.2) mmol/L Hep Bs Antigen (NEGATIVE) Hep Bs Antibody (NEGATIVE) Hep B Core IgM Ab (NEGATIVE) Blood Type Antibody Screen Crossmatch BBK History Checked 09/23/18 09/23/18 09/23/18 Range/Units 13:00 13:00 12:34 WBC (4.5-11.0) 10^3/uL RBC (3.5-6.1) 10^6/uL Hgb (12.0-16.0) g/dL Hct (36.0-48.0) % MCV (80.0-105.0) fl MCH (25.0-35.0) pg MCHC (31.0-37.0) g/dl RDW (11.5-14.5) % Plt Count (120.0-450.0) 10^3/uL MPV (7.0-11.0) fl PT (9.4-12.5) SECONDS INR pCO2 (35-45) mm/Hg pO2 (80-100) mm/Hg HCO3 (21-28) mmol/L ABG pH (7.35-7.45) ABG Total CO2 (22-28) mmol.L ABG O2 Saturation (95-98) % ABG O2 Content (15-23) ML/dl ABG Base Excess (-2.0-3.0) mmol/L ABG Hemoglobin (11.7-17.4) g/dL ABG Carboxyhemoglobin (0.5-1.5) % POC ABG HHb (Measured) (0-5) % ABG Methemoglobin (0.0-3.0) % ABG O2 Capacity (16-24) mL/dl ABG Potassium (3.6-5.2) mmol/L Hgb O2 Saturation (95.0-98.0) % Sodium (132-148) mmol/L Chloride (98-107) mmol/L Glucose (65-105) mg/dl Lactate (0.7-2.1) mmol/L Mechanical Rate FiO2 % Tidal Volume PEEP Potassium (3.6-5.0) mmol/L Carbon Dioxide (21-33) mmol/L Anion Gap (10-20) BUN (7-21) mg/dL Creatinine (0.7-1.2) mg/dl Est GFR ( Amer) Est GFR (Non-Af Amer) POC Glucose (mg/dL) 186 H (65-110) mg/dL Random Glucose (70-110) mg/dL Hemoglobin A1c (4.2-6.5) % Calcium (8.4-10.5) mg/dL Total Bilirubin (0.2-1.3) mg/dL AST (14-36) U/L ALT (7-56) U/L Alkaline Phosphatase (38-126) U/L Total Protein (5.8-8.3) g/dL Albumin (3.0-4.8) g/dL Globulin gm/dL Albumin/Globulin Ratio (1.1-1.8) Procalcitonin (0.19-0.49) NG/ML Arterial Blood Potassium (3.6-5.2) mmol/L Hep Bs Antigen Negative (NEGATIVE) Hep Bs Antibody Negative (NEGATIVE) Hep B Core IgM Ab Negative (NEGATIVE) Blood Type Antibody Screen Crossmatch BBK History Checked 09/23/18 09/23/18 09/22/18 Range/Units 08:30 05:30 13:25 WBC (4.5-11.0) 10^3/uL RBC (3.5-6.1) 10^6/uL Hgb (12.0-16.0) g/dL Hct (36.0-48.0) % MCV (80.0-105.0) fl MCH (25.0-35.0) pg MCHC (31.0-37.0) g/dl RDW (11.5-14.5) % Plt Count (120.0-450.0) 10^3/uL MPV (7.0-11.0) fl PT (9.4-12.5) SECONDS INR pCO2 (35-45) mm/Hg pO2 (80-100) mm/Hg HCO3 (21-28) mmol/L ABG pH (7.35-7.45) ABG Total CO2 (22-28) mmol.L ABG O2 Saturation (95-98) % ABG O2 Content (15-23) ML/dl ABG Base Excess (-2.0-3.0) mmol/L ABG Hemoglobin (11.7-17.4) g/dL ABG Carboxyhemoglobin (0.5-1.5) % POC ABG HHb (Measured) (0-5) % ABG Methemoglobin (0.0-3.0) % ABG O2 Capacity (16-24) mL/dl ABG Potassium (3.6-5.2) mmol/L Hgb O2 Saturation (95.0-98.0) % Sodium (132-148) mmol/L Chloride (98-107) mmol/L Glucose (65-105) mg/dl Lactate (0.7-2.1) mmol/L Mechanical Rate FiO2 % Tidal Volume PEEP Potassium (3.6-5.0) mmol/L Carbon Dioxide (21-33) mmol/L Anion Gap (10-20) BUN (7-21) mg/dL Creatinine (0.7-1.2) mg/dl Est GFR ( Amer) Est GFR (Non-Af Amer) POC Glucose (mg/dL) (65-110) mg/dL Random Glucose (70-110) mg/dL Hemoglobin A1c 5.3 (4.2-6.5) % Calcium (8.4-10.5) mg/dL Total Bilirubin (0.2-1.3) mg/dL AST (14-36) U/L ALT (7-56) U/L Alkaline Phosphatase (38-126) U/L Total Protein (5.8-8.3) g/dL Albumin (3.0-4.8) g/dL Globulin gm/dL Albumin/Globulin Ratio (1.1-1.8) Procalcitonin 4.98 H (0.19-0.49) NG/ML Arterial Blood Potassium (3.6-5.2) mmol/L Hep Bs Antigen (NEGATIVE) Hep Bs Antibody (NEGATIVE) Hep B Core IgM Ab (NEGATIVE) Blood Type A POSITIVE Antibody Screen Negative Crossmatch See Detail BBK History Checked Patient has bt Laboratory Results - last 24 hr 09/22/18 09/23/18 09/23/18 13:25 05:30 08:30 WBC RBC Hgb Hct MCV MCH MCHC RDW Plt Count MPV PT INR pCO2 pO2 HCO3 ABG pH ABG Total CO2 ABG O2 Saturation ABG O2 Content ABG Base Excess ABG Hemoglobin ABG Carboxyhemoglobin POC ABG HHb (Measured) ABG Methemoglobin ABG O2 Capacity ABG Potassium Hgb O2 Saturation Sodium Chloride Glucose Lactate Mechanical Rate FiO2 Tidal Volume PEEP Potassium Carbon Dioxide Anion Gap BUN Creatinine Est GFR ( Amer) Est GFR (Non-Af Amer) POC Glucose (mg/dL) Random Glucose Hemoglobin A1c 5.3 Calcium Total Bilirubin AST ALT Alkaline Phosphatase Total Protein Albumin Globulin Albumin/Globulin Ratio Procalcitonin 4.98 H Arterial Blood Potassium Hep Bs Antigen Hep Bs Antibody Hep B Core IgM Ab Blood Type A POSITIVE Antibody Screen Negative Crossmatch See Detail BBK History Checked Patient has bt 09/23/18 09/23/18 09/23/18 12:34 13:00 13:00 WBC RBC Hgb Hct MCV MCH MCHC RDW Plt Count MPV PT INR pCO2 pO2 HCO3 ABG pH ABG Total CO2 ABG O2 Saturation ABG O2 Content ABG Base Excess ABG Hemoglobin ABG Carboxyhemoglobin POC ABG HHb (Measured) ABG Methemoglobin ABG O2 Capacity ABG Potassium Hgb O2 Saturation Sodium Chloride Glucose Lactate Mechanical Rate FiO2 Tidal Volume PEEP Potassium Carbon Dioxide Anion Gap BUN Creatinine Est GFR ( Amer) Est GFR (Non-Af Amer) POC Glucose (mg/dL) 186 H Random Glucose Hemoglobin A1c Calcium Total Bilirubin AST ALT Alkaline Phosphatase Total Protein Albumin Globulin Albumin/Globulin Ratio Procalcitonin Arterial Blood Potassium Hep Bs Antigen Negative Hep Bs Antibody Negative Hep B Core IgM Ab Negative Blood Type Antibody Screen Crossmatch BBK History Checked 09/23/18 09/23/18 09/23/18 15:45 16:01 21:22 WBC RBC Hgb Hct MCV MCH MCHC RDW Plt Count MPV PT INR pCO2 36 pO2 62.0 L HCO3 24.5 ABG pH 7.44 ABG Total CO2 25.6 ABG O2 Saturation 94.7 L ABG O2 Content ABG Base Excess 0.6 ABG Hemoglobin ABG Carboxyhemoglobin POC ABG HHb (Measured) ABG Methemoglobin ABG O2 Capacity ABG Potassium 3.0 L Hgb O2 Saturation Sodium 142.0 Chloride 109.0 H Glucose 134 H Lactate 0.7 Mechanical Rate 20 FiO2 40.0 Tidal Volume 350 PEEP 5 Potassium Carbon Dioxide Anion Gap BUN Creatinine Est GFR ( Amer) Est GFR (Non-Af Amer) POC Glucose (mg/dL) 143 H 68 Random Glucose Hemoglobin A1c Calcium Total Bilirubin AST ALT Alkaline Phosphatase Total Protein Albumin Globulin Albumin/Globulin Ratio Procalcitonin Arterial Blood Potassium 3.0 L Hep Bs Antigen Hep Bs Antibody Hep B Core IgM Ab Blood Type Antibody Screen Crossmatch BBK History Checked 09/24/18 09/24/18 09/24/18 05:08 05:08 06:30 WBC 15.5 H RBC 3.41 L Hgb 9.8 L Hct 29.5 L MCV 86.5 MCH 28.7 MCHC 33.2 RDW 15.8 H Plt Count 322 MPV 9.4 PT INR pCO2 39 pO2 75.0 L HCO3 25.3 ABG pH 7.42 ABG Total CO2 26.5 ABG O2 Saturation 96.4 ABG O2 Content 14.8 L ABG Base Excess 0.8 ABG Hemoglobin 11.1 L ABG Carboxyhemoglobin 1.6 H POC ABG HHb (Measured) 3.5 ABG Methemoglobin 0.7 ABG O2 Capacity 15.4 L ABG Potassium Hgb O2 Saturation 94.3 L Sodium 142 Chloride 106 Glucose Lactate Mechanical Rate FiO2 40.0 Tidal Volume PEEP Potassium 4.2 Carbon Dioxide 25 Anion Gap 15 BUN 63 H Creatinine 3.4 H Est GFR ( Amer) 16 Est GFR (Non-Af Amer) 13 POC Glucose (mg/dL) Random Glucose 73 Hemoglobin A1c Calcium 8.2 L Total Bilirubin 0.5 AST 54 H D ALT 62 H Alkaline Phosphatase 71 Total Protein 5.6 L Albumin 2.9 L Globulin 2.7 Albumin/Globulin Ratio 1.1 Procalcitonin Arterial Blood Potassium Hep Bs Antigen Hep Bs Antibody Hep B Core IgM Ab Blood Type Antibody Screen Crossmatch BBK History Checked 09/24/18 09/24/18 09/24/18 08:31 10:15 11:18 WBC RBC Hgb Hct MCV MCH MCHC RDW Plt Count MPV PT 48.4 H INR 4.28 H* pCO2 pO2 HCO3 ABG pH ABG Total CO2 ABG O2 Saturation ABG O2 Content ABG Base Excess ABG Hemoglobin ABG Carboxyhemoglobin POC ABG HHb (Measured) ABG Methemoglobin ABG O2 Capacity ABG Potassium Hgb O2 Saturation Sodium Chloride Glucose Lactate Mechanical Rate FiO2 Tidal Volume PEEP Potassium Carbon Dioxide Anion Gap BUN Creatinine Est GFR ( Amer) Est GFR (Non-Af Amer) POC Glucose (mg/dL) 76 80 Random Glucose Hemoglobin A1c Calcium Total Bilirubin AST ALT Alkaline Phosphatase Total Protein Albumin Globulin Albumin/Globulin Ratio Procalcitonin Arterial Blood Potassium Hep Bs Antigen Hep Bs Antibody Hep B Core IgM Ab Blood Type Antibody Screen Crossmatch BBK History Checked Radiology Impressions: Radiology Impressions Chest X-Ray 09/23/18 08:54 IMPRESSION: Persistent left upper lobe and perihilar infiltrates with diminished atelectasis right upper lobe. Limited atelectasis right base. No left basilar infiltrate in the interval. Interval endotracheal and nasogastric/feeding tube deployment as per above as well as right central venous dialysis catheter. Chest X-Ray 09/24/18 06:00 IMPRESSION: See above Fingerstick Blood Sugar Results: 68 Assessment/Plan - Assessment and Plan (Free Text) Assessment: Pt is am 83 yo female with a PMH of DVT, HTN, HLD, CKD, dementia who presented to the emergency department after a fall and injuring her right shoulder, and who was later transferred to the ICU because of worsening SOB. Plan: Neuro - AOx3 - fentanyl Cadio - Maintain MAP >65 - BNP 18331 - ASA, clonidine, diltiazem, hydralazine, dobutamine, norepinephrine - ECHO LVH, EF 60-65%, RVSP 42 Pulm - CAP - Maintain O2 sat >92 - Chest CT: new opacity of BRETT, left and right pleural effusion - CXR shows signs of PNA - solu medrol - Pulm consulted, Dr Roland BL PNA, BL pleural effusions, acute on chronic renal failure - IR consulted for possible thoracentesis GI - continue to monitor - FOBT positive 09/16/18 - start for Nepro 10cc/hr - GI ppx, pantoprazole Heme - monitor H/H - Hgb 9.8 - INR 1.38, follow up - D dimer 783 - LEUS: no radiographic signs of DVT - venofer Nephro - BREANA on CKD, Renal Failure - continue to monitor electrolytes - Cr 3.4 - BUN 63 - renal US simple cysts Endo - maintain euglycemia ID - WBC 15.5 - BL PNA continue doxy and merrem, pt is in renal failure - doxy, merrem - ID consulted, following Pt seen, examined, assessment and plan discussed with Dr Daily Serrano PGY1 - Date & Time Date: 09/24/18 Time: 08:00 <Jasvir Ambrosio - Last Filed: 09/24/18 13:27> CCU Objective - Vital Signs / Intake & Output Vital Signs (Last 4 hours): Vital Signs Pulse 09/24/18 10:10 90 Intake and Output (Last 8hrs): Intake & Output 09/23/18 09/24/18 09/24/18 22:59 06:59 14:59 Intake Total 3100 180 Balance 3100 180 Intake: IV 3100 180 Right Internal Jugular 2800 - Medications Active Medications: Active Medications Generic Name Dose Route Start Last Admin Trade Name Freq PRN Reason Stop Dose Admin Acetaminophen 650 mg 09/12/18 05:16 09/18/18 22:04 Tylenol 325mg Tab PO 650 mg Q6H PRN Administration Pain, moderate (4-7) Acetaminophen 650 mg 09/21/18 12:17 09/21/18 12:38 Tylenol 325mg Tab PO 650 mg Q4H PRN Administration Fever >100.4 F Albuterol/Ipratropium 3 ml 09/22/18 08:00 09/24/18 07:30 Duoneb 3 Mg/0.5 Mg (3 Ml) Ud IH 3 ml [id number] JESUS Administration Amlodipine Besylate 10 mg 09/12/18 08:28 09/23/18 15:31 Norvasc PO Not Given DAILY JESUS Aspirin 81 mg 09/17/18 10:00 09/24/18 09:20 Ecotrin PO 81 mg DAILY JESUS Administration Clonidine HCl 0.1 mg 09/12/18 08:28 09/22/18 03:11 Catapres PO 0.1 mg QID PRN Administration SBP above 150 Clonidine HCl 1 patch 09/22/18 10:15 Catapres-Tts2 0.2 Mg/24 Hr TD Q7D@1000 JESUS Diltiazem HCl 240 mg 09/12/18 10:00 09/23/18 19:12 Cardizem Cd PO Not Given DAILY JESUS Heparin Sodium (Porcine) 5,000 units 09/23/18 15:15 09/24/18 06:19 Heparin SC 5,000 units Q8 JESUS Administration Protocol Hydralazine HCl 75 mg 09/19/18 15:00 09/23/18 19:12 Apresoline PO Not Given Q8 JESUS Iron Sucrose 100 mg/ Sodium 105 mls @ 210 mls/hr 09/19/18 10:00 09/24/18 09:19 Chloride IVPB 09/28/18 10:29 210 mls/hr DAILY JESUS Administration Doxycycline Hyclate 100 mg/ 100 mls @ 100 mls/hr 09/21/18 22:00 09/24/18 08:23 Sodium Chloride IVPB 100 mls/hr Q12 JESUS Administration Protocol Meropenem 250 mg/ Sodium 100 mls @ 100 mls/hr 09/22/18 10:00 09/24/18 09:19 Chloride IVPB 09/28/18 22:01 100 mls/hr Q12H JESUS Administration Protocol Fentanyl Citrate 1,000 mcg in 100 mls @ 5 mls/hr 09/23/18 08:14 09/24/18 07:11 Fentanyl Citrate/Sodium Chloride 1 Mg/100 Ml IV 75 mcg/hr .Q20H PRN 7.5 mls/hr TITRATE PER MD ORDER Administration Protocol 50 MCG/HR Midazolam 100 mg/100ml in NS 100 mg in 100 mls @ 2 mls/hr 09/23/18 08:15 09/24/18 09:18 Midazolam 100 Mg/100ml In Ns IV 1 mg/hr .Q24H PRN 1 mls/hr Sedation Administration Protocol 2 MG/HR Dobutamine HCl/Dextrose 500 mg in 250 mls @ 3.232 mls/hr 09/23/18 08:55 09/23/18 09:03 Dobutamine/Dextrose 5% 500mg/250ml IV 2.5 mcg/kg/min .Q24H PRN 3.232 mls/hr TITRATE PER PROTOCOL Administration Protocol 2.5 MCG/KG/MIN NOREPINEPHRINE BIT/0.9 % NACL 4 mg in 250 mls @ 15 mls/hr 09/23/18 09:06 09/23/18 15:29 Levophed 4 Mg/ 250 Ml Ns Premixed IV 0 mcg/min .[id number] PRN 0 mls/hr TITRATE PER MD ORDER Titration Protocol 4 MCG/MIN Methylprednisolone 20 mg 09/22/18 09:15 09/23/18 21:51 Solu-Medrol IVP 20 mg Q12H JESUS Administration Pantoprazole Sodium 40 mg 09/24/18 10:00 09/24/18 09:19 Protonix Inj IVP 40 mg DAILY JESUS Administration Risperidone 0.25 mg 09/20/18 21:40 Risperdal Tab PO DAILY PRN Other Protocol Sodium Bicarbonate 650 mg 09/21/18 11:15 09/24/18 09:20 Sodium Bicarbonate Tab PO 650 mg BID JESUS Administration - Patient Studies Lab Studies: Microbiology Studies 09/22/18 01:00 MRSA Culture (Admit) - Final Nose MRSA NOT DETECTED Lab Studies 09/24/18 09/24/18 09/24/18 Range/Units 11:18 10:15 08:31 WBC (4.5-11.0) 10^3/uL RBC (3.5-6.1) 10^6/uL Hgb (12.0-16.0) g/dL Hct (36.0-48.0) % MCV (80.0-105.0) fl MCH (25.0-35.0) pg MCHC (31.0-37.0) g/dl RDW (11.5-14.5) % Plt Count (120.0-450.0) 10^3/uL MPV (7.0-11.0) fl PT 48.4 H (9.4-12.5) SECONDS INR 4.28 H* pCO2 (35-45) mm/Hg pO2 (80-100) mm/Hg HCO3 (21-28) mmol/L ABG pH (7.35-7.45) ABG Total CO2 (22-28) mmol.L ABG O2 Saturation (95-98) % ABG O2 Content (15-23) ML/dl ABG Base Excess (-2.0-3.0) mmol/L ABG Hemoglobin (11.7-17.4) g/dL ABG Carboxyhemoglobin (0.5-1.5) % POC ABG HHb (Measured) (0-5) % ABG Methemoglobin (0.0-3.0) % ABG O2 Capacity (16-24) mL/dl ABG Potassium (3.6-5.2) mmol/L Hgb O2 Saturation (95.0-98.0) % Sodium (132-148) mmol/L Chloride (98-107) mmol/L Glucose (65-105) mg/dl Lactate (0.7-2.1) mmol/L Mechanical Rate FiO2 % Tidal Volume PEEP Potassium (3.6-5.0) mmol/L Carbon Dioxide (21-33) mmol/L Anion Gap (10-20) BUN (7-21) mg/dL Creatinine (0.7-1.2) mg/dl Est GFR ( Amer) Est GFR (Non-Af Amer) POC Glucose (mg/dL) 80 76 (65-110) mg/dL Random Glucose (70-110) mg/dL Calcium (8.4-10.5) mg/dL Total Bilirubin (0.2-1.3) mg/dL AST (14-36) U/L ALT (7-56) U/L Alkaline Phosphatase (38-126) U/L Total Protein (5.8-8.3) g/dL Albumin (3.0-4.8) g/dL Globulin gm/dL Albumin/Globulin Ratio (1.1-1.8) Procalcitonin (0.19-0.49) NG/ML Arterial Blood Potassium (3.6-5.2) mmol/L Hep Bs Antigen (NEGATIVE) Hep Bs Antibody (NEGATIVE) Hep B Core IgM Ab (NEGATIVE) Blood Type Antibody Screen Crossmatch BBK History Checked 09/24/18 09/24/18 09/24/18 Range/Units 06:30 05:08 05:08 WBC 15.5 H (4.5-11.0) 10^3/uL RBC 3.41 L (3.5-6.1) 10^6/uL Hgb 9.8 L (12.0-16.0) g/dL Hct 29.5 L (36.0-48.0) % MCV 86.5 (80.0-105.0) fl MCH 28.7 (25.0-35.0) pg MCHC 33.2 (31.0-37.0) g/dl RDW 15.8 H (11.5-14.5) % Plt Count 322 (120.0-450.0) 10^3/uL MPV 9.4 (7.0-11.0) fl PT (9.4-12.5) SECONDS INR pCO2 39 (35-45) mm/Hg pO2 75.0 L (80-100) mm/Hg HCO3 25.3 (21-28) mmol/L ABG pH 7.42 (7.35-7.45) ABG Total CO2 26.5 (22-28) mmol.L ABG O2 Saturation 96.4 (95-98) % ABG O2 Content 14.8 L (15-23) ML/dl ABG Base Excess 0.8 (-2.0-3.0) mmol/L ABG Hemoglobin 11.1 L (11.7-17.4) g/dL ABG Carboxyhemoglobin 1.6 H (0.5-1.5) % POC ABG HHb (Measured) 3.5 (0-5) % ABG Methemoglobin 0.7 (0.0-3.0) % ABG O2 Capacity 15.4 L (16-24) mL/dl ABG Potassium (3.6-5.2) mmol/L Hgb O2 Saturation 94.3 L (95.0-98.0) % Sodium 142 (132-148) mmol/L Chloride 106 (98-107) mmol/L Glucose (65-105) mg/dl Lactate (0.7-2.1) mmol/L Mechanical Rate FiO2 40.0 % Tidal Volume PEEP Potassium 4.2 (3.6-5.0) mmol/L Carbon Dioxide 25 (21-33) mmol/L Anion Gap 15 (10-20) BUN 63 H (7-21) mg/dL Creatinine 3.4 H (0.7-1.2) mg/dl Est GFR ( Amer) 16 Est GFR (Non-Af Amer) 13 POC Glucose (mg/dL) (65-110) mg/dL Random Glucose 73 (70-110) mg/dL Calcium 8.2 L (8.4-10.5) mg/dL Total Bilirubin 0.5 (0.2-1.3) mg/dL AST 54 H D (14-36) U/L ALT 62 H (7-56) U/L Alkaline Phosphatase 71 (38-126) U/L Total Protein 5.6 L (5.8-8.3) g/dL Albumin 2.9 L (3.0-4.8) g/dL Globulin 2.7 gm/dL Albumin/Globulin Ratio 1.1 (1.1-1.8) Procalcitonin (0.19-0.49) NG/ML Arterial Blood Potassium (3.6-5.2) mmol/L Hep Bs Antigen (NEGATIVE) Hep Bs Antibody (NEGATIVE) Hep B Core IgM Ab (NEGATIVE) Blood Type Antibody Screen Crossmatch BBK History Checked 09/23/18 09/23/18 09/23/18 Range/Units 21:22 16:01 15:45 WBC (4.5-11.0) 10^3/uL RBC (3.5-6.1) 10^6/uL Hgb (12.0-16.0) g/dL Hct (36.0-48.0) % MCV (80.0-105.0) fl MCH (25.0-35.0) pg MCHC (31.0-37.0) g/dl RDW (11.5-14.5) % Plt Count (120.0-450.0) 10^3/uL MPV (7.0-11.0) fl PT (9.4-12.5) SECONDS INR pCO2 36 (35-45) mm/Hg pO2 62.0 L (80-100) mm/Hg HCO3 24.5 (21-28) mmol/L ABG pH 7.44 (7.35-7.45) ABG Total CO2 25.6 (22-28) mmol.L ABG O2 Saturation 94.7 L (95-98) % ABG O2 Content (15-23) ML/dl ABG Base Excess 0.6 (-2.0-3.0) mmol/L ABG Hemoglobin (11.7-17.4) g/dL ABG Carboxyhemoglobin (0.5-1.5) % POC ABG HHb (Measured) (0-5) % ABG Methemoglobin (0.0-3.0) % ABG O2 Capacity (16-24) mL/dl ABG Potassium 3.0 L (3.6-5.2) mmol/L Hgb O2 Saturation (95.0-98.0) % Sodium 142.0 (132-148) mmol/L Chloride 109.0 H (98-107) mmol/L Glucose 134 H (65-105) mg/dl Lactate 0.7 (0.7-2.1) mmol/L Mechanical Rate 20 FiO2 40.0 % Tidal Volume 350 PEEP 5 Potassium (3.6-5.0) mmol/L Carbon Dioxide (21-33) mmol/L Anion Gap (10-20) BUN (7-21) mg/dL Creatinine (0.7-1.2) mg/dl Est GFR ( Amer) Est GFR (Non-Af Amer) POC Glucose (mg/dL) 68 143 H (65-110) mg/dL Random Glucose (70-110) mg/dL Calcium (8.4-10.5) mg/dL Total Bilirubin (0.2-1.3) mg/dL AST (14-36) U/L ALT (7-56) U/L Alkaline Phosphatase (38-126) U/L Total Protein (5.8-8.3) g/dL Albumin (3.0-4.8) g/dL Globulin gm/dL Albumin/Globulin Ratio (1.1-1.8) Procalcitonin (0.19-0.49) NG/ML Arterial Blood Potassium 3.0 L (3.6-5.2) mmol/L Hep Bs Antigen (NEGATIVE) Hep Bs Antibody (NEGATIVE) Hep B Core IgM Ab (NEGATIVE) Blood Type Antibody Screen Crossmatch BBK History Checked 09/23/18 09/23/18 09/23/18 Range/Units 13:00 13:00 08:30 WBC (4.5-11.0) 10^3/uL RBC (3.5-6.1) 10^6/uL Hgb (12.0-16.0) g/dL Hct (36.0-48.0) % MCV (80.0-105.0) fl MCH (25.0-35.0) pg MCHC (31.0-37.0) g/dl RDW (11.5-14.5) % Plt Count (120.0-450.0) 10^3/uL MPV (7.0-11.0) fl PT (9.4-12.5) SECONDS INR pCO2 (35-45) mm/Hg pO2 (80-100) mm/Hg HCO3 (21-28) mmol/L ABG pH (7.35-7.45) ABG Total CO2 (22-28) mmol.L ABG O2 Saturation (95-98) % ABG O2 Content (15-23) ML/dl ABG Base Excess (-2.0-3.0) mmol/L ABG Hemoglobin (11.7-17.4) g/dL ABG Carboxyhemoglobin (0.5-1.5) % POC ABG HHb (Measured) (0-5) % ABG Methemoglobin (0.0-3.0) % ABG O2 Capacity (16-24) mL/dl ABG Potassium (3.6-5.2) mmol/L Hgb O2 Saturation (95.0-98.0) % Sodium (132-148) mmol/L Chloride (98-107) mmol/L Glucose (65-105) mg/dl Lactate (0.7-2.1) mmol/L Mechanical Rate FiO2 % Tidal Volume PEEP Potassium (3.6-5.0) mmol/L Carbon Dioxide (21-33) mmol/L Anion Gap (10-20) BUN (7-21) mg/dL Creatinine (0.7-1.2) mg/dl Est GFR ( Amer) Est GFR (Non-Af Amer) POC Glucose (mg/dL) (65-110) mg/dL Random Glucose (70-110) mg/dL Calcium (8.4-10.5) mg/dL Total Bilirubin (0.2-1.3) mg/dL AST (14-36) U/L ALT (7-56) U/L Alkaline Phosphatase (38-126) U/L Total Protein (5.8-8.3) g/dL Albumin (3.0-4.8) g/dL Globulin gm/dL Albumin/Globulin Ratio (1.1-1.8) Procalcitonin 4.98 H (0.19-0.49) NG/ML Arterial Blood Potassium (3.6-5.2) mmol/L Hep Bs Antigen Negative (NEGATIVE) Hep Bs Antibody Negative (NEGATIVE) Hep B Core IgM Ab Negative (NEGATIVE) Blood Type Antibody Screen Crossmatch BBK History Checked 09/22/18 Range/Units 13:25 WBC (4.5-11.0) 10^3/uL RBC (3.5-6.1) 10^6/uL Hgb (12.0-16.0) g/dL Hct (36.0-48.0) % MCV (80.0-105.0) fl MCH (25.0-35.0) pg MCHC (31.0-37.0) g/dl RDW (11.5-14.5) % Plt Count (120.0-450.0) 10^3/uL MPV (7.0-11.0) fl PT (9.4-12.5) SECONDS INR pCO2 (35-45) mm/Hg pO2 (80-100) mm/Hg HCO3 (21-28) mmol/L ABG pH (7.35-7.45) ABG Total CO2 (22-28) mmol.L ABG O2 Saturation (95-98) % ABG O2 Content (15-23) ML/dl ABG Base Excess (-2.0-3.0) mmol/L ABG Hemoglobin (11.7-17.4) g/dL ABG Carboxyhemoglobin (0.5-1.5) % POC ABG HHb (Measured) (0-5) % ABG Methemoglobin (0.0-3.0) % ABG O2 Capacity (16-24) mL/dl ABG Potassium (3.6-5.2) mmol/L Hgb O2 Saturation (95.0-98.0) % Sodium (132-148) mmol/L Chloride (98-107) mmol/L Glucose (65-105) mg/dl Lactate (0.7-2.1) mmol/L Mechanical Rate FiO2 % Tidal Volume PEEP Potassium (3.6-5.0) mmol/L Carbon Dioxide (21-33) mmol/L Anion Gap (10-20) BUN (7-21) mg/dL Creatinine (0.7-1.2) mg/dl Est GFR ( Amer) Est GFR (Non-Af Amer) POC Glucose (mg/dL) (65-110) mg/dL Random Glucose (70-110) mg/dL Calcium (8.4-10.5) mg/dL Total Bilirubin (0.2-1.3) mg/dL AST (14-36) U/L ALT (7-56) U/L Alkaline Phosphatase (38-126) U/L Total Protein (5.8-8.3) g/dL Albumin (3.0-4.8) g/dL Globulin gm/dL Albumin/Globulin Ratio (1.1-1.8) Procalcitonin (0.19-0.49) NG/ML Arterial Blood Potassium (3.6-5.2) mmol/L Hep Bs Antigen (NEGATIVE) Hep Bs Antibody (NEGATIVE) Hep B Core IgM Ab (NEGATIVE) Blood Type A POSITIVE Antibody Screen Negative Crossmatch See Detail BBK History Checked Patient has bt Laboratory Results - last 24 hr 09/22/18 09/23/18 09/23/18 13:25 08:30 13:00 WBC RBC Hgb Hct MCV MCH MCHC RDW Plt Count MPV PT INR pCO2 pO2 HCO3 ABG pH ABG Total CO2 ABG O2 Saturation ABG O2 Content ABG Base Excess ABG Hemoglobin ABG Carboxyhemoglobin POC ABG HHb (Measured) ABG Methemoglobin ABG O2 Capacity ABG Potassium Hgb O2 Saturation Sodium Chloride Glucose Lactate Mechanical Rate FiO2 Tidal Volume PEEP Potassium Carbon Dioxide Anion Gap BUN Creatinine Est GFR ( Amer) Est GFR (Non-Af Amer) POC Glucose (mg/dL) Random Glucose Calcium Total Bilirubin AST ALT Alkaline Phosphatase Total Protein Albumin Globulin Albumin/Globulin Ratio Procalcitonin 4.98 H Arterial Blood Potassium Hep Bs Antigen Negative Hep Bs Antibody Hep B Core IgM Ab Negative Blood Type A POSITIVE Antibody Screen Negative Crossmatch See Detail BBK History Checked Patient has bt 09/23/18 09/23/18 09/23/18 13:00 15:45 16:01 WBC RBC Hgb Hct MCV MCH MCHC RDW Plt Count MPV PT INR pCO2 36 pO2 62.0 L HCO3 24.5 ABG pH 7.44 ABG Total CO2 25.6 ABG O2 Saturation 94.7 L ABG O2 Content ABG Base Excess 0.6 ABG Hemoglobin ABG Carboxyhemoglobin POC ABG HHb (Measured) ABG Methemoglobin ABG O2 Capacity ABG Potassium 3.0 L Hgb O2 Saturation Sodium 142.0 Chloride 109.0 H Glucose 134 H Lactate 0.7 Mechanical Rate 20 FiO2 40.0 Tidal Volume 350 PEEP 5 Potassium Carbon Dioxide Anion Gap BUN Creatinine Est GFR ( Amer) Est GFR (Non-Af Amer) POC Glucose (mg/dL) 143 H Random Glucose Calcium Total Bilirubin AST ALT Alkaline Phosphatase Total Protein Albumin Globulin Albumin/Globulin Ratio Procalcitonin Arterial Blood Potassium 3.0 L Hep Bs Antigen Hep Bs Antibody Negative Hep B Core IgM Ab Blood Type Antibody Screen Crossmatch BBK History Checked 09/23/18 09/24/18 09/24/18 21:22 05:08 05:08 WBC 15.5 H RBC 3.41 L Hgb 9.8 L Hct 29.5 L MCV 86.5 MCH 28.7 MCHC 33.2 RDW 15.8 H Plt Count 322 MPV 9.4 PT INR pCO2 pO2 HCO3 ABG pH ABG Total CO2 ABG O2 Saturation ABG O2 Content ABG Base Excess ABG Hemoglobin ABG Carboxyhemoglobin POC ABG HHb (Measured) ABG Methemoglobin ABG O2 Capacity ABG Potassium Hgb O2 Saturation Sodium 142 Chloride 106 Glucose Lactate Mechanical Rate FiO2 Tidal Volume PEEP Potassium 4.2 Carbon Dioxide 25 Anion Gap 15 BUN 63 H Creatinine 3.4 H Est GFR ( Amer) 16 Est GFR (Non-Af Amer) 13 POC Glucose (mg/dL) 68 Random Glucose 73 Calcium 8.2 L Total Bilirubin 0.5 AST 54 H D ALT 62 H Alkaline Phosphatase 71 Total Protein 5.6 L Albumin 2.9 L Globulin 2.7 Albumin/Globulin Ratio 1.1 Procalcitonin Arterial Blood Potassium Hep Bs Antigen Hep Bs Antibody Hep B Core IgM Ab Blood Type Antibody Screen Crossmatch BBK History Checked 09/24/18 09/24/18 09/24/18 06:30 08:31 10:15 WBC RBC Hgb Hct MCV MCH MCHC RDW Plt Count MPV PT 48.4 H INR 4.28 H* pCO2 39 pO2 75.0 L HCO3 25.3 ABG pH 7.42 ABG Total CO2 26.5 ABG O2 Saturation 96.4 ABG O2 Content 14.8 L ABG Base Excess 0.8 ABG Hemoglobin 11.1 L ABG Carboxyhemoglobin 1.6 H POC ABG HHb (Measured) 3.5 ABG Methemoglobin 0.7 ABG O2 Capacity 15.4 L ABG Potassium Hgb O2 Saturation 94.3 L Sodium Chloride Glucose Lactate Mechanical Rate FiO2 40.0 Tidal Volume PEEP Potassium Carbon Dioxide Anion Gap BUN Creatinine Est GFR ( Amer) Est GFR (Non-Af Amer) POC Glucose (mg/dL) 76 Random Glucose Calcium Total Bilirubin AST ALT Alkaline Phosphatase Total Protein Albumin Globulin Albumin/Globulin Ratio Procalcitonin Arterial Blood Potassium Hep Bs Antigen Hep Bs Antibody Hep B Core IgM Ab Blood Type Antibody Screen Crossmatch BBK History Checked 09/24/18 11:18 WBC RBC Hgb Hct MCV MCH MCHC RDW Plt Count MPV PT INR pCO2 pO2 HCO3 ABG pH ABG Total CO2 ABG O2 Saturation ABG O2 Content ABG Base Excess ABG Hemoglobin ABG Carboxyhemoglobin POC ABG HHb (Measured) ABG Methemoglobin ABG O2 Capacity ABG Potassium Hgb O2 Saturation Sodium Chloride Glucose Lactate Mechanical Rate FiO2 Tidal Volume PEEP Potassium Carbon Dioxide Anion Gap BUN Creatinine Est GFR ( Amer) Est GFR (Non-Af Amer) POC Glucose (mg/dL) 80 Random Glucose Calcium Total Bilirubin AST ALT Alkaline Phosphatase Total Protein Albumin Globulin Albumin/Globulin Ratio Procalcitonin Arterial Blood Potassium Hep Bs Antigen Hep Bs Antibody Hep B Core IgM Ab Blood Type Antibody Screen Crossmatch BBK History Checked Radiology Impressions: Radiology Impressions Chest X-Ray 09/23/18 08:54 IMPRESSION: Persistent left upper lobe and perihilar infiltrates with diminished atelectasis right upper lobe. Limited atelectasis right base. No left basilar infiltrate in the interval. Interval endotracheal and nasogastric/feeding tube deployment as per above as well as right central venous dialysis catheter. Chest X-Ray 09/24/18 06:00 IMPRESSION: See above Assessment/Plan - Assessment and Plan (Free Text) Plan: Patient seen and examined on rounds with resident, agree with note with following additions/exceptions: Patient is 83yo female with PMHx DVT, HTN, HLD, CKD admitted with hypoxic resp failure, PNA, intubated, and renal failure, requiring HD Currently afebrile, on Levophed 4mcg/min, Dobutamine, in NAD HD initiated by renal On approrpiate abx Cultures pending Resp failure CKD on HD Anemia HTN HLD PNA Recommend: - cont with vent support, low tidal vol ventilation, daily sedation vacation, CPAP trials, CXR, ABG - ABx, DOxy Merrem, follow up ID - HD as per renal - cont with vasopressor suppoer - goal MAP 65 - IV solumedrol 20mg BID - FS control - start feeds, Nepro, nutrition consult - GI ppx - DVT ppx - Monitor in MICU Critical care time 30 minutes
[2018-09-24] MEDS: MethylPREDNISolone 40 mg Vial IVP SCH (13:20)
--- NOTE | 2018-09-24 14:26 | PN ---
DATE: 09/24/2018 SUBJECTIVE: The patient is 83-year-old, seen and examined, remains intubated, had dialysis done yesterday, currently getting dialysis and EEG. PHYSICAL EXAMINATION: GENERAL: She seem to be alert. VITAL SIGNS: She is afebrile. Pulse 90, respiration 20 and blood pressure 149/84. LUNGS: Bilateral fair airflow. CHEST: Crackle at bases. HEART: S1 and S2, audible. ABDOMEN: Soft and nontender. No rebound. No guarding. NEUROLOGIC: She is awake and alert on ventilator. LABORATORY DATA: WBC 16.5, hemoglobin 9.8, hematocrit 29.5 and platelets 322. PT is 48.4 and INR 4.28. Chemistry; sodium 142, potassium 4.2, chloride 106, CO2 of 25, BUN 63, creatinine 3.4 and blood sugar of 80. Stool Hemoccult is positive. profile is negative. Blood culture and urine cultures are unremarkable. X-ray of chest bilateral diffuse airspace opacity right greater than the left decreased as compared to . ASSESSMENT: 1. Respiratory failure on ventilation. 2. Acute on chronic renal failure getting hemodialysis. 3. Anemia, status post blood transfusion. 4. Bilateral pneumonia. PLAN: Currently, the patient is on nebulizer treatment. She is on hydralazine. She is on Cardizem, clonidine patch is on hold. The patient is getting doxycycline. She is on nebulizer treatment. She is on DVT prophylaxis. She is getting meropenem. Prognosis is poor. Family , but they do not want her to be DNR. Torrie Adamson MD
[2018-09-24] MEDS: DOBUTamine 500mg/250ml D5W 500 MG/250 ML BAG IV PRN (17:13)
--- NOTE | 2018-09-24 20:04 | PN ---
DATE: 09/24/2018 SUBJECTIVE: The patient is seen lying in bed in the ICU. She is on mechanical ventilation. She is sedated at this time. Not responsive. Off pressor support. Receiving dialysis. PHYSICAL EXAMINATION GENERAL: Elderly lady lying in bed in the ICU on mechanical ventilation. VITAL SIGNS: Blood pressure 142/75, heart rate 84, respiratory rate 20, temperature 97.9, T-max 97.9. HEENT: Normocephalic, atraumatic, positive pallor. NECK: Supple, no JVD. LUNGS: Bilateral equal air entry, bilateral equal expansion, no rales appreciated anteriorly. CARDIAC: S1, S2, regular rate and rhythm, no murmur, no rub. ABDOMEN: Soft, nondistended, nontender, bowel sounds present. EXTREMITIES: No lower extremity edema. INTAKE AND OUTPUT: 3100/not charted. LABORATORY DATA: WBC 15.5, hemoglobin 9.8, hematocrit 30, platelets 322. Sodium 142, potassium 4.2, chloride 106, CO2 of 25, BUN 63, creatinine 3.4, glucose of 73, calcium 8.2, AST 54, ALT 62. Sputum culture; yeast. Chest x-ray; bilateral diffuse air space opacities, right greater than left. CURRENT MEDICATIONS: Tylenol, Solu-Medrol 20 mg IV every 12 hours, sodium bicarbonate 650 mg b.i.d., Risperdal, Protonix 40 mg IV daily, amlodipine 10 mg, midazolam 1 mg per hour, meropenem 250 mg every 12 hours, Venofer 100 mg IV piggyback, aspirin, doxycycline 100 mg every 12 hours. ASSESSMENT AND PLAN 1.. Respiratory failure, multilobar pneumonia, bilateral pleural effusions. 2. Severe sepsis, hypotension, acute kidney injury, severe metabolic acidosis. 3. Severe anemia, suspect gastrointestinal blood loss. 4. History of deep venous thrombosis. 5. Dementia. 6. History of hyperlipidemia. PLAN 1. Stable dialysis. 2. Hemoglobin is stable status post 2 units of blood transfusion. 3. Hemodynamically improved, off pressors. 4. Acidosis, corrected. 5. Coagulopathy ? etiology, likely sepsis. 6. Will assess for dialysis again tomorrow. 7. Remains critically ill, continue the supportive treatment. 8. Case discussed with family members at bedside, case discussed with dialysis nursing staff, case discussed with ICU nursing staff. 9. More than 35 minutes spent in the care of this critically ill patient. Samantha Rand MD
--- NOTE | 2018-09-24 21:52 | PN ---
DATE: 09/24/2018 REASON FOR CONSULTATION AND FOLLOWUP: Shortness of breath, status post intubated, respiratory failure, cardiac evaluation, bilateral pneumonia, anemia. SUBJECTIVE: The patient remains on vent status post respiratory failure, sedated. No events as per nurse during the night. PHYSICAL EXAMINATION VITAL SIGNS: Temperature afebrile, heart rate 84, blood pressure 146/65. HEENT: PERRLA. Extraocular muscles intact. NECK: Supple. No carotid bruits or thyromegaly. CHEST: Clear to auscultation. HEART: S1, S2 regular. ABDOMEN: Soft. EXTREMITIES: Clubbing and cyanosis, negative. LABORATORY DATA: Blood workup as follows; WBC 15.5, hemoglobin 9.8, hematocrit 29.5, platelet count 322. Chemistry shows sodium 140, potassium 4.2, chloride 106, carbon dioxide 25, anion gap of 15, BUN 63, creatinine 3.4. The patient had an echocardiography done yesterday that revealed normal LV size, ejection fraction was 65%, right ventricle is moderately dilated, systolic function RV is moderately reduced, trace aortic regurgitation, [id number] valvular aortic stenosis, [id number] mitral regurgitation, mild tricuspid regurgitation, RV systolic pressure 47. IMPRESSION: An 83-year-old female admitted to the medical floor with hyperlipidemia, possible dementia, admitted with bilateral pneumonia, chronic kidney disease, respiratory status got worse and moved to Intensive Care Unit yesterday. The patient went hypoxic, intubated. Echo shows preserved left ventricular function, ejection fraction 65%, mild tricuspid regurgitation, right ventricular systolic pressure 42, bilateral pneumonia, mild aortic stenosis. RECOMMENDATION: Continue vent management. Continue broad-spectrum antibiotics, gentle diuretics to keep a negative fluid balance. Acute kidney injury; avoid nephrotoxic medication. The patient is on hydralazine, being seen by Dr. Torrez. Nephrology will follow with you. Overall the patient's condition remains critical. Long-term prognosis guarded. Will follow with you. Thank you Dr. Adamson for providing us the opportunity in taking care of the patient, Jaclyn Liz. Suzie Bird MD [facility] # [id number]
[2018-09-25 05:33] LABS: ARTERIAL BLOOD GAS HCO3 28.4 mmol/L (21-28); ARTERIAL BLOOD GAS HEMOGLOBIN 11.9 g/dL (11.7-17.4); ARTERIAL BLOOD GAS O2 CAPACITY 16.6 mL/dl (16-24); ARTERIAL BLOOD GAS O2 CONTENT 16.4 ML/dl (15-23); ARTERIAL BLOOD GAS O2 SAT 98.7 % (95-98); ARTERIAL BLOOD GAS PCO2 40 mm/Hg (35-45); ARTERIAL BLOOD GAS PH 7.46 (7.35-7.45); ARTERIAL BLOOD GAS TCO2 29.6 mmol.L (22-28)
[2018-09-25] MEDS: MethylPREDNISolone 40 mg Vial IVP SCH ×3 (06:33→21:10)
[2018-09-25] MEDS: Albuterol-Ipratrop 3 mg / 0.5 (3 ml) UD IH SCH ×3 (07:29→20:54)
--- NOTE | 2018-09-25 09:06 | CP.CCUPN ---
<Burak Serrano - Last Filed: 09/25/18 16:41> CCU Subjective - Physician Review Events Since Last Encounter (Free Text): 09/25/18 09:05 No acute events overnight. Subjective (Free Text): 09/24/18 11:51 Pt seen and examined this morning at bedside in the ICU. Pt is in no acute distress. 09/25/18 09:03 Pt seen and examined this morning. Pt is intubated and sedated. Critical Care Time Spent (in minutes): 35 CCU Objective - Vital Signs / Intake & Output Vital Signs (Last 4 hours): Vital Signs Temp Pulse Resp BP Pulse Ox 09/25/18 08:15 97.9 F 79 145/60 99 09/25/18 08:10 97.7 F 75 100 09/25/18 08:00 97.7 F 71 143/60 100 09/25/18 07:50 97.5 F L 73 100 09/25/18 07:45 152/68 H 09/25/18 07:44 97.5 F L 74 100 09/25/18 07:40 97.5 F L 74 100 09/25/18 07:33 20 100 09/25/18 07:30 97.3 F L 71 150/56 L 100 09/25/18 07:20 97.5 F L 72 100 09/25/18 07:15 149/64 09/25/18 07:14 97.5 F L 71 100 09/25/18 07:10 97.5 F L 72 100 09/25/18 07:00 97.5 F L 74 168/79 H 100 09/25/18 06:50 97.5 F L 73 100 09/25/18 06:45 154/65 H 09/25/18 06:44 97.5 F L 78 100 09/25/18 06:40 97.5 F L 95 H 100 09/25/18 06:36 78 169/57 H 09/25/18 06:30 97.3 F L 79 169/57 H 100 09/25/18 06:20 97.3 F L 80 100 09/25/18 06:15 97.5 F L 72 165/62 H 100 09/25/18 06:10 97.5 F L 79 100 09/25/18 06:00 76 142/72 09/25/18 05:59 97.5 F L 83 100 09/25/18 05:50 97.5 F L 72 100 09/25/18 05:45 97.5 F L 72 156/72 H 99 09/25/18 05:40 97.5 F L 78 100 09/25/18 05:30 161/56 H 09/25/18 05:29 97.7 F 72 100 09/25/18 05:20 97.7 F 75 100 09/25/18 05:15 160/71 H 09/25/18 05:14 97.7 F 73 100 09/25/18 05:10 97.7 F 76 100 Intake and Output (Last 8hrs): Intake & Output 09/24/18 09/25/18 09/25/18 22:59 06:59 14:59 Intake Total 350 553 Output Total 50 Balance 350 503 Intake: IV 350 193 Right Internal Jugular 193 Tube Feeding 360 Output: Urine 50 Urine, Voided 50 Other: # Bowel Movements 0 - Physical Exam Head: Positive for: Atraumatic, Normocephalic Pupils: Positive for: PERRL Conjunctiva: Positive for: Normal Mouth: Positive for: Moist Mucous Membranes Respiratory/Chest: Positive for: Clear to Auscultation, Good Air Exchange, Wheezes. Negative for: Respiratory Distress, Accessory Muscle Use Cardiovascular: Positive for: Regular Rate and Rhythm, Normal S1, S2. Negative for: Murmurs Abdomen: Positive for: Normal Bowel Sounds. Negative for: Tenderness, Distention, Peritoneal Signs Back: Positive for: Normal Inspection Upper Extremity: Positive for: Other (RUE is neurovascularly intact however there is significant tenderness to palpation in the area of the R scapular spine , no tenderness noted over the humeral head, ACTIVE AND PASSIVE ROM is signifcantly reduced by pain). Negative for: Normal ROM Lower Extremity: Positive for: Normal Inspection. Negative for: Edema Neurological: Positive for: GCS=15, CN II-XII Intact, Speech Normal Skin: Positive for: Warm, Dry, Normal Color. Negative for: Rashes Psychiatric: Positive for: Alert, Oriented x 3, Normal Insight, Normal Concentration - Medications Active Medications: Active Medications Generic Name Dose Route Start Last Admin Trade Name Freq PRN Reason Stop Dose Admin Acetaminophen 650 mg 09/12/18 05:16 09/18/18 22:04 Tylenol 325mg Tab PO 650 mg Q6H PRN Administration Pain, moderate (4-7) Acetaminophen 650 mg 09/21/18 12:17 09/21/18 12:38 Tylenol 325mg Tab PO 650 mg Q4H PRN Administration Fever >100.4 F Albuterol/Ipratropium 3 ml 09/22/18 08:00 09/25/18 07:29 Duoneb 3 Mg/0.5 Mg (3 Ml) Ud IH 3 ml [id number] JESUS Administration Amlodipine Besylate 10 mg 09/12/18 08:28 09/23/18 15:31 Norvasc PO Not Given DAILY JESUS Aspirin 81 mg 09/17/18 10:00 09/24/18 09:20 Ecotrin PO 81 mg DAILY JESUS Administration Clonidine HCl 0.1 mg 09/12/18 08:28 09/25/18 06:36 Catapres PO 0.1 mg QID PRN Administration SBP above 150 Clonidine HCl 1 patch 09/22/18 10:15 Catapres-Tts2 0.2 Mg/24 Hr TD Q7D@1000 JESUS Diltiazem HCl 240 mg 09/12/18 10:00 09/24/18 11:00 Cardizem Cd PO Not Given DAILY JESUS Hydralazine HCl 75 mg 09/19/18 15:00 09/23/18 19:12 Apresoline PO Not Given Q8 JESUS Iron Sucrose 100 mg/ Sodium 105 mls @ 210 mls/hr 09/19/18 10:00 09/24/18 09:19 Chloride IVPB 09/28/18 10:29 210 mls/hr DAILY JESUS Administration Doxycycline Hyclate 100 mg/ 100 mls @ 100 mls/hr 09/21/18 22:00 09/24/18 23:18 Sodium Chloride IVPB 100 mls/hr Q12 JESUS Administration Protocol Meropenem 250 mg/ Sodium 100 mls @ 100 mls/hr 09/22/18 10:00 09/24/18 23:19 Chloride IVPB 09/28/18 22:01 100 mls/hr Q12H JESUS Administration Protocol Fentanyl Citrate 1,000 mcg in 100 mls @ 5 mls/hr 09/23/18 08:14 09/24/18 19:56 Fentanyl Citrate/Sodium Chloride 1 Mg/100 Ml IV 75 mcg/hr .Q20H PRN 7.5 mls/hr TITRATE PER MD ORDER Administration Protocol 50 MCG/HR Midazolam 100 mg/100ml in NS 100 mg in 100 mls @ 2 mls/hr 09/23/18 08:15 09/24/18 09:18 Midazolam 100 Mg/100ml In Ns IV 1 mg/hr .Q24H PRN 1 mls/hr Sedation Administration Protocol 2 MG/HR Dobutamine HCl/Dextrose 500 mg in 250 mls @ 3.232 mls/hr 09/23/18 08:55 09/24/18 17:13 Dobutamine/Dextrose 5% 500mg/250ml IV 2.5 mcg/kg/min .Q24H PRN 3.232 mls/hr TITRATE PER PROTOCOL Administration Protocol 2.5 MCG/KG/MIN NOREPINEPHRINE BIT/0.9 % NACL 4 mg in 250 mls @ 15 mls/hr 09/23/18 09:06 09/23/18 15:29 Levophed 4 Mg/ 250 Ml Ns Premixed IV 0 mcg/min .[id number] PRN 0 mls/hr TITRATE PER MD ORDER Titration Protocol 4 MCG/MIN Methylprednisolone 20 mg 09/22/18 09:15 09/25/18 06:33 Solu-Medrol IVP Not Given Q12H JESUS Pantoprazole Sodium 40 mg 09/24/18 10:00 09/24/18 09:19 Protonix Inj IVP 40 mg DAILY JESUS Administration Risperidone 0.25 mg 09/20/18 21:40 Risperdal Tab PO DAILY PRN Other Protocol Sodium Bicarbonate 650 mg 09/21/18 11:15 09/24/18 18:44 Sodium Bicarbonate Tab PO 650 mg BID JESUS Administration - Patient Studies Lab Studies: Microbiology Studies 09/22/18 01:00 MRSA Culture (Admit) - Final Nose MRSA NOT DETECTED Lab Studies 09/25/18 09/25/18 09/24/18 Range/Units 07:38 05:00 21:50 PT (9.4-12.5) SECONDS INR pCO2 40 (35-45) mm/Hg pO2 131.0 H (80-100) mm/Hg HCO3 28.4 H (21-28) mmol/L ABG pH 7.46 H (7.35-7.45) ABG Total CO2 29.6 H (22-28) mmol.L ABG O2 Saturation 98.7 H (95-98) % ABG O2 Content 16.4 (15-23) ML/dl ABG Base Excess 4.2 H (-2.0-3.0) mmol/L ABG Hemoglobin 11.9 (11.7-17.4) g/dL ABG Carboxyhemoglobin 1.3 (0.5-1.5) % POC ABG HHb (Measured) 1.3 (0-5) % ABG Methemoglobin 0.9 (0.0-3.0) % ABG O2 Capacity 16.6 (16-24) mL/dl Hgb O2 Saturation 96.5 (95.0-98.0) % FiO2 40.0 % POC Glucose (mg/dL) 96 85 (65-110) mg/dL 09/24/18 09/24/18 09/24/18 Range/Units 16:32 11:18 10:15 PT 48.4 H (9.4-12.5) SECONDS INR 4.28 H* pCO2 (35-45) mm/Hg pO2 (80-100) mm/Hg HCO3 (21-28) mmol/L ABG pH (7.35-7.45) ABG Total CO2 (22-28) mmol.L ABG O2 Saturation (95-98) % ABG O2 Content (15-23) ML/dl ABG Base Excess (-2.0-3.0) mmol/L ABG Hemoglobin (11.7-17.4) g/dL ABG Carboxyhemoglobin (0.5-1.5) % POC ABG HHb (Measured) (0-5) % ABG Methemoglobin (0.0-3.0) % ABG O2 Capacity (16-24) mL/dl Hgb O2 Saturation (95.0-98.0) % FiO2 % POC Glucose (mg/dL) 65 80 (65-110) mg/dL Laboratory Results - last 24 hr 09/24/18 09/24/18 09/24/18 10:15 11:18 16:32 PT 48.4 H INR 4.28 H* pCO2 pO2 HCO3 ABG pH ABG Total CO2 ABG O2 Saturation ABG O2 Content ABG Base Excess ABG Hemoglobin ABG Carboxyhemoglobin POC ABG HHb (Measured) ABG Methemoglobin ABG O2 Capacity Hgb O2 Saturation FiO2 POC Glucose (mg/dL) 80 65 09/24/18 09/25/18 09/25/18 21:50 05:00 07:38 PT INR pCO2 40 pO2 131.0 H HCO3 28.4 H ABG pH 7.46 H ABG Total CO2 29.6 H ABG O2 Saturation 98.7 H ABG O2 Content 16.4 ABG Base Excess 4.2 H ABG Hemoglobin 11.9 ABG Carboxyhemoglobin 1.3 POC ABG HHb (Measured) 1.3 ABG Methemoglobin 0.9 ABG O2 Capacity 16.6 Hgb O2 Saturation 96.5 FiO2 40.0 POC Glucose (mg/dL) 85 96 Radiology Impressions: Radiology Impressions Chest X-Ray 09/24/18 06:00 IMPRESSION: See above Fingerstick Blood Sugar Results: 68 Assessment/Plan - Assessment and Plan (Free Text) Assessment: Pt is am 83 yo female with a PMH of DVT, HTN, HLD, CKD, dementia who presented to the emergency department after a fall and injuring her right shoulder, and who was later transferred to the ICU because of worsening SOB. Plan: Neuro - fentanyl Cadio - Maintain MAP >65 - BNP 21000 - ASA, diltiazem, dobutamine, norepinephrine - ECHO LVH, EF 60-65%, RVSP 42 Pulm - CAP - Maintain O2 sat >92 - Chest CT: new opacity of BRETT, left and right pleural effusion - CXR shows signs of PNA - solu medrol - Pulm consulted, Dr Roland BL PNA, BL pleural effusions, acute on chronic renal failure - IR consulted for possible thoracentesis GI - continue to monitor - FOBT positive 09/16/18 - Nepro 10cc/hr - GI ppx, pantoprazole Heme - monitor H/H - Hgb 9.8 - INR 4.28 - D dimer 783 - LEUS: no radiographic signs of DVT - venofer Nephro - BREANA on CKD, Renal Failure - continue to monitor electrolytes - Cr 3.4 - BUN 63 - renal US simple cysts Endo - maintain euglycemia ID - WBC 15.5 - BL PNA continue doxy and merrem, pt is in renal failure - doxy, merrem - ID consulted, following Dispo: try to extubate tomorrow Pt seen, examined, assessment and plan discussed with Dr Karen Serrano PGY1 - Date & Time Date: 09/25/18 Time: 08:00 <Leroy Martell - Last Filed: 09/25/18 18:15> CCU Objective - Vital Signs / Intake & Output Vital Signs (Last 4 hours): Vital Signs Temp Pulse BP 09/25/18 17:52 75 137/60 09/25/18 16:00 99.1 F Intake and Output (Last 8hrs): Intake & Output 09/25/18 09/25/18 09/25/18 06:59 14:59 22:59 Intake Total 553 60 Output Total 50 Balance 503 60 Intake: IV 193 60 Right Internal Jugular 193 Tube Feeding 360 Output: Urine 50 Urine, Voided 50 Other: # Bowel Movements 0 - Medications Active Medications: Active Medications Generic Name Dose Route Start Last Admin Trade Name Freq PRN Reason Stop Dose Admin Acetaminophen 650 mg 09/12/18 05:16 09/18/18 22:04 Tylenol 325mg Tab PO 650 mg Q6H PRN Administration Pain, moderate (4-7) Acetaminophen 650 mg 09/21/18 12:17 09/21/18 12:38 Tylenol 325mg Tab PO 650 mg Q4H PRN Administration Fever >100.4 F Albuterol/Ipratropium 3 ml 09/22/18 08:00 09/25/18 13:26 Duoneb 3 Mg/0.5 Mg (3 Ml) Ud IH 3 ml [id number] JESUS Administration Amino Acid Protein 15 gm 09/25/18 10:00 09/25/18 12:35 Prostat 15 G Packet GT 15 gm DAILY JESUS Administration Amlodipine Besylate 10 mg 09/12/18 08:28 09/23/18 15:31 Norvasc PO Not Given DAILY JESUS Aspirin 81 mg 09/17/18 10:00 09/25/18 10:41 Ecotrin PO 81 mg DAILY JESUS Administration Clonidine HCl 0.1 mg 09/12/18 08:28 09/25/18 06:36 Catapres PO 0.1 mg QID PRN Administration SBP above 150 Clonidine HCl 1 patch 09/22/18 10:15 Catapres-Tts2 0.2 Mg/24 Hr TD Q7D@1000 JESUS Diltiazem HCl 60 mg 09/25/18 12:00 09/25/18 17:52 Cardizem PO Not Given Q6 JESUS Hydralazine HCl 75 mg 09/19/18 15:00 09/23/18 19:12 Apresoline PO Not Given Q8 JESUS Iron Sucrose 100 mg/ Sodium 105 mls @ 210 mls/hr 09/19/18 10:00 09/25/18 10:37 Chloride IVPB 09/28/18 10:29 210 mls/hr DAILY JESUS Administration Doxycycline Hyclate 100 mg/ 100 mls @ 100 mls/hr 09/21/18 22:00 09/25/18 10:37 Sodium Chloride IVPB 100 mls/hr Q12 JESUS Administration Protocol Meropenem 250 mg/ Sodium 100 mls @ 100 mls/hr 09/22/18 10:00 09/25/18 10:36 Chloride IVPB 09/28/18 22:01 100 mls/hr Q12H JESUS Administration Protocol Fentanyl Citrate 1,000 mcg in 100 mls @ 5 mls/hr 09/23/18 08:14 09/24/18 19:56 Fentanyl Citrate/Sodium Chloride 1 Mg/100 Ml IV 75 mcg/hr .Q20H PRN 7.5 mls/hr TITRATE PER MD ORDER Administration Protocol 50 MCG/HR Midazolam 100 mg/100ml in NS 100 mg in 100 mls @ 2 mls/hr 09/23/18 08:15 09/25/18 10:25 Midazolam 100 Mg/100ml In Ns IV 0 mg/hr .Q24H PRN 0 mls/hr Sedation Titration Protocol 2 MG/HR Methylprednisolone 20 mg 09/22/18 09:15 09/25/18 09:51 Solu-Medrol IVP 20 mg Q12H JESUS Administration Pantoprazole Sodium 40 mg 09/24/18 10:00 09/25/18 10:41 Protonix Inj IVP 40 mg DAILY JESUS Administration Risperidone 0.25 mg 09/20/18 21:40 09/25/18 10:41 Risperdal Tab PO 0.25 mg DAILY PRN Administration Other Protocol Sodium Bicarbonate 650 mg 09/21/18 11:15 09/25/18 17:52 Sodium Bicarbonate Tab PO Not Given BID JESUS - Patient Studies Lab Studies: Microbiology Studies 09/24/18 13:00 Blood Culture - Preliminary Blood NO GROWTH AFTER 24 HOURS 09/24/18 12:45 Blood Culture - Preliminary Blood NO GROWTH AFTER 24 HOURS Lab Studies 09/25/18 09/25/18 09/25/18 Range/Units 17:06 11:22 10:29 WBC (4.5-11.0) 10^3/uL RBC (3.5-6.1) 10^6/uL Hgb (12.0-16.0) g/dL Hct (36.0-48.0) % MCV (80.0-105.0) fl MCH (25.0-35.0) pg MCHC (31.0-37.0) g/dl RDW (11.5-14.5) % Plt Count (120.0-450.0) 10^3/uL MPV (7.0-11.0) fl Neut % (Auto) (50.0-68.0) % Lymph % (Auto) (22.0-35.0) % [place] % (Auto) (1.0-6.0) % Eos % (Auto) (1.5-5.0) % Baso % (Auto) (0.0-3.0) % Lymph # (Auto) (1.2-3.4) [place] # (Auto) (0.1-0.6) Eos # (Auto) (0.0-0.7) Baso # (Auto) (0.0-2.0) K/mm3 Absolute Neuts (auto) (1.4-6.5) PT (9.4-12.5) SECONDS INR pCO2 (35-45) mm/Hg pO2 (80-100) mm/Hg HCO3 (21-28) mmol/L ABG pH (7.35-7.45) ABG Total CO2 (22-28) mmol.L ABG O2 Saturation (95-98) % ABG O2 Content (15-23) ML/dl ABG Base Excess (-2.0-3.0) mmol/L ABG Hemoglobin (11.7-17.4) g/dL ABG Carboxyhemoglobin (0.5-1.5) % POC ABG HHb (Measured) (0-5) % ABG Methemoglobin (0.0-3.0) % ABG O2 Capacity (16-24) mL/dl Hgb O2 Saturation (95.0-98.0) % FiO2 % Sodium (132-148) mmol/L Potassium (3.6-5.0) mmol/L Chloride (98-107) mmol/L Carbon Dioxide (21-33) mmol/L Anion Gap (10-20) BUN (7-21) mg/dL Creatinine (0.7-1.2) mg/dl Est GFR ( Amer) Est GFR (Non-Af Amer) POC Glucose (mg/dL) 140 H 97 (65-110) mg/dL Random Glucose (70-110) mg/dL Calcium (8.4-10.5) mg/dL Phosphorus (2.5-4.5) mg/dL Magnesium (1.7-2.2) mg/dL Urine Color Light brown (YELLOW) Urine Appearance Slight-cloudy (CLEAR) Urine pH 5.5 (4.7-8.0) Ur Specific [place] >= 1.030 (1.005-1.035) Urine Protein >=300 H (<30 mg/dL) mg/dL Urine Glucose (UA) 100 H (NEGATIVE) mg/dL Urine Ketones Trace H (NEGATIVE) mg/dL Urine Blood Trace-intact H (NEGATIVE) Urine Nitrate Positive H (NEGATIVE) Urine Bilirubin Small H (NEGATIVE) Urine Urobilinogen 0.2 (<1 E.U./dL) E.U./dL Ur Leukocyte Esterase Negative (NEGATIVE) Pao/uL Urine RBC 2 - 5 H (0-2) /hpf Urine WBC 1 - 3 (0-6) /hpf Ur Epithelial Cells Many H (0-5) /hpf Amorphous Sediment Few (NONE) /hpf Urine Bacteria Many (NONE) /hpf Fine Granular Casts 0 - 2 (NONE) /hpf Coarse Granular Casts Trace (NONE) /hpf Urine Other Uyeast /hpf 09/25/18 09/25/18 09/25/18 Range/Units 09:45 09:45 09:45 WBC 19.8 H D (4.5-11.0) 10^3/uL RBC 3.42 L (3.5-6.1) 10^6/uL Hgb 9.8 L (12.0-16.0) g/dL Hct 30.2 L (36.0-48.0) % MCV 88.3 (80.0-105.0) fl MCH 28.7 (25.0-35.0) pg MCHC 32.5 (31.0-37.0) g/dl RDW 14.7 H (11.5-14.5) % Plt Count 307 (120.0-450.0) 10^3/uL MPV 9.3 (7.0-11.0) fl Neut % (Auto) 92.9 H (50.0-68.0) % Lymph % (Auto) 4.7 L (22.0-35.0) % [place] % (Auto) 2.3 (1.0-6.0) % Eos % (Auto) 0.0 L (1.5-5.0) % Baso % (Auto) 0.1 (0.0-3.0) % Lymph # (Auto) 0.9 L (1.2-3.4) [place] # (Auto) 0.5 (0.1-0.6) Eos # (Auto) 0.0 (0.0-0.7) Baso # (Auto) 0.01 (0.0-2.0) K/mm3 Absolute Neuts (auto) 18.44 H (1.4-6.5) PT 30.6 H (9.4-12.5) SECONDS INR 2.71 pCO2 (35-45) mm/Hg pO2 (80-100) mm/Hg HCO3 (21-28) mmol/L ABG pH (7.35-7.45) ABG Total CO2 (22-28) mmol.L ABG O2 Saturation (95-98) % ABG O2 Content (15-23) ML/dl ABG Base Excess (-2.0-3.0) mmol/L ABG Hemoglobin (11.7-17.4) g/dL ABG Carboxyhemoglobin (0.5-1.5) % POC ABG HHb (Measured) (0-5) % ABG Methemoglobin (0.0-3.0) % ABG O2 Capacity (16-24) mL/dl Hgb O2 Saturation (95.0-98.0) % FiO2 % Sodium 140 (132-148) mmol/L Potassium 3.8 (3.6-5.0) mmol/L Chloride 106 (98-107) mmol/L Carbon Dioxide 28 (21-33) mmol/L Anion Gap 10 (10-20) BUN 45 H (7-21) mg/dL Creatinine 2.6 H (0.7-1.2) mg/dl Est GFR ( Amer) 21 Est GFR (Non-Af Amer) 18 POC Glucose (mg/dL) (65-110) mg/dL Random Glucose 88 (70-110) mg/dL Calcium 8.3 L (8.4-10.5) mg/dL Phosphorus 3.5 (2.5-4.5) mg/dL Magnesium 1.7 (1.7-2.2) mg/dL Urine Color (YELLOW) Urine Appearance (CLEAR) Urine pH (4.7-8.0) Ur Specific [place] (1.005-1.035) Urine Protein (<30 mg/dL) mg/dL Urine Glucose (UA) (NEGATIVE) mg/dL Urine Ketones (NEGATIVE) mg/dL Urine Blood (NEGATIVE) Urine Nitrate (NEGATIVE) Urine Bilirubin (NEGATIVE) Urine Urobilinogen (<1 E.U./dL) E.U./dL Ur Leukocyte Esterase (NEGATIVE) Pao/uL Urine RBC (0-2) /hpf Urine WBC (0-6) /hpf Ur Epithelial Cells (0-5) /hpf Amorphous Sediment (NONE) /hpf Urine Bacteria (NONE) /hpf Fine Granular Casts (NONE) /hpf Coarse Granular Casts (NONE) /hpf Urine Other /hpf 09/25/18 09/25/18 09/24/18 Range/Units 07:38 05:00 21:50 WBC (4.5-11.0) 10^3/uL RBC (3.5-6.1) 10^6/uL Hgb (12.0-16.0) g/dL Hct (36.0-48.0) % MCV (80.0-105.0) fl MCH (25.0-35.0) pg MCHC (31.0-37.0) g/dl RDW (11.5-14.5) % Plt Count (120.0-450.0) 10^3/uL MPV (7.0-11.0) fl Neut % (Auto) (50.0-68.0) % Lymph % (Auto) (22.0-35.0) % [place] % (Auto) (1.0-6.0) % Eos % (Auto) (1.5-5.0) % Baso % (Auto) (0.0-3.0) % Lymph # (Auto) (1.2-3.4) [place] # (Auto) (0.1-0.6) Eos # (Auto) (0.0-0.7) Baso # (Auto) (0.0-2.0) K/mm3 Absolute Neuts (auto) (1.4-6.5) PT (9.4-12.5) SECONDS INR pCO2 40 (35-45) mm/Hg pO2 131.0 H (80-100) mm/Hg HCO3 28.4 H (21-28) mmol/L ABG pH 7.46 H (7.35-7.45) ABG Total CO2 29.6 H (22-28) mmol.L ABG O2 Saturation 98.7 H (95-98) % ABG O2 Content 16.4 (15-23) ML/dl ABG Base Excess 4.2 H (-2.0-3.0) mmol/L ABG Hemoglobin 11.9 (11.7-17.4) g/dL ABG Carboxyhemoglobin 1.3 (0.5-1.5) % POC ABG HHb (Measured) 1.3 (0-5) % ABG Methemoglobin 0.9 (0.0-3.0) % ABG O2 Capacity 16.6 (16-24) mL/dl Hgb O2 Saturation 96.5 (95.0-98.0) % FiO2 40.0 % Sodium (132-148) mmol/L Potassium (3.6-5.0) mmol/L Chloride (98-107) mmol/L Carbon Dioxide (21-33) mmol/L Anion Gap (10-20) BUN (7-21) mg/dL Creatinine (0.7-1.2) mg/dl Est GFR ( Amer) Est GFR (Non-Af Amer) POC Glucose (mg/dL) 96 85 (65-110) mg/dL Random Glucose (70-110) mg/dL Calcium (8.4-10.5) mg/dL Phosphorus (2.5-4.5) mg/dL Magnesium (1.7-2.2) mg/dL Urine Color (YELLOW) Urine Appearance (CLEAR) Urine pH (4.7-8.0) Ur Specific [place] (1.005-1.035) Urine Protein (<30 mg/dL) mg/dL Urine Glucose (UA) (NEGATIVE) mg/dL Urine Ketones (NEGATIVE) mg/dL Urine Blood (NEGATIVE) Urine Nitrate (NEGATIVE) Urine Bilirubin (NEGATIVE) Urine Urobilinogen (<1 E.U./dL) E.U./dL Ur Leukocyte Esterase (NEGATIVE) Pao/uL Urine RBC (0-2) /hpf Urine WBC (0-6) /hpf Ur Epithelial Cells (0-5) /hpf Amorphous Sediment (NONE) /hpf Urine Bacteria (NONE) /hpf Fine Granular Casts (NONE) /hpf Coarse Granular Casts (NONE) /hpf Urine Other /hpf 09/24/18 Range/Units 16:32 WBC (4.5-11.0) 10^3/uL RBC (3.5-6.1) 10^6/uL Hgb (12.0-16.0) g/dL Hct (36.0-48.0) % MCV (80.0-105.0) fl MCH (25.0-35.0) pg MCHC (31.0-37.0) g/dl RDW (11.5-14.5) % Plt Count (120.0-450.0) 10^3/uL MPV (7.0-11.0) fl Neut % (Auto) (50.0-68.0) % Lymph % (Auto) (22.0-35.0) % [place] % (Auto) (1.0-6.0) % Eos % (Auto) (1.5-5.0) % Baso % (Auto) (0.0-3.0) % Lymph # (Auto) (1.2-3.4) [place] # (Auto) (0.1-0.6) Eos # (Auto) (0.0-0.7) Baso # (Auto) (0.0-2.0) K/mm3 Absolute Neuts (auto) (1.4-6.5) PT (9.4-12.5) SECONDS INR pCO2 (35-45) mm/Hg pO2 (80-100) mm/Hg HCO3 (21-28) mmol/L ABG pH (7.35-7.45) ABG Total CO2 (22-28) mmol.L ABG O2 Saturation (95-98) % ABG O2 Content (15-23) ML/dl ABG Base Excess (-2.0-3.0) mmol/L ABG Hemoglobin (11.7-17.4) g/dL ABG Carboxyhemoglobin (0.5-1.5) % POC ABG HHb (Measured) (0-5) % ABG Methemoglobin (0.0-3.0) % ABG O2 Capacity (16-24) mL/dl Hgb O2 Saturation (95.0-98.0) % FiO2 % Sodium (132-148) mmol/L Potassium (3.6-5.0) mmol/L Chloride (98-107) mmol/L Carbon Dioxide (21-33) mmol/L Anion Gap (10-20) BUN (7-21) mg/dL Creatinine (0.7-1.2) mg/dl Est GFR ( Amer) Est GFR (Non-Af Amer) POC Glucose (mg/dL) 65 (65-110) mg/dL Random Glucose (70-110) mg/dL Calcium (8.4-10.5) mg/dL Phosphorus (2.5-4.5) mg/dL Magnesium (1.7-2.2) mg/dL Urine Color (YELLOW) Urine Appearance (CLEAR) Urine pH (4.7-8.0) Ur Specific [place] (1.005-1.035) Urine Protein (<30 mg/dL) mg/dL Urine Glucose (UA) (NEGATIVE) mg/dL Urine Ketones (NEGATIVE) mg/dL Urine Blood (NEGATIVE) Urine Nitrate (NEGATIVE) Urine Bilirubin (NEGATIVE) Urine Urobilinogen (<1 E.U./dL) E.U./dL Ur Leukocyte Esterase (NEGATIVE) Pao/uL Urine RBC (0-2) /hpf Urine WBC (0-6) /hpf Ur Epithelial Cells (0-5) /hpf Amorphous Sediment (NONE) /hpf Urine Bacteria (NONE) /hpf Fine Granular Casts (NONE) /hpf Coarse Granular Casts (NONE) /hpf Urine Other /hpf Laboratory Results - last 24 hr 09/24/18 09/24/18 09/25/18 16:32 21:50 05:00 WBC RBC Hgb Hct MCV MCH MCHC RDW Plt Count MPV Neut % (Auto) Lymph % (Auto) [place] % (Auto) Eos % (Auto) Baso % (Auto) Lymph # (Auto) [place] # (Auto) Eos # (Auto) Baso # (Auto) Absolute Neuts (auto) PT INR pCO2 40 pO2 131.0 H HCO3 28.4 H ABG pH 7.46 H ABG Total CO2 29.6 H ABG O2 Saturation 98.7 H ABG O2 Content 16.4 ABG Base Excess 4.2 H ABG Hemoglobin 11.9 ABG Carboxyhemoglobin 1.3 POC ABG HHb (Measured) 1.3 ABG Methemoglobin 0.9 ABG O2 Capacity 16.6 Hgb O2 Saturation 96.5 FiO2 40.0 Sodium Potassium Chloride Carbon Dioxide Anion Gap BUN Creatinine Est GFR ( Amer) Est GFR (Non-Af Amer) POC Glucose (mg/dL) 65 85 Random Glucose Calcium Phosphorus Magnesium Urine Color Urine Appearance Urine pH Ur Specific [place] Urine Protein Urine Glucose (UA) Urine Ketones Urine Blood Urine Nitrate Urine Bilirubin Urine Urobilinogen Ur Leukocyte Esterase Urine RBC Urine WBC Ur Epithelial Cells Amorphous Sediment Urine Bacteria Fine Granular Casts Coarse Granular Casts Urine Other 09/25/18 09/25/18 09/25/18 07:38 09:45 09:45 WBC 19.8 H D RBC 3.42 L Hgb 9.8 L Hct 30.2 L MCV 88.3 MCH 28.7 MCHC 32.5 RDW 14.7 H Plt Count 307 MPV 9.3 Neut % (Auto) 92.9 H Lymph % (Auto) 4.7 L [place] % (Auto) 2.3 Eos % (Auto) 0.0 L Baso % (Auto) 0.1 Lymph # (Auto) 0.9 L [place] # (Auto) 0.5 Eos # (Auto) 0.0 Baso # (Auto) 0.01 Absolute Neuts (auto) 18.44 H PT INR pCO2 pO2 HCO3 ABG pH ABG Total CO2 ABG O2 Saturation ABG O2 Content ABG Base Excess ABG Hemoglobin ABG Carboxyhemoglobin POC ABG HHb (Measured) ABG Methemoglobin ABG O2 Capacity Hgb O2 Saturation FiO2 Sodium 140 Potassium 3.8 Chloride 106 Carbon Dioxide 28 Anion Gap 10 BUN 45 H Creatinine 2.6 H Est GFR ( Amer) 21 Est GFR (Non-Af Amer) 18 POC Glucose (mg/dL) 96 Random Glucose 88 Calcium 8.3 L Phosphorus 3.5 Magnesium 1.7 Urine Color Urine Appearance Urine pH Ur Specific [place] Urine Protein Urine Glucose (UA) Urine Ketones Urine Blood Urine Nitrate Urine Bilirubin Urine Urobilinogen Ur Leukocyte Esterase Urine RBC Urine WBC Ur Epithelial Cells Amorphous Sediment Urine Bacteria Fine Granular Casts Coarse Granular Casts Urine Other 09/25/18 09/25/18 09/25/18 09:45 10:29 11:22 WBC RBC Hgb Hct MCV MCH MCHC RDW Plt Count MPV Neut % (Auto) Lymph % (Auto) [place] % (Auto) Eos % (Auto) Baso % (Auto) Lymph # (Auto) [place] # (Auto) Eos # (Auto) Baso # (Auto) Absolute Neuts (auto) PT 30.6 H INR 2.71 pCO2 pO2 HCO3 ABG pH ABG Total CO2 ABG O2 Saturation ABG O2 Content ABG Base Excess ABG Hemoglobin ABG Carboxyhemoglobin POC ABG HHb (Measured) ABG Methemoglobin ABG O2 Capacity Hgb O2 Saturation FiO2 Sodium Potassium Chloride Carbon Dioxide Anion Gap BUN Creatinine Est GFR ( Amer) Est GFR (Non-Af Amer) POC Glucose (mg/dL) 97 Random Glucose Calcium Phosphorus Magnesium Urine Color Light brown Urine Appearance Slight-cloudy Urine pH 5.5 Ur Specific [place] >= 1.030 Urine Protein >=300 H Urine Glucose (UA) 100 H Urine Ketones Trace H Urine Blood Trace-intact H Urine Nitrate Positive H Urine Bilirubin Small H Urine Urobilinogen 0.2 Ur Leukocyte Esterase Negative Urine RBC 2 - 5 H Urine WBC 1 - 3 Ur Epithelial Cells Many H Amorphous Sediment Few Urine Bacteria Many Fine Granular Casts 0 - 2 Coarse Granular Casts Trace Urine Other Uyeast 09/25/18 17:06 WBC RBC Hgb Hct MCV MCH MCHC RDW Plt Count MPV Neut % (Auto) Lymph % (Auto) [place] % (Auto) Eos % (Auto) Baso % (Auto) Lymph # (Auto) [place] # (Auto) Eos # (Auto) Baso # (Auto) Absolute Neuts (auto) PT INR pCO2 pO2 HCO3 ABG pH ABG Total CO2 ABG O2 Saturation ABG O2 Content ABG Base Excess ABG Hemoglobin ABG Carboxyhemoglobin POC ABG HHb (Measured) ABG Methemoglobin ABG O2 Capacity Hgb O2 Saturation FiO2 Sodium Potassium Chloride Carbon Dioxide Anion Gap BUN Creatinine Est GFR ( Amer) Est GFR (Non-Af Amer) POC Glucose (mg/dL) 140 H Random Glucose Calcium Phosphorus Magnesium Urine Color Urine Appearance Urine pH Ur Specific [place] Urine Protein Urine Glucose (UA) Urine Ketones Urine Blood Urine Nitrate Urine Bilirubin Urine Urobilinogen Ur Leukocyte Esterase Urine RBC Urine WBC Ur Epithelial Cells Amorphous Sediment Urine Bacteria Fine Granular Casts Coarse Granular Casts Urine Other Radiology Impressions: Radiology Impressions Chest X-Ray 09/25/18 06:00 IMPRESSION: Improving pulmonary edema. Stable position of support apparatus. Addendum Addendum: 09/25/18 18:15 MICU Attending Addendum Patient seen and examined [place] discussed with housestaff; agree with resident note above with the following additions/exceptions: 83F with PMH of DVT, HTN, HLD, CKD, dementia who presented to the emergency department on 09/14 after a fall and injuring her right shoulder found to have hemoarthosis. During her stay she was transfused blood and was stable until she developed progressive sob and hypoxia on 09/21 eventually requiring intubation likey from multilobar PNA. In addition developed renal failure now s/p 2 sessions of HD. Improved from a pulm stand point. Planning to wean off sedation and SBT in AM switch xopenex to duonebs given COPD intubated since 09/23 cont abx for RUL RML PNA doxy/merrem doubt pleural fluid is infected given clincally improvement, lack of fevers Stop levo and dobutamine resume home antihypertensives if BP stable today off anticoag given fall and hemoarthorsis SCD of dvt ppx ppi for gi ppx Rest of care as in above resident note Leroy Martell MD MICU Attending CC time 35 mins
[2018-09-25 10:01] LABS: INR 2.71; PROTHROMBIN TIME 30.6 SECONDS (9.4-12.5)
[2018-09-25 10:02] LABS: BASO # 0.01 K/mm3 (0.0-2.0); BASO % 0.1 % (0.0-3.0); HEMOGLOBIN 9.8 g/dL (12.0-16.0); LYMPH # 0.9 (1.2-3.4); LYMPH % 4.7 % (22.0-35.0); MEAN CELL VOLUME 88.3 fl (80.0-105.0); MEAN CORPUSCULAR HEMOGLOBIN 28.7 pg (25.0-35.0); MEAN CORPUSCULAR HGB CONC 32.5 g/dl (31.0-37.0); MEAN PLATELET VOLUME 9.3 fl (7.0-11.0); MONO # 0.5 (0.1-0.6); MONO % 2.3 % (1.0-6.0); RBC 3.42 10^6/uL (3.5-6.1); RED CELL DISTRIBUTION WIDTH 14.7 % (11.5-14.5); WHITE BLOOD COUNT 19.8 10^3/uL (4.5-11.0)
[2018-09-25 10:09] LABS: CALCIUM 8.3 mg/dL (8.4-10.5)
--- NOTE | 2018-09-25 10:27 | PN ---
DATE: 09/25/2018(640am-730am) PULMONARY NOTE SUBJECTIVE: The patient remains on the ventilator. She is currently sedated. PHYSICAL EXAMINATION: VITAL SIGNS: Temperature is 98.6, pulse 78, respirations 22/20, blood pressure 169/57. HEENT: Normocephalic, atraumatic. No JVD. CARDIOVASCULAR: Systolic ejection murmur at the lower left sternal border. No S3 gallop. LUNGS: Decreased breath sounds at the bases with crackles. Less rhonchi. No wheezing. GI: Abdomen is soft, nondistended. Bowel sounds are positive. EXTREMITIES: Mild edema. No cyanosis, no clubbing. SKIN: No acute rash. NEUROLOGIC: Exam limited at the present time. PERTINENT LABORATORY DATA: Chest x-ray was done this morning and reviewed. The chest x-ray definitely appears improved today-- with a decrease in bilateral pulmonary infiltrates. The right-sided infiltrates also appear much less dense. Official results are pending. Arterial blood gas was done on PRVC 20, tidal volume 350, FIO2 40%, PEEP of 5. Results are: PH 7.46, pCO2 of 40, pO2 of 131. IMPRESSION: 1. Bilateral pneumonia. 2. Bilateral pleural effusions. 3. Acute on chronic renal failure. 4. Severe anemia. 5. Rule out congestive heart failure. PLAN: The patient remains on the ventilator this morning. She remains sedated. I did discuss the case with the night nurse at length. The night nurse stated the patient had an uneventful night. I did review the chest x-ray as above. The chest x-ray shows definite improvement. Official results are pending. I have also reviewed the arterial blood gas. The arterial blood gas continues to improve - with normalization of the pH, and a significant decrease in the alveolar-arterial gradient. I will discuss possible weaning trials with the ICU team this morning. On physical exam, there is certainly no significant bronchospasm noted. I will continue the current nebulizer treatments and low-dose intravenous steroids for now. Inputs by Renal, Cardiology, Infectious Disease are also noted. Clinical status of the patient has significantly improved - compared to earlier in the week. However, given the above, the future status/prognosis for this elderly patient does remain guarded. I will discuss the above with the entire ICU team in the next few moments. I will also discuss the above with the attending physician later this morning. Charles Roland MD [facility]
[2018-09-25 10:38] LABS: PH,URINE 5.5 (4.7-8.0); URINE BILIRUBIN SMALL (NEGATIVE); URINE BLOOD TRACE-INTACT (NEGATIVE); URINE GLUCOSE (UA) 100 mg/dL (NEGATIVE); URINE LEUKOCYTE ESTERASE NEGATIVE Leu/uL (NEGATIVE); URINE PROTEIN >=300 mg/dL (<30 mg/dL); URINE UROBILINOGEN 0.2 E.U./dL (<1 E.U./dL)
[2018-09-25 10:39] LABS: URINE APPEARANCE SLIGHT-CLOUDY (CLEAR); URINE COLOR LIGHT BROWN (YELLOW)
[2018-09-25 10:42] LABS: URINE EPITHELIAL CELLS MANY /hpf (0-5)
[2018-09-25 10:43] LABS: URINE AMORPHOUS SEDIMENT FEW /hpf; URINE BACTERIA MANY /hpf; URINE COARSE GRANULAR CAST TRACE /hpf; URINE FINE GRANULAR CAST 0 - 2 /hpf
--- NOTE | 2018-09-25 12:12 | RAD ---
Date of service: 09/25/2018 HISTORY: Follow-up. COMPARISON: Multiple serial examinations preceding the most recent study: September 24, 2018. 05:38. FINDINGS: LUNGS: Improving multifocal infiltrates/pulmonary edema. PLEURA: Improving pleural effusions. CARDIOVASCULAR: Atherosclerotic calcifications identified primarily aortic arch. Venous access catheter in stable, satisfactory position. OSSEOUS STRUCTURES: No significant abnormalities. VISUALIZED UPPER ABDOMEN: Normal. OTHER FINDINGS: Stable, satisfactory position ventilatory, nasogastric apparatus. IMPRESSION: Improving pulmonary edema. Stable position of support apparatus.
[2018-09-25] MEDS: Prostat 15 g packet GT SCH (12:35)
--- NOTE | 2018-09-25 13:19 | PN ---
DATE: 09/25/2018 SUBJECTIVE: The patient is currently seen in ICU bed 4. She remains intubated. She received dialysis yesterday and will receive a second dialysis treatment today. She is not responsive to me. She remains on sedation. MEDICATIONS: Medication list reviewed. The patient is on hydralazine, diltiazem, clonidine, DuoNeb, dobutamine, fentanyl, Levophed, midazolam, Norvasc is on hold, Protonix, Risperdal, sodium bicarbonate, Solu-Medrol, Tylenol p.r.n. OBJECTIVE: INTAKE/OUTPUT: Intake is 1083, output is 50 mL. VITAL SIGNS: Blood pressure 145/60, temperature 97.9, pulse of 79 with an oxygen saturation of 99 and a respiratory rate on the ventilator of 20 beats per minute. HEENT: Exam shows her to be normocephalic, atraumatic. Conjunctivae are pale. Sclerae nonicteric. NECK: No neck vein distention. CHEST: Clear with decreased breath sounds at the bases. No rales, rhonchi, or wheezing audible today. CARDIOVASCULAR: Regular rate and rhythm with a soft systolic murmur in the left lower sternal border. Positive AI/MR. No S3, no S4, no rub. ABDOMEN: Soft. Bowel sounds normal. No rebound, guarding, or masses. EXTREMITIES: No lower extremity cyanosis, clubbing, or edema. LABORATORY DATA AND IMAGING: CBC: White blood cell count from yesterday was 15.5, hemoglobin 9.8, platelet count of 322,000. Chemistries show normal electrolytes. BUN 63 with a creatinine of 3.4. These were yesterday's labs. Calcium of 8.2. Last phosphorus level was 8.8. Magnesium level was 1.6. Liver enzymes are mildly elevated. Albumin is 2.9. Microbiology: Blood cultures are negative. Sputum is positive for yeast. Initial urine was positive for beta-hemolytic strep group B. ASSESSMENT: 1. Acute renal failure superimposed on chronic kidney disease stage 3. Dialysis was initiated for a rising BUN and creatinine and hypervolemia. The patient is currently stable on a ventilator. Her chest x-ray reported to me from this morning still shows congestion. She will be dialyzed again today. There was no evidence for obstructive uropathy. No evidence for acute interstitial nephritis. In all likelihood, the patient had renal failure secondary to acute tubular necrosis. 2. History of metabolic acidosis. CO2 level is 25. 3. Chronic kidney disease stage 3, baseline. 4. History of hypertension. The patient is hypotensive now, remains on Dobutrex and Levophed for blood pressure support. 5. History of anemia. Last hemoglobin was stable at 9.8. The patient may receive iron as per dialysis. 6. History of dementia, stable. 7. Past history of deep venous thrombosis with a recent history of anticoagulation. 8. History of aortic insufficiency and mitral regurgitation. 9. 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 10. History of osteoarthritis of the right shoulder. 11. Isolated episode of hemoptysis. This was secondary to her pneumonia. 12. Possible recurrent pneumonia with bilateral pleural effusions with respiratory failure. The patient is now on a ventilator. PLAN: 1. Discussed with staff in the ICU. A.m. labs are pending. The patient will receive another dialysis treatment today with fluid removal as tolerated. 2. Continue antibiotic therapy under the guidance of Infectious Disease. 3. Avoid all nephrotoxic agents. 4. Continue to monitor accurate I's and O's. Urine output charted for the last 24 hours as well. She remains with an oliguric ATN. 5. We will continue to support the patient with dialysis as necessary. 6. Try and wean the patient off drips. 7. Check for possibility of being able to wean the patient. 8. Greater than 35 minutes spent in the care of this critically ill patient. Roderick Faith MD
--- NOTE | 2018-09-25 15:18 | PN ---
DATE: 09/25/2018 SUBJECTIVE: The patient is 83 years old, seen and examined, remains intubated, currently hypothermic, getting another dialysis today. PHYSICAL EXAMINATION: VITAL SIGNS: Temperature of 97.7, pulse 79, respirations 20, on 100% oxygen, blood pressure 145/60. LUNGS: Bilateral fair airflow. No rhonchi or crackle. HEART: S1, S2 audible. ABDOMEN: Soft, nontender. No rebound, no guarding. NEUROLOGIC: The patient is awake. The patient is sedated, on vent. LABORATORY DATA: WBC is 19.8, hemoglobin 9.8, hematocrit 31.2, platelets of 307. PT 31.6, INR 2.71. Chemistry: Sodium 140, potassium 3.8, chloride 106, CO2 of 28, BUN 45, creatinine 2.6, blood sugar 97. ASSESSMENT: 1. Bilateral pneumonia. 2. Respiratory failure. 3. Kidney failure, on dialysis. 4. History of peripheral vascular disease. 5. History of leg deep venous thrombosis. 6. Hypertension. PLAN: We will continue vent support. She is on intermittent dialysis. She is on meropenem. She is getting nebulizer treatment. She is on Nepro. Prognosis is poor. Family is not willing to make her DNR for now. Torrie Adamson MD
--- NOTE | 2018-09-25 16:37 | PN ---
DATE: 09/25/2018 SUBJECTIVE: The patient is seen early this morning. She remains in the ICU 128, bed 4. She remains intubated on a ventilator. No fevers. PHYSICAL EXAMINATION: VITAL SIGNS: Temperature 97, blood pressure 140/60, respiratory rate on the vent, heart rate 75. HEENT: ET tube in place. NECK: Supple. LUNGS: Decreased breath sounds. HEART: Normal S1, S2. ABDOMEN: Soft, nontender. LABORATORY DATA: Laboratory examination reveals the patient's white count of 19,800. Coagulation is noted and chemistry reveals a BUN 45, creatinine of 2.6. Urinalysis is noted. Serology is noted. Blood cultures are no growth. Sputum culture, yeast. Review of orders reveals the patient to be on doxycycline, meropenem. The patient is also on Solu-Medrol. note is reviewed. ASSESSMENT AND PLAN: This is an 83-year-old female with past medical, hypertension, diabetes, deep venous thrombosis, peripheral vascular disease, mitral and aortic regurgitation, admitted with respiratory failure, intubated on a ventilator with severe sepsis, healthcare-associated pneumonia, acute kidney injury on top of chronic kidney injury, bilateral, pleural effusions. Doxycycline and meropenem day 5. Continue present course. His leukocytosis increased probably secondary to Solu-Medrol use. We will repeat pancultures and procalcitonin. Urbano Herring MD
[2018-09-25] MEDS: Fentanyl 1000mcg/100ml NS 1,000 MCG/100 ML BAG IV PRN (21:30)
[2018-09-26] MEDS: Albuterol-Ipratrop 3 mg / 0.5 (3 ml) UD IH SCH ×4 (01:56→20:20)
[2018-09-26 05:09] LABS: ARTERIAL BLOOD GAS HCO3 29.2 mmol/L (21-28); ARTERIAL BLOOD GAS HEMOGLOBIN 10.6 g/dL (11.7-17.4); ARTERIAL BLOOD GAS O2 CAPACITY 14.7 mL/dl (16-24); ARTERIAL BLOOD GAS O2 CONTENT 14.5 ML/dl (15-23); ARTERIAL BLOOD GAS O2 SAT 98.7 % (95-98); ARTERIAL BLOOD GAS PCO2 44 mm/Hg (35-45); ARTERIAL BLOOD GAS PH 7.43 (7.35-7.45); ARTERIAL BLOOD GAS TCO2 30.6 mmol.L (22-28)
[2018-09-26 08:35] LABS: ARTERIAL BLOOD GAS HCO3 29.2 mmol/L (21-28); ARTERIAL BLOOD GAS HEMOGLOBIN 10.9 g/dL (11.7-17.4); ARTERIAL BLOOD GAS O2 CAPACITY 15.1 mL/dl (16-24); ARTERIAL BLOOD GAS O2 CONTENT 14.9 ML/dl (15-23); ARTERIAL BLOOD GAS O2 SAT 98.5 % (95-98); ARTERIAL BLOOD GAS PCO2 45 mm/Hg (35-45); ARTERIAL BLOOD GAS PH 7.42 (7.35-7.45); ARTERIAL BLOOD GAS TCO2 30.6 mmol.L (22-28)
[2018-09-26] MEDS: Prostat 15 g packet GT SCH (10:00)
[2018-09-26] MEDS: MethylPREDNISolone 40 mg Vial IVP SCH ×2 (10:08→21:05)
--- NOTE | 2018-09-26 10:53 | RAD ---
Date of service: 09/26/2018 HISTORY: Follow-up. COMPARISON: Multiple serial examinations preceding the most recent study: September 25, 2018. 04:54. FINDINGS: LUNGS: Progressive consolidative changes likely compressive atelectasis bilaterally PLEURA: Right and left pleural effusion inseparable from adjacent consolidative change. CARDIOVASCULAR: Atherosclerotic calcifications identified primarily aortic arch. Venous access catheter in stable, satisfactory position. OSSEOUS STRUCTURES: No significant abnormalities. VISUALIZED UPPER ABDOMEN: Normal. OTHER FINDINGS: Stable, satisfactory position ventilatory, nasogastric apparatus. IMPRESSION: Progressive bilateral infiltrates/effusions.
[2018-09-26 11:04] LABS: ALB/GLOB RATIO 0.9 (1.1-1.8); ALBUMIN 2.8 g/dL (3.0-4.8); CALCIUM 8.4 mg/dL (8.4-10.5)
[2018-09-26 11:11] LABS: BASO # 0.02 K/mm3 (0.0-2.0); BASO % 0.1 % (0.0-3.0); HEMOGLOBIN 10.6 g/dL (12.0-16.0); LYMPH # 0.6 (1.2-3.4); LYMPH % 2.8 % (22.0-35.0); MEAN CELL VOLUME 89.3 fl (80.0-105.0); MEAN CORPUSCULAR HEMOGLOBIN 28.3 pg (25.0-35.0); MEAN CORPUSCULAR HGB CONC 31.6 g/dl (31.0-37.0); MEAN PLATELET VOLUME 9.8 fl (7.0-11.0); MONO # 0.3 (0.1-0.6); MONO % 1.2 % (1.0-6.0); PLATELET COUNT 324 10^3/uL (120.0-450.0); RBC 3.75 10^6/uL (3.5-6.1); RED CELL DISTRIBUTION WIDTH 14.8 % (11.5-14.5); WHITE BLOOD COUNT 21.1 10^3/uL (4.5-11.0)
[2018-09-26 11:45] LABS: BAND 2 % (0-2); LYMPHOCYTE 2 % (22.0-35.0); MONOCYTE 1 % (1.0-6.0); NEUTROPHIL 95 % (50.0-70.0)
[2018-09-26 11:46] LABS: ANISOCYTOSIS 1+; HYPOCHROMIA 1+; PLATELET ESTIMATE NORMAL (NORMAL)
--- NOTE | 2018-09-26 11:47 | PN ---
DATE: 09/26/2018(700am-750am) SUBJECTIVE: The patient remains on the ventilator. She remains sedated. PHYSICAL EXAMINATION: VITAL SIGNS: Temperature is 98.1, pulse 69, respiratory rate 22/20, blood pressure 145/89. HEENT: Normocephalic, atraumatic. No JVD. CARDIOVASCULAR: Systolic ejection murmur at the lower left sternal border. No S3 gallop. LUNGS: Decreased breath sounds at the bases with crackles. Minimal/less rhonchi. No wheezing. EXTREMITIES: Mild edema. No cyanosis, no clubbing. GASTROINTESTINAL: Abdomen is soft, nondistended. Bowel sounds are positive. SKIN: No acute rash. NEUROLOGIC: Exam limited at the present time. PERTINENT LABORATORY DATA: Chest x-ray was done this morning and reviewed. There appears to be a mild increase in pulmonary vascular congestion bilaterally. Official results are pending. Arterial blood gas was done on PRVC 20, tidal volume 350, FIO2 of 35%, PEEP of 5. Results are: PH 7.43, pCO2 of 44, pO2 of 112. IMPRESSION: 1. Respiratory failure. 2. Bilateral pneumonia. 3. Bilateral pleural effusions. 4. Acute on chronic renal failure. 5. Severe anemia. 6. Rule out congestive heart failure. PLAN: The patient remains on the ventilator. She remains sedated. I did discuss the case with the night nurse at length. The night nurse stated the patient had an uneventful night. I did review the chest x-ray as above. Findings are noted. Official results are pending. I have also reviewed the arterial blood gas. The arterial blood gas continues to improve--maintaining a normal pH, and with a significant decrease in the alveolar-arterial gradient. I did discuss the case with the respiratory therapist earlier this morning. Weaning trials will be done this morning. On physical exam, there is no significant bronchospasm noted. I will continue the current nebulizer treatments and low-dose intravenous steroids for now. The patient also remains on antibiotic therapy. Input by Dr. Herring is noted. There are no temperatures noted. However, there is a worsening leukocytosis. Inputs by Cardiology and Renal are also noted. Clinical status of the patient does appear improved - compared to last week. However, given the above, the future status/prognosis for this patient remains guarded. I will discuss the above with the entire ICU team in the next few moments. I will also discuss the above with the attending physician later this morning. Charles Roland MD [facility]
--- NOTE | 2018-09-26 12:08 | PN ---
DATE: 09/26/2018 SUBJECTIVE: The patient is in the ICU, bed 2. The patient is now extubated, was seen earlier today being extubated. She is awake. She is alert. She has no fevers, no chills. No nausea. PHYSICAL EXAMINATION: VITAL SIGNS: Temperature is 97, blood pressure is 180/80, respiratory rate of 18, heart rate of 75. HEENT: Unremarkable. NECK: Supple. LUNGS: Decreased breath sounds. HEART: Normal, S1, S2. ABDOMEN: Soft, nontender. No organomegaly. No rebound or guarding. No masses. LABORATORY DATA: Examination reveals The patient's white count of 19,800, hemoglobin of 9, platelets of 307. Chemistries reveal BUN of 45, creatinine of 2.6. The patient's last procalcitonin was 4.98, it has come down from 117. Urinalysis is noted and immunology is noted. Serology is reviewed. Microbiology reveals the blood cultures are negative. MRSA screen is not detected. Urine Legionella antigen is negative. Sputum culture is pending. Blood cultures, no growth. ASSESSMENT AND PLAN: An 83-year-old female with diabetes, hypertension, deep venous thrombosis, peripheral vascular disease, mitral regurgitation and aortic regurgitation, admitted with respiratory failure and intubated, severe sepsis, healthcare-associated pneumonia, acute kidney injury on top of chronic kidney injury, currently is day #6 of doxycycline and meropenem with negative blood cultures, negative nasal methicillin-resistant Staphylococcus aureus screen. We will discontinue the doxycycline, complete four to seven days of meropenem, today is day #6. We will also order a procalcitonin to trend it. The patient does have leukocytosis, repeat cultures negative. The patient is also on steroids. Urbano Herring MD
[2018-09-26] MEDS ORDERED: Labetalol 5mg/ml (4ml) IVP ONE (13:36)
--- NOTE | 2018-09-26 13:43 | RAD ---
Date of service: 09/26/2018 HISTORY: Nasogastric tube placement COMPARISON: Multiple serial examinations preceding the most recent study: September 26, 2018 06:08. FINDINGS: LUNGS: Interval improvement in bilateral infiltrates. PLEURA: Persistent bilateral pleural effusions. CARDIOVASCULAR: Atherosclerotic calcification and mural plaque present. Findings are seen throughout the aorta Venous access catheter in stable, satisfactory position. No significant interval change compared to the prior examination(s). OSSEOUS STRUCTURES: No significant abnormalities. VISUALIZED UPPER ABDOMEN: Normal. OTHER FINDINGS: Nasogastric tube replaces previously identified feeding tube. Removal patient has been extubated in the interim. IMPRESSION: Satisfactory position of recently placed nasogastric tube. Improved bilateral infiltrates.
--- NOTE | 2018-09-26 13:49 | PN ---
DATE: 09/26/2018 SUBJECTIVE: The patient is currently seen having been extubated earlier today. She is on ICU bed 4. She received a successful dialysis yesterday with ultrafiltration of 1.5 liters of fluid. This is allowed her to be extubated earlier this morning. The patient is not sedated any longer. She remains on NG tube feedings with Nepro at 30 mL an hour. She is unfortunately making negligible urine. She will not need dialysis today, but quite possibly might need dialysis tomorrow if her volume status worsens. MEDICATIONS: Medication list reviewed. The patient is on hydralazine, Cardizem, Catapres, DuoNeb, Ecotrin, IV iron, meropenem, Norvasc, Pro-Stat, Protonix, Risperdal, sodium bicarbonate, Solu-Medrol, Tylenol p.r.n. OBJECTIVE: INTAKE/OUTPUT: Intake is 715 mL, output is 200 mL of urine yesterday with 1500 mL removed with dialysis. VITAL SIGNS: Present blood pressure is 149 of 80, temperature is 97.3, pulse is 70 with a respiratory rate of 16. Her pulse ox is 96% on an FIO2 of 35% with a face mask. HEENT: Shows her be normocephalic, atraumatic. The patient has a NG tube in place. Conjunctivae remain pale. Sclerae are nonicteric. NECK: Supple with no neck vein distention. CHEST: Clear with decreased breath sounds at the bases. No rales, rhonchi or wheezing. CARDIOVASCULAR: Shows a regular rate and rhythm with soft systolic murmur left lower sternal border. Positive AI/MR. No S3, no S4, no rub. ABDOMEN: Soft. Bowel sounds normal. No rebound, guarding, or masses. EXTREMITIES: Show no lower extremity cyanosis, clubbing, or edema. LABORATORY DATA AND IMAGING STUDIES: CBC; white blood cell count today 19.8, hemoglobin is 9.8 with a platelet count of 307,000. This is a significant rise in her white blood cell count. Blood gas today pH is 7.43 with a pO2 of 112 and a pCO2 of 44 with a bicarbonate level of 29. Chemistry showed normal electrolytes. BUN 45 with a creatinine of 2.6. This is a significant improvement with two dialysis treatments. Last calcium 8.3, phosphorus 3.5 with a magnesium level of 1.7. Microbiology sputum culture was positive for yeast. Urine cultures early in September were positive for beta hemolytic strep group B. ASSESSMENT: 1. Acute renal failure superimposed on chronic kidney disease stage III, currently the patient is oligo-anuric, requiring dialysis. With dialysis, we were able to wean her off the ventilator. She appears to be stable. Today's chest x-ray is pending but yesterday's chest x-ray showed improvement in her pulmonary vascular congestion. Again there is no evidence for obstructive uropathy. No evidence for acute interstitial nephritis nor likelihood, the patient has acute tubular necrosis in the setting of sepsis and hypotension. 2. History of metabolic acidosis. With dialysis her CO2 level has now normalized to 28. I will discontinue oral sodium bicarbonate supplements. 3. History of hypertension. Patient remains normotensive. At present she is off all pressor support. She is off all inotropic agents at this point in time. 4. History of anemia. Hemoglobin remains stable at 9.8. 5. Elevated white blood cell count noted. Perhaps secondary to steroids. The patient continues on meropenem. 6. History of dementia, stable. 7. History of deep venous thrombosis with a recent history of anticoagulation. 8. History of aortic insufficiency, mitral regurgitation, stable. 9. 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 10. Osteoarthritis of the shoulder, not an issue at present time. 11. Isolated episode of hemoptysis this was felt to be secondary to pneumonia. Workup for vasculitis was entirely negative. 12. Likely recurrent pneumonia with bilateral pleural effusions. The patient remains on IV antibiotic therapy and is being followed closely by Pulmonary and by Infectious Disease. PLAN: 1. Continue tube feedings with Nepro. 2. Continue IV antibiotic therapy with close monitoring of her pulmonary status. 3. Avoid all nephrotoxic agents as there is a small possibility that the patient could have an improvement in her urine output and return of renal function back to her baseline. 4. As long as the patient remains in oligo-anuric ATN, she will require dialysis three to four times a week. 5. Discussed with ICU staff in detail. 6. We will decide on dialysis tomorrow based on her fluid status in the morning and an urine output that takes place today. 7. Greater than 35 minutes spent in the care of this patient. Roderick Faith MD [facility] # [id number]
--- NOTE | 2018-09-26 14:04 | CP.CCUPN ---
<Facundo Moeller - Last Filed: 09/26/18 14:05> CCU Subjective - Physician Review Subjective (Free Text): Facundo Moeller DO, PGY-2: ICU Progress Note Patient seen and examined at bedside. Patient extubated. NGT placed to remove GI contents. Patient transitioned to NC and saturating 100%. She offers no complaints. 09/26/18 14:02 CCU Objective - Vital Signs / Intake & Output Vital Signs (Last 4 hours): Vital Signs BP 09/26/18 10:08 149/80 Intake and Output (Last 8hrs): Intake & Output 09/25/18 09/26/18 09/26/18 22:59 06:59 14:59 Intake Total 555 Output Total 200 Balance 355 Weight 94 lb 94 lb Intake: IV 75 fentanyl 75 Tube Feeding 360 Other 120 Output: Urine 200 Urine, Voided 200 Other: # Bowel Movements 0 - Physical Exam Head: Positive for: Atraumatic, Normocephalic Pupils: Positive for: PERRL Extroacular Muscles: Positive for: EOMI Conjunctiva: Positive for: Normal Mouth: Positive for: Moist Mucous Membranes Neck: Positive for: Normal Range of Motion Respiratory/Chest: Positive for: Clear to Auscultation, Good Air Exchange, Wheezes. Negative for: Respiratory Distress, Accessory Muscle Use Cardiovascular: Positive for: Regular Rate and Rhythm, Normal S1, S2. Negative for: Murmurs Abdomen: Positive for: Normal Bowel Sounds. Negative for: Tenderness, Distention, Peritoneal Signs Back: Positive for: Normal Inspection Upper Extremity: Positive for: Other (RUE is neurovascularly intact however there is significant tenderness to palpation in the area of the R scapular spine , no tenderness noted over the humeral head, ACTIVE AND PASSIVE ROM is signifcantly reduced by pain). Negative for: Normal ROM Lower Extremity: Positive for: Normal Inspection. Negative for: Edema Neurological: Positive for: GCS=15, CN II-XII Intact, Speech Normal Skin: Positive for: Warm, Dry, Normal Color. Negative for: Rashes Psychiatric: Positive for: Alert, Oriented x 3, Normal Insight, Normal Concentration - Medications Active Medications: Active Medications Generic Name Dose Route Start Last Admin Trade Name Freq PRN Reason Stop Dose Admin Acetaminophen 650 mg 09/12/18 05:16 09/18/18 22:04 Tylenol 325mg Tab PO 650 mg Q6H PRN Administration Pain, moderate (4-7) Acetaminophen 650 mg 09/21/18 12:17 09/21/18 12:38 Tylenol 325mg Tab PO 650 mg Q4H PRN Administration Fever >100.4 F Albuterol/Ipratropium 3 ml 09/22/18 08:00 09/26/18 13:14 Duoneb 3 Mg/0.5 Mg (3 Ml) Ud IH 3 ml [id number] JESUS Administration Amino Acid Protein 15 gm 09/25/18 10:00 09/25/18 12:35 Prostat 15 G Packet GT 15 gm DAILY JESUS Administration Amlodipine Besylate 10 mg 09/12/18 08:28 09/26/18 10:08 Norvasc PO 10 mg DAILY JESUS Administration Aspirin 81 mg 09/17/18 10:00 09/26/18 10:09 Ecotrin PO 81 mg DAILY JESUS Administration Clonidine HCl 0.1 mg 09/12/18 08:28 09/25/18 06:36 Catapres PO 0.1 mg QID PRN Administration SBP above 150 Clonidine HCl 1 patch 09/22/18 10:15 Catapres-Tts2 0.2 Mg/24 Hr TD Q7D@1000 JESUS Diltiazem HCl 60 mg 09/25/18 12:00 09/26/18 05:05 Cardizem PO 60 mg Q6 JESUS Administration Heparin Sodium (Porcine) 5,000 units 09/26/18 11:30 Heparin SC Q8H JESUS Protocol Hydralazine HCl 75 mg 09/19/18 15:00 09/26/18 05:04 Apresoline PO 75 mg Q8 JESUS Administration Iron Sucrose 100 mg/ Sodium 105 mls @ 210 mls/hr 09/19/18 10:00 09/26/18 10:09 Chloride IVPB 09/28/18 10:29 210 mls/hr DAILY JESUS Administration Meropenem 250 mg/ Sodium 100 mls @ 100 mls/hr 09/22/18 10:00 09/26/18 10:09 Chloride IVPB 09/28/18 22:01 100 mls/hr Q12H JESUS Administration Protocol Methylprednisolone 20 mg 09/22/18 09:15 09/26/18 10:08 Solu-Medrol IVP 20 mg Q12H JESUS Administration Ondansetron HCl 4 mg 09/26/18 10:46 Zofran Inj IVP Q4H PRN Nausea/Vomiting Pantoprazole Sodium 40 mg 09/24/18 10:00 09/26/18 10:09 Protonix Inj IVP 40 mg DAILY JESUS Administration Risperidone 0.25 mg 09/20/18 21:40 09/25/18 10:41 Risperdal Tab PO 0.25 mg DAILY PRN Administration Other Protocol - Patient Studies Lab Studies: Microbiology Studies 09/24/18 13:00 Blood Culture - Preliminary Blood NO GROWTH AFTER 48 HOURS 09/24/18 12:45 Blood Culture - Preliminary Blood NO GROWTH AFTER 48 HOURS 09/25/18 10:29 Urine Culture - Final Urine Random No Growth (<1,000 CFU/ML) 09/25/18 10:45 Gram Stain - Final Sputum Lab Studies 09/26/18 09/26/18 09/26/18 Range/Units 10:45 10:45 07:37 WBC 21.1 H (4.5-11.0) 10^3/uL RBC 3.75 (3.5-6.1) 10^6/uL Hgb 10.6 L (12.0-16.0) g/dL Hct 33.5 L (36.0-48.0) % MCV 89.3 (80.0-105.0) fl MCH 28.3 (25.0-35.0) pg MCHC 31.6 (31.0-37.0) g/dl RDW 14.8 H (11.5-14.5) % Plt Count 324 (120.0-450.0) 10^3/uL MPV 9.8 (7.0-11.0) fl Neut % (Auto) 95.9 H (50.0-68.0) % Lymph % (Auto) 2.8 L (22.0-35.0) % [place] % (Auto) 1.2 (1.0-6.0) % Eos % (Auto) 0.0 L (1.5-5.0) % Baso % (Auto) 0.1 (0.0-3.0) % Lymph # (Auto) 0.6 L (1.2-3.4) [place] # (Auto) 0.3 (0.1-0.6) Eos # (Auto) 0.0 (0.0-0.7) Baso # (Auto) 0.02 (0.0-2.0) K/mm3 Absolute Neuts (auto) 20.23 H (1.4-6.5) Neutrophils % (Manual) 95 H (50.0-70.0) % Band Neutrophils % 2 (0-2) % Lymphocytes % (Manual) 2 L (22.0-35.0) % Monocytes % (Manual) 1 (1.0-6.0) % Platelet Evaluation Normal (NORMAL) Hypochromasia 1+ Anisocytosis (manual) 1+ pCO2 (35-45) mm/Hg pO2 (80-100) mm/Hg HCO3 (21-28) mmol/L ABG pH (7.35-7.45) ABG Total CO2 (22-28) mmol.L ABG O2 Saturation (95-98) % ABG O2 Content (15-23) ML/dl ABG Base Excess (-2.0-3.0) mmol/L ABG Hemoglobin (11.7-17.4) g/dL ABG Carboxyhemoglobin (0.5-1.5) % POC ABG HHb (Measured) (0-5) % ABG Methemoglobin (0.0-3.0) % ABG O2 Capacity (16-24) mL/dl Hgb O2 Saturation (95.0-98.0) % FiO2 % Sodium 136 (132-148) mmol/L Potassium 4.0 (3.6-5.0) mmol/L Chloride 97 L (98-107) mmol/L Carbon Dioxide 30 (21-33) mmol/L Anion Gap 13 (10-20) BUN 41 H (7-21) mg/dL Creatinine 2.0 H (0.7-1.2) mg/dl Est GFR ( Amer) 29 Est GFR (Non-Af Amer) 24 POC Glucose (mg/dL) 112 H (65-110) mg/dL Random Glucose 103 (70-110) mg/dL Calcium 8.4 (8.4-10.5) mg/dL Phosphorus 3.2 (2.5-4.5) mg/dL Magnesium 1.7 (1.7-2.2) mg/dL Total Bilirubin 0.4 (0.2-1.3) mg/dL AST 28 (14-36) U/L ALT 36 (7-56) U/L Alkaline Phosphatase 75 (38-126) U/L Total Protein 5.8 (5.8-8.3) g/dL Albumin 2.8 L (3.0-4.8) g/dL Globulin 3.0 gm/dL Albumin/Globulin Ratio 0.9 L (1.1-1.8) Crossmatch 09/26/18 09/25/18 09/25/18 Range/Units 04:50 23:44 17:06 WBC (4.5-11.0) 10^3/uL RBC (3.5-6.1) 10^6/uL Hgb (12.0-16.0) g/dL Hct (36.0-48.0) % MCV (80.0-105.0) fl MCH (25.0-35.0) pg MCHC (31.0-37.0) g/dl RDW (11.5-14.5) % Plt Count (120.0-450.0) 10^3/uL MPV (7.0-11.0) fl Neut % (Auto) (50.0-68.0) % Lymph % (Auto) (22.0-35.0) % [place] % (Auto) (1.0-6.0) % Eos % (Auto) (1.5-5.0) % Baso % (Auto) (0.0-3.0) % Lymph # (Auto) (1.2-3.4) [place] # (Auto) (0.1-0.6) Eos # (Auto) (0.0-0.7) Baso # (Auto) (0.0-2.0) K/mm3 Absolute Neuts (auto) (1.4-6.5) Neutrophils % (Manual) (50.0-70.0) % Band Neutrophils % (0-2) % Lymphocytes % (Manual) (22.0-35.0) % Monocytes % (Manual) (1.0-6.0) % Platelet Evaluation (NORMAL) Hypochromasia Anisocytosis (manual) pCO2 44 (35-45) mm/Hg pO2 112.0 H (80-100) mm/Hg HCO3 29.2 H (21-28) mmol/L ABG pH 7.43 (7.35-7.45) ABG Total CO2 30.6 H (22-28) mmol.L ABG O2 Saturation 98.7 H (95-98) % ABG O2 Content 14.5 L (15-23) ML/dl ABG Base Excess 4.3 H (-2.0-3.0) mmol/L ABG Hemoglobin 10.6 L (11.7-17.4) g/dL ABG Carboxyhemoglobin 1.6 H (0.5-1.5) % POC ABG HHb (Measured) 1.3 (0-5) % ABG Methemoglobin 0.9 (0.0-3.0) % ABG O2 Capacity 14.7 L (16-24) mL/dl Hgb O2 Saturation 96.2 (95.0-98.0) % FiO2 35.0 % Sodium (132-148) mmol/L Potassium (3.6-5.0) mmol/L Chloride (98-107) mmol/L Carbon Dioxide (21-33) mmol/L Anion Gap (10-20) BUN (7-21) mg/dL Creatinine (0.7-1.2) mg/dl Est GFR ( Amer) Est GFR (Non-Af Amer) POC Glucose (mg/dL) 117 H 140 H (65-110) mg/dL Random Glucose (70-110) mg/dL Calcium (8.4-10.5) mg/dL Phosphorus (2.5-4.5) mg/dL Magnesium (1.7-2.2) mg/dL Total Bilirubin (0.2-1.3) mg/dL AST (14-36) U/L ALT (7-56) U/L Alkaline Phosphatase (38-126) U/L Total Protein (5.8-8.3) g/dL Albumin (3.0-4.8) g/dL Globulin gm/dL Albumin/Globulin Ratio (1.1-1.8) Crossmatch 09/25/18 09/22/18 Range/Units 08:32 13:25 WBC (4.5-11.0) 10^3/uL RBC (3.5-6.1) 10^6/uL Hgb (12.0-16.0) g/dL Hct (36.0-48.0) % MCV (80.0-105.0) fl MCH (25.0-35.0) pg MCHC (31.0-37.0) g/dl RDW (11.5-14.5) % Plt Count (120.0-450.0) 10^3/uL MPV (7.0-11.0) fl Neut % (Auto) (50.0-68.0) % Lymph % (Auto) (22.0-35.0) % [place] % (Auto) (1.0-6.0) % Eos % (Auto) (1.5-5.0) % Baso % (Auto) (0.0-3.0) % Lymph # (Auto) (1.2-3.4) [place] # (Auto) (0.1-0.6) Eos # (Auto) (0.0-0.7) Baso # (Auto) (0.0-2.0) K/mm3 Absolute Neuts (auto) (1.4-6.5) Neutrophils % (Manual) (50.0-70.0) % Band Neutrophils % (0-2) % Lymphocytes % (Manual) (22.0-35.0) % Monocytes % (Manual) (1.0-6.0) % Platelet Evaluation (NORMAL) Hypochromasia Anisocytosis (manual) pCO2 45 (35-45) mm/Hg pO2 122.0 H (80-100) mm/Hg HCO3 29.2 H (21-28) mmol/L ABG pH 7.42 (7.35-7.45) ABG Total CO2 30.6 H (22-28) mmol.L ABG O2 Saturation 98.5 H (95-98) % ABG O2 Content 14.9 L (15-23) ML/dl ABG Base Excess 4.1 H (-2.0-3.0) mmol/L ABG Hemoglobin 10.9 L (11.7-17.4) g/dL ABG Carboxyhemoglobin 1.5 (0.5-1.5) % POC ABG HHb (Measured) 1.5 (0-5) % ABG Methemoglobin 1.1 (0.0-3.0) % ABG O2 Capacity 15.1 L (16-24) mL/dl Hgb O2 Saturation 95.9 (95.0-98.0) % FiO2 35.0 % Sodium (132-148) mmol/L Potassium (3.6-5.0) mmol/L Chloride (98-107) mmol/L Carbon Dioxide (21-33) mmol/L Anion Gap (10-20) BUN (7-21) mg/dL Creatinine (0.7-1.2) mg/dl Est GFR ( Amer) Est GFR (Non-Af Amer) POC Glucose (mg/dL) (65-110) mg/dL Random Glucose (70-110) mg/dL Calcium (8.4-10.5) mg/dL Phosphorus (2.5-4.5) mg/dL Magnesium (1.7-2.2) mg/dL Total Bilirubin (0.2-1.3) mg/dL AST (14-36) U/L ALT (7-56) U/L Alkaline Phosphatase (38-126) U/L Total Protein (5.8-8.3) g/dL Albumin (3.0-4.8) g/dL Globulin gm/dL Albumin/Globulin Ratio (1.1-1.8) Crossmatch See Detail Laboratory Results - last 24 hr 09/22/18 09/25/18 09/25/18 13:25 08:32 17:06 WBC RBC Hgb Hct MCV MCH MCHC RDW Plt Count MPV Neut % (Auto) Lymph % (Auto) [place] % (Auto) Eos % (Auto) Baso % (Auto) Lymph # (Auto) [place] # (Auto) Eos # (Auto) Baso # (Auto) Absolute Neuts (auto) Neutrophils % (Manual) Band Neutrophils % Lymphocytes % (Manual) Monocytes % (Manual) Platelet Evaluation Hypochromasia Anisocytosis (manual) pCO2 45 pO2 122.0 H HCO3 29.2 H ABG pH 7.42 ABG Total CO2 30.6 H ABG O2 Saturation 98.5 H ABG O2 Content 14.9 L ABG Base Excess 4.1 H ABG Hemoglobin 10.9 L ABG Carboxyhemoglobin 1.5 POC ABG HHb (Measured) 1.5 ABG Methemoglobin 1.1 ABG O2 Capacity 15.1 L Hgb O2 Saturation 95.9 FiO2 35.0 Sodium Potassium Chloride Carbon Dioxide Anion Gap BUN Creatinine Est GFR ( Amer) Est GFR (Non-Af Amer) POC Glucose (mg/dL) 140 H Random Glucose Calcium Phosphorus Magnesium Total Bilirubin AST ALT Alkaline Phosphatase Total Protein Albumin Globulin Albumin/Globulin Ratio Crossmatch See Detail 09/25/18 09/26/18 09/26/18 23:44 04:50 07:37 WBC RBC Hgb Hct MCV MCH MCHC RDW Plt Count MPV Neut % (Auto) Lymph % (Auto) [place] % (Auto) Eos % (Auto) Baso % (Auto) Lymph # (Auto) [place] # (Auto) Eos # (Auto) Baso # (Auto) Absolute Neuts (auto) Neutrophils % (Manual) Band Neutrophils % Lymphocytes % (Manual) Monocytes % (Manual) Platelet Evaluation Hypochromasia Anisocytosis (manual) pCO2 44 pO2 112.0 H HCO3 29.2 H ABG pH 7.43 ABG Total CO2 30.6 H ABG O2 Saturation 98.7 H ABG O2 Content 14.5 L ABG Base Excess 4.3 H ABG Hemoglobin 10.6 L ABG Carboxyhemoglobin 1.6 H POC ABG HHb (Measured) 1.3 ABG Methemoglobin 0.9 ABG O2 Capacity 14.7 L Hgb O2 Saturation 96.2 FiO2 35.0 Sodium Potassium Chloride Carbon Dioxide Anion Gap BUN Creatinine Est GFR ( Amer) Est GFR (Non-Af Amer) POC Glucose (mg/dL) 117 H 112 H Random Glucose Calcium Phosphorus Magnesium Total Bilirubin AST ALT Alkaline Phosphatase Total Protein Albumin Globulin Albumin/Globulin Ratio Crossmatch 09/26/18 09/26/18 10:45 10:45 WBC 21.1 H RBC 3.75 Hgb 10.6 L Hct 33.5 L MCV 89.3 MCH 28.3 MCHC 31.6 RDW 14.8 H Plt Count 324 MPV 9.8 Neut % (Auto) 95.9 H Lymph % (Auto) 2.8 L [place] % (Auto) 1.2 Eos % (Auto) 0.0 L Baso % (Auto) 0.1 Lymph # (Auto) 0.6 L [place] # (Auto) 0.3 Eos # (Auto) 0.0 Baso # (Auto) 0.02 Absolute Neuts (auto) 20.23 H Neutrophils % (Manual) 95 H Band Neutrophils % 2 Lymphocytes % (Manual) 2 L Monocytes % (Manual) 1 Platelet Evaluation Normal Hypochromasia 1+ Anisocytosis (manual) 1+ pCO2 pO2 HCO3 ABG pH ABG Total CO2 ABG O2 Saturation ABG O2 Content ABG Base Excess ABG Hemoglobin ABG Carboxyhemoglobin POC ABG HHb (Measured) ABG Methemoglobin ABG O2 Capacity Hgb O2 Saturation FiO2 Sodium 136 Potassium 4.0 Chloride 97 L Carbon Dioxide 30 Anion Gap 13 BUN 41 H Creatinine 2.0 H Est GFR ( Amer) 29 Est GFR (Non-Af Amer) 24 POC Glucose (mg/dL) Random Glucose 103 Calcium 8.4 Phosphorus 3.2 Magnesium 1.7 Total Bilirubin 0.4 AST 28 ALT 36 Alkaline Phosphatase 75 Total Protein 5.8 Albumin 2.8 L Globulin 3.0 Albumin/Globulin Ratio 0.9 L Crossmatch Radiology Impressions: Radiology Impressions Chest X-Ray 09/26/18 06:00 IMPRESSION: Progressive bilateral infiltrates/effusions. Chest X-Ray 09/26/18 11:03 IMPRESSION: Satisfactory position of recently placed nasogastric tube. Improved bilateral infiltrates. Fingerstick Blood Sugar Results: 100 Assessment/Plan - Assessment and Plan (Free Text) Assessment: Pt is am 83 yo female with a PMH of DVT, HTN, HLD, CKD, dementia who presented to the emergency department after a fall and injuring her right shoulder, and who was later transferred to the ICU because of worsening SOB and was intubated for hypoxemic respiratory failure in the setting of multilobar pneumonia. She was extubated today and is on 2-3L of NC with an oxygen saturation of 100%. Plan: Neuro - fentanyl discontinued [place] - Maintain MAP >65 - BNP 28746 - ECHO LVH, EF 60-65%, RVSP 42 Pulm - Multilobar pneumonia; improved with antibiotics with chest X-ray showing improvement in bilateral infiltrates - Maintain O2 sat >92 - CXR shows interval improvement in pneumonia, some residual pulmonary congestion - Coco - Pulm consulted, Dr Roland - IR consulted for possible thoracentesis, but may not be needed anymore GI - continue to monitor - FOBT positive 09/16/18 - GI ppx, pantoprazole - NGT inserted to remove gastric contents Heme - monitor H/H - Hgb 9.8 - INR 4.28 - D dimer 783 - LEUS: no radiographic signs of DVT - venofer for iron def Nephro - BREANA on CKD s/p 2 session of HD; still oliguric - continue to monitor electrolytes - renal US simple cysts Endo - maintain euglycemia ID - WBC 21 - BL PNA continue merropenem as per ID Disposition: extubated, will monitor closely in the ICU at this time Pt seen, examined, assessment and plan discussed with Dr Leroy Martell <Leroy Martell - Last Filed: 09/26/18 17:55> CCU Objective - Vital Signs / Intake & Output Vital Signs (Last 4 hours): Vital Signs Pulse 09/26/18 14:00 67 Intake and Output (Last 8hrs): Intake & Output 09/26/18 09/26/18 09/26/18 06:59 14:59 22:59 Weight 42.638 kg 42.638 kg - Medications Active Medications: Active Medications Generic Name Dose Route Start Last Admin Trade Name Freq PRN Reason Stop Dose Admin Acetaminophen 650 mg 09/12/18 05:16 09/18/18 22:04 Tylenol 325mg Tab PO 650 mg Q6H PRN Administration Pain, moderate (4-7) Acetaminophen 650 mg 09/21/18 12:17 09/21/18 12:38 Tylenol 325mg Tab PO 650 mg Q4H PRN Administration Fever >100.4 F Albuterol/Ipratropium 3 ml 09/22/18 08:00 09/26/18 13:14 Duoneb 3 Mg/0.5 Mg (3 Ml) Ud IH 3 ml [id number] JESUS Administration Amino Acid Protein 15 gm 09/25/18 10:00 09/26/18 10:00 Prostat 15 G Packet GT 15 gm DAILY JESUS Administration Amlodipine Besylate 10 mg 09/12/18 08:28 09/26/18 10:08 Norvasc PO 10 mg DAILY JESUS Administration Aspirin 81 mg 09/17/18 10:00 09/26/18 10:09 Ecotrin PO 81 mg DAILY JESUS Administration Clonidine HCl 0.1 mg 09/12/18 08:28 09/25/18 06:36 Catapres PO 0.1 mg QID PRN Administration SBP above 150 Clonidine HCl 1 patch 09/22/18 10:15 Catapres-Tts2 0.2 Mg/24 Hr TD Q7D@1000 JESUS Diltiazem HCl 60 mg 09/25/18 12:00 09/26/18 14:06 Cardizem PO Not Given Q6 JESUS Heparin Sodium (Porcine) 5,000 units 09/26/18 11:30 09/26/18 15:02 Heparin SC 5,000 units Q8H JESUS Administration Protocol Hydralazine HCl 75 mg 09/19/18 15:00 09/26/18 14:06 Apresoline PO Not Given Q8 JESUS Iron Sucrose 100 mg/ Sodium 105 mls @ 210 mls/hr 09/19/18 10:00 09/26/18 10:09 Chloride IVPB 09/28/18 10:29 210 mls/hr DAILY JESUS Administration Meropenem 250 mg/ Sodium 100 mls @ 100 mls/hr 09/22/18 10:00 09/26/18 10:09 Chloride IVPB 09/28/18 22:01 100 mls/hr Q12H JESUS Administration Protocol Nicardipine HCl 20 mg in 200 mls @ 50 mls/hr 09/26/18 16:50 09/26/18 16:59 Cardene Iv Premix IV 5 mg/hr .Q4H PRN 50 mls/hr TITRATE PER MD ORDER Administration Protocol 5 MG/HR Methylprednisolone 20 mg 09/22/18 09:15 09/26/18 10:08 Solu-Medrol IVP 20 mg Q12H JESUS Administration Ondansetron HCl 4 mg 09/26/18 10:46 09/26/18 17:00 Zofran Inj IVP 4 mg Q4H PRN Administration Nausea/Vomiting Pantoprazole Sodium 40 mg 09/24/18 10:00 09/26/18 10:09 Protonix Inj IVP 40 mg DAILY JESUS Administration Risperidone 0.25 mg 09/20/18 21:40 09/25/18 10:41 Risperdal Tab PO 0.25 mg DAILY PRN Administration Other Protocol - Patient Studies Lab Studies: Microbiology Studies 09/24/18 13:00 Blood Culture - Preliminary Blood NO GROWTH AFTER 48 HOURS 09/24/18 12:45 Blood Culture - Preliminary Blood NO GROWTH AFTER 48 HOURS 09/25/18 10:29 Urine Culture - Final Urine Random No Growth (<1,000 CFU/ML) 09/25/18 10:45 Gram Stain - Final Sputum Lab Studies 09/26/18 09/26/18 09/26/18 Range/Units 11:53 10:45 10:45 WBC 21.1 H (4.5-11.0) 10^3/uL RBC 3.75 (3.5-6.1) 10^6/uL Hgb 10.6 L (12.0-16.0) g/dL Hct 33.5 L (36.0-48.0) % MCV 89.3 (80.0-105.0) fl MCH 28.3 (25.0-35.0) pg MCHC 31.6 (31.0-37.0) g/dl RDW 14.8 H (11.5-14.5) % Plt Count 324 (120.0-450.0) 10^3/uL MPV 9.8 (7.0-11.0) fl Neut % (Auto) 95.9 H (50.0-68.0) % Lymph % (Auto) 2.8 L (22.0-35.0) % [place] % (Auto) 1.2 (1.0-6.0) % Eos % (Auto) 0.0 L (1.5-5.0) % Baso % (Auto) 0.1 (0.0-3.0) % Lymph # (Auto) 0.6 L (1.2-3.4) [place] # (Auto) 0.3 (0.1-0.6) Eos # (Auto) 0.0 (0.0-0.7) Baso # (Auto) 0.02 (0.0-2.0) K/mm3 Absolute Neuts (auto) 20.23 H (1.4-6.5) Neutrophils % (Manual) 95 H (50.0-70.0) % Band Neutrophils % 2 (0-2) % Lymphocytes % (Manual) 2 L (22.0-35.0) % Monocytes % (Manual) 1 (1.0-6.0) % Platelet Evaluation Normal (NORMAL) Hypochromasia 1+ Anisocytosis (manual) 1+ pCO2 (35-45) mm/Hg pO2 (80-100) mm/Hg HCO3 (21-28) mmol/L ABG pH (7.35-7.45) ABG Total CO2 (22-28) mmol.L ABG O2 Saturation (95-98) % ABG O2 Content (15-23) ML/dl ABG Base Excess (-2.0-3.0) mmol/L ABG Hemoglobin (11.7-17.4) g/dL ABG Carboxyhemoglobin (0.5-1.5) % POC ABG HHb (Measured) (0-5) % ABG Methemoglobin (0.0-3.0) % ABG O2 Capacity (16-24) mL/dl Hgb O2 Saturation (95.0-98.0) % FiO2 % Sodium 136 (132-148) mmol/L Potassium 4.0 (3.6-5.0) mmol/L Chloride 97 L (98-107) mmol/L Carbon Dioxide 30 (21-33) mmol/L Anion Gap 13 (10-20) BUN 41 H (7-21) mg/dL Creatinine 2.0 H (0.7-1.2) mg/dl Est GFR ( Amer) 29 Est GFR (Non-Af Amer) 24 POC Glucose (mg/dL) 100 (65-110) mg/dL Random Glucose 103 (70-110) mg/dL Calcium 8.4 (8.4-10.5) mg/dL Phosphorus 3.2 (2.5-4.5) mg/dL Magnesium 1.7 (1.7-2.2) mg/dL Total Bilirubin 0.4 (0.2-1.3) mg/dL AST 28 (14-36) U/L ALT 36 (7-56) U/L Alkaline Phosphatase 75 (38-126) U/L Total Protein 5.8 (5.8-8.3) g/dL Albumin 2.8 L (3.0-4.8) g/dL Globulin 3.0 gm/dL Albumin/Globulin Ratio 0.9 L (1.1-1.8) Procalcitonin (0.19-0.49) NG/ML Crossmatch 09/26/18 09/26/18 09/26/18 Range/Units 09:30 07:37 04:50 WBC (4.5-11.0) 10^3/uL RBC (3.5-6.1) 10^6/uL Hgb (12.0-16.0) g/dL Hct (36.0-48.0) % MCV (80.0-105.0) fl MCH (25.0-35.0) pg MCHC (31.0-37.0) g/dl RDW (11.5-14.5) % Plt Count (120.0-450.0) 10^3/uL MPV (7.0-11.0) fl Neut % (Auto) (50.0-68.0) % Lymph % (Auto) (22.0-35.0) % [place] % (Auto) (1.0-6.0) % Eos % (Auto) (1.5-5.0) % Baso % (Auto) (0.0-3.0) % Lymph # (Auto) (1.2-3.4) [place] # (Auto) (0.1-0.6) Eos # (Auto) (0.0-0.7) Baso # (Auto) (0.0-2.0) K/mm3 Absolute Neuts (auto) (1.4-6.5) Neutrophils % (Manual) (50.0-70.0) % Band Neutrophils % (0-2) % Lymphocytes % (Manual) (22.0-35.0) % Monocytes % (Manual) (1.0-6.0) % Platelet Evaluation (NORMAL) Hypochromasia Anisocytosis (manual) pCO2 44 (35-45) mm/Hg pO2 112.0 H (80-100) mm/Hg HCO3 29.2 H (21-28) mmol/L ABG pH 7.43 (7.35-7.45) ABG Total CO2 30.6 H (22-28) mmol.L ABG O2 Saturation 98.7 H (95-98) % ABG O2 Content 14.5 L (15-23) ML/dl ABG Base Excess 4.3 H (-2.0-3.0) mmol/L ABG Hemoglobin 10.6 L (11.7-17.4) g/dL ABG Carboxyhemoglobin 1.6 H (0.5-1.5) % POC ABG HHb (Measured) 1.3 (0-5) % ABG Methemoglobin 0.9 (0.0-3.0) % ABG O2 Capacity 14.7 L (16-24) mL/dl Hgb O2 Saturation 96.2 (95.0-98.0) % FiO2 35.0 % Sodium (132-148) mmol/L Potassium (3.6-5.0) mmol/L Chloride (98-107) mmol/L Carbon Dioxide (21-33) mmol/L Anion Gap (10-20) BUN (7-21) mg/dL Creatinine (0.7-1.2) mg/dl Est GFR ( Amer) Est GFR (Non-Af Amer) POC Glucose (mg/dL) 112 H (65-110) mg/dL Random Glucose (70-110) mg/dL Calcium (8.4-10.5) mg/dL Phosphorus (2.5-4.5) mg/dL Magnesium (1.7-2.2) mg/dL Total Bilirubin (0.2-1.3) mg/dL AST (14-36) U/L ALT (7-56) U/L Alkaline Phosphatase (38-126) U/L Total Protein (5.8-8.3) g/dL Albumin (3.0-4.8) g/dL Globulin gm/dL Albumin/Globulin Ratio (1.1-1.8) Procalcitonin 1.25 H (0.19-0.49) NG/ML Crossmatch 09/25/18 09/25/18 09/22/18 Range/Units 23:44 08:32 13:25 WBC (4.5-11.0) 10^3/uL RBC (3.5-6.1) 10^6/uL Hgb (12.0-16.0) g/dL Hct (36.0-48.0) % MCV (80.0-105.0) fl MCH (25.0-35.0) pg MCHC (31.0-37.0) g/dl RDW (11.5-14.5) % Plt Count (120.0-450.0) 10^3/uL MPV (7.0-11.0) fl Neut % (Auto) (50.0-68.0) % Lymph % (Auto) (22.0-35.0) % [place] % (Auto) (1.0-6.0) % Eos % (Auto) (1.5-5.0) % Baso % (Auto) (0.0-3.0) % Lymph # (Auto) (1.2-3.4) [place] # (Auto) (0.1-0.6) Eos # (Auto) (0.0-0.7) Baso # (Auto) (0.0-2.0) K/mm3 Absolute Neuts (auto) (1.4-6.5) Neutrophils % (Manual) (50.0-70.0) % Band Neutrophils % (0-2) % Lymphocytes % (Manual) (22.0-35.0) % Monocytes % (Manual) (1.0-6.0) % Platelet Evaluation (NORMAL) Hypochromasia Anisocytosis (manual) pCO2 45 (35-45) mm/Hg pO2 122.0 H (80-100) mm/Hg HCO3 29.2 H (21-28) mmol/L ABG pH 7.42 (7.35-7.45) ABG Total CO2 30.6 H (22-28) mmol.L ABG O2 Saturation 98.5 H (95-98) % ABG O2 Content 14.9 L (15-23) ML/dl ABG Base Excess 4.1 H (-2.0-3.0) mmol/L ABG Hemoglobin 10.9 L (11.7-17.4) g/dL ABG Carboxyhemoglobin 1.5 (0.5-1.5) % POC ABG HHb (Measured) 1.5 (0-5) % ABG Methemoglobin 1.1 (0.0-3.0) % ABG O2 Capacity 15.1 L (16-24) mL/dl Hgb O2 Saturation 95.9 (95.0-98.0) % FiO2 35.0 % Sodium (132-148) mmol/L Potassium (3.6-5.0) mmol/L Chloride (98-107) mmol/L Carbon Dioxide (21-33) mmol/L Anion Gap (10-20) BUN (7-21) mg/dL Creatinine (0.7-1.2) mg/dl Est GFR ( Amer) Est GFR (Non-Af Amer) POC Glucose (mg/dL) 117 H (65-110) mg/dL Random Glucose (70-110) mg/dL Calcium (8.4-10.5) mg/dL Phosphorus (2.5-4.5) mg/dL Magnesium (1.7-2.2) mg/dL Total Bilirubin (0.2-1.3) mg/dL AST (14-36) U/L ALT (7-56) U/L Alkaline Phosphatase (38-126) U/L Total Protein (5.8-8.3) g/dL Albumin (3.0-4.8) g/dL Globulin gm/dL Albumin/Globulin Ratio (1.1-1.8) Procalcitonin (0.19-0.49) NG/ML Crossmatch See Detail Laboratory Results - last 24 hr 09/22/18 09/25/18 09/25/18 13:25 08:32 23:44 WBC RBC Hgb Hct MCV MCH MCHC RDW Plt Count MPV Neut % (Auto) Lymph % (Auto) [place] % (Auto) Eos % (Auto) Baso % (Auto) Lymph # (Auto) [place] # (Auto) Eos # (Auto) Baso # (Auto) Absolute Neuts (auto) Neutrophils % (Manual) Band Neutrophils % Lymphocytes % (Manual) Monocytes % (Manual) Platelet Evaluation Hypochromasia Anisocytosis (manual) pCO2 45 pO2 122.0 H HCO3 29.2 H ABG pH 7.42 ABG Total CO2 30.6 H ABG O2 Saturation 98.5 H ABG O2 Content 14.9 L ABG Base Excess 4.1 H ABG Hemoglobin 10.9 L ABG Carboxyhemoglobin 1.5 POC ABG HHb (Measured) 1.5 ABG Methemoglobin 1.1 ABG O2 Capacity 15.1 L Hgb O2 Saturation 95.9 FiO2 35.0 Sodium Potassium Chloride Carbon Dioxide Anion Gap BUN Creatinine Est GFR ( Amer) Est GFR (Non-Af Amer) POC Glucose (mg/dL) 117 H Random Glucose Calcium Phosphorus Magnesium Total Bilirubin AST ALT Alkaline Phosphatase Total Protein Albumin Globulin Albumin/Globulin Ratio Procalcitonin Crossmatch See Detail 09/26/18 09/26/18 09/26/18 04:50 07:37 09:30 WBC RBC Hgb Hct MCV MCH MCHC RDW Plt Count MPV Neut % (Auto) Lymph % (Auto) [place] % (Auto) Eos % (Auto) Baso % (Auto) Lymph # (Auto) [place] # (Auto) Eos # (Auto) Baso # (Auto) Absolute Neuts (auto) Neutrophils % (Manual) Band Neutrophils % Lymphocytes % (Manual) Monocytes % (Manual) Platelet Evaluation Hypochromasia Anisocytosis (manual) pCO2 44 pO2 112.0 H HCO3 29.2 H ABG pH 7.43 ABG Total CO2 30.6 H ABG O2 Saturation 98.7 H ABG O2 Content 14.5 L ABG Base Excess 4.3 H ABG Hemoglobin 10.6 L ABG Carboxyhemoglobin 1.6 H POC ABG HHb (Measured) 1.3 ABG Methemoglobin 0.9 ABG O2 Capacity 14.7 L Hgb O2 Saturation 96.2 FiO2 35.0 Sodium Potassium Chloride Carbon Dioxide Anion Gap BUN Creatinine Est GFR ( Amer) Est GFR (Non-Af Amer) POC Glucose (mg/dL) 112 H Random Glucose Calcium Phosphorus Magnesium Total Bilirubin AST ALT Alkaline Phosphatase Total Protein Albumin Globulin Albumin/Globulin Ratio Procalcitonin 1.25 H Crossmatch 09/26/18 09/26/18 09/26/18 10:45 10:45 11:53 WBC 21.1 H RBC 3.75 Hgb 10.6 L Hct 33.5 L MCV 89.3 MCH 28.3 MCHC 31.6 RDW 14.8 H Plt Count 324 MPV 9.8 Neut % (Auto) 95.9 H Lymph % (Auto) 2.8 L [place] % (Auto) 1.2 Eos % (Auto) 0.0 L Baso % (Auto) 0.1 Lymph # (Auto) 0.6 L [place] # (Auto) 0.3 Eos # (Auto) 0.0 Baso # (Auto) 0.02 Absolute Neuts (auto) 20.23 H Neutrophils % (Manual) 95 H Band Neutrophils % 2 Lymphocytes % (Manual) 2 L Monocytes % (Manual) 1 Platelet Evaluation Normal Hypochromasia 1+ Anisocytosis (manual) 1+ pCO2 pO2 HCO3 ABG pH ABG Total CO2 ABG O2 Saturation ABG O2 Content ABG Base Excess ABG Hemoglobin ABG Carboxyhemoglobin POC ABG HHb (Measured) ABG Methemoglobin ABG O2 Capacity Hgb O2 Saturation FiO2 Sodium 136 Potassium 4.0 Chloride 97 L Carbon Dioxide 30 Anion Gap 13 BUN 41 H Creatinine 2.0 H Est GFR ( Amer) 29 Est GFR (Non-Af Amer) 24 POC Glucose (mg/dL) 100 Random Glucose 103 Calcium 8.4 Phosphorus 3.2 Magnesium 1.7 Total Bilirubin 0.4 AST 28 ALT 36 Alkaline Phosphatase 75 Total Protein 5.8 Albumin 2.8 L Globulin 3.0 Albumin/Globulin Ratio 0.9 L Procalcitonin Crossmatch Radiology Impressions: Radiology Impressions Chest X-Ray 09/26/18 06:00 IMPRESSION: Progressive bilateral infiltrates/effusions. Chest X-Ray 09/26/18 11:03 IMPRESSION: Satisfactory position of recently placed nasogastric tube. Improved bilateral infiltrates. Addendum Addendum: 09/26/18 17:53 MICU Attending Addendum Patient seen and examined Valentina discussed with housestaff; agree with resident note above with the following additions/exceptions: 83F with PMH of DVT, HTN, HLD, CKD, dementia who presented to the emergency department on 09/14 after a fall and injuring her right shoulder found to have hemoarthosis. During her stay she was transfused blood and was stable until she developed progressive sob and hypoxia on 09/21 eventually requiring intubation likey from multilobar PNA. In addition developed renal failure now s/p 2 sessions of HD. Improved from a pulm stand point. did well on SBT this am and extubated to NIPPV duonebs and steroids for COPD cont abx for RUL RML PNA doxy/merrem doubt pleural fluid is infected given clinical improvement, lack of fevers resume home antihypertensives however had epispode of vomitting x 4 today so placed ngt tube NPO nicardipine drip for BP given her severe htn off anticoag given fall and hemoarthorsis will start hep sq for dvt ppx ppi for gi ppx Rest of care as in above resident note Leroy Martell MD MICU Attending CC time 31 mins
[2018-09-26] MEDS: Nicardipine 20 MG/200 ML 20 MG/200 ML BAG IV PRN ×2 (16:59→21:03)
--- NOTE | 2018-09-26 21:15 | PN ---
DATE: 09/26/2018 SUBJECTIVE: The patient is intubated, unable to respond. PHYSICAL EXAMINATION: VITAL SIGNS: Temperature is 97, pulse of 67, blood pressure is 149/80, and respirations are 12. GENERAL: The patient is lying in bed, flat, comfortable. HEENT: No oral lesion. Anicteric sclerae. Moist mucosa. NECK: No JVD, adenopathy, or thyromegaly. There is a right IJ catheter in the neck. CARDIOVASCULAR: S1 and S2, regular. No murmurs, rubs, or gallops. LUNGS: Clear to auscultation bilaterally. No wheeze, rales, or rhonchi. ABDOMEN: Bowel sounds are positive, soft, nontender and nondistended. EXTREMITIES: No cyanosis, clubbing, or edema. LABORATORY DATA: White count of 21 and hemoglobin is 10.6. Creatinine is 2. Chest x-ray shows satisfactory position of NG tube. There is improved bilateral infiltrates. ASSESSMENT: 1. Respiratory failure, on ventilator. 2. Hospital-acquired pneumonia. 3. Acute kidney injury. 4. Hypertension. 5. Diabetes type 2. 6. Peripheral arterial disease. 7. Deep venous thrombosis. PLAN: The patient remains critically ill. She is in the ICU. She is going to be extubated today. She is on hydralazine for her hypertension. She is on albuterol for nebulizer treatments. She is on heparin for DVT prophylaxis. The patient is on meropenem for antibiotics. She is on amlodipine for her hypertension. She is going to continue with Protonix. She is on Solu-Medrol. She is being followed by multiple consultants. Gerard Sebastian MD
[2018-09-27] MEDS: Nicardipine 20 MG/200 ML 20 MG/200 ML BAG IV PRN ×2 (01:08→05:39)
[2018-09-27] MEDS: Albuterol-Ipratrop 3 mg / 0.5 (3 ml) UD IH SCH ×4 (01:30→20:50)
[2018-09-27 06:42] LABS: ARTERIAL BLOOD GAS HCO3 27.8 mmol/L (21-28); ARTERIAL BLOOD GAS HEMOGLOBIN 10.4 g/dL (11.7-17.4); ARTERIAL BLOOD GAS O2 CAPACITY 14.3 mL/dl (16-24); ARTERIAL BLOOD GAS O2 CONTENT 14.1 ML/dl (15-23); ARTERIAL BLOOD GAS O2 SAT 98.3 % (95-98); ARTERIAL BLOOD GAS PCO2 41 mm/Hg (35-45); ARTERIAL BLOOD GAS PH 7.44 (7.35-7.45); ARTERIAL BLOOD GAS TCO2 29.1 mmol.L (22-28)
--- NOTE | 2018-09-27 07:59 | PN ---
DATE: 09/27/2018(630am-720am) PULMONARY NOTE SUBJECTIVE: The patient is now extubated and off of the ventilator. She is comfortable. She is not short of breath at rest. PHYSICAL EXAMINATION: VITALS: Temperature is 97, pulse 82, respiratory rate 18, blood pressure 132/71. Oxygen saturation on nasal cannula is 98%. HEENT: Normocephalic, atraumatic. No JVD. CARDIOVASCULAR: Systolic ejection murmur at the lower left sternal border. No S3 gallop. LUNGS: Decreased breath sounds with crackles at the bases. Very minimal/less rhonchi. No wheezing. EXTREMITIES: Mild edema. No cyanosis. No clubbing. Calves are nontender to palpation. GASTROINTESTINAL: Abdomen is soft, nontender, and nondistended. Bowel sounds are positive. SKIN: No acute rash. NEUROLOGIC: Exam limited at the present time. PERTINENT LABORATORY DATA: Chest x-ray was done this morning and reviewed. Mild pulmonary vascular congestion remains. There are also small bilateral pleural effusions. Arterial blood gas was also done on nasal cannula. Results are: PH 7.44, pCO2 of 41, pO2 of 91. IMPRESSION: 1. Respiratory failure. 2. Bilateral pneumonia. 3. Bilateral pleural effusions. 4. Acute on chronic renal failure. 5. Severe anemia. 6. Rule out congestive heart failure. PLAN: The patient is now off of the ventilator. She was extubated yesterday morning. She is awake and alert. She is very comfortable. She does state to feeling much better overall. I did discuss the case with the night nurse at length. The night nurse stated that the patient had a very good night. I did review the chest x-ray as above. Findings are noted. Official results are pending. I have also reviewed the arterial blood gas. The arterial blood gas is significantly improved overall - with resolution of the acidosis, as well as a significant decrease in the alveolar-arterial gradient. I will continue with the nasal cannula oxygen for now. On physical exam, there is no significant bronchospasm noted. I will continue the current nebulizer treatments and add inhaled steroids this morning. I will discontinue the low-dose intravenous steroids for now. The patient remains on antibiotic therapy - as per Infectious Disease. Input by Dr. Herring is noted. Inputs by Cardiology and Renal are also noted. Clinical status of the patient is significantly improved - compared to last week. However, again, the future status/prognosis for this patient does remain guarded. I will discuss the above with the entire ICU team in the next few moments. I will also discuss the above with the attending physician later this morning. Charles Roland MD [email or web address]
[2018-09-27] MEDS: Budesonide 0.5 mg/2 ml Inhal Susp UD IH SCH ×2 (08:08→20:50)
[2018-09-27 08:14] LABS: BASO # 0.01 K/mm3 (0.0-2.0); BASO % 0.1 % (0.0-3.0); HEMOGLOBIN 10.6 g/dL (12.0-16.0); LYMPH # 0.5 (1.2-3.4); LYMPH % 2.4 % (22.0-35.0); MEAN CELL VOLUME 87.9 fl (80.0-105.0); MEAN CORPUSCULAR HEMOGLOBIN 28.5 pg (25.0-35.0); MEAN CORPUSCULAR HGB CONC 32.4 g/dl (31.0-37.0); MEAN PLATELET VOLUME 9.3 fl (7.0-11.0); MONO # 0.4 (0.1-0.6); MONO % 2.1 % (1.0-6.0); RBC 3.72 10^6/uL (3.5-6.1); RED CELL DISTRIBUTION WIDTH 14.2 % (11.5-14.5); WHITE BLOOD COUNT 19.3 10^3/uL (4.5-11.0)
[2018-09-27 08:23] LABS: INR 1.54; PROTHROMBIN TIME 17.4 SECONDS (9.4-12.5)
[2018-09-27 08:32] LABS: ALB/GLOB RATIO 0.9 (1.1-1.8); ALBUMIN 2.6 g/dL (3.0-4.8); CALCIUM 8.4 mg/dL (8.4-10.5)
[2018-09-27] MEDS: Prostat 15 g packet GT SCH (09:01)
--- NOTE | 2018-09-27 10:10 | RAD ---
Date of service: 09/27/2018 HISTORY: f/u COMPARISON: 09/26/2018 FINDINGS: LUNGS: Patchy hazy infiltrate in the right lung. PLEURA: Small pleural effusions CARDIOVASCULAR: Aortic calcification Mild cardiomegaly no pulmonary vascular congestion. OSSEOUS STRUCTURES: No significant abnormalities. VISUALIZED UPPER ABDOMEN: Normal. OTHER FINDINGS: Nasogastric tube in satisfactory position. Right internal jugular dialysis catheter at the junction of the SVC and right atrium IMPRESSION: No significant change in right-sided infiltrate
[2018-09-27] MEDS ORDERED: diltiaZEM IVPB 100mg in NS 100 ML IV PRN (10:32)
--- NOTE | 2018-09-27 10:35 | CP.PCM.PN ---
<Carlos Munson - Last Filed: 09/27/18 10:30> Subjective - Date & Time of Evaluation Date of Evaluation: 09/27/18 Time of Evaluation: 09:00 - Subjective Subjective: Carlos Munson D.O. PGY-3, Internal Medicine Resident, Infectious Disease Progress Note 83 year old female with a PMH of HTN, DM, DVT, PVD, mitral and aortic regurg who was being managed for BL CAP now with sepsis and HAP. Patient was seen and examined at bedside. Doing better at this time. Has been extubated. States breathing is comfortable. Objective - Vital Signs/Intake and Output Vital Signs (last 24 hours): Temp Pulse Resp BP Pulse Ox 97 F L 82 13 144/69 100 09/27/18 04:00 09/27/18 05:27 09/26/18 18:00 09/27/18 09:07 09/26/18 18:00 Intake and Output: 09/27/18 09/27/18 06:59 18:59 Intake Total 1200 Output Total 900 Balance 300 - Medications Medications: Current Medications Acetaminophen (Tylenol 325mg Tab) 650 mg PO Q4H PRN PRN Reason: Fever >100.4 F Last Admin: 09/21/18 12:38 Dose: 650 mg Albuterol/Ipratropium (Duoneb 3 Mg/0.5 Mg (3 Ml) Ud) 3 ml IH [id number] Last Admin: 09/27/18 08:08 Dose: 3 ml Amino Acid Protein (Prostat 15 G Packet) 15 gm GT DAILY [facility] Last Admin: 09/27/18 09:01 Dose: Not Given Amlodipine Besylate (Norvasc) 10 mg PO DAILY [facility] Last Admin: 09/27/18 09:07 Dose: 10 mg Aspirin (Ecotrin) 81 mg PO DAILY [facility] Last Admin: 09/27/18 09:07 Dose: 81 mg Budesonide (Pulmicort Respules) 0.5 mg IH [id number] [facility] Last Admin: 09/27/18 08:08 Dose: 0.5 mg Clonidine HCl (Catapres-Tts2 0.2 Mg/24 Hr) 1 patch TD Q7D@1000 [facility] Diltiazem HCl (Cardizem) 60 mg PO Q6 [facility] Last Admin: 09/27/18 05:27 Dose: Not Given Heparin Sodium (Porcine) (Heparin) 5,000 units SC Q8H [facility]; Protocol Last Admin: 09/27/18 04:00 Dose: 5,000 units Hydralazine HCl (Apresoline) 75 mg PO Q8 [facility] Last Admin: 09/27/18 05:27 Dose: Not Given Iron Sucrose 100 mg/ Sodium (Chloride) 105 mls @ 210 mls/hr IVPB DAILY [facility] Stop: 09/28/18 10:29 Last Admin: 09/27/18 09:08 Dose: 210 mls/hr Meropenem 250 mg/ Sodium (Chloride) 100 mls @ 100 mls/hr IVPB Q12H [facility]; Protocol Stop: 09/28/18 22:01 Last Admin: 09/27/18 09:08 Dose: 100 mls/hr Nicardipine HCl (Cardene Iv Premix) 20 mg in 200 mls @ 50 mls/hr IV .Q4H PRN; Protocol PRN Reason: TITRATE PER MD ORDER Last Admin: 09/27/18 05:39 Dose: 5 mg/hr, 50 mls/hr Ondansetron HCl (Zofran Inj) 4 mg IVP Q4H PRN PRN Reason: Nausea/Vomiting Last Admin: 09/26/18 17:00 Dose: 4 mg Pantoprazole Sodium (Protonix Inj) 40 mg IVP DAILY [facility] Last Admin: 09/27/18 09:08 Dose: 40 mg Risperidone (Risperdal Tab) 0.25 mg PO DAILY PRN; Protocol PRN Reason: Other Last Admin: 09/27/18 09:07 Dose: 0.25 mg - Labs Labs: 09/27/18 08:00 09/27/18 08:00 PT 17.4 SECONDS (9.4-12.5) H 09/27/18 08:00 INR 1.54 09/27/18 08:00 APTT 30.3 Seconds (26.9-38.3) 09/17/18 06:20 - Constitutional Appears: No Acute Distress, Cachectic, Chronically Ill - Head Exam Head Exam: ATRAUMATIC, NORMOCEPHALIC - Eye Exam Eye Exam: absent: Scleral icterus - ENT Exam ENT Exam: Mucous Membranes Moist, NGT in place - Neck Exam Neck Exam: Normal Inspection - Respiratory Exam Respiratory Exam: Decreased breath sounds - Cardiovascular Exam Cardiovascular Exam: +S1, +S2. absent: Rubs - GI/Abdominal Exam GI & Abdominal Exam: Soft. absent: Tenderness - Extremities Exam Extremities Exam: absent: Calf Tenderness, Tenderness - Neurological Exam Additional comments: awake, alert, oriented to self and place - Skin Skin Exam: Dry, Warm Assessment and Plan - Assessment and Plan (Free Text) Assessment: 83 year old female with a PMH of HTN, DM, DVT, PVD, mitral and aortic regurg who was being managed for BL CAP now with sepsis and HAP, hospital course complicated by respiratory failure needing intubation, now extubated to [place]. Plan: Sepsis HAP BREANA on CKD Afebrile, no tachycardia, breathing comfortably Leukocytosis downtrending Procal also downtrending CXR reviewed, appears relatively same as yesterday, official read pending Continue with merrem day 7 Repeat BCxs 2/2 negative day 2 We will follow with you Patient was seen and examined at bedside and case will be discussed with attending physician Thank you for the pleasure of participating in the care of this interesting patient <Urbano Herring - Last Filed: 09/27/18 14:47> Objective - Vital Signs/Intake and Output Vital Signs (last 24 hours): Temp Pulse Resp BP Pulse Ox 97.5 F L 63 13 148/47 L 100 09/27/18 12:00 09/27/18 14:31 09/26/18 18:00 09/27/18 14:31 09/26/18 18:00 Intake and Output: 09/27/18 09/27/18 06:59 18:59 Intake Total 1200 Output Total 900 Balance 300 - Medications Medications: Current Medications Acetaminophen (Tylenol 325mg Tab) 650 mg PO Q4H PRN PRN Reason: Fever >100.4 F Last Admin: 09/21/18 12:38 Dose: 650 mg Albuterol/Ipratropium (Duoneb 3 Mg/0.5 Mg (3 Ml) Ud) 3 ml IH [id number] [facility] Last Admin: 09/27/18 14:30 Dose: 3 ml Amino Acid Protein (Prostat 15 G Packet) 15 gm GT DAILY [facility] Last Admin: 09/27/18 09:01 Dose: Not Given Amlodipine Besylate (Norvasc) 10 mg PO DAILY [facility] Last Admin: 09/27/18 09:07 Dose: 10 mg Aspirin (Ecotrin) 81 mg PO DAILY [facility] Last Admin: 09/27/18 09:07 Dose: 81 mg Budesonide (Pulmicort Respules) 0.5 mg IH [id number] [facility] Last Admin: 09/27/18 08:08 Dose: 0.5 mg Clonidine HCl (Catapres-Tts2 0.2 Mg/24 Hr) 1 patch TD Q7D@1000 [facility] Diltiazem HCl (Cardizem) 60 mg PO Q6 [facility] Last Admin: 09/27/18 11:18 Dose: 60 mg Heparin Sodium (Porcine) (Heparin) 5,000 units SC Q8H [facility]; Protocol Last Admin: 09/27/18 11:18 Dose: 5,000 units Hydralazine HCl (Apresoline) 75 mg PO Q8 [facility] Last Admin: 09/27/18 14:31 Dose: 75 mg Iron Sucrose 100 mg/ Sodium (Chloride) 105 mls @ 210 mls/hr IVPB DAILY [facility] Stop: 09/28/18 10:29 Last Admin: 09/27/18 09:08 Dose: 210 mls/hr Meropenem 250 mg/ Sodium (Chloride) 100 mls @ 100 mls/hr IVPB Q12H [facility]; Protocol Stop: 09/28/18 22:01 Last Admin: 09/27/18 09:08 Dose: 100 mls/hr Nicardipine HCl (Cardene Iv Premix) 20 mg in 200 mls @ 50 mls/hr IV .Q4H PRN; Protocol PRN Reason: TITRATE PER MD ORDER Last Admin: 09/27/18 05:39 Dose: 5 mg/hr, 50 mls/hr Ondansetron HCl (Zofran Inj) 4 mg IVP Q4H PRN PRN Reason: Nausea/Vomiting Last Admin: 09/26/18 17:00 Dose: 4 mg Pantoprazole Sodium (Protonix Inj) 40 mg IVP DAILY [facility] Last Admin: 09/27/18 09:08 Dose: 40 mg Risperidone (Risperdal Tab) 0.25 mg PO DAILY PRN; Protocol PRN Reason: Other Last Admin: 09/27/18 09:07 Dose: 0.25 mg - Labs Labs: 09/27/18 08:00 09/27/18 08:00 PT 17.4 SECONDS (9.4-12.5) H 09/27/18 08:00 INR 1.54 09/27/18 08:00 APTT 30.3 Seconds (26.9-38.3) 09/17/18 06:20 Attending/Attestation - Attestation I have personally seen and examined this patient.: Yes I have fully participated in the care of the patient.: Yes I have reviewed all pertinent clinical information, including history, physical exam and plan: Yes
--- NOTE | 2018-09-27 10:57 | CP.CCUPN ---
<Burak Serrano - Last Filed: 09/27/18 11:09> CCU Subjective - Physician Review Events Since Last Encounter (Free Text): 09/27/18 10:54 Pt has been extubated, NG tube, pt had been vomiting Subjective (Free Text): 09/24/18 11:51 Pt seen and examined this morning at bedside in the ICU. Pt is in no acute distress. 09/25/18 09:03 Pt seen and examined this morning. Pt is intubated and sedated. 09/27/18 10:55 Pt seen and examined, pt extubated, pt appears to be improving. CCU Objective - Vital Signs / Intake & Output Vital Signs (Last 4 hours): Vital Signs BP 09/27/18 09:07 144/69 Intake and Output (Last 8hrs): Intake & Output 09/26/18 09/27/18 09/27/18 22:59 06:59 14:59 Intake Total 602 1000 Output Total 1200 900 Balance -598 100 Weight 95 lb Intake: IV 542 1000 Left Wrist 200 Right Antecubital 100 550 Right Internal Jugular 0 50 fentanyl 42 Oral 60 Output: Gastric Amount 900 Nares 900 Urine 0 Urine, Voided 0 Emesis 1200 Other: # Bowel Movements 2 - Physical Exam Head: Positive for: Atraumatic, Normocephalic Pupils: Positive for: PERRL Extroacular Muscles: Positive for: EOMI Conjunctiva: Positive for: Normal Mouth: Positive for: Moist Mucous Membranes Neck: Positive for: Normal Range of Motion Respiratory/Chest: Positive for: Clear to Auscultation, Good Air Exchange, Wheezes. Negative for: Respiratory Distress, Accessory Muscle Use Cardiovascular: Positive for: Regular Rate and Rhythm, Normal S1, S2. Negative for: Murmurs Abdomen: Positive for: Normal Bowel Sounds. Negative for: Tenderness, Distention, Peritoneal Signs Back: Positive for: Normal Inspection Upper Extremity: Positive for: Other (RUE is neurovascularly intact however there is significant tenderness to palpation in the area of the R scapular spine , no tenderness noted over the humeral head, ACTIVE AND PASSIVE ROM is signifcantly reduced by pain). Negative for: Normal ROM Lower Extremity: Positive for: Normal Inspection. Negative for: Edema Neurological: Positive for: GCS=15, CN II-XII Intact, Speech Normal Skin: Positive for: Warm, Dry, Normal Color. Negative for: Rashes Psychiatric: Positive for: Alert, Oriented x 3, Normal Insight, Normal Concentration - Medications Active Medications: Active Medications Generic Name Dose Route Start Last Admin Trade Name Freq PRN Reason Stop Dose Admin Acetaminophen 650 mg 09/21/18 12:17 09/21/18 12:38 Tylenol 325mg Tab PO 650 mg Q4H PRN Administration Fever >100.4 F Albuterol/Ipratropium 3 ml 09/22/18 08:00 09/27/18 08:08 Duoneb 3 Mg/0.5 Mg (3 Ml) Ud IH 3 ml [id number] JESUS Administration Amino Acid Protein 15 gm 09/25/18 10:00 09/27/18 09:01 Prostat 15 G Packet GT Not Given DAILY JESUS Amlodipine Besylate 10 mg 09/12/18 08:28 09/27/18 09:07 Norvasc PO 10 mg DAILY JESUS Administration Aspirin 81 mg 09/17/18 10:00 09/27/18 09:07 Ecotrin PO 81 mg DAILY JESUS Administration Budesonide 0.5 mg 09/27/18 08:00 09/27/18 08:08 Pulmicort Respules IH 0.5 mg [id number] JESUS Administration Clonidine HCl 1 patch 09/22/18 10:15 Catapres-Tts2 0.2 Mg/24 Hr TD Q7D@1000 JESUS Diltiazem HCl 60 mg 09/25/18 12:00 09/27/18 05:27 Cardizem PO Not Given Q6 JESUS Heparin Sodium (Porcine) 5,000 units 09/26/18 11:30 09/27/18 04:00 Heparin SC 5,000 units Q8H JESUS Administration Protocol Hydralazine HCl 75 mg 09/19/18 15:00 09/27/18 05:27 Apresoline PO Not Given Q8 JESUS Iron Sucrose 100 mg/ Sodium 105 mls @ 210 mls/hr 09/19/18 10:00 09/27/18 09:08 Chloride IVPB 09/28/18 10:29 210 mls/hr DAILY JESUS Administration Meropenem 250 mg/ Sodium 100 mls @ 100 mls/hr 09/22/18 10:00 09/27/18 09:08 Chloride IVPB 09/28/18 22:01 100 mls/hr Q12H JESUS Administration Protocol Nicardipine HCl 20 mg in 200 mls @ 50 mls/hr 09/26/18 16:50 09/27/18 05:39 Cardene Iv Premix IV 5 mg/hr .Q4H PRN 50 mls/hr TITRATE PER MD ORDER Administration Protocol 5 MG/HR diltiaZEM IVPB 100mg in NS 100 mls @ 5 mls/hr 09/27/18 10:32 Cardizem 100mg In Ns IV .Q20H PRN TITRATE PER MD ORDER Protocol 5 MG/HR Ondansetron HCl 4 mg 09/26/18 10:46 09/26/18 17:00 Zofran Inj IVP 4 mg Q4H PRN Administration Nausea/Vomiting Pantoprazole Sodium 40 mg 09/24/18 10:00 09/27/18 09:08 Protonix Inj IVP 40 mg DAILY JESUS Administration Risperidone 0.25 mg 09/20/18 21:40 09/27/18 09:07 Risperdal Tab PO 0.25 mg DAILY PRN Administration Other Protocol - Patient Studies Lab Studies: Microbiology Studies 09/24/18 13:00 Blood Culture - Preliminary Blood NO GROWTH AFTER 48 HOURS 09/24/18 12:45 Blood Culture - Preliminary Blood NO GROWTH AFTER 48 HOURS 09/25/18 10:29 Urine Culture - Final Urine Random No Growth (<1,000 CFU/ML) Lab Studies 09/27/18 09/27/18 09/27/18 Range/Units 08:00 08:00 08:00 WBC 19.3 H (4.5-11.0) 10^3/uL RBC 3.72 (3.5-6.1) 10^6/uL Hgb 10.6 L (12.0-16.0) g/dL Hct 32.7 L (36.0-48.0) % MCV 87.9 (80.0-105.0) fl MCH 28.5 (25.0-35.0) pg MCHC 32.4 (31.0-37.0) g/dl RDW 14.2 (11.5-14.5) % Plt Count 282 (120.0-450.0) 10^3/uL MPV 9.3 (7.0-11.0) fl Neut % (Auto) 95.4 H (50.0-68.0) % Lymph % (Auto) 2.4 L (22.0-35.0) % [place] % (Auto) 2.1 (1.0-6.0) % Eos % (Auto) 0.0 L (1.5-5.0) % Baso % (Auto) 0.1 (0.0-3.0) % Lymph # (Auto) 0.5 L (1.2-3.4) [place] # (Auto) 0.4 (0.1-0.6) Eos # (Auto) 0.0 (0.0-0.7) Baso # (Auto) 0.01 (0.0-2.0) K/mm3 Absolute Neuts (auto) 18.46 H (1.4-6.5) Neutrophils % (Manual) (50.0-70.0) % Band Neutrophils % (0-2) % Lymphocytes % (Manual) (22.0-35.0) % Monocytes % (Manual) (1.0-6.0) % Platelet Evaluation (NORMAL) Hypochromasia Anisocytosis (manual) PT 17.4 H (9.4-12.5) SECONDS INR 1.54 pCO2 (35-45) mm/Hg pO2 (80-100) mm/Hg HCO3 (21-28) mmol/L ABG pH (7.35-7.45) ABG Total CO2 (22-28) mmol.L ABG O2 Saturation (95-98) % ABG O2 Content (15-23) ML/dl ABG Base Excess (-2.0-3.0) mmol/L ABG Hemoglobin (11.7-17.4) g/dL ABG Carboxyhemoglobin (0.5-1.5) % POC ABG HHb (Measured) (0-5) % ABG Methemoglobin (0.0-3.0) % ABG O2 Capacity (16-24) mL/dl Hgb O2 Saturation (95.0-98.0) % FiO2 % Sodium 136 (132-148) mmol/L Potassium 3.8 (3.6-5.0) mmol/L Chloride 98 (98-107) mmol/L Carbon Dioxide 31 (21-33) mmol/L Anion Gap 11 (10-20) BUN 55 H (7-21) mg/dL Creatinine 2.6 H (0.7-1.2) mg/dl Est GFR ( Amer) 21 Est GFR (Non-Af Amer) 18 POC Glucose (mg/dL) (65-110) mg/dL Random Glucose 106 (70-110) mg/dL Calcium 8.4 (8.4-10.5) mg/dL Phosphorus 4.3 (2.5-4.5) mg/dL Magnesium 1.6 L (1.7-2.2) mg/dL Total Bilirubin 0.4 (0.2-1.3) mg/dL AST 29 (14-36) U/L ALT 29 (7-56) U/L Alkaline Phosphatase 68 (38-126) U/L Total Protein 5.5 L (5.8-8.3) g/dL Albumin 2.6 L (3.0-4.8) g/dL Globulin 2.9 gm/dL Albumin/Globulin Ratio 0.9 L (1.1-1.8) Procalcitonin (0.19-0.49) NG/ML 09/27/18 09/26/18 09/26/18 Range/Units 06:33 21:27 11:53 WBC (4.5-11.0) 10^3/uL RBC (3.5-6.1) 10^6/uL Hgb (12.0-16.0) g/dL Hct (36.0-48.0) % MCV (80.0-105.0) fl MCH (25.0-35.0) pg MCHC (31.0-37.0) g/dl RDW (11.5-14.5) % Plt Count (120.0-450.0) 10^3/uL MPV (7.0-11.0) fl Neut % (Auto) (50.0-68.0) % Lymph % (Auto) (22.0-35.0) % [place] % (Auto) (1.0-6.0) % Eos % (Auto) (1.5-5.0) % Baso % (Auto) (0.0-3.0) % Lymph # (Auto) (1.2-3.4) [place] # (Auto) (0.1-0.6) Eos # (Auto) (0.0-0.7) Baso # (Auto) (0.0-2.0) K/mm3 Absolute Neuts (auto) (1.4-6.5) Neutrophils % (Manual) (50.0-70.0) % Band Neutrophils % (0-2) % Lymphocytes % (Manual) (22.0-35.0) % Monocytes % (Manual) (1.0-6.0) % Platelet Evaluation (NORMAL) Hypochromasia Anisocytosis (manual) PT (9.4-12.5) SECONDS INR pCO2 41 (35-45) mm/Hg pO2 91.0 (80-100) mm/Hg HCO3 27.8 (21-28) mmol/L ABG pH 7.44 (7.35-7.45) ABG Total CO2 29.1 H (22-28) mmol.L ABG O2 Saturation 98.3 H (95-98) % ABG O2 Content 14.1 L (15-23) ML/dl ABG Base Excess 3.3 H (-2.0-3.0) mmol/L ABG Hemoglobin 10.4 L (11.7-17.4) g/dL ABG Carboxyhemoglobin 1.8 H (0.5-1.5) % POC ABG HHb (Measured) 1.7 (0-5) % ABG Methemoglobin 1.0 (0.0-3.0) % ABG O2 Capacity 14.3 L (16-24) mL/dl Hgb O2 Saturation 95.5 (95.0-98.0) % FiO2 32.0 % Sodium (132-148) mmol/L Potassium (3.6-5.0) mmol/L Chloride (98-107) mmol/L Carbon Dioxide (21-33) mmol/L Anion Gap (10-20) BUN (7-21) mg/dL Creatinine (0.7-1.2) mg/dl Est GFR ( Amer) Est GFR (Non-Af Amer) POC Glucose (mg/dL) 129 H 100 (65-110) mg/dL Random Glucose (70-110) mg/dL Calcium (8.4-10.5) mg/dL Phosphorus (2.5-4.5) mg/dL Magnesium (1.7-2.2) mg/dL Total Bilirubin (0.2-1.3) mg/dL AST (14-36) U/L ALT (7-56) U/L Alkaline Phosphatase (38-126) U/L Total Protein (5.8-8.3) g/dL Albumin (3.0-4.8) g/dL Globulin gm/dL Albumin/Globulin Ratio (1.1-1.8) Procalcitonin (0.19-0.49) NG/ML 09/26/18 09/26/18 09/26/18 Range/Units 10:45 10:45 09:30 WBC 21.1 H (4.5-11.0) 10^3/uL RBC 3.75 (3.5-6.1) 10^6/uL Hgb 10.6 L (12.0-16.0) g/dL Hct 33.5 L (36.0-48.0) % MCV 89.3 (80.0-105.0) fl MCH 28.3 (25.0-35.0) pg MCHC 31.6 (31.0-37.0) g/dl RDW 14.8 H (11.5-14.5) % Plt Count 324 (120.0-450.0) 10^3/uL MPV 9.8 (7.0-11.0) fl Neut % (Auto) 95.9 H (50.0-68.0) % Lymph % (Auto) 2.8 L (22.0-35.0) % [place] % (Auto) 1.2 (1.0-6.0) % Eos % (Auto) 0.0 L (1.5-5.0) % Baso % (Auto) 0.1 (0.0-3.0) % Lymph # (Auto) 0.6 L (1.2-3.4) [place] # (Auto) 0.3 (0.1-0.6) Eos # (Auto) 0.0 (0.0-0.7) Baso # (Auto) 0.02 (0.0-2.0) K/mm3 Absolute Neuts (auto) 20.23 H (1.4-6.5) Neutrophils % (Manual) 95 H (50.0-70.0) % Band Neutrophils % 2 (0-2) % Lymphocytes % (Manual) 2 L (22.0-35.0) % Monocytes % (Manual) 1 (1.0-6.0) % Platelet Evaluation Normal (NORMAL) Hypochromasia 1+ Anisocytosis (manual) 1+ PT (9.4-12.5) SECONDS INR pCO2 (35-45) mm/Hg pO2 (80-100) mm/Hg HCO3 (21-28) mmol/L ABG pH (7.35-7.45) ABG Total CO2 (22-28) mmol.L ABG O2 Saturation (95-98) % ABG O2 Content (15-23) ML/dl ABG Base Excess (-2.0-3.0) mmol/L ABG Hemoglobin (11.7-17.4) g/dL ABG Carboxyhemoglobin (0.5-1.5) % POC ABG HHb (Measured) (0-5) % ABG Methemoglobin (0.0-3.0) % ABG O2 Capacity (16-24) mL/dl Hgb O2 Saturation (95.0-98.0) % FiO2 % Sodium 136 (132-148) mmol/L Potassium 4.0 (3.6-5.0) mmol/L Chloride 97 L (98-107) mmol/L Carbon Dioxide 30 (21-33) mmol/L Anion Gap 13 (10-20) BUN 41 H (7-21) mg/dL Creatinine 2.0 H (0.7-1.2) mg/dl Est GFR ( Amer) 29 Est GFR (Non-Af Amer) 24 POC Glucose (mg/dL) (65-110) mg/dL Random Glucose 103 (70-110) mg/dL Calcium 8.4 (8.4-10.5) mg/dL Phosphorus 3.2 (2.5-4.5) mg/dL Magnesium 1.7 (1.7-2.2) mg/dL Total Bilirubin 0.4 (0.2-1.3) mg/dL AST 28 (14-36) U/L ALT 36 (7-56) U/L Alkaline Phosphatase 75 (38-126) U/L Total Protein 5.8 (5.8-8.3) g/dL Albumin 2.8 L (3.0-4.8) g/dL Globulin 3.0 gm/dL Albumin/Globulin Ratio 0.9 L (1.1-1.8) Procalcitonin 1.25 H (0.19-0.49) NG/ML 09/26/18 Range/Units 07:37 WBC (4.5-11.0) 10^3/uL RBC (3.5-6.1) 10^6/uL Hgb (12.0-16.0) g/dL Hct (36.0-48.0) % MCV (80.0-105.0) fl MCH (25.0-35.0) pg MCHC (31.0-37.0) g/dl RDW (11.5-14.5) % Plt Count (120.0-450.0) 10^3/uL MPV (7.0-11.0) fl Neut % (Auto) (50.0-68.0) % Lymph % (Auto) (22.0-35.0) % [place] % (Auto) (1.0-6.0) % Eos % (Auto) (1.5-5.0) % Baso % (Auto) (0.0-3.0) % Lymph # (Auto) (1.2-3.4) [place] # (Auto) (0.1-0.6) Eos # (Auto) (0.0-0.7) Baso # (Auto) (0.0-2.0) K/mm3 Absolute Neuts (auto) (1.4-6.5) Neutrophils % (Manual) (50.0-70.0) % Band Neutrophils % (0-2) % Lymphocytes % (Manual) (22.0-35.0) % Monocytes % (Manual) (1.0-6.0) % Platelet Evaluation (NORMAL) Hypochromasia Anisocytosis (manual) PT (9.4-12.5) SECONDS INR pCO2 (35-45) mm/Hg pO2 (80-100) mm/Hg HCO3 (21-28) mmol/L ABG pH (7.35-7.45) ABG Total CO2 (22-28) mmol.L ABG O2 Saturation (95-98) % ABG O2 Content (15-23) ML/dl ABG Base Excess (-2.0-3.0) mmol/L ABG Hemoglobin (11.7-17.4) g/dL ABG Carboxyhemoglobin (0.5-1.5) % POC ABG HHb (Measured) (0-5) % ABG Methemoglobin (0.0-3.0) % ABG O2 Capacity (16-24) mL/dl Hgb O2 Saturation (95.0-98.0) % FiO2 % Sodium (132-148) mmol/L Potassium (3.6-5.0) mmol/L Chloride (98-107) mmol/L Carbon Dioxide (21-33) mmol/L Anion Gap (10-20) BUN (7-21) mg/dL Creatinine (0.7-1.2) mg/dl Est GFR ( Amer) Est GFR (Non-Af Amer) POC Glucose (mg/dL) 112 H (65-110) mg/dL Random Glucose (70-110) mg/dL Calcium (8.4-10.5) mg/dL Phosphorus (2.5-4.5) mg/dL Magnesium (1.7-2.2) mg/dL Total Bilirubin (0.2-1.3) mg/dL AST (14-36) U/L ALT (7-56) U/L Alkaline Phosphatase (38-126) U/L Total Protein (5.8-8.3) g/dL Albumin (3.0-4.8) g/dL Globulin gm/dL Albumin/Globulin Ratio (1.1-1.8) Procalcitonin (0.19-0.49) NG/ML Laboratory Results - last 24 hr 09/26/18 09/26/18 09/26/18 07:37 09:30 10:45 WBC RBC Hgb Hct MCV MCH MCHC RDW Plt Count MPV Neut % (Auto) Lymph % (Auto) [place] % (Auto) Eos % (Auto) Baso % (Auto) Lymph # (Auto) [place] # (Auto) Eos # (Auto) Baso # (Auto) Absolute Neuts (auto) Neutrophils % (Manual) Band Neutrophils % Lymphocytes % (Manual) Monocytes % (Manual) Platelet Evaluation Hypochromasia Anisocytosis (manual) PT INR pCO2 pO2 HCO3 ABG pH ABG Total CO2 ABG O2 Saturation ABG O2 Content ABG Base Excess ABG Hemoglobin ABG Carboxyhemoglobin POC ABG HHb (Measured) ABG Methemoglobin ABG O2 Capacity Hgb O2 Saturation FiO2 Sodium 136 Potassium 4.0 Chloride 97 L Carbon Dioxide 30 Anion Gap 13 BUN 41 H Creatinine 2.0 H Est GFR ( Amer) 29 Est GFR (Non-Af Amer) 24 POC Glucose (mg/dL) 112 H Random Glucose 103 Calcium 8.4 Phosphorus 3.2 Magnesium 1.7 Total Bilirubin 0.4 AST 28 ALT 36 Alkaline Phosphatase 75 Total Protein 5.8 Albumin 2.8 L Globulin 3.0 Albumin/Globulin Ratio 0.9 L Procalcitonin 1.25 H 09/26/18 09/26/18 09/26/18 10:45 11:53 21:27 WBC 21.1 H RBC 3.75 Hgb 10.6 L Hct 33.5 L MCV 89.3 MCH 28.3 MCHC 31.6 RDW 14.8 H Plt Count 324 MPV 9.8 Neut % (Auto) 95.9 H Lymph % (Auto) 2.8 L [place] % (Auto) 1.2 Eos % (Auto) 0.0 L Baso % (Auto) 0.1 Lymph # (Auto) 0.6 L [place] # (Auto) 0.3 Eos # (Auto) 0.0 Baso # (Auto) 0.02 Absolute Neuts (auto) 20.23 H Neutrophils % (Manual) 95 H Band Neutrophils % 2 Lymphocytes % (Manual) 2 L Monocytes % (Manual) 1 Platelet Evaluation Normal Hypochromasia 1+ Anisocytosis (manual) 1+ PT INR pCO2 pO2 HCO3 ABG pH ABG Total CO2 ABG O2 Saturation ABG O2 Content ABG Base Excess ABG Hemoglobin ABG Carboxyhemoglobin POC ABG HHb (Measured) ABG Methemoglobin ABG O2 Capacity Hgb O2 Saturation FiO2 Sodium Potassium Chloride Carbon Dioxide Anion Gap BUN Creatinine Est GFR ( Amer) Est GFR (Non-Af Amer) POC Glucose (mg/dL) 100 129 H Random Glucose Calcium Phosphorus Magnesium Total Bilirubin AST ALT Alkaline Phosphatase Total Protein Albumin Globulin Albumin/Globulin Ratio Procalcitonin 09/27/18 09/27/18 09/27/18 06:33 08:00 08:00 WBC RBC Hgb Hct MCV MCH MCHC RDW Plt Count MPV Neut % (Auto) Lymph % (Auto) [place] % (Auto) Eos % (Auto) Baso % (Auto) Lymph # (Auto) [place] # (Auto) Eos # (Auto) Baso # (Auto) Absolute Neuts (auto) Neutrophils % (Manual) Band Neutrophils % Lymphocytes % (Manual) Monocytes % (Manual) Platelet Evaluation Hypochromasia Anisocytosis (manual) PT 17.4 H INR 1.54 pCO2 41 pO2 91.0 HCO3 27.8 ABG pH 7.44 ABG Total CO2 29.1 H ABG O2 Saturation 98.3 H ABG O2 Content 14.1 L ABG Base Excess 3.3 H ABG Hemoglobin 10.4 L ABG Carboxyhemoglobin 1.8 H POC ABG HHb (Measured) 1.7 ABG Methemoglobin 1.0 ABG O2 Capacity 14.3 L Hgb O2 Saturation 95.5 FiO2 32.0 Sodium 136 Potassium 3.8 Chloride 98 Carbon Dioxide 31 Anion Gap 11 BUN 55 H Creatinine 2.6 H Est GFR ( Amer) 21 Est GFR (Non-Af Amer) 18 POC Glucose (mg/dL) Random Glucose 106 Calcium 8.4 Phosphorus 4.3 Magnesium 1.6 L Total Bilirubin 0.4 AST 29 ALT 29 Alkaline Phosphatase 68 Total Protein 5.5 L Albumin 2.6 L Globulin 2.9 Albumin/Globulin Ratio 0.9 L Procalcitonin 09/27/18 08:00 WBC 19.3 H RBC 3.72 Hgb 10.6 L Hct 32.7 L MCV 87.9 MCH 28.5 MCHC 32.4 RDW 14.2 Plt Count 282 MPV 9.3 Neut % (Auto) 95.4 H Lymph % (Auto) 2.4 L [place] % (Auto) 2.1 Eos % (Auto) 0.0 L Baso % (Auto) 0.1 Lymph # (Auto) 0.5 L [place] # (Auto) 0.4 Eos # (Auto) 0.0 Baso # (Auto) 0.01 Absolute Neuts (auto) 18.46 H Neutrophils % (Manual) Band Neutrophils % Lymphocytes % (Manual) Monocytes % (Manual) Platelet Evaluation Hypochromasia Anisocytosis (manual) PT INR pCO2 pO2 HCO3 ABG pH ABG Total CO2 ABG O2 Saturation ABG O2 Content ABG Base Excess ABG Hemoglobin ABG Carboxyhemoglobin POC ABG HHb (Measured) ABG Methemoglobin ABG O2 Capacity Hgb O2 Saturation FiO2 Sodium Potassium Chloride Carbon Dioxide Anion Gap BUN Creatinine Est GFR ( Amer) Est GFR (Non-Af Amer) POC Glucose (mg/dL) Random Glucose Calcium Phosphorus Magnesium Total Bilirubin AST ALT Alkaline Phosphatase Total Protein Albumin Globulin Albumin/Globulin Ratio Procalcitonin Radiology Impressions: Radiology Impressions Chest X-Ray 09/26/18 06:00 IMPRESSION: Progressive bilateral infiltrates/effusions. Chest X-Ray 09/26/18 11:03 IMPRESSION: Satisfactory position of recently placed nasogastric tube. Improved bilateral infiltrates. Chest X-Ray 09/27/18 06:00 IMPRESSION: No significant change in right-sided infiltrate EKG/Cardiology Studies: Cardiology / EKG Studies 09/27/18 10:31 EKG [ELECTROCARDIOGRAM] Stat Comment: Reason For Exam: PAF Fingerstick Blood Sugar Results: 109 Critical Care Progress Note - Nutrition Nutrition: Nutrition Category Date Time Status NPO Diet [DIET] Diets 09/27/18 Breakfast Ordered Assessment/Plan - Assessment and Plan (Free Text) Assessment: Pt is an 83 yo female with a PMH of DVT, HTN, HLD, CKD, dementia who presented to the emergency department after a fall and injuring her right shoulder, and who was later transferred to the ICU because of worsening SOB. Plan: Neuro - fentanyl discontinued Cadio - Maintain MAP >65 - BNP 53469 - ECHO LVH, EF 60-65%, RVSP 42 Pulm - Multilobar pneumonia; improved with antibiotics with chest X-ray showing improvement in bilateral infiltrates - Maintain O2 sat >92 - Duonebs - IR consulted for possible thoracentesis, but may not be needed anymore - Pulm consulted, Dr Roland GI - speech and swallow eval - remove NG tube today - continue to monitor - FOBT positive 09/16/18 - GI ppx, pantoprazole Heme - monitor H/H - Hgb 10.6 - INR 1.54 - D dimer 783 - LEUS: no radiographic signs of DVT - venofer for iron def Nephro - BREANA on CKD - oliguric - continue to monitor electrolytes - renal US simple cysts - Dialysis per nephro Endo - maintain euglycemia ID - WBC 19.3 - BL PNA continue merropenem as per ID Pt seen, examined, assessment and plan discussed with Dr Daily Serrano PGY1 - Date & Time Date: 09/27/18 Time: 20:00 <Jasvir Ambrosio - Last Filed: 09/27/18 13:21> CCU Objective - Vital Signs / Intake & Output Vital Signs (Last 4 hours): Vital Signs Pulse BP 09/27/18 11:18 73 151/78 H Intake and Output (Last 8hrs): Intake & Output 09/26/18 09/27/18 09/27/18 22:59 06:59 14:59 Intake Total 602 1000 Output Total 1200 900 Balance -598 100 Weight 95 lb Intake: IV 542 1000 Left Wrist 200 Right Antecubital 100 550 Right Internal Jugular 0 50 fentanyl 42 Oral 60 Output: Gastric Amount 900 Nares 900 Urine 0 Urine, Voided 0 Emesis 1200 Other: # Bowel Movements 2 - Medications Active Medications: Active Medications Generic Name Dose Route Start Last Admin Trade Name Freq PRN Reason Stop Dose Admin Acetaminophen 650 mg 09/21/18 12:17 09/21/18 12:38 Tylenol 325mg Tab PO 650 mg Q4H PRN Administration Fever >100.4 F Albuterol/Ipratropium 3 ml 09/22/18 08:00 09/27/18 08:08 Duoneb 3 Mg/0.5 Mg (3 Ml) Ud IH 3 ml [id number] [facility] Administration Amino Acid Protein 15 gm 09/25/18 10:00 09/27/18 09:01 Prostat 15 G Packet GT Not Given DAILY JESUS Amlodipine Besylate 10 mg 09/12/18 08:28 09/27/18 09:07 Norvasc PO 10 mg DAILY JESUS Administration Aspirin 81 mg 09/17/18 10:00 09/27/18 09:07 Ecotrin PO 81 mg DAILY JESUS Administration Budesonide 0.5 mg 09/27/18 08:00 09/27/18 08:08 Pulmicort Respules IH 0.5 mg [id number] JESUS Administration Clonidine HCl 1 patch 09/22/18 10:15 Catapres-Tts2 0.2 Mg/24 Hr TD Q7D@1000 [facility] Diltiazem HCl 60 mg 09/25/18 12:00 09/27/18 11:18 Cardizem PO 60 mg Q6 JESUS Administration Heparin Sodium (Porcine) 5,000 units 09/26/18 11:30 09/27/18 11:18 Heparin SC 5,000 units Q8H JESUS Administration Protocol Hydralazine HCl 75 mg 09/19/18 15:00 09/27/18 05:27 Apresoline PO Not Given Q8 JESUS Iron Sucrose 100 mg/ Sodium 105 mls @ 210 mls/hr 09/19/18 10:00 09/27/18 09:08 Chloride IVPB 09/28/18 10:29 210 mls/hr DAILY JESUS Administration Meropenem 250 mg/ Sodium 100 mls @ 100 mls/hr 09/22/18 10:00 09/27/18 09:08 Chloride IVPB 09/28/18 22:01 100 mls/hr Q12H JESUS Administration Protocol Nicardipine HCl 20 mg in 200 mls @ 50 mls/hr 09/26/18 16:50 09/27/18 05:39 Cardene Iv Premix IV 5 mg/hr .Q4H PRN 50 mls/hr TITRATE PER MD ORDER Administration Protocol 5 MG/HR Ondansetron HCl 4 mg 09/26/18 10:46 09/26/18 17:00 Zofran Inj IVP 4 mg Q4H PRN Administration Nausea/Vomiting Pantoprazole Sodium 40 mg 09/24/18 10:00 09/27/18 09:08 Protonix Inj IVP 40 mg DAILY JESUS Administration Risperidone 0.25 mg 09/20/18 21:40 09/27/18 09:07 Risperdal Tab PO 0.25 mg DAILY PRN Administration Other Protocol - Patient Studies Lab Studies: Microbiology Studies 09/24/18 13:00 Blood Culture - Preliminary Blood NO GROWTH AFTER 3 DAYS 09/24/18 12:45 Blood Culture - Preliminary Blood NO GROWTH AFTER 3 DAYS 09/25/18 10:29 Urine Culture - Final Urine Random No Growth (<1,000 CFU/ML) Lab Studies 09/27/18 09/27/18 09/27/18 Range/Units 08:00 08:00 08:00 WBC 19.3 H (4.5-11.0) 10^3/uL RBC 3.72 (3.5-6.1) 10^6/uL Hgb 10.6 L (12.0-16.0) g/dL Hct 32.7 L (36.0-48.0) % MCV 87.9 (80.0-105.0) fl MCH 28.5 (25.0-35.0) pg MCHC 32.4 (31.0-37.0) g/dl RDW 14.2 (11.5-14.5) % Plt Count 282 (120.0-450.0) 10^3/uL MPV 9.3 (7.0-11.0) fl Neut % (Auto) 95.4 H (50.0-68.0) % Lymph % (Auto) 2.4 L (22.0-35.0) % [place] % (Auto) 2.1 (1.0-6.0) % Eos % (Auto) 0.0 L (1.5-5.0) % Baso % (Auto) 0.1 (0.0-3.0) % Lymph # (Auto) 0.5 L (1.2-3.4) [place] # (Auto) 0.4 (0.1-0.6) Eos # (Auto) 0.0 (0.0-0.7) Baso # (Auto) 0.01 (0.0-2.0) K/mm3 Absolute Neuts (auto) 18.46 H (1.4-6.5) PT 17.4 H (9.4-12.5) SECONDS INR 1.54 pCO2 (35-45) mm/Hg pO2 (80-100) mm/Hg HCO3 (21-28) mmol/L ABG pH (7.35-7.45) ABG Total CO2 (22-28) mmol.L ABG O2 Saturation (95-98) % ABG O2 Content (15-23) ML/dl ABG Base Excess (-2.0-3.0) mmol/L ABG Hemoglobin (11.7-17.4) g/dL ABG Carboxyhemoglobin (0.5-1.5) % POC ABG HHb (Measured) (0-5) % ABG Methemoglobin (0.0-3.0) % ABG O2 Capacity (16-24) mL/dl Hgb O2 Saturation (95.0-98.0) % FiO2 % Sodium 136 (132-148) mmol/L Potassium 3.8 (3.6-5.0) mmol/L Chloride 98 (98-107) mmol/L Carbon Dioxide 31 (21-33) mmol/L Anion Gap 11 (10-20) BUN 55 H (7-21) mg/dL Creatinine 2.6 H (0.7-1.2) mg/dl Est GFR ( Amer) 21 Est GFR (Non-Af Amer) 18 POC Glucose (mg/dL) (65-110) mg/dL Random Glucose 106 (70-110) mg/dL Calcium 8.4 (8.4-10.5) mg/dL Phosphorus 4.3 (2.5-4.5) mg/dL Magnesium 1.6 L (1.7-2.2) mg/dL Total Bilirubin 0.4 (0.2-1.3) mg/dL AST 29 (14-36) U/L ALT 29 (7-56) U/L Alkaline Phosphatase 68 (38-126) U/L Total Protein 5.5 L (5.8-8.3) g/dL Albumin 2.6 L (3.0-4.8) g/dL Globulin 2.9 gm/dL Albumin/Globulin Ratio 0.9 L (1.1-1.8) Procalcitonin (0.19-0.49) NG/ML 09/27/18 09/27/18 09/26/18 Range/Units 07:33 06:33 21:27 WBC (4.5-11.0) 10^3/uL RBC (3.5-6.1) 10^6/uL Hgb (12.0-16.0) g/dL Hct (36.0-48.0) % MCV (80.0-105.0) fl MCH (25.0-35.0) pg MCHC (31.0-37.0) g/dl RDW (11.5-14.5) % Plt Count (120.0-450.0) 10^3/uL MPV (7.0-11.0) fl Neut % (Auto) (50.0-68.0) % Lymph % (Auto) (22.0-35.0) % [place] % (Auto) (1.0-6.0) % Eos % (Auto) (1.5-5.0) % Baso % (Auto) (0.0-3.0) % Lymph # (Auto) (1.2-3.4) [place] # (Auto) (0.1-0.6) Eos # (Auto) (0.0-0.7) Baso # (Auto) (0.0-2.0) K/mm3 Absolute Neuts (auto) (1.4-6.5) PT (9.4-12.5) SECONDS INR pCO2 41 (35-45) mm/Hg pO2 91.0 (80-100) mm/Hg HCO3 27.8 (21-28) mmol/L ABG pH 7.44 (7.35-7.45) ABG Total CO2 29.1 H (22-28) mmol.L ABG O2 Saturation 98.3 H (95-98) % ABG O2 Content 14.1 L (15-23) ML/dl ABG Base Excess 3.3 H (-2.0-3.0) mmol/L ABG Hemoglobin 10.4 L (11.7-17.4) g/dL ABG Carboxyhemoglobin 1.8 H (0.5-1.5) % POC ABG HHb (Measured) 1.7 (0-5) % ABG Methemoglobin 1.0 (0.0-3.0) % ABG O2 Capacity 14.3 L (16-24) mL/dl Hgb O2 Saturation 95.5 (95.0-98.0) % FiO2 32.0 % Sodium (132-148) mmol/L Potassium (3.6-5.0) mmol/L Chloride (98-107) mmol/L Carbon Dioxide (21-33) mmol/L Anion Gap (10-20) BUN (7-21) mg/dL Creatinine (0.7-1.2) mg/dl Est GFR ( Amer) Est GFR (Non-Af Amer) POC Glucose (mg/dL) 110 129 H (65-110) mg/dL Random Glucose (70-110) mg/dL Calcium (8.4-10.5) mg/dL Phosphorus (2.5-4.5) mg/dL Magnesium (1.7-2.2) mg/dL Total Bilirubin (0.2-1.3) mg/dL AST (14-36) U/L ALT (7-56) U/L Alkaline Phosphatase (38-126) U/L Total Protein (5.8-8.3) g/dL Albumin (3.0-4.8) g/dL Globulin gm/dL Albumin/Globulin Ratio (1.1-1.8) Procalcitonin (0.19-0.49) NG/ML 09/26/18 09/26/18 Range/Units 11:53 09:30 WBC (4.5-11.0) 10^3/uL RBC (3.5-6.1) 10^6/uL Hgb (12.0-16.0) g/dL Hct (36.0-48.0) % MCV (80.0-105.0) fl MCH (25.0-35.0) pg MCHC (31.0-37.0) g/dl RDW (11.5-14.5) % Plt Count (120.0-450.0) 10^3/uL MPV (7.0-11.0) fl Neut % (Auto) (50.0-68.0) % Lymph % (Auto) (22.0-35.0) % [place] % (Auto) (1.0-6.0) % Eos % (Auto) (1.5-5.0) % Baso % (Auto) (0.0-3.0) % Lymph # (Auto) (1.2-3.4) [place] # (Auto) (0.1-0.6) Eos # (Auto) (0.0-0.7) Baso # (Auto) (0.0-2.0) K/mm3 Absolute Neuts (auto) (1.4-6.5) PT (9.4-12.5) SECONDS INR pCO2 (35-45) mm/Hg pO2 (80-100) mm/Hg HCO3 (21-28) mmol/L ABG pH (7.35-7.45) ABG Total CO2 (22-28) mmol.L ABG O2 Saturation (95-98) % ABG O2 Content (15-23) ML/dl ABG Base Excess (-2.0-3.0) mmol/L ABG Hemoglobin (11.7-17.4) g/dL ABG Carboxyhemoglobin (0.5-1.5) % POC ABG HHb (Measured) (0-5) % ABG Methemoglobin (0.0-3.0) % ABG O2 Capacity (16-24) mL/dl Hgb O2 Saturation (95.0-98.0) % FiO2 % Sodium (132-148) mmol/L Potassium (3.6-5.0) mmol/L Chloride (98-107) mmol/L Carbon Dioxide (21-33) mmol/L Anion Gap (10-20) BUN (7-21) mg/dL Creatinine (0.7-1.2) mg/dl Est GFR ( Amer) Est GFR (Non-Af Amer) POC Glucose (mg/dL) 100 (65-110) mg/dL Random Glucose (70-110) mg/dL Calcium (8.4-10.5) mg/dL Phosphorus (2.5-4.5) mg/dL Magnesium (1.7-2.2) mg/dL Total Bilirubin (0.2-1.3) mg/dL AST (14-36) U/L ALT (7-56) U/L Alkaline Phosphatase (38-126) U/L Total Protein (5.8-8.3) g/dL Albumin (3.0-4.8) g/dL Globulin gm/dL Albumin/Globulin Ratio (1.1-1.8) Procalcitonin 1.25 H (0.19-0.49) NG/ML Laboratory Results - last 24 hr 09/26/18 09/26/18 09/26/18 09:30 11:53 21:27 WBC RBC Hgb Hct MCV MCH MCHC RDW Plt Count MPV Neut % (Auto) Lymph % (Auto) [place] % (Auto) Eos % (Auto) Baso % (Auto) Lymph # (Auto) [place] # (Auto) Eos # (Auto) Baso # (Auto) Absolute Neuts (auto) PT INR pCO2 pO2 HCO3 ABG pH ABG Total CO2 ABG O2 Saturation ABG O2 Content ABG Base Excess ABG Hemoglobin ABG Carboxyhemoglobin POC ABG HHb (Measured) ABG Methemoglobin ABG O2 Capacity Hgb O2 Saturation FiO2 Sodium Potassium Chloride Carbon Dioxide Anion Gap BUN Creatinine Est GFR ( Amer) Est GFR (Non-Af Amer) POC Glucose (mg/dL) 100 129 H Random Glucose Calcium Phosphorus Magnesium Total Bilirubin AST ALT Alkaline Phosphatase Total Protein Albumin Globulin Albumin/Globulin Ratio Procalcitonin 1.25 H 09/27/18 09/27/18 09/27/18 06:33 07:33 08:00 WBC RBC Hgb Hct MCV MCH MCHC RDW Plt Count MPV Neut % (Auto) Lymph % (Auto) [place] % (Auto) Eos % (Auto) Baso % (Auto) Lymph # (Auto) [place] # (Auto) Eos # (Auto) Baso # (Auto) Absolute Neuts (auto) PT 17.4 H INR 1.54 pCO2 41 pO2 91.0 HCO3 27.8 ABG pH 7.44 ABG Total CO2 29.1 H ABG O2 Saturation 98.3 H ABG O2 Content 14.1 L ABG Base Excess 3.3 H ABG Hemoglobin 10.4 L ABG Carboxyhemoglobin 1.8 H POC ABG HHb (Measured) 1.7 ABG Methemoglobin 1.0 ABG O2 Capacity 14.3 L Hgb O2 Saturation 95.5 FiO2 32.0 Sodium Potassium Chloride Carbon Dioxide Anion Gap BUN Creatinine Est GFR ( Amer) Est GFR (Non-Af Amer) POC Glucose (mg/dL) 110 Random Glucose Calcium Phosphorus Magnesium Total Bilirubin AST ALT Alkaline Phosphatase Total Protein Albumin Globulin Albumin/Globulin Ratio Procalcitonin 09/27/18 09/27/18 08:00 08:00 WBC 19.3 H RBC 3.72 Hgb 10.6 L Hct 32.7 L MCV 87.9 MCH 28.5 MCHC 32.4 RDW 14.2 Plt Count 282 MPV 9.3 Neut % (Auto) 95.4 H Lymph % (Auto) 2.4 L [place] % (Auto) 2.1 Eos % (Auto) 0.0 L Baso % (Auto) 0.1 Lymph # (Auto) 0.5 L [place] # (Auto) 0.4 Eos # (Auto) 0.0 Baso # (Auto) 0.01 Absolute Neuts (auto) 18.46 H PT INR pCO2 pO2 HCO3 ABG pH ABG Total CO2 ABG O2 Saturation ABG O2 Content ABG Base Excess ABG Hemoglobin ABG Carboxyhemoglobin POC ABG HHb (Measured) ABG Methemoglobin ABG O2 Capacity Hgb O2 Saturation FiO2 Sodium 136 Potassium 3.8 Chloride 98 Carbon Dioxide 31 Anion Gap 11 BUN 55 H Creatinine 2.6 H Est GFR ( Amer) 21 Est GFR (Non-Af Amer) 18 POC Glucose (mg/dL) Random Glucose 106 Calcium 8.4 Phosphorus 4.3 Magnesium 1.6 L Total Bilirubin 0.4 AST 29 ALT 29 Alkaline Phosphatase 68 Total Protein 5.5 L Albumin 2.6 L Globulin 2.9 Albumin/Globulin Ratio 0.9 L Procalcitonin Radiology Impressions: Radiology Impressions Chest X-Ray 09/26/18 11:03 IMPRESSION: Satisfactory position of recently placed nasogastric tube. Improved bilateral infiltrates. Chest X-Ray 09/27/18 06:00 IMPRESSION: No significant change in right-sided infiltrate EKG/Cardiology Studies: Cardiology / EKG Studies 09/27/18 10:31 EKG [ELECTROCARDIOGRAM] Stat Comment: Reason For Exam: PAF Critical Care Progress Note - Nutrition Nutrition: Nutrition Category Date Time Status NPO Diet [DIET] Diets 09/27/18 Breakfast Ordered Assessment/Plan - Assessment and Plan (Free Text) Plan: Patient seen and examined on rounds with resident, agree with note with following additions/exceptions: Patient is 83yo female with PMHx DVT, HTN, HLD, CKD admitted with renal failure, requiring HD, hypoxic resp failure, PNA, intubated, extubated yesterday, Currently afebrile, off vasopressor support, HD stable Awake, alert, in NAD NO HD for today as per renal NO further vomiting episodes Resp failure CKD on HD Anemia HTN HLD PNA Recommend: - cont with supp O2, goal sat 90%, duonebs PRN, IS - OOB to chair - Isabel Pineda, follow up ID - HD as per renal5 - Prednisone 40mg daily - DC Solumedrol - FS control - speech swallow eval - GI ppx - DVT ppx - transfer to tele
--- NOTE | 2018-09-27 13:32 | PN ---
DATE: 09/27/2018 REASON FOR CONSULTATION AND FOLLOWUP: Shortness of breath, status post intubated, respiratory failure, bilateral pneumonia, anemia and status post successfully extubated. SUBJECTIVE: The patient denies any chest pain, shortness of breath or any palpitation. NG tube in position, 900 mL was aspirated from NG suction. Off ventilator. Observation, not in acute distress. PHYSICAL EXAMINATION: VITAL SIGNS: Temperature afebrile, heart rate 82 and blood pressure 144/69. HEENT: PERRLA. Extraocular muscles intact. NECK: Supple. No carotid bruit. No thyromegaly. CHEST: Clear to auscultation. HEART: S1 and S2, regular. ABDOMEN: Soft. EXTREMITIES: Clubbing and cyanosis negative. LABORATORY DATA: Blood workup WBC 19.3, hemoglobin 10.6, hematocrit 32.7 and platelet count 282. Chemistry shows sodium 130, potassium 3.8, chloride 98, carbon dioxide 31, anion gap 11, BUN 50, creatinine 2.6, total protein 5.5, albumin 2.6 and albumin-globulin ratio 0.6. IMPRESSION: An 83-year-old female with past medical history of hypertension, hyperlipidemia, dementia admitted with bilateral pneumonia, pleural effusion, acute kidney injury, respiratory failure, intubated, moved to ICU. Now, the patient is successfully extubated. Pneumonia, acute kidney injury, type II diabetes, peripheral arterial disease, deep vein thrombosis and history of NG tube in place, the patient has 900 mL of suction. Chest x-ray today showed no significant change, minimal right-sided infiltrate, mild cardiomegaly, mild congestion noted. The patient had an echocardiography done on 09/22/2018, that revealed ejection fraction of 55% right ventricle dilated, right ventricular function mild to moderately reduced, mild to moderate mitral regurgitation, mild tricuspid regurgitation, mild chronic heart failure secondary to diastolic dysfunction as well as secondary to renal insufficiency. RECOMMENDATION: Continue Cardizem, history of paroxysmal atrial fibrillation. Now, the patient in normal sinus, right bundle-branch fascicular block. Continue broad-spectrum antibiotic. Continue gentle diuretics. We will start IV hydralazine p.r.n. and if prolong n.p.o. remain, then we will put IV Cardizem. Overall the patient is critical, long-term prognosis guarded. We will follow with you. Thank you Dr. Adamson for providing us the opportunity in taking care of the patient, Agusto Anaya. We will get EKG to assess. It was reported that the patient has an atrial fibrillation, but right now the patient looks in normal sinus. We will follow with you. Continue as mentioned gentle diuretics. We will start IV Cardizem 5 mL an hour. Suzie Bird MD
--- NOTE | 2018-09-27 14:22 | PN ---
DATE: 09/27/2018 SUBJECTIVE: The patient is 83-year-old, seen and examined, was extubated yesterday, awake and alert, able to communicate. States she is hungry, wants to eat. Waiting her swallow evaluation. PHYSICAL EXAMINATION: VITAL SIGNS: She is afebrile, pulse 73, respiration 18, and blood pressure 151/78. LUNGS: Bilateral fair airflow. No rhonchi or crackle. HEART: S1 and S2 audible. No murmur. ABDOMEN: Soft and nontender. No rebound. No guarding. NEUROLOGIC: The patient is awake and alert, communicative. EXTREMITIES: Bilateral leg, no edema. LABORATORY DATA: WBCs 19.3, hemoglobin 10.6, and hematocrit 32.6. Sodium 136, potassium 3.8, chloride 98, CO2 of 31, BUN 55, and creatinine 2.6. Blood sugar of 106 and magnesium 1.6. Stool hemoccult is positive. ASSESSMENT: 1. Status post respiratory failure. 2. Bilateral pneumonia, improving. 3. Hypertension. 4. Leukocytosis. 5. Peripheral vascular disease. 6. History of deep venous thrombosis. 7. Acute kidney injury, status post multiple dialysis. PLAN: We will continue current antibiotics, get swallow evaluation and start her feeding accordingly. Monitor her blood sugar, and we will follow up her CBC and electrolyte in a.m. Torrie Adamson MD
--- NOTE | 2018-09-27 16:57 | PN ---
DATE: 09/27/2018 SUBJECTIVE: The patient is seen lying in bed in the ICU. She is awake. She is alert. She is responsive. She denies any pain. She denies any shortness of breath. She is on oxygen via nasal cannula. She is on nicardipine drip 5 mg per hour. PHYSICAL EXAMINATION: GENERAL: Thinly built, elderly lady, lying in bed in the ICU. VITAL SIGNS: Blood pressure 151/78, heart rate 73, respiratory rate 13, and temperature 97. HEENT: Normocephalic, atraumatic, positive pallor. NECK: Supple. No JVD. LUNGS: Bilateral equal air entry. Bilateral equal expansion. No rales present. CARDIAC: S1 and S2, regular rate rhythm. No murmur, no rub. ABDOMEN: Soft, nondistended, nontender. Bowel sounds present. EXTREMITIES: No lower extremity edema. Intake and output 1600/2100, 900 from NG tube aspiration and 1200 of vomitus. LABORATORY DATA: WBC 19, hemoglobin 10.6, hematocrit 32.7, and platelets 282, polys 95%, INR 1.5. ABGs; pH 7.4, pCO2 of 41, and pO2 of 91. Sodium 136, potassium 3.8, chloride 98, CO2 of 31, BUN 55, creatinine 2.6, glucose 106, calcium 8.4, phosphorus 4.3, magnesium 1.6, and albumin 2.6. Complements normal. ABBEY negative. Anti-GBM antibody less than 1. Blood cultures, no growth from 09/24. Gram stain and culture no growth from 09/25 so far. Urine culture, no growth. Chest x-ray, no significant change in the right-sided infiltrate. CURRENT MEDICATIONS: Cardene at 5 mg per hour, Cardizem 60 mg p.o. every six hours, Catapres patch on hold, Ecotrin 81, iron 100 mg IV piggyback 9/10 bags, meropenem 250 every 12 hours, amlodipine 10, Pro-Stat 15 g via NG tube, Protonix, Pulmicort, Risperdal, Tylenol, and Zofran. Solu-Medrol was discontinued yesterday. ASSESSMENT: 1. Acute kidney injury superimposed on chronic kidney disease stage 3. The patient remains oligo-anuric, no evidence of acute interstitial nephritis, no evidence of prerenal azotemia. The patient has acute tubular necrosis in the setting of severe sepsis, severe anemia, and respiratory failure. 2. Multilobar pneumonia/respiratory failure, clinically somewhat improved. 3. Severe anemia, stool occult positive, status post multiple transfusions. Hemoglobin stable now. 4. Severe hypertension, currently on a Cardene drip. 5. Coagulopathy in the setting of severe sepsis. PLAN: 1. Volume status is optimal, the patient is not acidotic, potassium is controlled. No dialysis today. 2. Will likely need dialysis tomorrow since the patient is oligo-anuric. 3. Continue antibiotics as per ID recommendations. 4. Continue Cardene drip. 5. Avoid nephrotoxins. 6. The patient is now off steroids, monitor WBC count. 7. Case discussed with ICU staff in detail. 8. Case discussed with the dialysis staff. More than 35 minutes spent in the care of this critically ill patient. Samantha Rand MD
--- NOTE | 2018-09-27 22:46 | CARD ---
APPROVED REPORT Date of service: 09/27/2018 EKG Measurement Heart [id number] <Conclusion> Sinus rhythm with premature atrial complexes Left axis deviation Right bundle branch block Abnormal ECG
--- NOTE | 2018-09-28 00:04 | PN ---
DATE: 09/27/2018 SUBJECTIVE: The patient had episodes of vomiting yesterday. Now, the patient has no further vomiting. NG tube output was less and the patient's NG tube was discontinued. PHYSICAL EXAMINATION: VITAL SIGNS: Temperature afebrile, blood pressure 113/50, respirations 21, and O2 saturations 100%. HEENT: Atraumatic. Anicteric. NECK: Supple. HEART: S1 and S2 heard. LUNGS: Bilateral air entry present. ABDOMEN: Soft, nontender. LABORATORY DATA: WBC count 19.3 and hemoglobin 10.6. IMPRESSION: Episodes of nausea, vomiting, now resolved. Status post respiratory failure, extubated. The patient has a pneumonia, leukocytosis, peripheral vascular disease. The patient has history of anemia. The patient is edentulous, no teeth, but would recommend to continue only pureed diet and continue the present management. Thank you very much for allowing me to participate in the care of the patient. This is Dr. Laureano covering for Dr. Reginald Jimenez. Greg Laureano MD
[2018-09-28] MEDS: Albuterol-Ipratrop 3 mg / 0.5 (3 ml) UD IH SCH ×4 (01:12→19:36)
[2018-09-28 05:55] LABS: ARTERIAL BLOOD GAS HCO3 29.2 mmol/L (21-28); ARTERIAL BLOOD GAS HEMOGLOBIN 9.6 g/dL (11.7-17.4); ARTERIAL BLOOD GAS O2 CAPACITY 13.4 mL/dl (16-24); ARTERIAL BLOOD GAS O2 CONTENT 13.2 ML/dl (15-23); ARTERIAL BLOOD GAS O2 SAT 98.6 % (95-98); ARTERIAL BLOOD GAS PCO2 43 mm/Hg (35-45); ARTERIAL BLOOD GAS PH 7.44 (7.35-7.45); ARTERIAL BLOOD GAS TCO2 30.5 mmol.L (22-28)
[2018-09-28] MEDS: Budesonide 0.5 mg/2 ml Inhal Susp UD IH SCH ×2 (08:15→19:49)
--- NOTE | 2018-09-28 09:28 | PN ---
DATE: 09/28/2018(640am-730am) PULMONARY NOTE SUBJECTIVE: The patient appears quite comfortable this morning. She is not short of breath at rest. PHYSICAL EXAMINATION: VITAL SIGNS: Temperature is 98.2, pulse 70, respirations 17, blood pressure 134/61. Oxygen saturation on nasal cannula is 99%. HEENT: Normocephalic, atraumatic. No JVD. CARDIOVASCULAR: Systolic ejection murmur at the lower left sternal border. No S3 gallop. LUNGS: Decreased breath sounds at the bases with crackles. Very minimal/less rhonchi. No wheezing. GI: Abdomen is soft, nontender, nondistended. Bowel sounds are positive. EXTREMITIES: Mild edema. No cyanosis, no clubbing. Calves are nontender to palpation. SKIN: No acute rash. NEUROLOGIC: Exam limited at the present time. PERTINENT LABORATORY DATA: Chest x-ray was done this morning and reviewed. There is a slight increased haziness noted to both lower lobes.. This "haziness" probably represents layering of the pleural effusions. Official results are pending. Arterial blood gas was done on nasal cannula--three liters. Results are: PH 7.44, pCO2 of 43, pO2 of 112. IMPRESSION: 1. Respiratory failure. 2. Bilateral pneumonia. 3. Bilateral pleural effusions. 4. [id number] renal failure. 5. Severe anemia. 6. Rule out congestive heart failure. PLAN: The patient appears quite comfortable this morning. She is not short of breath at rest. She does state to feeling much better overall. I did discuss the case with the night nurse at length. The night nurse stated the patient had a very good night. The night nurse also informed me that the patient will be dialyzed this morning. I did review the chest x-ray as above. Findings are noted. Official results are pending. I will also check a repeat chest x-ray in the morning - post dialysis. I have also reviewed the arterial blood gas. The arterial blood gas has significantly improved - with resolution of the acidosis, and a significant decrease in the alveolar-arterial gradient. I will continue with the nasal cannula for now. On physical exam, the patient's bronchospasm continues to resolve. I will continue the current nebulizer treatments and inhaled steroids for now. Inputs by Cardiology, Renal, Infectious Disease are also noted. Clinical status of the patient has significantly improved - compared to last week. However, given the above, the future status/prognosis for this patient does remain guarded. I will discuss the above with the entire ICU team in the next few moments. I will also discuss the above with the attending physician later this morning. Charles Roland MD MTDD
[2018-09-28] MEDS: Prostat 15 g packet GT SCH (10:00)
--- NOTE | 2018-09-28 10:56 | RAD ---
Date of service: 09/28/2018 HISTORY: f/u COMPARISON: 09/27/2018 FINDINGS: LUNGS: Increasing bilateral lower lobe infiltrates are seen. PLEURA: Probable small effusions CARDIOVASCULAR: Aortic calcification Mild cardiomegaly. Mild vascular congestion OSSEOUS STRUCTURES: No significant abnormalities. VISUALIZED UPPER ABDOMEN: Normal. OTHER FINDINGS: Right-sided dialysis catheter in satisfactory position IMPRESSION: Increasing bilateral lower lobe infiltrates
[2018-09-28 11:00] LABS: HEMOGLOBIN 9.9 g/dL (12.0-16.0); MEAN CELL VOLUME 89.6 fl (80.0-105.0); MEAN CORPUSCULAR HEMOGLOBIN 27.8 pg (25.0-35.0); MEAN PLATELET VOLUME 9.9 fl (7.0-11.0); RBC 3.56 10^6/uL (3.5-6.1); RED CELL DISTRIBUTION WIDTH 14.4 % (11.5-14.5); WHITE BLOOD COUNT 12.7 10^3/uL (4.5-11.0)
[2018-09-28 11:09] LABS: ALBUMIN 2.5 g/dL (3.0-4.8); CALCIUM 7.7 mg/dL (8.4-10.5)
--- NOTE | 2018-09-28 14:51 | PN ---
DATE: 09/28/2018 REASON FOR CONSULTATION: Cardiac evaluation, status post respiratory failure, intubated, now successfully extubated; rule out CHF. SUBJECTIVE: The patient denies any chest pain, shortness of breath or any palpitation. NG tube discontinued. OBJECTIVE: GENERAL: Not in apparent distress; lying in ICU. VITAL SIGNS: Temperature afebrile, heart rate 70, and blood pressure 134/61. HEENT: PERRLA. Extraocular muscles intact. NECK: Supple. No carotid bruits or thyromegaly. CHEST: Clear to auscultation. HEART: S1 and S2 regular. ABDOMEN: Soft. EXTREMITIES: Clubbing and cyanosis negative. LABORATORY DATA: Blood workup; WBC 9.3, hemoglobin 10.6, hematocrit 32.7 and platelet count 282. Chemistry; sodium 130, potassium 3.8, chloride 90, carbon dioxide 31, anion gap of 11, BUN 55, and creatinine 2.6. IMPRESSION: An 83-year-old female, with past medical history significant for anemia and hypertension, admitted to the floor, later on developed respiratory distress, moved to intensive care unit, requiring intubation; bilateral pneumonia, pleural effusion, now the patient successfully extubated. acute kidney injury and chronic renal insufficiency, history of diabetes, history of peripheral arterial disease, and history of deep venous thrombosis. Yesterday was on nasogastric tube, 900 mL suctioned. The patient is edentulous, no teeth, recommended pureed diet now. The patient started yesterday Cardizem because of the patient was n.p.o. Now the patient started taking medications, we will put Cardizem 60 mg every six hours started as well as clonidine patch #2. Because of low blood pressure it is on hold. Continue amlodipine and increase nutritional support. CVS status is stable. No evidence of myocardial infarction noted. The patient had an echocardiography done on 09/22/2018 that showed normal ejection fraction of 55%, moderate right ventricle moderately dilated, systolic function right ventricle reduced, trace aortic regurgitation, mild to moderate aortic stenosis, mild to moderate mitral regurgitation, mild tricuspid regurgitation, right ventricular systolic pressure 42 mmHg noted. Repeat chest x-ray shows improving pneumonia and mild encephalization noted. RECOMMENDATIONS: Since the patient has renal insufficiency, suggested to continue gentle diuretics negative fluid balance. Avoid nephrotoxic medication, still the patient has leukocytosis 19.3. Since the BUN and creatinine is elevated today, creatinine monitored closely for the diuretics, but can be considered p.r.n. We will follow with you. Actually BUN went up from 41 to 55 and creatinine 2.6, so Lasix is on hold. We will repeat chest x-ray and laboratory in the morning. Increase the nutritional support. Preserved LV function; no evidence of congestive heart failure at this time. Okay to transfer to telemetry from Cardiology point of view. Suzie Bird MD
--- NOTE | 2018-09-28 15:45 | CP.PCM.PN ---
<Carlos Munson - Last Filed: 09/28/18 15:42> Subjective - Date & Time of Evaluation Date of Evaluation: 09/28/18 Time of Evaluation: 09:00 - Subjective Subjective: Carlos Munson D.O. PGY-3, Internal Medicine Resident, Infectious Disease Progress Note 83 year old female with a PMH of HTN, DM, DVT, PVD, mitral and aortic regurg who was being managed for BL CAP now with sepsis and HAP. Patient was seen and examined at bedside. Receiving dialysis at this time. Appears comfortable. Improving everyday. Objective - Vital Signs/Intake and Output Vital Signs (last 24 hours): Temp Pulse Resp BP Pulse Ox 98.4 F 74 22 128/47 L 100 09/28/18 04:00 09/28/18 14:50 09/28/18 14:23 09/28/18 14:50 09/28/18 04:00 Intake and Output: 09/28/18 09/28/18 06:59 18:59 Intake Total 160 Output Total 200 Balance -40 - Medications Medications: Current Medications Acetaminophen (Tylenol 325mg Tab) 650 mg PO Q4H PRN PRN Reason: Fever >100.4 F Last Admin: 09/21/18 12:38 Dose: 650 mg Albuterol/Ipratropium (Duoneb 3 Mg/0.5 Mg (3 Ml) Ud) 3 ml IH [id number] [facility] Last Admin: 09/28/18 13:33 Dose: 3 ml Amino Acid Protein (Prostat 15 G Packet) 15 gm GT DAILY [facility] Last Admin: 09/28/18 10:00 Dose: Not Given Amlodipine Besylate (Norvasc) 10 mg PO DAILY [facility] Last Admin: 09/28/18 12:14 Dose: 10 mg Aspirin (Ecotrin) 81 mg PO DAILY [facility] Last Admin: 09/28/18 12:13 Dose: 81 mg Budesonide (Pulmicort Respules) 0.5 mg IH [id number] [facility] Last Admin: 09/28/18 08:15 Dose: 0.5 mg Clonidine HCl (Catapres-Tts2 0.2 Mg/24 Hr) 1 patch TD Q7D@1000 [facility] Diltiazem HCl (Cardizem) 60 mg PO Q6 [facility] Last Admin: 09/28/18 12:13 Dose: 60 mg Heparin Sodium (Porcine) (Heparin) 5,000 units SC Q8H [facility]; Protocol Last Admin: 09/28/18 12:16 Dose: 5,000 units Hydralazine HCl (Apresoline) 75 mg PO Q8 [facility] Last Admin: 09/28/18 14:50 Dose: 75 mg Nicardipine HCl (Cardene Iv Premix) 20 mg in 200 mls @ 50 mls/hr IV .Q4H PRN; Protocol PRN Reason: TITRATE PER MD ORDER Last Titration: 09/27/18 07:00 Dose: Infused Ondansetron HCl (Zofran Inj) 4 mg IVP Q4H PRN PRN Reason: Nausea/Vomiting Last Admin: 09/26/18 17:00 Dose: 4 mg Pantoprazole Sodium (Protonix Inj) 40 mg IVP DAILY [facility] Last Admin: 09/28/18 12:14 Dose: 40 mg Risperidone (Risperdal Tab) 0.25 mg PO DAILY PRN; Protocol PRN Reason: Other Last Admin: 09/27/18 09:07 Dose: 0.25 mg - Labs Labs: 09/28/18 10:45 09/28/18 10:45 PT 17.4 SECONDS (9.4-12.5) H 09/27/18 08:00 INR 1.54 09/27/18 08:00 APTT 30.3 Seconds (26.9-38.3) 09/17/18 06:20 - Constitutional Appears: No Acute Distress, Cachectic, Chronically Ill - Head Exam Head Exam: ATRAUMATIC, NORMOCEPHALIC - Eye Exam Eye Exam: absent: Scleral icterus - ENT Exam ENT Exam: Mucous Membranes Moist, NGT in place - Neck Exam Neck Exam: Normal Inspection - Respiratory Exam Respiratory Exam: Decreased breath sounds - Cardiovascular Exam Cardiovascular Exam: +S1, +S2. absent: Rubs - GI/Abdominal Exam GI & Abdominal Exam: Soft. absent: Tenderness - Extremities Exam Extremities Exam: absent: Calf Tenderness, Tenderness - Neurological Exam Additional comments: awake, alert, oriented to self and place - Skin Skin Exam: Dry, Warm Assessment and Plan - Assessment and Plan (Free Text) Assessment: 83 year old female with a PMH of HTN, DM, DVT, PVD, mitral and aortic regurg who was being managed for BL CAP now with sepsis and HAP, hospital course complicated by respiratory failure needing intubation, now extubated to [place]. Plan: Sepsis HAP Renal failure Afebrile, no tachycardia, breathing comfortably Leukocytosis downtrending Finished course of meropenem Repeat BCxs 2/2 negative day 3 At high risk for nosocomial infections We will follow with you Patient was seen and examined at bedside and case will be discussed with attending physician Thank you for the pleasure of participating in the care of this interesting patient <Urbano Herring - Last Filed: 09/28/18 16:09> Objective - Vital Signs/Intake and Output Vital Signs (last 24 hours): Temp Pulse Resp BP Pulse Ox 98.4 F 74 22 128/47 L 100 09/28/18 04:00 09/28/18 14:50 09/28/18 14:23 09/28/18 14:50 09/28/18 04:00 Intake and Output: 09/28/18 09/28/18 06:59 18:59 Intake Total 160 Output Total 200 Balance -40 - Medications Medications: Current Medications Acetaminophen (Tylenol 325mg Tab) 650 mg PO Q4H PRN PRN Reason: Fever >100.4 F Last Admin: 09/21/18 12:38 Dose: 650 mg Albuterol/Ipratropium (Duoneb 3 Mg/0.5 Mg (3 Ml) Ud) 3 ml IH [id number] [facility] Last Admin: 09/28/18 13:33 Dose: 3 ml Amino Acid Protein (Prostat 15 G Packet) 15 gm GT DAILY [facility] Last Admin: 09/28/18 10:00 Dose: Not Given Amlodipine Besylate (Norvasc) 10 mg PO DAILY [facility] Last Admin: 09/28/18 12:14 Dose: 10 mg Aspirin (Ecotrin) 81 mg PO DAILY [facility] Last Admin: 09/28/18 12:13 Dose: 81 mg Budesonide (Pulmicort Respules) 0.5 mg IH [id number] [facility] Last Admin: 09/28/18 08:15 Dose: 0.5 mg Clonidine HCl (Catapres-Tts2 0.2 Mg/24 Hr) 1 patch TD Q7D@1000 [facility] Diltiazem HCl (Cardizem) 60 mg PO Q6 [facility] Last Admin: 09/28/18 12:13 Dose: 60 mg Heparin Sodium (Porcine) (Heparin) 5,000 units SC Q8H [facility]; Protocol Last Admin: 09/28/18 12:16 Dose: 5,000 units Hydralazine HCl (Apresoline) 75 mg PO Q8 [facility] Last Admin: 09/28/18 14:50 Dose: 75 mg Nicardipine HCl (Cardene Iv Premix) 20 mg in 200 mls @ 50 mls/hr IV .Q4H PRN; Protocol PRN Reason: TITRATE PER MD ORDER Last Titration: 09/27/18 07:00 Dose: Infused Ondansetron HCl (Zofran Inj) 4 mg IVP Q4H PRN PRN Reason: Nausea/Vomiting Last Admin: 09/26/18 17:00 Dose: 4 mg Pantoprazole Sodium (Protonix Inj) 40 mg IVP DAILY [facility] Last Admin: 09/28/18 12:14 Dose: 40 mg Risperidone (Risperdal Tab) 0.25 mg PO DAILY PRN; Protocol PRN Reason: Other Last Admin: 09/27/18 09:07 Dose: 0.25 mg - Labs Labs: 09/28/18 10:45 09/28/18 10:45 PT 17.4 SECONDS (9.4-12.5) H 09/27/18 08:00 INR 1.54 09/27/18 08:00 APTT 30.3 Seconds (26.9-38.3) 09/17/18 06:20 Attending/Attestation - Attestation I have personally seen and examined this patient.: Yes I have fully participated in the care of the patient.: Yes I have reviewed all pertinent clinical information, including history, physical exam and plan: Yes
--- NOTE | 2018-09-28 16:37 | PN ---
DATE: 09/28/2018 SUBJECTIVE: The patient is currently seen lying comfortable in bed in ICU bed four. She has been downgraded to telemetry. She had a successful dialysis earlier today with removal of 1.5 liters of fluid. NG tube has been removed. The patient is tolerating pureed foods. It is quite possible that she is making more urine, but she did have a leak in the urine collection device. I will attempt to do a 24 urine to check for renal reserve. Perhaps her acute renal failure is resolving. MEDICATIONS: Medication list reviewed. The patient is on hydralazine, Cardizem, clonidine, is on hold, DuoNeb, Ecotrin, heparin, Norvasc, Pro-Stat, Protonix, Pulmicort, Risperdal, Tylenol p.r.n. and Zofran p.r.n. OBJECTIVE: INTAKE AND OUTPUT: Intake 470 mL and output is 400 mL which is a significant improvement in her urine output. VITAL SIGNS: Blood pressure approximately is 128/47, pulse of 74, temperature is 98.4 with a respiratory rate of 22. HEENT: Exam shows her to be normocephalic and atraumatic. Conjunctivae are pink. Sclerae are nonicteric. NECK: Supple. No neck vein distention. CHEST: Clear with no rales, rhonchi or wheezing. Slight decreased breath sound at the bases. CARDIOVASCULAR: Shows a regular rate and rhythm with a soft systolic murmur left lower sternal border. Positive AI/MR. No S3, no S4, no rub. ABDOMEN: Soft. Bowel sounds normal. No rebound, guarding or masses. EXTREMITIES: Show no lower extremity cyanosis, clubbing or edema. LABORATORY DATA AND IMAGING STUDIES: CBC shows white blood cell count of 12.7, hemoglobin of 9.9 with a platelet count of 284,000. Chemistries today showed normal electrolytes. BUN 63 with a creatinine of 3.0. Glucose is 54, calcium 7.7 corrects to normal and an albumin of 2.5, phosphorus is stable at 4.3 with a magnesium level of 1.6. Microbiology; sputum was positive for yeast. Initial urine culture was positive for beta hemolytic strep group B. All blood cultures were negative. ASSESSMENT: 1. Acute renal failure superimposed on chronic kidney disease stage III. This is in the setting of sepsis, pneumonia and urinary tract infection. The patient was oligo-anuric and required acute dialysis. It appears that her urine output is improving. Her baseline BUN is in the mid 30s. Her baseline creatinine is in the upper 2 range. I will obtain a 24 hour urine for creatinine clearance to check for renal reserve. It is quite possible that the patient has turned the corner and will not require further dialysis. 2. Status post metabolic acidosis. This has resolved. The patient is currently off oral sodium bicarbonate supplements that she had been on dialysis. 3. History of hypertension. Patient remains normotensive. She does not require any IV medications to lower or raise her blood pressure. She is remaining stable on hydralazine and Cardizem and Norvasc. 4. History of anemia. Hemoglobin is stable at 9.9. 5. Mild elevation of her white blood cell count. Perhaps this was secondary to the use of steroids. 6. History of dementia. The patient appears to be stable. 7. History of aortic insufficiency and mitral regurgitation stable. 8. 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 9. 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 10. Status post isolated episode of hemoptysis, likely secondary to pneumonia. Workup for vasculitis was negative. 11. Status post pneumonia. With bilateral pleural effusions. The patient has completed a course of IV antibiotic therapy, is being followed closely by Infectious Disease and Pulmonary. PLAN: 1. As discussed with the nursing staff will obtain a 24 urine for creatinine clearance. If her creatinine clearance is adequate, perhaps no further dialysis will be necessary and her right neck dialysis catheter can be removed. 2. Continue to avoid all nephrotoxic agents as her renal function will likely recover back to baseline. 3. We will make further decisions regarding dialysis on a day-by-day basis. 4. I will change her blood pressure medication. Roderick Faith MD MTDD
--- NOTE | 2018-09-28 20:47 | PN ---
DATE: 09/28/2018 SUBJECTIVE: She is comfortable in bed, in no acute distress. She has been started on hemodialysis due to acute and chronic kidney failure. She has a history of DVT, admitted with supratherapeutic INR, and currently on heparin prophylactic doses 5000 every 8 hours. Coags are within normal limits now. No bleeding from any site. REVIEW OF SYSTEMS: Denies any chest pain. No shortness of breath. NG tube discontinued. She is extubated, was intubated before. PHYSICAL EXAMINATION: GENERAL: Comfortable in bed, in no acute distress. VITAL SIGNS: Temperature 98.7, heart rate is 70 per minute, and blood pressure 134/60. HEENT: Pallor positive. NECK: Supple. No lymphadenopathy. CHEST: Air entry present and equal bilaterally. No added sound. HEART: S1 and S2 normal. No murmur. No gallop. ABDOMEN: Soft and nontender. No hepatosplenomegaly. EXTREMITIES: No clubbing. No cyanosis. No edema. LABORATORY DATA: White count 9.3, hemoglobin 10.6, hematocrit 32.7, and platelet 282. Sodium 130, potassium 3.8, creatinine 2.6, and BUN 55. ASSESSMENT: 1. Acute on chronic renal insufficiency. 2. History of diabetes mellitus. 3. Peripheral arterial disease. 4. History of deep venous thrombosis. 5. Bilateral pneumonia. 6. History of respiratory failure intubated and extubated now. PLAN: Hemoglobin and hematocrit is stable. Coagulopathy resolved. Currently on heparin prophylactic doses 5000 every 8 hours . Continue heparin. She is not a candidate for anticoagulation because of multiple comorbid conditions and renal insufficiency, if stable IVC filter can be considered to avoid pulmonary embolism. Consultation with Dr. Herring, Dr. Faith, and Dr. Bird reviewed. Thank you Dr. Adamson for allowing us to participate in Ms. Agusto awad. We will continue to follow. Shiloh Frausto MD [facility]
--- NOTE | 2018-09-28 22:31 | PN ---
DATE: 09/28/2018 SUBJECTIVE: The patient is 83 years old, seen and examined. Awake, alert, oriented, communicative, answers appropriately, getting hemodialysis. PHYSICAL EXAMINATION: VITAL SIGNS: She is afebrile, pulse 76, respirations 22, and blood pressure 120/75. LUNGS: Bilateral fair airflow. No rhonchi or crackle. HEART: S1 and S2 audible. ABDOMEN: Soft and nontender. No rebound. No guarding. NEUROLOGIC: She is awake, alert, oriented, communicative. LABORATORY DATA: WBC 12.7, hemoglobin 9.9, hematocrit 31.9, and platelet of 284. Chemistry; sodium 137, potassium 3.9, chloride 100, CO2 of 31, BUN 63, creatinine 3.0, and blood sugar of 51. ASSESSMENT: 1. Status post respiratory failure. 2. Bilateral pneumonia. 3. Acute on chronic kidney failure, currently on dialysis. 4. History of hypertension. 5. Peripheral vascular disease. 6. Anemia, status post blood transfusion. 7. Mild dementia. 8. Aortic insufficiency. PLAN: The patient is getting hemodialysis today. We will discuss with perforator loader if the patient need ongoing dialysis, she has to be transferred to [facility] for rehab otherwise, she will be transferred to [place] if she did not need dialysis anymore. We will follow up her electrolyte, CBC and CMP in the a.m. Torrie Adamson MD
[2018-09-29] MEDS: Albuterol-Ipratrop 3 mg / 0.5 (3 ml) UD IH SCH ×4 (02:39→19:13)
[2018-09-29] MEDS: Budesonide 0.5 mg/2 ml Inhal Susp UD IH SCH ×2 (07:41→19:13)
[2018-09-29 07:43] LABS: HEMOGLOBIN 9.6 g/dL (12.0-16.0); MEAN CELL VOLUME 89.6 fl (80.0-105.0); MEAN CORPUSCULAR HEMOGLOBIN 28.7 pg (25.0-35.0); MEAN PLATELET VOLUME 9.4 fl (7.0-11.0); RBC 3.35 10^6/uL (3.5-6.1); RED CELL DISTRIBUTION WIDTH 14.3 % (11.5-14.5); WHITE BLOOD COUNT 10.8 10^3/uL (4.5-11.0)
[2018-09-29 08:05] LABS: ALBUMIN 2.4 g/dL (3.0-4.8); CALCIUM 7.4 mg/dL (8.4-10.5)
--- NOTE | 2018-09-29 08:47 | PN ---
DATE: 09/29/2018 PULMONARY NOTE SUBJECTIVE: The patient appears quite comfortable this morning. She is not short of breath at rest. She is now on the telemetry unit. PHYSICAL EXAMINATION: VITALS: Temperature is 98.2, pulse is 78, respirations 18, blood pressure 122/64. Oxygen saturation on nasal cannula is 99%. HEENT: Normocephalic, atraumatic. No JVD. CARDIOVASCULAR: Systolic ejection murmur at the lower left sternal border. No S3 gallop. LUNGS: Decreased breath sounds at both bases with crackles. No rhonchi or wheezing this morning. EXTREMITIES: Mild edema. No cyanosis, no clubbing. Calves are nontender to palpation. GASTROINTESTINAL: Abdomen is soft, nontender, and nondistended. Bowel sounds are positive. SKIN: No acute rash. NEUROLOGIC: Exam limited at the present time. PERTINENT LABORATORY DATA: Chest x-ray was done this morning and reviewed. There remains an infiltrate and effusion(?increased) noted to the right lower lobe. The left lower lobe findings are decreased. IMPRESSION: 1. Respiratory failure. 2. Bilateral pneumonia. 3. Bilateral pleural effusions. 4. Acute on chronic renal failure. 5. Severe anemia. 6. Rule out congestive heart failure. PLAN: The patient appears quite comfortable this morning. She is not short of breath at rest. She does state to feeling much better overall. The patient is now on the telemetry unit. I did discuss the case with the night nurse at length. The night nurse stated that the patient had a good night. I did review the chest x-ray as above. A right pleural effusion (possibly increased) and infiltrate remain - right lower lobe. Dr. Michael Brown (Interventional Radiology) was called on the case earlier. We will reconsult Dr. Brown this morning - for possible thoracentesis. The patient is now off antibiotic therapy. Input by Infectious Disease is noted. The leukocytosis is resolving. Inputs by Cardiology and Renal are also noted. Clinical status of the patient is significantly improved - compared to last week. However, given the above, the future status/prognosis for this patient does remain guarded. I will discuss the above with the attending physician later this morning. Charles Roland MD [facility] # [id number]
[2018-09-29] MEDS: Prostat 15 g packet GT SCH (09:22)
--- NOTE | 2018-09-29 09:43 | RAD ---
Date of service: 09/29/2018 HISTORY: f/u COMPARISON: 09/28/2018 FINDINGS: LUNGS: Improved bibasilar infiltrates and effusions. PLEURA: As above CARDIOVASCULAR: Aortic calcification Mild cardiomegaly no pulmonary vascular congestion. OSSEOUS STRUCTURES: No significant abnormalities. VISUALIZED UPPER ABDOMEN: Normal. OTHER FINDINGS: None. IMPRESSION: Improved bibasilar infiltrates and effusions.
--- NOTE | 2018-09-29 12:37 | PN ---
DATE: 09/29/2018 REASON FOR CONSULTATION AND FOLLOWUP: Cardiac evaluation, status post respiratory failure, intubated, now successfully extubated; rule out CHF. SUBJECTIVE: NG tube disconnected. Denies any chest pain, shortness of breath, or any palpitation. OBJECTIVE: GENERAL: Not in apparent distress, lying flat on the bed. Now, the patient is in telemetry 261, bed 2. VITAL SIGNS: Rest of examination; temperature afebrile, heart rate 78, and blood pressure 122/68. HEENT: PERRLA. Extraocular muscles intact. NECK: Supple. No carotid bruits or thyromegaly. CHEST: Clear to auscultation. HEART: S1 and S2 regular. ABDOMEN: Soft. EXTREMITIES: Clubbing and cyanosis negative. LABORATORY DATA: Blood workup as follows; WBC 10.8, hemoglobin 9, hematocrit 30.0, and platelet count 215. Chemistry shows sodium 136, potassium 3.4, chloride 100, carbon dioxide 29, anion gap of 9, BUN 34, and creatinine 2.3. IMPRESSION AND PLAN: An 83-year-old female with a past medical history significant for anemia and hypertension, admitted to the floor, later on developed respiratory distress, moved to intensive care unit, requiring intubation, bilateral pneumonia, now the patient successfully extubated, acute kidney injury, peripheral arterial disease, anemia, mild dementia, aortic insufficiency, status post dialysis, yesterday 1.5 liters of fluid was removed. Nasogastric tube has also been removed. The patient has an echocardiography done, dated 09/22/2018, that shows normal ejection fraction, moderate right ventricle dilated, right ventricular systolic function reduced, trace aortic regurgitation, mild to moderate aortic stenosis, mild to moderate mitral regurgitation, mild tricuspid regurgitation, right ventricular systolic pressure 42 mmHg. Nasogastric tube is out, the p.o. medications started. Currently, the patient is on hydralazine, Cardizem, and amlodipine. We will have to monitor closely because the patient has started dialysis and may drop the blood pressure. We will put some holding parameters; otherwise, the patient may become hypotensive. We will leave the patient on since wearing the clonidine patch, we will cut down the hydralazine or we will change to p.r.n. and stop p.o. b.i.d., also we will put the Cardizem 60 three times everyday with holding parameter. We will follow with you. We will discontinue 75 mg p.o. three times a day because the patient has low blood pressure p.r.n. hydralazine. We will leave the patient on clonidine patch and also hold Cardizem because of low blood pressure. Thank you Dr. Adamson for providing us the opportunity in taking care of the patient, Jaclyn Liz. Suzie Bird MD
--- NOTE | 2018-09-29 13:44 | PN ---
DATE: 09/29/2018 SUBJECTIVE: The patient is 83-year-old, seen and examined, seems to be much more awake and alert, ate better, did not like the food. Still has scanty cough. PHYSICAL EXAMINATION: VITAL SIGNS: She is afebrile, pulse 70, respiration 18, and blood pressure 149/64. LUNGS: Bilateral decreased breath sounds at bases, right more than the left. HEART: S1 and S2 audible. ABDOMEN: Soft and nontender. No rebound. No guarding. NEUROLOGIC: The patient is awake and alert. LABORATORY DATA: WBC is 10.8, hemoglobin 9.6, hematocrit 30, and platelet of 215. Chemistry; sodium 136, potassium 3.4, chloride 100, CO2 of 29, BUN 34, creatinine 2.3, and blood sugar of 60. ASSESSMENT: 1. Status post respiratory failure, status post extubation. 2. Acute and chronic renal failure, seems to be improving. 3. History of hypertension. 4. Pleural effusion. 5. Peripheral vascular disease. 6. Bilateral lower lobe infiltrate with pleural effusion. PLAN: The patient will be get out of bed to chair. She will be evaluated for physical therapy. According to her performance, we will make discharge. Disposition plan, Nephrology input noted in the patient. Probably, she is dialysis catheter. We will wait for another day or two, and we will discontinue prior to discharge. Torrie Adamson MD
[2018-09-29 14:59] LABS: URINE CREATININE 85.7 mg/dL
--- NOTE | 2018-09-29 15:52 | CP.PCM.PN ---
<Carlos Munson - Last Filed: 09/29/18 15:50> Subjective - Date & Time of Evaluation Date of Evaluation: 09/29/18 Time of Evaluation: 09:45 - Subjective Subjective: Carlos Munson D.O. PGY-3, Internal Medicine Resident, Infectious Disease Progress Note 83 year old female with a PMH of HTN, DM, DVT, PVD, mitral and aortic regurg who was being managed for BL CAP now with sepsis and HAP. Patient was seen and examined at bedside. Doing much better. Energetic and very verbal. Wants to get better. Objective - Vital Signs/Intake and Output Vital Signs (last 24 hours): Temp Pulse Resp BP Pulse Ox 98.3 F 71 20 143/60 99 09/29/18 12:00 09/29/18 14:00 09/29/18 12:00 09/29/18 12:00 09/29/18 04:00 - Medications Medications: Current Medications Acetaminophen (Tylenol 325mg Tab) 650 mg PO Q4H PRN PRN Reason: Fever >100.4 F Last Admin: 09/21/18 12:38 Dose: 650 mg Albuterol/Ipratropium (Duoneb 3 Mg/0.5 Mg (3 Ml) Ud) 3 ml IH [id number] [facility] Last Admin: 09/29/18 13:31 Dose: 3 ml Amino Acid Protein (Prostat 15 G Packet) 15 gm GT DAILY [facility] Last Admin: 09/29/18 09:22 Dose: Not Given Amlodipine Besylate (Norvasc) 10 mg PO DAILY [facility] Last Admin: 09/29/18 09:22 Dose: 10 mg Aspirin (Ecotrin) 81 mg PO DAILY [facility] Last Admin: 09/29/18 09:22 Dose: 81 mg Budesonide (Pulmicort Respules) 0.5 mg IH [id number] [facility] Last Admin: 09/29/18 07:41 Dose: 0.5 mg Clonidine HCl (Catapres-Tts2 0.2 Mg/24 Hr) 1 patch TD Q7D@1000 [facility] Diltiazem HCl (Cardizem) 60 mg PO Q6 [facility] Last Admin: 09/29/18 05:02 Dose: 60 mg Heparin Sodium (Porcine) (Heparin) 5,000 units SC Q8H [facility]; Protocol Last Admin: 09/29/18 12:51 Dose: 5,000 units Hydralazine HCl (Apresoline) 10 mg PO QID PRN PRN Reason: for sbp >160 Ondansetron HCl (Zofran Inj) 4 mg IVP Q4H PRN PRN Reason: Nausea/Vomiting Last Admin: 09/26/18 17:00 Dose: 4 mg Pantoprazole Sodium (Protonix Ec Tab) 40 mg PO ACB [facility] Risperidone (Risperdal Tab) 0.25 mg PO DAILY PRN; Protocol PRN Reason: Other Last Admin: 09/27/18 09:07 Dose: 0.25 mg - Labs Labs: 09/29/18 07:30 09/29/18 14:00 PT 17.4 SECONDS (9.4-12.5) H 09/27/18 08:00 INR 1.54 09/27/18 08:00 APTT 30.3 Seconds (26.9-38.3) 09/17/18 06:20 - Constitutional Appears: No Acute Distress, Cachectic, Chronically Ill - Head Exam Head Exam: ATRAUMATIC, NORMOCEPHALIC - Eye Exam Eye Exam: absent: Scleral icterus - ENT Exam ENT Exam: Mucous Membranes Moist - Neck Exam Neck Exam: Normal Inspection - Respiratory Exam Respiratory Exam: Decreased breath sounds - Cardiovascular Exam Cardiovascular Exam: +S1, +S2. absent: Rubs - GI/Abdominal Exam GI & Abdominal Exam: Soft. absent: Tenderness - Extremities Exam Extremities Exam: absent: Calf Tenderness, Tenderness - Neurological Exam Additional comments: awake, alert, oriented to self and place - Skin Skin Exam: Dry, Warm Assessment and Plan - Assessment and Plan (Free Text) Assessment: 83 year old female with a PMH of HTN, DM, DVT, PVD, mitral and aortic regurg who was being managed for BL CAP now with sepsis and HAP, hospital course complicated by respiratory failure needing intubation, now extubated to [place]. Plan: Sepsis HAP Renal failure Afebrile No leukocytosis Finished course of meropenem Repeat BCxs 2/2 negative day 5 At high risk for nosocomial infections Advise PT We will follow with you Patient was seen and examined at bedside and case will be discussed with attending physician Thank you for the pleasure of participating in the care of this interesting patient <Urbano Herring - Last Filed: 09/29/18 20:56> Objective - Vital Signs/Intake and Output Vital Signs (last 24 hours): Temp Pulse Resp BP Pulse Ox 98.4 F 77 20 153/60 H 99 09/29/18 18:00 09/29/18 18:00 09/29/18 18:00 09/29/18 18:00 09/29/18 04:00 Intake and Output: 09/29/18 09/30/18 18:59 06:59 Intake Total 720 Output Total 200 Balance 520 - Medications Medications: Current Medications Acetaminophen (Tylenol 325mg Tab) 650 mg PO Q4H PRN PRN Reason: Fever >100.4 F Last Admin: 09/21/18 12:38 Dose: 650 mg Albuterol/Ipratropium (Duoneb 3 Mg/0.5 Mg (3 Ml) Ud) 3 ml IH [id number] [facility] Last Admin: 09/29/18 19:13 Dose: 3 ml Amino Acid Protein (Prostat 15 G Packet) 15 gm GT DAILY [facility] Last Admin: 09/29/18 09:22 Dose: Not Given Amlodipine Besylate (Norvasc) 10 mg PO DAILY [facility] Last Admin: 09/29/18 09:22 Dose: 10 mg Aspirin (Ecotrin) 81 mg PO DAILY [facility] Last Admin: 09/29/18 09:22 Dose: 81 mg Budesonide (Pulmicort Respules) 0.5 mg IH [id number] [facility] Last Admin: 09/29/18 19:13 Dose: 0.5 mg Clonidine HCl (Catapres-Tts2 0.2 Mg/24 Hr) 1 patch TD Q7D@1000 [facility] Diltiazem HCl (Cardizem) 60 mg PO Q6 [facility] Last Admin: 09/29/18 05:02 Dose: 60 mg Heparin Sodium (Porcine) (Heparin) 5,000 units SC Q8H [facility]; Protocol Last Admin: 09/29/18 20:46 Dose: 5,000 units Hydralazine HCl (Apresoline) 10 mg PO QID PRN PRN Reason: for sbp >160 Ondansetron HCl (Zofran Inj) 4 mg IVP Q4H PRN PRN Reason: Nausea/Vomiting Last Admin: 09/26/18 17:00 Dose: 4 mg Pantoprazole Sodium (Protonix Ec Tab) 40 mg PO ACB [facility] Risperidone (Risperdal Tab) 0.25 mg PO DAILY PRN; Protocol PRN Reason: Other Last Admin: 09/27/18 09:07 Dose: 0.25 mg - Labs Labs: 09/29/18 07:30 09/29/18 14:00 PT 17.4 SECONDS (9.4-12.5) H 09/27/18 08:00 INR 1.54 09/27/18 08:00 APTT 30.3 Seconds (26.9-38.3) 09/17/18 06:20 Attending/Attestation - Attestation I have personally seen and examined this patient.: Yes I have fully participated in the care of the patient.: Yes I have reviewed all pertinent clinical information, including history, physical exam and plan: Yes
--- NOTE | 2018-09-29 19:16 | PN ---
DATE: 09/29/2018 SUBJECTIVE: The patient is seen lying in bed. She is awake, she is alert. She reports that she is not she is not going to eat pureed food. PHYSICAL EXAMINATION GENERAL: Elderly lady lying in bed. VITAL SIGNS: Blood pressure 143/60, heart rate 73, respiratory rate 20, temperature 98.3. HEENT: Normocephalic, atraumatic, positive pallor. NECK: Supple, no JVD. LUNGS: Bilateral equal air entry. No rales, no rhonchi. CARDIAC: S2, regular rate and rhythm, no murmur, no rub. ABDOMEN: Soft, nondistended, nontender, bowel sounds present. EXTREMITIES: No lower extremity edema. INTAKE AND OUTPUT: 1500 on dialysis yesterday. LABORATORY DATA: WBC 10.8, hemoglobin 9.6, hematocrit 30, platelets 215. Sodium 136, potassium 3.4, chloride 100, CO2 of 29, BUN 34, creatinine 2.3. Glucose 60, calcium 7.4, albumin 2.4. Sputum culture yeast. CURRENT MEDICATIONS: Diltiazem 60 mg every 6 hours, Catapres 0.2 mg patch, DuoNeb, Ecotrin, amlodipine 20 mg, Risperdal p.r.n., Tylenol p.r.n. and Zofran. ASSESSMENT 1. Acute kidney injury superimposed on chronic kidney disease stage III, acute tubular necrosis in the setting of sepsis, pneumonia, urinary tract infection. The patient is still oligoanuric? As per the nursing staff, urine output was 400+. Not an accurate collection because of PureWick and not a Fish. 2. Severe anemia, suspect gastrointestinal bleed, hemoglobin stable now. 3. Hypertension. 4. Dementia. 5. Pneumonia, bilateral pleural effusions, one episode of hemoptysis. PLAN 1. Hold dialysis until further orders 2. Monitor daily labs. 3. Push p.o. intake. 4. Monitor urine output. Samantha Rand MD
[2018-09-30] MEDS: Albuterol-Ipratrop 3 mg / 0.5 (3 ml) UD IH SCH ×4 (01:01→19:20)
[2018-09-30 06:47] LABS: BASO # 0.01 K/mm3 (0.0-2.0); BASO % 0.1 % (0.0-3.0); EOS # 0.1 (0.0-0.7); EOS % 0.9 % (1.5-5.0); HEMOGLOBIN 9.6 g/dL (12.0-16.0); LYMPH # 0.5 (1.2-3.4); LYMPH % 4.9 % (22.0-35.0); MEAN CELL VOLUME 90.1 fl (80.0-105.0); MEAN CORPUSCULAR HEMOGLOBIN 28.7 pg (25.0-35.0); MEAN CORPUSCULAR HGB CONC 31.9 g/dl (31.0-37.0); MEAN PLATELET VOLUME 10.6 fl (7.0-11.0); MONO # 0.5 (0.1-0.6); MONO % 5.7 % (1.0-6.0); PLATELET COUNT 205 10^3/uL (120.0-450.0); RBC 3.34 10^6/uL (3.5-6.1); WHITE BLOOD COUNT 9.5 10^3/uL (4.5-11.0)
[2018-09-30] MEDS: Budesonide 0.5 mg/2 ml Inhal Susp UD IH SCH ×2 (07:15→19:20)
--- NOTE | 2018-09-30 07:54 | PN ---
DATE: 09/30/2018 PULMONARY NOTE SUBJECTIVE: The patient appears comfortable this morning. She is not short of breath at rest. She does appear weak. OBJECTIVE: VITALS: Temperature is 98.2, pulse 82, respirations 18, blood pressure 160/62. Oxygen saturation on nasal cannula is 100%. HEENT: Normocephalic, atraumatic. No JVD. CARDIOVASCULAR: Systolic ejection murmur at the lower left sternal border. No S3 gallop. LUNGS: Improved breath sounds with decreased crackles at the bases. No rhonchi. No wheezing. EXTREMITIES: Mild edema. No cyanosis, no clubbing. Calves are nontender to palpation. GASTROINTESTINAL: Abdomen is soft, nontender, and nondistended. Bowel sounds are positive. SKIN: No acute rash. NEUROLOGIC: Limited at the present time. PERTINENT LABORATORY DATA: Chest x-ray was done this morning and reviewed. The chest x-ray this morning showed definite improvement-- with a fairly significant decrease in the right lower lobe infiltrate, and right lower lobe effusion. There is mild pulmonary vascular congestion noted. IMPRESSION: 1. Respiratory failure. 2. Bilateral pneumonia. 3. Bilateral pleural effusions. 4. Apxzx-ab-oixybfy renal failure. 5. Severe anemia. 6. Rule out congestive heart failure. PLAN: The patient appears comfortable this morning. She is not short of breath at rest. She does appear very weak. I did discuss the case with the night nurse at length. The night nurse stated the patient had a good night. I did review the chest x-ray done this morning. As above, the chest x-ray shows definite improvement - with a decrease in the right lower lobe infiltrate, as well as a decrease in the right pleural effusion. I did discuss the case with Dr. Michael Brown's office yesterday. Repeat evaluation is pending. Given the improvement in today's chest x-ray, the patient may not need a thoracentesis. On physical exam, there is no significant bronchospasm noted. In addition, the oxygen saturation on nasal cannula is now 100%. I will continue the current nebulizer treatments and inhaled steroids for now. Inputs by Cardiology and Renal are also noted. Clinical status of the patient is significantly improved - compared to last week. However, given the above, the future status/prognosis for this patient does remain guarded. I will discuss the above the attending physician. Charles Roland MD [facility] # [id number] [place]
[2018-09-30 08:08] LABS: LYMPHOCYTE 5 % (22.0-35.0); MONOCYTE 1 % (1.0-6.0); NEUTROPHIL 94 % (50.0-70.0)
[2018-09-30 08:09] LABS: PLATELET ESTIMATE NORMAL (NORMAL)
[2018-09-30 08:39] LABS: ALBUMIN 2.4 g/dL (3.0-4.8); CALCIUM 7.3 mg/dL (8.4-10.5)
--- NOTE | 2018-09-30 10:06 | RAD ---
Date of service: 09/30/2018 HISTORY: f/u COMPARISON: 09/29/2018 FINDINGS: LUNGS: Right lower lobe infiltrate and effusion unchanged. Increasing left lower lobe perihilar infiltrate PLEURA: No significant pleural effusion identified, no pneumothorax apparent. CARDIOVASCULAR: No aortic atherosclerotic calcification present. Moderate cardiomegaly no pulmonary vascular congestion. OSSEOUS STRUCTURES: No significant abnormalities. VISUALIZED UPPER ABDOMEN: Normal. OTHER FINDINGS: Right-sided dialysis catheter IMPRESSION: Right lower lobe infiltrate and effusion unchanged. Increasing left lower lobe perihilar infiltrate
[2018-09-30] MEDS: Prostat 15 g packet GT SCH (10:25)
[2018-09-30] MEDS: Pantoprazole 40 mg EC Tab PO SCH (10:25)
--- NOTE | 2018-09-30 13:31 | CP.PCM.PN ---
<Carlos Munson - Last Filed: 09/30/18 13:28> Subjective - Date & Time of Evaluation Date of Evaluation: 09/30/18 Time of Evaluation: 07:30 - Subjective Subjective: Carlos Munson D.O. PGY-3, Internal Medicine Resident, Infectious Disease Progress Note 83 year old female with a PMH of HTN, DM, DVT, PVD, mitral and aortic regurg who was being managed for BL CAP now with sepsis and HAP, hospital course with slow improvement and now transferred out of the ICU. Patient was seen and examined at bedside. Resting comfortably when approached. States no acute complaints today. Still requiring oxygen. Objective - Vital Signs/Intake and Output Vital Signs (last 24 hours): Temp Pulse Resp BP Pulse Ox 98.2 F 60 18 143/60 100 09/30/18 06:00 09/30/18 10:00 09/30/18 06:00 09/30/18 10:24 09/30/18 06:00 Intake and Output: 09/30/18 09/30/18 06:59 18:59 Intake Total 840 Output Total 200 Balance 640 - Medications Medications: Current Medications Acetaminophen (Tylenol 325mg Tab) 650 mg PO Q4H PRN PRN Reason: Fever >100.4 F Last Admin: 09/21/18 12:38 Dose: 650 mg Albuterol/Ipratropium (Duoneb 3 Mg/0.5 Mg (3 Ml) Ud) 3 ml IH [id number] [facility] Last Admin: 09/30/18 13:07 Dose: 3 ml Amino Acid Protein (Prostat 15 G Packet) 15 gm GT DAILY [facility] Last Admin: 09/30/18 10:25 Dose: Not Given Amlodipine Besylate (Norvasc) 10 mg PO DAILY [facility] Last Admin: 09/30/18 10:24 Dose: 10 mg Aspirin (Ecotrin) 81 mg PO DAILY [facility] Last Admin: 09/30/18 10:24 Dose: 81 mg Budesonide (Pulmicort Respules) 0.5 mg IH [id number] [facility] Last Admin: 09/30/18 07:15 Dose: 0.5 mg Clonidine HCl (Catapres-Tts2 0.2 Mg/24 Hr) 1 patch TD Q7D@1000 [facility] Diltiazem HCl (Cardizem) 60 mg PO Q6 [facility] Last Admin: 09/29/18 05:02 Dose: 60 mg Heparin Sodium (Porcine) (Heparin) 5,000 units SC Q8H [facility]; Protocol Last Admin: 09/30/18 12:42 Dose: 5,000 units Hydralazine HCl (Apresoline) 10 mg PO QID PRN PRN Reason: for sbp >160 Ondansetron HCl (Zofran Inj) 4 mg IVP Q4H PRN PRN Reason: Nausea/Vomiting Last Admin: 09/26/18 17:00 Dose: 4 mg Pantoprazole Sodium (Protonix Ec Tab) 40 mg PO ACB [facility] Last Admin: 09/30/18 10:25 Dose: 40 mg Risperidone (Risperdal Tab) 0.25 mg PO DAILY [facility]; Protocol PRN Reason: Other Last Admin: 09/27/18 09:07 Dose: 0.25 mg - Labs Labs: 09/30/18 06:15 09/30/18 07:45 PT 17.4 SECONDS (9.4-12.5) H 09/27/18 08:00 INR 1.54 09/27/18 08:00 APTT 30.3 Seconds (26.9-38.3) 09/17/18 06:20 - Constitutional Appears: No Acute Distress, Cachectic, Chronically Ill - Head Exam Head Exam: ATRAUMATIC, NORMOCEPHALIC, vitiligo - Eye Exam Eye Exam: absent: Scleral icterus - ENT Exam ENT Exam: Mucous Membranes Moist - Neck Exam Neck Exam: Normal Inspection - Respiratory Exam Respiratory Exam: Decreased breath sounds but somewhat improved air movement - Cardiovascular Exam Cardiovascular Exam: +S1, +S2. absent: Rubs - GI/Abdominal Exam GI & Abdominal Exam: Soft. absent: Tenderness - Extremities Exam Extremities Exam: absent: Calf Tenderness, Tenderness - Neurological Exam Additional comments: awake, alert, oriented to self and place - Skin Skin Exam: Dry, Warm Assessment and Plan - Assessment and Plan (Free Text) Assessment: 83 year old female with a PMH of HTN, DM, DVT, PVD, mitral and aortic regurg who was being managed for BL CAP now with sepsis and HAP, hospital course with slow improvement and now transferred out of the ICU. Plan: Sepsis 2/2 HAP Renal failure Continues to be afebrile with no leukocytosis Finished course of meropenem with marked improvement At high risk for nosocomial infections Pulmonary Dr. Roland's note reviewed and appreciated Nephrology Dr. Rand's note reviewed and appreciated Cardio Dr. Bird's note reviewed and appreciated We will follow with you Patient was seen and examined at bedside and case will be discussed with attending physician Thank you for the pleasure of participating in the care of this interesting patient <Urbano Herring - Last Filed: 09/30/18 16:33> Objective - Vital Signs/Intake and Output Vital Signs (last 24 hours): Temp Pulse Resp BP Pulse Ox 98.8 F 80 18 163/68 H 100 09/30/18 12:00 09/30/18 14:00 09/30/18 12:00 09/30/18 12:00 09/30/18 06:00 Intake and Output: 09/30/18 09/30/18 06:59 18:59 Intake Total 840 Output Total 200 Balance 640 - Medications Medications: Current Medications Acetaminophen (Tylenol 325mg Tab) 650 mg PO Q4H PRN PRN Reason: Fever >100.4 F Last Admin: 09/21/18 12:38 Dose: 650 mg Albuterol/Ipratropium (Duoneb 3 Mg/0.5 Mg (3 Ml) Ud) 3 ml IH [id number] [facility] Last Admin: 09/30/18 13:07 Dose: 3 ml Amino Acid Protein (Prostat 15 G Packet) 15 gm GT DAILY [facility] Last Admin: 09/30/18 10:25 Dose: Not Given Amlodipine Besylate (Norvasc) 10 mg PO DAILY [facility] Last Admin: 09/30/18 10:24 Dose: 10 mg Aspirin (Ecotrin) 81 mg PO DAILY [facility] Last Admin: 09/30/18 10:24 Dose: 81 mg Budesonide (Pulmicort Respules) 0.5 mg IH [id number] [facility] Last Admin: 09/30/18 07:15 Dose: 0.5 mg Clonidine HCl (Catapres-Tts2 0.2 Mg/24 Hr) 1 patch TD Q7D@1000 [facility] Diltiazem HCl (Cardizem) 60 mg PO Q6 [facility] Last Admin: 09/29/18 05:02 Dose: 60 mg Heparin Sodium (Porcine) (Heparin) 5,000 units SC Q8H [facility]; Protocol Last Admin: 09/30/18 12:42 Dose: 5,000 units Hydralazine HCl (Apresoline) 10 mg PO QID PRN PRN Reason: for sbp >160 Ondansetron HCl (Zofran Inj) 4 mg IVP Q4H PRN PRN Reason: Nausea/Vomiting Last Admin: 09/26/18 17:00 Dose: 4 mg Pantoprazole Sodium (Protonix Ec Tab) 40 mg PO ACB [facility] Last Admin: 09/30/18 10:25 Dose: 40 mg Risperidone (Risperdal Tab) 0.25 mg PO DAILY [facility]; Protocol PRN Reason: Other Last Admin: 09/27/18 09:07 Dose: 0.25 mg - Labs Labs: 09/30/18 06:15 09/30/18 07:45 PT 17.4 SECONDS (9.4-12.5) H 09/27/18 08:00 INR 1.54 09/27/18 08:00 APTT 30.3 Seconds (26.9-38.3) 09/17/18 06:20 Attending/Attestation - Attestation I have personally seen and examined this patient.: Yes I have fully participated in the care of the patient.: Yes I have reviewed all pertinent clinical information, including history, physical exam and plan: Yes
--- NOTE | 2018-09-30 14:07 | PN ---
DATE: 09/30/2018 REASON FOR CONSULTATION AND FOLLOWUP: Cardiac evaluation, status post respiratory failure, intubated, now successfully extubated; rule out CHF. SUBJECTIVE: The patient denies any chest pain, shortness of breath, or any palpitation. OBJECTIVE: GENERAL: Not in apparent distress, status post removal of NG tube. VITAL SIGNS: Temperature afebrile, heart rate 60, blood pressure 143/60. HEENT: PERRLA. Extraocular muscles intact. NECK: Supple. No carotid bruits or thyromegaly. CHEST: Clear to auscultation. HEART: S1, S2. Regular. ABDOMEN: Soft. EXTREMITIES: Clubbing, cyanosis negative. LABORATORY DATA: Blood workup as follows: WBC 9.5, hemoglobin 9.6, hematocrit 30.1, platelet count 205. Chemistry shows sodium 135, potassium 3.5, chloride 102, carbon dioxide 30, anion gap of 6, BUN 36, creatinine 2.7, total protein 4.9, albumin 2.4, albumin globulin ratio 1. IMPRESSION AND PLAN: An 83-year-old female with past medical history of hypertension, renal insufficiency, admitted with bilateral lower infiltrate, initially admitted to the floor with respiratory distress deteriorated, rapid response, moved to intensive care unit requiring intubation; now the patient successfully extubated, history of chronic kidney disease, found to have bilateral pneumonia, now the patient successfully extubated; history of peripheral arterial disease, history of anemia, history of mild dementia, status post dialysis yesterday and 1.5 liters was ; aortic insufficiency, nasogastric tube has been removed. The patient's last echocardiography dated 09/22/2018, that shows normal ejection fraction, moderate right ventricle dilated, right ventricular systolic function reduced, trace aortic regurgitation, [id number] aortic stenosis, [id number] mitral regurgitation, mild tricuspid regurgitation; history of acute kidney injury superimposed with chronic kidney disease. The patient had dialysis yesterday, now dialysis is on hold. Last chest x-ray yesterday repeated shows pulmonary congestion, no improvement in infiltrate as well as pulmonary effusion, but showed some congestion. The patient is still oliguric. Yesterday's chest x-ray though still shows some congestion, but shows some improvement. RECOMMENDATIONS: Continue Cardizem, pressure is on the lower side, so, hydralazine 75 mg p.o. was discontinued. Continue baby aspirin. As the patient's blood pressure started lowering, we will further cut down Cardizem to 30, but now the pressure is 140. So, we will continue Cardizem now, hydralazine p.r.n. Continue amlodipine and continue increasing nutritional support, PPN. Continue baby aspirin. The patient's baseline is heart rate sometimes cause a , so we will hold beta wily for now. Continue clonidine, monitor renal function. If the patient remains oliguric as per recommendation of Nephrology, may need dialysis again. We will follow. Suzie Bird MD
--- NOTE | 2018-09-30 16:06 | PN ---
DATE: 09/30/2018 SUBJECTIVE: The patient is an 83-year-old seen and examined, seems to be much more alert, communicative, and answering intelligently. Oral intake seems to be improving. PHYSICAL EXAMINATION VITAL SIGNS: She is afebrile, pulse 82, respirations 18, and blood pressure 143/60. LUNGS: Decreased breath sounds at bases, right more than left. HEART: S1 and S2 audible. ABDOMEN: Soft and nontender. No rebound. No guarding. NEUROLOGIC: The patient is awake and alert, able to communicate. Moves all extremities. LABORATORY DATA: WBC 9.5, hemoglobin 9.6, hematocrit 30.1, and platelet 205. Chemistry; sodium 135, potassium 3.5, chloride 102, CO2 of 30, BUN 36, creatinine 2.7 and blood sugar of 67. She had x-ray of chest done today that shows, right lower lobe infiltrate and infusion, increasing left lower lobe perihilar infiltrate. ASSESSMENT: 1. Bilateral pneumonia. 2. Bilateral plural effusion. PLAN: Currently she is of off antibiotics, discussed with Dr. Roland. She might need thoracentesis, but Dr. Roland's input note appreciated. We will hold off thoracentesis for now. Encourage her out of bed to chair and physical therapy evaluation to make disposition plan. The patient's family want her to go to [place]. Torrie Adamson MD
[2018-09-30] MEDS ORDERED: Potassium Chloride 10 mEq ER Tab PO STA (16:41)
[2018-09-30] MEDS: Magnesium Oxide 400 mg Tab UD PO SCH (17:54)
--- NOTE | 2018-09-30 19:57 | PN ---
DATE: 09/30/2018 SUBJECTIVE: The patient is seen lying in bed. She is awake. She is alert. She is comfortable. She does not appear to be in any kind of distress. PHYSICAL EXAMINATION: GENERAL: Thinly built elderly lady lying in bed. VITAL SIGNS: Blood pressure 143/60, heart rate 77, respiratory rate 18, and temperature 98.8. HEENT: Normocephalic and atraumatic. Positive pallor. NECK: Supple. No JVD. LUNGS: Bilateral equal air entry, bilateral equal expansion. No rales. CARDIAC: S1 and S2. Regular rate and rhythm. No murmur. No rub. ABDOMEN: Soft, nondistended, and nontender. Bowel sounds present. EXTREMITIES: No lower extremity edema. LABORATORY DATA: WBC 9.5, hemoglobin 9.6, hematocrit 30, and platelets 205. Sodium 135, potassium 3.5, chloride 102, CO2 of 30, BUN 36, creatinine 2.7, glucose 67, calcium 7.3, phosphorus 3.3, and magnesium 1.6. Anti-GBM antibody less than 1. Complements normal. ABBEY negative. negative. Stool occult positive from 09/16/2018. ASSESSMENT: 1. Acute kidney injury in the setting of sepsis, pneumonia, and gastrointestinal blood loss. 2. Resolving acute kidney injury, although the patient still appears to be oliguric. 3. Hypokalemia. 4. Hypomagnesemia. 5. Resolving pneumonia. 6. Hypertension. PLAN: 1. Hold dialysis today. 2. Check labs in a.m. 3. Supplement potassium. 4. Supplement magnesium. 5. Try to get an accurate urine output. 6. Daily labs. 7. Hopefully does not need further dialysis. Samantha Rand MD
[2018-10-01] MEDS: Albuterol-Ipratrop 3 mg / 0.5 (3 ml) UD IH SCH ×4 (01:33→20:27)
[2018-10-01 07:05] LABS: BASO # 0.01 K/mm3 (0.0-2.0); BASO % 0.1 % (0.0-3.0); EOS # 0.1 (0.0-0.7); EOS % 1.9 % (1.5-5.0); HEMOGLOBIN 9.4 g/dL (12.0-16.0); LYMPH # 0.6 (1.2-3.4); LYMPH % 8.6 % (22.0-35.0); MEAN CELL VOLUME 90.2 fl (80.0-105.0); MEAN CORPUSCULAR HEMOGLOBIN 28.8 pg (25.0-35.0); MEAN PLATELET VOLUME 9.5 fl (7.0-11.0); MONO # 0.3 (0.1-0.6); MONO % 4.7 % (1.0-6.0); RBC 3.26 10^6/uL (3.5-6.1); RED CELL DISTRIBUTION WIDTH 15.2 % (11.5-14.5); WHITE BLOOD COUNT 6.8 10^3/uL (4.5-11.0)
[2018-10-01] MEDS: Budesonide 0.5 mg/2 ml Inhal Susp UD IH SCH ×2 (07:38→20:27)
[2018-10-01 07:39] LABS: ALBUMIN 2.2 g/dL (3.0-4.8); CALCIUM 7.1 mg/dL (8.4-10.5)
--- NOTE | 2018-10-01 07:42 | PN ---
DATE: 10/01/2018 PULMONARY PROGRESS NOTE SUBJECTIVE: The patient appears comfortable this morning. She is not short of breath at rest. PHYSICAL EXAMINATION VITAL SIGNS: (Last noted in the computer); temperature is 100.0, pulse is 78, respirations 18/20, blood pressure 173/60. Oxygen saturation on nasal cannula is 100%. HEENT: Normocephalic, atraumatic. No JVD. CARDIOVASCULAR: Systolic ejection murmur at the lower left sternal border. No S3 gallop. LUNGS: Decreased breath sounds with crackles at the bases. No rhonchi. No wheezing. GI: Abdomen is soft, nontender and nondistended. Bowel sounds are positive. EXTREMITIES: Mild edema. No cyanosis. No clubbing. Calves are nontender to palpation. SKIN: No acute rash. NEUROLOGIC: Limited at the present time. PERTINENT LABORATORY DATA: Chest x-ray was done this morning and reviewed. There is a small right lower lobe infiltrate with small appearing right pleural effusion. There also appears to be a worsening infiltrate in the left lower lobe. Official results are pending. IMPRESSION 1. Respiratory failure. 2. Bilateral pneumonia. 3. Bilateral pleural effusions. 4. Conwa-cp-cfokpul renal failure. 5. Severe anemia. 6. Rule out congestive heart failure. PLAN: The patient appears very comfortable this morning. She is not short of breath at rest. She does remain weak. I did discuss the case with the night nurse at length. The night nurse stated the patient had a good night. The patient does state to feeling much better overall. I did review the chest x-ray as above. Findings are noted. Official results are pending. I will discuss the chest x-ray with Infectious Disease this morning. In addition, Dr. Michael Brown (Interventional Radiology) has been called on the case - for possible thoracentesis. It does not appear that the right pleural effusion is very large at this point in time. I will also discuss the case with Dr. Brown this morning. The patient remains off antibiotic therapy - as per Infectious Disease. Input by Dr. Herring is noted. The leukocytosis has fully resolved. However, there is a slight rise in the temperature. Inputs by Cardiology and Renal are also noted. Clinical status of the patient is certainly improved - compared to the initial presentation. However, given the above, the future status/prognosis for this patient does remain very guarded. I will discuss the above with Dr. Adamson this morning. Charles oRland MD [facility]
[2018-10-01] MEDS ORDERED: Vancomycin 1gm in NS 250ml 1 GM/250 ML BAG IVPB STA (08:23)
[2018-10-01] MEDS: Pantoprazole 40 mg EC Tab PO SCH (09:00)
[2018-10-01] MEDS: Magnesium Oxide 400 mg Tab UD PO SCH (09:16)
--- NOTE | 2018-10-01 09:26 | RAD ---
Date of service: 10/01/2018 HISTORY: f/u COMPARISON: 09/30/2018 FINDINGS: LUNGS: There is no significant change in bilateral infiltrates and effusions. PLEURA: No significant pleural effusion identified, no pneumothorax apparent. CARDIOVASCULAR: Aortic calcification Mild cardiomegaly no pulmonary vascular congestion. OSSEOUS STRUCTURES: No significant abnormalities. VISUALIZED UPPER ABDOMEN: Normal. OTHER FINDINGS: Right-sided dialysis catheter IMPRESSION: There is no significant change in bilateral infiltrates and effusions.
[2018-10-01] MEDS: Prostat 15 g packet GT SCH (09:39)
--- NOTE | 2018-10-01 12:39 | PN ---
DATE: 10/01/2018 REASON FOR CONSULTATION AND FOLLOWUP: Cardiac evaluation status post respiratory failure, intubated, now successfully extubated, rule out CHF. SUBJECTIVE: The patient denies any chest pain, shortness of breath, any palpitations. OBJECTIVE: GENERAL: Not in apparent distress. VITAL SIGNS: Temperature is 100, heart rate 80, blood pressure 159/67. HEENT: PERRLA. Extraocular muscles are intact. NECK: Supple. No carotid bruits. No thyromegaly. CHEST: Clear to auscultation. HEART: S1 and S2 regular. ABDOMEN: Soft. EXTREMITIES: Clubbing and cyanosis negative. LABORATORY DATA: Blood workup: WBC 6.8, hemoglobin 9.2, hematocrit 29.4, platelet count 181. Chemistry showed sodium 135, potassium 4.1, chloride 104, carbon dioxide 27, anion gap 41, BUN 41 and creatinine 2.7, total protein 4.3, albumin 2.2, albumin-globulin ratio 1. IMPRESSION: An 83-year-old female with past medical history significant for hypertension, anemia, admitted to the floor as a rapid response, found to have bilateral pneumonia, respiratory distress, intubated, now the patient is successfully extubated, now in the medical floor. Had an acute kidney injury, status post dialyzed, history of anemia, mild dementia, now off dialysis, failure to thrive. Protein-calorie malnutrition is not present during admission, off nasogastric tube. RECOMMENDATIONS: Continue Cardizem. Monitor renal function and dialysis as per head stock transfer clerk possibly holding her own renal function. Continue aspirin. Continue DVT prophylaxis. Continue amlodipine. Avoid nephrotoxic medication. Started on PPN. Encouraged p.o. intake, hydralazine p.r.n. 10 mg for systolic more than 160. We will follow with you. Thank you Dr. Adamson for providing us the opportunity in taking care of the patient, Jaclyn Liz. Suzie Bird MD
[2018-10-01] MEDS: MEROPENEM 500 MG in NS 500 MG/50 ML BAG IVPB SCH ×2 (13:37→23:11)
--- NOTE | 2018-10-01 14:33 | CP.PCM.PN ---
<Carlos Munson - Last Filed: 10/01/18 14:29> Subjective - Date & Time of Evaluation Date of Evaluation: 10/01/18 Time of Evaluation: 09:05 - Subjective Subjective: Carlos Munson D.O. PGY-3, Internal Medicine Resident, Infectious Disease Progress Note 83 year old female with a PMH of HTN, DM, DVT, PVD, mitral and aortic regurg who was being managed for BL CAP now with sepsis and HAP, hospital course with slow improvement, transferred out of the ICU and now on telemetry floor. Patient was seen and examined at bedside. Clinically appears somewhat unchanged. Enjoying breakfast. Some coughing but NOT during meals per nursing. Objective - Vital Signs/Intake and Output Vital Signs (last 24 hours): Temp Pulse Resp BP Pulse Ox 98.2 F 69 18 161/78 H 97 10/01/18 12:00 10/01/18 12:00 10/01/18 12:00 10/01/18 12:00 10/01/18 06:00 Intake and Output: 10/01/18 10/01/18 06:59 18:59 Intake Total 1078 Balance 1078 - Medications Medications: Current Medications Acetaminophen (Tylenol 325mg Tab) 650 mg PO Q4H PRN PRN Reason: Fever >100.4 F Last Admin: 10/01/18 13:35 Dose: 650 mg Albuterol/Ipratropium (Duoneb 3 Mg/0.5 Mg (3 Ml) Ud) 3 ml IH [id number] [facility] Last Admin: 10/01/18 13:00 Dose: 3 ml Amino Acid Protein (Prostat 15 G Packet) 15 gm GT DAILY [facility] Last Admin: 10/01/18 09:39 Dose: Not Given Amlodipine Besylate (Norvasc) 10 mg PO DAILY [facility] Last Admin: 10/01/18 09:37 Dose: 10 mg Aspirin (Ecotrin) 81 mg PO DAILY [facility] Last Admin: 10/01/18 09:15 Dose: 81 mg Budesonide (Pulmicort Respules) 0.5 mg IH [id number] [facility] Last Admin: 10/01/18 07:38 Dose: 0.5 mg Clonidine HCl (Catapres-Tts2 0.2 Mg/24 Hr) 1 patch TD Q7D@1000 [facility] Diltiazem HCl (Cardizem) 60 mg PO Q6 [facility] Last Admin: 09/29/18 05:02 Dose: 60 mg Heparin Sodium (Porcine) (Heparin) 5,000 units SC Q8H [facility]; Protocol Last Admin: 10/01/18 13:00 Dose: Not Given Hydralazine HCl (Apresoline) 10 mg PO QID PRN PRN Reason: for sbp >160 Last Admin: 10/01/18 00:31 Dose: 10 mg Meropenem/Sodium Chloride (Merrem Iv 500 Mg/Ns 50 Ml) 500 mg in 50 mls @ 100 mls/hr IVPB Q12 [facility]; Protocol Stop: 10/08/18 10:01 Last Admin: 10/01/18 13:37 Dose: 100 mls/hr Magnesium Oxide (Mag-Ox) 400 mg PO DAILY [facility] Last Admin: 10/01/18 09:16 Dose: 400 mg Ondansetron HCl (Zofran Inj) 4 mg IVP Q4H PRN PRN Reason: Nausea/Vomiting Last Admin: 09/26/18 17:00 Dose: 4 mg Pantoprazole Sodium (Protonix Ec Tab) 40 mg PO ACB [facility] Last Admin: 10/01/18 09:00 Dose: 40 mg Risperidone (Risperdal Tab) 0.25 mg PO DAILY [facility]; Protocol PRN Reason: Other Last Admin: 09/27/18 09:07 Dose: 0.25 mg - Labs Labs: 10/01/18 06:45 10/01/18 07:00 PT 17.4 SECONDS (9.4-12.5) H 09/27/18 08:00 INR 1.54 09/27/18 08:00 APTT 30.3 Seconds (26.9-38.3) 09/17/18 06:20 - Constitutional Appears: No Acute Distress, Cachectic, Chronically Ill - Head Exam Head Exam: ATRAUMATIC, NORMOCEPHALIC, vitiligo - Eye Exam Eye Exam: absent: Scleral icterus - ENT Exam ENT Exam: Mucous Membranes Moist - Neck Exam Neck Exam: Normal Inspection - Respiratory Exam Respiratory Exam: Decreased breath sounds throughout worst at bases - Cardiovascular Exam Cardiovascular Exam: +S1, +S2. absent: Rubs - GI/Abdominal Exam GI & Abdominal Exam: Soft. absent: Tenderness - Extremities Exam Extremities Exam: absent: Calf Tenderness, Tenderness - Neurological Exam Additional comments: awake, alert, oriented to self and place - Skin Skin Exam: Dry, Warm Assessment and Plan - Assessment and Plan (Free Text) Assessment: 83 year old female with a PMH of HTN, DM, DVT, PVD, mitral and aortic regurg who was being managed for BL CAP now with sepsis and HAP, hospital course with slow improvement, transferred out of the ICU and now on telemetry floor. Plan: Sepsis 2/2 HAP Renal failure Rise in temperature noted Discussed with Pulm Dr. Roland who notes possible new infiltrate in CXR Will reculture at this time Obtain procalcitonin Started empirically on meropenem 500mg q12h (dosed for CrCl of 12) and given just a 1 time dose of vanco 1g Monitor for any signs of aspiration although nurse reports no issues with feedings We will follow with you Patient was seen and examined at bedside and case will be discussed with attending physician Thank you for the pleasure of participating in the care of this interesting patient <Urbano Herring - Last Filed: 10/01/18 19:14> Objective - Vital Signs/Intake and Output Vital Signs (last 24 hours): Temp Pulse Resp BP Pulse Ox 98.2 F 74 18 156/66 H 97 10/01/18 17:40 10/01/18 17:40 10/01/18 17:40 10/01/18 17:40 10/01/18 06:00 Intake and Output: 10/01/18 10/02/18 18:59 06:59 Intake Total 1920 Output Total 600 Balance 1320 - Medications Medications: Current Medications Acetaminophen (Tylenol 325mg Tab) 650 mg PO Q4H PRN PRN Reason: Fever >100.4 F Last Admin: 10/01/18 13:35 Dose: 650 mg Albuterol/Ipratropium (Duoneb 3 Mg/0.5 Mg (3 Ml) Ud) 3 ml IH [id number] [facility] Last Admin: 10/01/18 13:00 Dose: 3 ml Amino Acid Protein (Prostat 15 G Packet) 15 gm GT DAILY [facility] Last Admin: 10/01/18 09:39 Dose: Not Given Amlodipine Besylate (Norvasc) 10 mg PO DAILY [facility] Last Admin: 10/01/18 09:37 Dose: 10 mg Aspirin (Ecotrin) 81 mg PO DAILY [facility] Last Admin: 10/01/18 09:15 Dose: 81 mg Budesonide (Pulmicort Respules) 0.5 mg IH [id number] [facility] Last Admin: 10/01/18 07:38 Dose: 0.5 mg Clonidine HCl (Catapres-Tts2 0.2 Mg/24 Hr) 1 patch TD Q7D@1000 [facility] Diltiazem HCl (Cardizem) 60 mg PO Q6 [facility] Last Admin: 09/29/18 05:02 Dose: 60 mg Heparin Sodium (Porcine) (Heparin) 5,000 units SC Q8H [facility]; Protocol Last Admin: 10/01/18 13:00 Dose: Not Given Hydralazine HCl (Apresoline) 10 mg PO QID PRN PRN Reason: for sbp >160 Last Admin: 10/01/18 00:31 Dose: 10 mg Meropenem/Sodium Chloride (Merrem Iv 500 Mg/Ns 50 Ml) 500 mg in 50 mls @ 100 mls/hr IVPB Q12 [facility]; Protocol Stop: 10/08/18 10:01 Last Admin: 10/01/18 13:37 Dose: 100 mls/hr Magnesium Oxide (Mag-Ox) 400 mg PO DAILY [facility] Last Admin: 10/01/18 09:16 Dose: 400 mg Ondansetron HCl (Zofran Inj) 4 mg IVP Q4H PRN PRN Reason: Nausea/Vomiting Last Admin: 09/26/18 17:00 Dose: 4 mg Pantoprazole Sodium (Protonix Ec Tab) 40 mg PO ACB [facility] Last Admin: 10/01/18 09:00 Dose: 40 mg Risperidone (Risperdal Tab) 0.25 mg PO DAILY [facility]; Protocol PRN Reason: Other Last Admin: 09/27/18 09:07 Dose: 0.25 mg - Labs Labs: 10/01/18 06:45 10/01/18 07:00 PT 17.4 SECONDS (9.4-12.5) H 09/27/18 08:00 INR 1.54 09/27/18 08:00 APTT 30.3 Seconds (26.9-38.3) 09/17/18 06:20 Attending/Attestation - Attestation I have personally seen and examined this patient.: Yes I have fully participated in the care of the patient.: Yes I have reviewed all pertinent clinical information, including history, physical exam and plan: Yes
--- NOTE | 2018-10-01 17:06 | PN ---
DATE: 10/01/2018 SUBJECTIVE: The patient is seen lying in bed. She is awake, she is alert. She is comfortable. OBJECTIVE: GENERAL: Elderly lady lying in bed. VITAL SIGNS: Blood pressure 159/67, heart rate 81, respiratory rate 20, temperature 98.6. HEENT: Normocephalic, atraumatic, positive pallor. NECK: Supple, no JVD. LUNGS: Bilateral equal entry, bilateral equal expansion, no rales. CARDIAC: S1 and S2, regular rate and rhythm, no murmur, no rub. ABDOMEN: Soft, nondistended, nontender, bowel sounds present. EXTREMITIES: No lower extremity edema. INTAKE AND OUTPUT: Not charted. LABORATORY DATA: WBC 6.8, hemoglobin 9.4, hematocrit 29, platelets 181. Sodium 135, potassium 4.1, chloride 104, CO2 of 27, BUN 41, creatinine 2.7, glucose 53, calcium 7.1, phosphorus 3.6, magnesium 1.6. MEDICATIONS: Current medications Apresoline 10 mg p.o. q.i.d. p.r.n., Cardizem 60 p.o. every 6 hours on hold, Catapres patch on hold, Ecotrin, heparin, mag oxide 400 daily, meropenem 500 IV every 12 hours, amlodipine 10, Pro-Stat, Protonix, Risperdal, Tylenol, Zofran, potassium 10 mEq, vancomycin 1 g IV piggyback given this morning. ASSESSMENT: 1. Acute kidney injury superimposed on chronic kidney disease stage IV, acute tubular necrosis in the setting of severe sepsis, severe anemia, gastrointestinal blood loss. 2. Status post respiratory failure, bilateral pneumonia. 3. Status post severe anemia. 4. Hypertension. 5. Non-insulin dependent diabetes mellitus. 6. Deep vein thrombosis. PLAN: 1. No dialysis today. 2. We would like accurate intake and output. 3. Temperature spike this last night, started on empiric meropenem and vancomycin. 4. Monitor daily labs. 5. Continue current antihypertensives. 6. Followup repeat cultures. 7. Continue magnesium supplementation. 8. Push p.o. intake. Samantha Rand MD
--- NOTE | 2018-10-01 20:10 | PN ---
DATE: 10/01/2018 SUBJECTIVE: The patient is 83-year-old, seen and examined, lying in bed, seems to be comfortable. No shortness of breath at rest. Eating and tolerating. Communicative. PHYSICAL EXAMINATION: VITAL SIGNS: She is afebrile, pulse 69, respirations 18, and blood pressure 160/78. LUNGS: Bilateral decreased breath sounds at bases. HEART: S1 and S2 audible. ABDOMEN: Soft and nontender. No rebound. No guarding. NEUROLOGIC: The patient is awake and alert, able to communicate. EXTREMITIES: Bilateral leg, no edema. SKIN: She has stage II sacral decubitus. LABORATORY DATA: WBC 6.8, hemoglobin 9.4, hematocrit 29.4, and platelet 181. Chemistry; sodium 135, potassium 4.1, chloride 104, CO2 of 27, BUN 41, creatinine 2.7 and blood sugar of 53. ASSESSMENT: 1. Bilateral pneumonia. 2. History of hypertension. 3. Acute on chronic renal failure, status post hemodialysis, still has dialysis catheter. 4. Status post respiratory failure and intubation but was successfully extubated. PLAN: So plan is currently the patient is getting nebulizer treatment. She has poor access and will get midline. She has been started on medications including meropenem 500 mg every 12 hours and vancomycin was given and level will be monitored intermittently. We will monitor the patient over the weekend. If she remains stable, will make discharge plan early next week. Torrie Adamson MD
[2018-10-02] MEDS: Albuterol-Ipratrop 3 mg / 0.5 (3 ml) UD IH SCH ×4 (02:55→19:40)
[2018-10-02] MEDS: Budesonide 0.5 mg/2 ml Inhal Susp UD IH SCH ×2 (07:25→19:40)
--- NOTE | 2018-10-02 09:06 | CP.PCM.PN ---
Subjective - Date & Time of Evaluation Date of Evaluation: 10/02/18 Time of Evaluation: 06:10 - Subjective Subjective: Awake, no distress Reason for consultation and follow up: Cardiac evaluation and follow up, respiratory failure status post intubation, successfully extubated, ruled out CHF Seen and examined by me and Dr. Bird Objective - Vital Signs/Intake and Output Vital Signs (last 24 hours): Temp Pulse Resp BP Pulse Ox 97.9 F 71 19 155/77 H 97 10/02/18 06:00 10/02/18 06:00 10/02/18 06:00 10/02/18 06:00 10/01/18 06:00 Intake and Output: 10/02/18 10/02/18 06:59 18:59 Intake Total 660 Output Total 200 Balance 460 - Medications Medications: Current Medications Acetaminophen (Tylenol 325mg Tab) 650 mg PO Q4H PRN PRN Reason: Fever >100.4 F Last Admin: 10/01/18 13:35 Dose: 650 mg Albuterol/Ipratropium (Duoneb 3 Mg/0.5 Mg (3 Ml) Ud) 3 ml IH [id number] [facility] Last Admin: 10/02/18 07:25 Dose: 3 ml Amino Acid Protein (Prostat 15 G Packet) 15 gm GT DAILY [facility] Last Admin: 10/01/18 09:39 Dose: Not Given Amlodipine Besylate (Norvasc) 10 mg PO DAILY [facility] Last Admin: 10/01/18 09:37 Dose: 10 mg Aspirin (Ecotrin) 81 mg PO DAILY [facility] Last Admin: 10/01/18 09:15 Dose: 81 mg Budesonide (Pulmicort Respules) 0.5 mg IH [id number] [facility] Last Admin: 10/02/18 07:25 Dose: 0.5 mg Clonidine HCl (Catapres-Tts2 0.2 Mg/24 Hr) 1 patch TD Q7D@1000 [facility] Diltiazem HCl (Cardizem) 60 mg PO Q6 [facility] Last Admin: 09/29/18 05:02 Dose: 60 mg Heparin Sodium (Porcine) (Heparin) 5,000 units SC Q8H [facility]; Protocol Last Admin: 10/02/18 05:54 Dose: 5,000 units Hydralazine HCl (Apresoline) 10 mg PO QID PRN PRN Reason: for sbp >160 Last Admin: 10/01/18 00:31 Dose: 10 mg Meropenem/Sodium Chloride (Merrem Iv 500 Mg/Ns 50 Ml) 500 mg in 50 mls @ 100 mls/hr IVPB Q12 [facility]; Protocol Stop: 10/08/18 10:01 Last Admin: 10/01/18 23:11 Dose: 100 mls/hr Magnesium Oxide (Mag-Ox) 400 mg PO DAILY [facility] Last Admin: 10/01/18 09:16 Dose: 400 mg Ondansetron HCl (Zofran Inj) 4 mg IVP Q4H PRN PRN Reason: Nausea/Vomiting Last Admin: 09/26/18 17:00 Dose: 4 mg Pantoprazole Sodium (Protonix Ec Tab) 40 mg PO ACB [facility] Last Admin: 10/01/18 09:00 Dose: 40 mg Risperidone (Risperdal Tab) 0.25 mg PO DAILY [facility]; Protocol PRN Reason: Other Last Admin: 09/27/18 09:07 Dose: 0.25 mg - Labs Labs: 10/01/18 06:45 10/01/18 07:00 PT 17.4 SECONDS (9.4-12.5) H 09/27/18 08:00 INR 1.54 09/27/18 08:00 APTT 30.3 Seconds (26.9-38.3) 09/17/18 06:20 - Constitutional Appears: Non-toxic, No Acute Distress - Head Exam Head Exam: NORMAL INSPECTION, NORMOCEPHALIC - Eye Exam Eye Exam: Normal appearance Pupil Exam: NORMAL ACCOMODATION - ENT Exam ENT Exam: Mucous Membranes Dry - Respiratory Exam Respiratory Exam: Decreased Breath Sounds, Clear to Ausculation Bilateral, NORMAL BREATHING PATTERN - Cardiovascular Exam Cardiovascular Exam: REGULAR RHYTHM, +S1, +S2 Additional comments: PPM - GI/Abdominal Exam GI & Abdominal Exam: Soft, Normal Bowel Sounds - Neurological Exam Neurological Exam: Alert, Awake - Psychiatric Exam Psychiatric exam: Normal Affect, Normal Mood - Skin Skin Exam: Dry, Normal Color, Warm Assessment and Plan - Assessment and Plan (Free Text) Assessment: An 83 year old female fragile, who came in to the ER due to shoulder pain, found to have hemarthroses. Admitted to the floor and post SOLARIS ADMINISTRATOR for respiratory distress requiring intubation and transferred to ICU. Found to bilateral pneumonia. Successfully extubated and now transferred to telemetry. History of anemia, dementia, DVT, on Coumadin, hypertension, hyperlipidemia, chronic kidney disease,history of hemodialysis, diabetes,failure to thrive. Cardiac status stable. Will Discontinue telemetry.Nutritional support. Physical therapy, discharge planning Plan: No distress, awake Cardiac status stable Heart rate stable Blood pressure controlled Will discontinue telemetry On Norvasc 10 mg daily, ASA 81 mg daily,Clonidine 0.2 mg/hr patch daily, Cardizem 60 mg every 6 hours Continue IV antibiotics per ID Continue current treatment Continue current medications Will follow up Nutritional support Physical therapy Discharge planning Plan and treatment discussed with Dr. Bird
[2018-10-02] MEDS: Magnesium Oxide 400 mg Tab UD PO SCH ×3 (09:42→17:05)
[2018-10-02] MEDS: Pantoprazole 40 mg EC Tab PO SCH (09:42)
[2018-10-02] MEDS: Prostat 15 g packet GT SCH (11:26)
[2018-10-02] MEDS: MEROPENEM 500 MG in NS 500 MG/50 ML BAG IVPB SCH ×2 (11:55→21:11)
--- NOTE | 2018-10-02 13:25 | PN ---
DATE: 10/02/2018 PULMONARY PROGRESS NOTE SUBJECTIVE: The patient was seen and examined at bedside. She remains on telemetry. Her overall condition is poor, but she is responsive and no acute distress noted. PHYSICAL EXAMINATION: VITAL SIGNS: Her temperature is 97.9, pulse 70, respirations 20 on nasal cannula, oxygen saturation not measured this morning, and blood pressure is 150/70. HEENT: Examination of head, ears, nose, and throat is within normal limits. NECK: Supple with no jugular vein distentions. CARDIOVASCULAR: S1 and S2. No S3. Regular. PULMONARY: Diminished breath sounds at both lung bases with few coarse rhonchi. No wheezing. GASTROINTESTINAL: Soft and nontender. No organomegaly. EXTREMITIES: No pedal edema. SKIN: No acute skin rash. NEUROLOGIC: No focal deficits. There are no new labs to review. ASSESSMENT: 1. Respiratory failure. 2. Bilateral pneumonia. 3. Bilateral pleural effusions. 4. Acute on chronic renal failure. 5. Anemia. PLAN: The patient remains very weak. There is no acute shortness of breath currently. I reviewed today's chest x-ray, it was not ready yet, but the images are available. So, the images revealed bilateral pleural effusion, which are moderate, not large. She is afebrile. She is off antibiotic therapy. Infectious Disease is involved, Cardiology and Renal notes are read and noted, will continue with current nebulizer treatment. Antibiotic administration per Infectious Disease. Fluid management, supplemental oxygen. Prognosis remained extremely guarded. Israel Martin MD
--- NOTE | 2018-10-02 14:05 | RAD ---
Date of service: 10/02/2018 HISTORY: follow up COMPARISON: 10/01/2018 FINDINGS: Right-sided central venous catheter terminates at the cavoatrial junction. LUNGS: The lungs are well inflated. There are multiple small calcified granulomas in both lungs. PLEURA: Moderate effusions, improving left pleural effusion. No pneumothorax. CARDIOVASCULAR: Persistent moderate cardiomegaly. There are aortic atherosclerotic calcifications present. OSSEOUS STRUCTURES: Within normal limits for the patient's age. VISUALIZED UPPER ABDOMEN: Normal. OTHER FINDINGS: None. IMPRESSION: Improving left pleural effusion. Residual moderate pleural effusions.
--- NOTE | 2018-10-02 15:22 | PN ---
DATE: 10/02/2018 SUBJECTIVE: The patient is 83 years old, seen and examined, seems to be alert, complained of back pain because of sacral decubitus. Eating fair. No active shortness of breath. PHYSICAL EXAMINATION: VITAL SIGNS: She is afebrile, pulse 71, respirations 19, blood pressure 150/70. LUNGS: Bilateral decreased breath sounds at bases. HEART: S1 and S2 audible. ABDOMEN: Soft and nontender. No rebound. No guarding. NEUROLOGICAL: The patient is awake and alert. Able to communicate. LABORATORY DATA: She has no new labs available today. ASSESSMENT AND PLAN: 1. Acute on chronic renal failure, status post multiple dialyses. Not requiring dialysis for the last 3-4 days. 2. Status post respiratory failure and intubation. 3. Bilateral pneumonia, worsening. 4. Peripheral vascular disease. 5. Anemia, status post blood transfusion. 6. History of deep venous thrombosis. 7. Deconditioning and difficulty walking. So, the plan is currently the patient had midline placed yesterday because she has been restarted on IV antibiotics as per ID. She is on clonidine patch. Will continue nebulizer treatment. Continue aspirin. She is on DVT prophylaxis. She is on meropenem. She is on amlodipine, Protonix, Risperdal. Will order for CBC and CMP in a.m. and continue to monitor over the weekend. If the patient remains stable, she will be transferred to [place] for rehab and she can finish her course of antibiotics in [place]. Torrie Adamson MD
--- NOTE | 2018-10-02 21:24 | PN ---
DATE: 10/02/2018 SUBJECTIVE: The patient was seen earlier this morning in room 260, bed 1. No fevers and no chills. She is comfortable. PHYSICAL EXAMINATION: VITAL SIGNS: Temperature is 97, blood pressure is 155/70, respiratory rate of 18. HEENT: Unremarkable. NECK: Supple. LUNGS: Have decreased breath sounds. HEART: Normal S1 and S2. ABDOMEN: Soft, nontender. No organomegaly. No rebound. No guarding. No masses. LABORATORY DATA: Laboratory examination reveals the patient's white count is 6.8, hemoglobin of 9. Chemistries reveal a BUN of 41, creatinine of 2.7. Urinalysis is noted. Serology is noted. Microbiology reveals the blood cultures are negative. Procalcitonin is 0.39. REVIEW OF ORDERS: Reveals the patient to be on meropenem and vancomycin intermittently. ASSESSMENT AND PLAN: This is an 83-year-old female with hypertension, diabetes, deep venous thrombosis, peripheral vascular disease, mitral and aortic regurgitation who was admitted with sepsis, healthcare-associated pneumonia. Now has developed a new healthcare-associated pneumonia, on meropenem and intermittent vancomycin. Has renal insufficiency. Day #2. Dr. Martin's note is reviewed. Dr. Adamson's note is reviewed. We will complete a short course of antibiotics four to seven days. Today is day #2. Adjusted for renal insufficiency. Urbano Herring MD
[2018-10-03] MEDS: Albuterol-Ipratrop 3 mg / 0.5 (3 ml) UD IH SCH ×4 (01:23→19:21)
[2018-10-03] MEDS: Pantoprazole 40 mg EC Tab PO SCH (05:08)
[2018-10-03 07:04] LABS: BASO # 0.01 K/mm3 (0.0-2.0); BASO % 0.2 % (0.0-3.0); EOS # 0.1 (0.0-0.7); EOS % 2.2 % (1.5-5.0); LYMPH # 0.6 (1.2-3.4); LYMPH % 10.8 % (22.0-35.0); MEAN CELL VOLUME 93.1 fl (80.0-105.0); MEAN CORPUSCULAR HEMOGLOBIN 28.3 pg (25.0-35.0); MEAN CORPUSCULAR HGB CONC 30.4 g/dl (31.0-37.0); MEAN PLATELET VOLUME 10.3 fl (7.0-11.0); MONO # 0.4 (0.1-0.6); MONO % 6.9 % (1.0-6.0); RBC 3.18 10^6/uL (3.5-6.1); RED CELL DISTRIBUTION WIDTH 15.5 % (11.5-14.5); WHITE BLOOD COUNT 5.4 10^3/uL (4.5-11.0)
[2018-10-03 07:08] LABS: CALCIUM 7.5 mg/dL (8.4-10.5)
--- NOTE | 2018-10-03 07:10 | CP.PCM.PN ---
Subjective - Date & Time of Evaluation Date of Evaluation: 10/03/18 Time of Evaluation: 06:30 - Subjective Subjective: Awake, alert, no distress Reason for consultation and follow up: Cardiac evaluation and follow up, respiratory failure status post intubation, successfully extubated, ruled out CHF Seen and examined by me and Dr. Bird Objective - Vital Signs/Intake and Output Vital Signs (last 24 hours): Temp Pulse Resp BP Pulse Ox 0 F L 0 L 0 L 00/00 L 0 L 10/02/18 16:21 10/02/18 16:21 10/02/18 16:21 10/02/18 16:21 10/02/18 16:21 Intake and Output: 10/03/18 10/03/18 06:59 18:59 Intake Total 660 Balance 660 - Medications Medications: Current Medications Acetaminophen (Tylenol 325mg Tab) 650 mg PO Q4H PRN PRN Reason: Fever >100.4 F Last Admin: 10/03/18 06:09 Dose: 650 mg Albuterol/Ipratropium (Duoneb 3 Mg/0.5 Mg (3 Ml) Ud) 3 ml IH [id number] [facility] Last Admin: 10/03/18 01:23 Dose: 3 ml Amino Acid Protein (Prostat 15 G Packet) 15 gm GT DAILY [facility] Last Admin: 10/02/18 11:26 Dose: 15 gm Amlodipine Besylate (Norvasc) 10 mg PO DAILY [facility] Last Admin: 10/02/18 09:42 Dose: 10 mg Amlodipine Besylate (Norvasc) 10 mg PO DAILY [facility] Last Admin: 10/02/18 12:42 Dose: Not Given Aspirin (Ecotrin) 81 mg PO DAILY [facility] Last Admin: 10/02/18 09:41 Dose: 81 mg Budesonide (Pulmicort Respules) 0.5 mg IH [id number] [facility] Last Admin: 10/02/18 19:40 Dose: 0.5 mg Heparin Sodium (Porcine) (Heparin) 5,000 units SC Q8 [facility]; Protocol Last Admin: 10/03/18 05:08 Dose: 5,000 units Hydralazine HCl (Apresoline) 10 mg PO QID PRN PRN Reason: for sbp >160 Last Admin: 10/01/18 00:31 Dose: 10 mg Meropenem/Sodium Chloride (Merrem Iv 500 Mg/Ns 50 Ml) 500 mg in 50 mls @ 100 mls/hr IVPB Q12 [facility]; Protocol Stop: 10/08/18 10:01 Last Admin: 10/02/18 21:11 Dose: 100 mls/hr Magnesium Oxide (Mag-Ox) 400 mg PO BID [facility] Stop: 10/04/18 23:59 Last Admin: 10/02/18 17:05 Dose: 400 mg Ondansetron HCl (Zofran Inj) 4 mg IVP Q4H PRN PRN Reason: Nausea/Vomiting Last Admin: 09/26/18 17:00 Dose: 4 mg Pantoprazole Sodium (Protonix Ec Tab) 40 mg PO 0600 [facility] Last Admin: 10/03/18 05:08 Dose: 40 mg Risperidone (Risperdal Tab) 0.25 mg PO DAILY [facility]; Protocol PRN Reason: Other Last Admin: 09/27/18 09:07 Dose: 0.25 mg - Labs Labs: 10/01/18 06:45 10/01/18 07:00 PT 17.4 SECONDS (9.4-12.5) H 09/27/18 08:00 INR 1.54 09/27/18 08:00 APTT 30.3 Seconds (26.9-38.3) 09/17/18 06:20 - Constitutional Appears: Non-toxic, No Acute Distress - Head Exam Head Exam: NORMAL INSPECTION, NORMOCEPHALIC - Eye Exam Eye Exam: Normal appearance Pupil Exam: NORMAL ACCOMODATION - ENT Exam ENT Exam: Mucous Membranes Moist - Respiratory Exam Respiratory Exam: Decreased Breath Sounds, Clear to Ausculation Bilateral, NORMAL BREATHING PATTERN - Cardiovascular Exam Cardiovascular Exam: +S1, +S2 Additional comments: right jugular trialysis catheter - GI/Abdominal Exam GI & Abdominal Exam: Soft, Normal Bowel Sounds - Extremities Exam Additional comments: left arm midline catheter hands positive edema - Neurological Exam Neurological Exam: Alert, Awake - Psychiatric Exam Psychiatric exam: Normal Affect, Normal Mood - Skin Skin Exam: Dry, Normal Color, Warm Assessment and Plan - Assessment and Plan (Free Text) Assessment: An 83 year old female fragile, who came in to the ER due to shoulder pain, found to have hemarthroses. 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 Found to bilateral pneumonia. Successfully extubated . History of anemia, dementia, DVT, on Coumadin, hypertension, hyperlipidemia, chronic kidney disease, history of hemodialysis, diabetes, failure to thrive. Sputum positive for yeast. On IV antibiotics. ID on consult. Pulmonary on consult. Cardiac status stable. Nutritional support. Physical therapy. Clinically improved. Left arm swelling. Will order ultrasound to rule out DVT, has the midline catheter on the left arm. Plan: Complaints of buttocks pain due to sacral wound Tylenol given No distress, awake Cardiac status stable Heart rate stable Blood pressure controlled On Norvasc 10 mg daily, ASA 81 mg daily,Clonidine 0.2 mg/hr patch daily, Cardizem 60 mg every 6 hours Continue IV antibiotics per ID Continue current treatment Continue current medications Elevate left arm Nutritional support Physical therapy Discharge planning Will follow up Plan and treatment discussed with Dr. Bird
[2018-10-03] MEDS: Budesonide 0.5 mg/2 ml Inhal Susp UD IH SCH ×2 (08:17→19:21)
[2018-10-03] MEDS: MEROPENEM 500 MG in NS 500 MG/50 ML BAG IVPB SCH ×2 (09:04→22:02)
[2018-10-03] MEDS: Magnesium Oxide 400 mg Tab UD PO SCH ×2 (09:04→17:32)
[2018-10-03] MEDS: Prostat 15 g packet GT SCH (09:17)
--- NOTE | 2018-10-03 11:42 | PN ---
DATE: 10/03/2018 SUBJECTIVE: The patient was seen earlier today in 360. No fevers and chills. PHYSICAL EXAMINATION VITAL SIGNS: Temperature is 98, blood pressure is 140/60 and respiratory rate of 16. HEENT: Unremarkable. NECK: Supple. LUNGS: Decreased breath sounds. HEART: Normal S1 and S2. ABDOMEN: Soft. LABORATORY DATA: Reveals a white count of 5.4, hemoglobin is 9 and platelets of 174. BUN is 43, creatinine of 3.2 and is procalcitonin 0.39, which is greatly improved. The blood cultures are negative. ASSESSMENT AND PLAN: This is an 83-year-old female with hypertension, diabetes, deep venous thrombosis, peripheral vascular disease, mitral and aortic regurgitation admitted with sepsis, health-care associated pneumonia, developed a new health-care associated pneumonia on meropenem, intermittent vancomycin day #3, off antibiotics, adjusted for renal insufficiency. The patient's procalcitonin is normalized. Would complete 4 to 7 days of antibiotics. Urbano Herring MD
--- NOTE | 2018-10-03 12:29 | PN ---
DATE: 10/03/2018 PULMONARY PROGRESS NOTE SUBJECTIVE: The patient was seen and examined at bedside. She is currently receiving inhalation treatment with Budesonide and DuoNeb. She was also on supplemental oxygen. PHYSICAL EXAMINATION: VITAL SIGNS: Her temperature is 98, pulse 70, respirations 20, pulse oximetry 98% on nasal cannula, and blood pressure 140/68. HEENT: Head is normocephalic and atraumatic. NECK: Supple with no jugular vein distentions. CARDIOVASCULAR: S1 and S2. No S3. Regular. PULMONARY: Diminished breath sounds at both lung bases with few coarse of rhonchi. No wheezing. GASTROINTESTINAL: Soft, nontender. No organomegaly. Bowel sounds present. EXTREMITIES: No pedal edema. No cyanosis. SKIN: No acute skin rash. NEUROLOGIC: Limited at present time. LABORATORY DATA: Additional data is reviewed. Today's blood work shows elevated BUN to 43, elevated creatinine to 3.2. WBC is 5.4, hemoglobin of 9.0. ASSESSMENT: 1. Respiratory insufficiency. 2. Status post respiratory failure. 3. Bilateral pneumonia, improving. 4. Bilateral pleural effusions. 5. Xphda-ey-qgjicul renal failure. 6. Severe anemia. PLAN: The patient remains very weak. She is not short of breath at rest, she spent an eventful night according to the nurse. I reviewed today's chest x-ray. Yesterday's chest x-ray revealed bilateral pleural effusions. She is afebrile, off antibiotic therapy. Infectious Disease, Cardiology and the renal note read, antibiotic administration per infectious disease, fluid management, overall slight improvement, but condition remains guarded. Israel Martin MD [facility]Steven
--- NOTE | 2018-10-03 13:27 | PN ---
DATE: 10/03/2018 SUBJECTIVE: The patient is seen lying in bed. She is awake, she is alert and she is comfortable. As per the nursing staff, she was complaining of pain in her buttocks last night. She currently denies any pain. She denies any shortness of breath. PHYSICAL EXAMINATION GENERAL: Elderly lady lying in bed. VITAL SIGNS: Blood pressure 144/68, heart rate 69, respiratory rate 20 and temperature 98. HEENT: Normocephalic, atraumatic and positive pallor. NECK: Supple, no JVD. LUNGS: Bilateral equal entry, bilateral equal expansion. CARDIAC: S1 and S2. Regular rate rhythm, no murmur, no rub. ABDOMEN: Soft, nondistended, nontender, bowel sounds present. EXTREMITIES: No lower extremity edema. LABORATORY DATA: WBC 5.4, hemoglobin 9, hematocrit 29.6 and platelets 174. Sodium 136, potassium 3.4, chloride 104, CO2 of 28, BUN 43, creatinine 2.2, glucose 67, calcium 7.5, phosphorus 3.6 and magnesium 1.6. Urine output not recorded. MEDICATIONS: DuoNeb, Ecotrin, heparin, mag oxide 400 b.i.d., Merrem 500 every 12 hours, amlodipine 10, Protonix and Risperdal. ASSESSMENT: 1. Acute kidney injury superimposed on chronic kidney disease stage IV, renal parameters stabilizing. 2. Hypertension. 3. Severe anemia secondary to gastrointestinal blood loss. 4. Dementia. 5. Status post respiratory failure, pneumonia. PLAN: 1. No indication for dialysis today. 2. Monitor daily labs. 3. Monitor urine output. 4. Continue antibiotics as per ID recommendations. 5. Avoid nephrotoxins Samantha Rand MD
--- NOTE | 2018-10-03 15:04 | US ---
PROCEDURE: Left upper extremity venous ultrasound HISTORY: Arm pain and swelling. Evaluate for deep venous thrombosis. PHYSICIAN(S): Michael Brown MD. FINDINGS: The visualized leftinternal jugular vein is small but otherwise sonographically normal and compressible. No evidence of obstruction or thrombus is seen. The visualized segments of the left subclavian vein are patent with normal waveforms. No sonographic evidence of obstruction or thrombosis is seen. A central catheter is present with a small amount of pericatheter thrombus present in the left axillary vein. Otherwise the deep venous system of the proximal left upper extremity is normal IMPRESSION: 1. No sonographic evidence for significant deep venous thrombosis in the visualized segments of the left upper extremity. 2. Small amount of nonocclusive pericatheter thrombus in the left axillary vein
[2018-10-03] MEDS ORDERED: Lidocaine/Prilocaine 2.5%-2.5% Cream(30 gm) TOP ONE (15:16)
[2018-10-04] MEDS: Albuterol-Ipratrop 3 mg / 0.5 (3 ml) UD IH SCH ×4 (04:11→21:02)
[2018-10-04] MEDS: Pantoprazole 40 mg EC Tab PO SCH (05:31)
--- NOTE | 2018-10-04 05:56 | CP.PCM.PN ---
Subjective - Date & Time of Evaluation Date of Evaluation: 10/04/18 Time of Evaluation: 06:20 - Subjective Subjective: Lying in bed, awake, alert, no distress, feels good Reason for consultation and follow up: Cardiac evaluation and follow up, respiratory failure status post intubation, successfully extubated, ruled out CHF Seen and examined by me and Dr. Bird Objective - Vital Signs/Intake and Output Vital Signs (last 24 hours): Temp Pulse Resp BP Pulse Ox 98.4 F 62 18 150/64 98 10/03/18 16:20 10/03/18 16:20 10/03/18 16:20 10/03/18 16:20 10/03/18 16:20 Intake and Output: 10/03/18 10/04/18 18:59 06:59 Intake Total 120 Balance 120 - Medications Medications: Current Medications Acetaminophen (Tylenol 325mg Tab) 650 mg PO Q4H PRN PRN Reason: Fever >100.4 F Last Admin: 10/03/18 14:04 Dose: 650 mg Albuterol/Ipratropium (Duoneb 3 Mg/0.5 Mg (3 Ml) Ud) 3 ml IH [id number] [facility] Last Admin: 10/04/18 04:11 Dose: 3 ml Amino Acid Protein (Prostat 15 G Packet) 15 gm GT DAILY [facility] Last Admin: 10/03/18 09:17 Dose: 15 gm Amlodipine Besylate (Norvasc) 10 mg PO DAILY [facility] Last Admin: 10/03/18 09:05 Dose: Not Given Aspirin (Ecotrin) 81 mg PO DAILY [facility] Last Admin: 10/03/18 09:04 Dose: 81 mg Budesonide (Pulmicort Respules) 0.5 mg IH [id number] [facility] Last Admin: 10/03/18 19:21 Dose: 0.5 mg Heparin Sodium (Porcine) (Heparin) 5,000 units SC Q8 [facility]; Protocol Last Admin: 10/04/18 05:31 Dose: 5,000 units Hydralazine HCl (Apresoline) 10 mg PO QID PRN PRN Reason: for sbp >160 Last Admin: 10/01/18 00:31 Dose: 10 mg Meropenem/Sodium Chloride (Merrem Iv 500 Mg/Ns 50 Ml) 500 mg in 50 mls @ 100 mls/hr IVPB Q12 [facility]; Protocol Stop: 10/08/18 10:01 Last Admin: 10/03/18 22:02 Dose: 100 mls/hr Magnesium Oxide (Mag-Ox) 400 mg PO BID [facility] Stop: 10/04/18 23:59 Last Admin: 10/03/18 17:32 Dose: 400 mg Ondansetron HCl (Zofran Inj) 4 mg IVP Q4H PRN PRN Reason: Nausea/Vomiting Last Admin: 09/26/18 17:00 Dose: 4 mg Pantoprazole Sodium (Protonix Ec Tab) 40 mg PO 0600 [facility] Last Admin: 10/04/18 05:31 Dose: 40 mg Risperidone (Risperdal Tab) 0.25 mg PO DAILY [facility]; Protocol PRN Reason: Other Last Admin: 09/27/18 09:07 Dose: 0.25 mg - Labs Labs: 10/03/18 05:00 10/03/18 05:00 PT 17.4 SECONDS (9.4-12.5) H 09/27/18 08:00 INR 1.54 09/27/18 08:00 APTT 30.3 Seconds (26.9-38.3) 09/17/18 06:20 - Constitutional Appears: Non-toxic, No Acute Distress - Head Exam Head Exam: NORMAL INSPECTION, NORMOCEPHALIC - Eye Exam Eye Exam: Normal appearance Pupil Exam: NORMAL ACCOMODATION - ENT Exam ENT Exam: Mucous Membranes Moist, Normal Exam - Respiratory Exam Respiratory Exam: Decreased Breath Sounds, Clear to Ausculation Bilateral, NORMAL BREATHING PATTERN - Cardiovascular Exam Cardiovascular Exam: +S1, +S2 - GI/Abdominal Exam GI & Abdominal Exam: Soft, Normal Bowel Sounds - Extremities Exam Extremities Exam: Full ROM, Normal Capillary Refill Additional comments: left arm swelling left arm midline catheter right chest dialysis catheter - Neurological Exam Neurological Exam: Alert, Awake, Oriented x3 - Psychiatric Exam Psychiatric exam: Normal Affect, Normal Mood - Skin Skin Exam: Dry, Normal Color, Warm Assessment and Plan - Assessment and Plan (Free Text) Assessment: An 83 year old female fragile, who came in to the ER due to shoulder pain, found to have hemarthroses. 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 Found to bilateral pneumonia. Successfully extubated . History of anemia, dementia, DVT, on Coumadin, hypertension, hyperlipidemia, chronic kidney disease, history of hemodialysis, diabetes, failure to thrive. Sputum positive for yeast. On IV antibiotics. ID on consult. Pulmonary on consult. Cardiac status stable. Nutritional support. Physical therapy. Clinically improved. Left arm swelling. Ultrasound done and negative for DVT, small amount of non occlusive pericatheter thrombus in the left axillary vein. Elevate left arm. Plan: No distress, awake, feels alright Cardiac status stable Heart rate stable Blood pressure controlled On Norvasc 10 mg daily, ASA 81 mg daily,Clonidine 0.2 mg/hr patch daily, Cardizem 60 mg every 6 hours Continue IV antibiotics per ID Continue current treatment Continue current medications Elevate left arm , negative for DVT Nutritional support Physical therapy Discharge planning Will follow up Plan and treatment discussed with Dr. Bird
[2018-10-04 06:42] LABS: HEMOGLOBIN 9.5 g/dL (12.0-16.0); RBC 3.29 10^6/uL (3.5-6.1); WHITE BLOOD COUNT 4.6 10^3/uL (4.5-11.0)
[2018-10-04 06:43] LABS: BASO # 0.01 K/mm3 (0.0-2.0); BASO % 0.2 % (0.0-3.0); EOS # 0.1 (0.0-0.7); EOS % 2.8 % (1.5-5.0); LYMPH # 0.4 (1.2-3.4); LYMPH % 9.6 % (22.0-35.0); MEAN CORPUSCULAR HEMOGLOBIN 28.9 pg (25.0-35.0); MEAN PLATELET VOLUME 10.2 fl (7.0-11.0); MONO # 0.5 (0.1-0.6); RED CELL DISTRIBUTION WIDTH 15.8 % (11.5-14.5)
[2018-10-04 07:08] LABS: CALCIUM 7.6 mg/dL (8.4-10.5)
--- NOTE | 2018-10-04 07:40 | PN ---
DATE: 10/04/2018 SUBJECTIVE: The patient appears quite comfortable this morning. She is not short of breath at rest. PHYSICAL EXAMINATION: VITAL SIGNS (Last noted in the computer): Temperature 98.4, pulse 62, respirations 18, blood pressure 150/64. Oxygen saturation on nasal cannula is 98%. HEENT: Normocephalic, atraumatic. No JVD. CARDIOVASCULAR: Systolic ejection murmur at the lower left sternal border. No S3 gallop. LUNGS: Improved breath sounds with less crackles at the bases. No rhonchi. No wheezing. EXTREMITIES: Mild edema. No cyanosis. No clubbing. Calves are nontender to palpation. GASTROINTESTINAL: Abdomen is soft, nontender and nondistended. Bowel sounds are positive. SKIN: No acute rash. NEUROLOGIC: Exam limited at the present time. PERTINENT LABORATORY DATA: Chest x-ray was done on 10/02/2018 and reviewed. Compared to the previous film, there is a definite decrease in the left lower lobe infiltrate. Small pleural effusions remain. IMPRESSION: 1. Respiratory failure. 2. Bilateral pneumonia. 3. Bilateral pleural effusions. 4. Kxejj-tv-oyfsezi renal failure. 5. Severe anemia. 6. Rule out congestive heart failure. PLAN: The patient appears very comfortable this morning. She is not short of breath at rest. She does state to feeling much better overall. I did discuss the case with the night nurse at length. The night nurse stated the patient had a good night. I did review the last chest x-ray done. Findings are noted above. The left lower lobe infiltrate is significantly decreased in size. I would continue with the antibiotic coverage as per Infectious Disease. Input by Dr. Herring is noted. The temperatures have fully resolved. The leukocytosis has also fully resolved. On physical exam, there is certainly less bronchospasm noted. In addition, the alveolar-arterial gradient is also less. I will continue with the current nebulizer treatments and inhaled steroids for now. Inputs by Renal and Cardiology are also noted. Clinical status of the patient is significantly improved - compared to last week. However, given the above, the future status/prognosis for this patient does remain guarded. I will discuss the above with the attending physician. Charles Roland MD [facility] # [id number] [place]
--- NOTE | 2018-10-04 07:54 | PN ---
DATE: 10/04/2018 SUBJECTIVE: She is comfortable in bed, in no acute distress. She has sacral decubitus. No shortness of breath. Status post hemodialysis for acute on chronic renal failure. Her hemoglobin has been stable at 9.5. Received several units of blood transfusion. Has history of deep vein thrombosis of lower extremities. Came with supratherapeutic INR, coagulopathy on admission. Currently, on heparin at prophylactic doses 5000 every eight hours. PHYSICAL EXAMINATION: GENERAL: Comfortable in bed, in no acute distress. VITAL SIGNS: Temperature 97.8, heart rate 64 beats per minute, blood pressure 150/64, respiratory rate 20 per minute, oxygen saturation 100% on oxygen by nasal cannula. HEENT: Pallor positive. NECK: No lymphadenopathy. CHEST: Bilateral breath sounds present. No crepitations. No rhonchi. HEART: S1 and S2 normal. No murmur. No gallop. ABDOMEN: Soft, nontender. No hepatosplenomegaly. NEUROLOGIC: Awake, alert, oriented x3. EXTREMITIES: No edema. LABORATORY DATA: From 10/04/2018; sodium 134, potassium 4.4, creatinine 3.2, magnesium 1.7. White count 4.6, hemoglobin 9.5, hematocrit 30.6, platelet 167. MEDICATIONS: Aspirin 81 mg daily, Pulmicort inhalation, heparin 5000 every eight hours, hydralazine 10 mg four times each day as needed, magnesium oxide, meropenem, Zofran, Protonix 40 mg daily, Risperdal 0.25 mg daily. ASSESSMENT: 1. Acute on chronic renal failure status post multiple dialysis. 2. Chronic anemia. 3. Chronic kidney disease. 4. History of deep vein thrombosis. 5. Deconditioning. PLAN: She is currently on IV antibiotic, chronic anemia status post several units of blood transfusion, status post IV transfusion. Her hemoglobin is chronically low at 9.5. I would recommend weekly Aranesp 100 mcg subcutaneously weekly. Renal function stable. Creatinine 3.2. Electrolytes normal. She has sacral decubitus ulcer. I would also recommend IVC filter placement prior to discharge from the hospital. Because of history of DVT, anticoagulation will be challenging for her to avoid pulmonary embolism. Thank you Dr. Adamson for allowing us to participate in Ms. Liz' care. Shiloh Frausto MD [facility] # [id number]
[2018-10-04] MEDS: Budesonide 0.5 mg/2 ml Inhal Susp UD IH SCH ×2 (08:01→21:02)
--- NOTE | 2018-10-04 08:18 | PN ---
DATE: 10/03/2018 SUBJECTIVE: The patient is a 83-year-old, seen and examined, seem to be much more awake and alert, communicative. Does not seem to be in any distress, lying in bed with head side at 45 degree. No chest pain. No shortness of breath. PHYSICAL EXAMINATION VITAL SIGNS: The patient is afebrile, pulse 69, respirations 20 and blood pressure 144/68. LUNGS: Bilateral fair airflow. No rhonchi or crackle. HEART: S1 and S2 audible. ABDOMEN: Soft and nontender. No rebound. No guarding. NEUROLOGIC: The patient is awake and alert. Able to communicate. EXTREMITIES: Bilateral leg, no edema. LABORATORY DATA: WBC 5.4, hemoglobin 9, hematocrit 29.6, and platelet 174. PT 17.4 and INR 1.54. Chemistry; sodium 136, potassium 3.8, chloride 104, CO2 of 28, BUN 43, creatinine 0.2, blood sugar 67 and magnesium 1.6. Blood culture done on 10/01/2018 are negative. ASSESSMENT: 1. Bilateral infiltrates, recent x-ray shows worsening of the patient antibiotics started again. 2. Sacral decubiti. 3. Acute on chronic renal failure. 4. Hypertension. 5. Hyperlipidemia. 6. Peripheral vascular disease. PLAN: We will continue the patient on nebulizer treatment. She is on aspirin 81 mg daily. She is on DVT prophylaxis. She is getting meropenem. She is on amlodipine. She is getting Pulmicort. Recent x-ray shows improving left pleural effusion with residual moderate pleural effusion, so plan is to continue the patient is on current antibiotic. This patient remains stable. She will be transferred to [place] where she can finish her course of antibiotic and get physical therapy. Torrie Adamson MD
[2018-10-04] MEDS: Magnesium Oxide 400 mg Tab UD PO SCH ×2 (11:53→19:01)
[2018-10-04] MEDS: Prostat 15 g packet GT SCH (12:02)
--- NOTE | 2018-10-04 12:06 | PN ---
DATE: 10/04/2018 TIME: 09:20 a.m. SUBJECTIVE: This is an 83-year-old patient who was admitted with bilateral pneumonia and acute/chronic renal failure. Her history is significant for a prior DVT in 2016. She has been on Coumadin. Her INR on admission was supratherapeutic. Venous imaging on this admission has demonstrated a minimal amount of catheter related thrombus in the left upper extremity. She is improving slowly. She has been receiving dialysis. There is a question of IVC filter placement. At this time, I would not place an IVC filter given the limited catheter-related DVT in the left upper extremity. Unfortunately, given her debilitation and history for VTE, she is at risk for developing DVT in the future. I would continue low-dose Lovenox at the detention. She should also have antithrombotic leg stockings. Hopefully, she will move and ambulate in the near future. ASSESSMENT AND PLAN: I discussed the situation with Dr. Adamson. She should have a low threshold for repeat venous ultrasound and if deep venous thrombosis develops, an inferior vena cava filter can be placed at that time. Michael Brown MD [id number]
[2018-10-04] MEDS: MEROPENEM 500 MG in NS 500 MG/50 ML BAG IVPB SCH ×2 (12:49→21:43)
[2018-10-04] MEDS: POLYETHYLENE GLYCOL 3350 17 GM/Dose PACKET PO SCH (12:51)
[2018-10-04] MEDS ORDERED: Iodixanol 320 MG/ML 100 ML BOTTLE IV ONE (16:43)
[2018-10-04] MEDS ORDERED: Iodixanol 320 mg/ml 150 ml Bottle IV ONE (16:43)
[2018-10-04] MEDS ORDERED: Lidocaine PF 2% (5 ml) Inj (For Cardiac Arrhy) ONE (16:47)
--- NOTE | 2018-10-04 18:14 | PN ---
DATE: 10/04/2018 SUBJECTIVE: The patient is seen, lying in bed. She is being helped with her lunch. PHYSICAL EXAMINATION: GENERAL: Elderly lady lying in bed. VITAL SIGNS: Blood pressure 167/71, heart rate 64, respiratory rate 20, and temperature 97.8. HEENT: Normocephalic, atraumatic, positive pallor. NECK: Supple, no JVD. LUNGS: Bilateral equal entry, bilateral equal expansion. CARDIAC: S1 and S2, regular rate and rhythm, no murmur, no rub. ABDOMEN: Soft, nondistended, nontender, bowel sounds present. EXTREMITIES: No lower extremity edema. Intake and output not charted. LABORATORY DATA: WBC 4.6, hemoglobin 9.5, hematocrit 30.6, and platelets 167. Sodium 137, potassium 4.4, chloride 106, CO2 of 28, BUN 45, creatinine 0.2, and glucose of 50. Calcium 7.6, phosphorus 3.8, and magnesium 1.7. CURRENT MEDICATIONS: DuoNeb, Ecotrin, heparin, mag oxide 400 b.i.d., MiraLax 17 g daily, amlodipine 10, Pro-Stat 15, Protonix, Pulmicort, Risperdal, Tylenol, Zofran, and meropenem 500 every 12 hours. ASSESSMENT: 1. Acute kidney injury superimposed on chronic kidney disease stage 4, acute tubular necrosis in the setting of severe sepsis, gastrointestinal blood loss. 2. Severe hypertension, uncontrolled, the patient was on hydralazine, currently not on the list. 3. Severe anemia, stool occult positive. Hemoglobin stable now. 4. Status post respiratory failure/pneumonia. PLAN: 1. Restart hydralazine 50 t.i.d. 2. Continue amlodipine 10 mg daily. 3. Monitor daily labs. 4. Monitor strict intake and output. 5. No dialysis today. 6. We will assess for dialysis again tomorrow. Samantha Rand MD
--- NOTE | 2018-10-05 01:00 | PN ---
DATE: 10/04/2018 SUBJECTIVE: The patient is 83-year-old, seen and examined, lying in bed. No chest pain, no shortness of breath. Complained of back pain where the sacral decubitus is. PHYSICAL EXAMINATION: GENERAL: She is awake and alert. Able to communicate. VITAL SIGNS: She is afebrile, pulse 78, respirations 15, blood pressure 148/72. LUNGS: Bilateral diffusely decreased breath sounds. Soft crackle at bases. HEART: S1, S2 audible. ABDOMEN: Soft, nontender. No rebound, no guarding. NEUROLOGIC: She is awake and alert. Able to communicate. SKIN: She has stage II sacral decubitus that is dressed. Bilateral legs, no edema. LABORATORY EXAM: WBC 4.6, hemoglobin 9.5, hematocrit 30.6, platelet 167. Chemistries, sodium 137, potassium 4.4, chloride 106, CO2 of 20, BUN 45, creatinine 3.2. Blood sugar of 50. ASSESSMENT AND PLAN: 1. Status post acute renal failure, had couple of dialysis. Her creatinine seems to be creeping up. 2. Bilateral pneumonia. 3. Respiratory failure, status post intubation and was successfully extubated. Currently, the patient is on her own, and holding, and maintaining her pulse ox around 92% to 95%. 4. History of peripheral vascular disease. 5. History of deep venous thrombosis. Plan is patient got inferior vena cava filter as per Hem/Onc recommendations. The patient had midline placed also, so we will continue the patient on current antibiotics. She is getting meropenem, and she is on nebulizer treatment. She is on heparin. Continue her on Protonix and amlodipine. Today's MAR reviewed and showed that her antibiotics has been discontinued. We will reevaluate her CBC, CMP. If the patient's creatinine is trending down, we will make plans to discharge to [place]. Torrie Adamson MD
--- NOTE | 2018-10-05 01:10 | PN ---
DATE: 10/04/2018 SUBJECTIVE: The patient is in bed, in no acute distress. PHYSICAL EXAMINATION: VITAL SIGNS: Temperature is 97, blood pressure is 150/60, respiratory rate 16. HEENT: Unremarkable. LUNGS: Have decreased breath sounds. HEART: Normal S1, S2. ABDOMEN: Soft. LABORATORY EXAMINATION: Reveals a white count of 4.6, hemoglobin of 9.2, procalcitonin 0.39. Urinalysis is noted. Microbiology reveals the blood cultures showed no growth. Nares MRSA is negative. Review of orders reveals the patient to be on meropenem which was discontinued by the pharmacy. ASSESSMENT AND PLAN: This is an 83-year-old female with hypertension, diabetes, deep venous thrombosis, peripheral vascular disease, mitral and aortic regurgitation, admitted with sepsis, healthcare-associated pneumonia, developed a new healthcare-associated pneumonia, on meropenem day #4, intermittent vancomycin. We will reinitiate the meropenem, we would complete 4 to 7 days. Case discussed with Dr. Roland. Dr. Roland's note from today is reviewed and appreciated. Dr. Adamson's progress note is also reviewed. Urbano Herring MD
[2018-10-05] MEDS: Albuterol-Ipratrop 3 mg / 0.5 (3 ml) UD IH SCH ×4 (05:00→21:46)
[2018-10-05] MEDS: Pantoprazole 40 mg EC Tab PO SCH (05:39)
--- NOTE | 2018-10-05 06:51 | CP.PCM.PN ---
Subjective - Date & Time of Evaluation Date of Evaluation: 10/05/18 Time of Evaluation: 06:30 - Subjective Subjective: Awake, alert, no distress Reason for consultation and follow up: Cardiac evaluation and follow up, respiratory failure status post intubation, successfully extubated, ruled out CHF Seen and examined by me and Dr. Bird Objective - Vital Signs/Intake and Output Vital Signs (last 24 hours): Temp Pulse Resp BP Pulse Ox 97.8 F 71 15 153/61 H 100 10/04/18 18:20 10/04/18 19:01 10/04/18 18:20 10/04/18 19:01 10/04/18 18:20 Intake and Output: 10/04/18 10/05/18 18:59 06:59 Intake Total 820 Output Total 5 Balance 815 - Medications Medications: Current Medications Acetaminophen (Tylenol 325mg Tab) 650 mg PO Q4H PRN PRN Reason: Fever >100.4 F Last Admin: 10/03/18 14:04 Dose: 650 mg Albuterol/Ipratropium (Duoneb 3 Mg/0.5 Mg (3 Ml) Ud) 3 ml IH [id number] [facility] Last Admin: 10/05/18 05:00 Dose: 3 ml Amino Acid Protein (Prostat 15 G Packet) 15 gm GT DAILY [facility] Last Admin: 10/04/18 12:02 Dose: 15 gm Amlodipine Besylate (Norvasc) 10 mg PO DAILY [facility] Last Admin: 10/04/18 11:53 Dose: 10 mg Aspirin (Ecotrin) 81 mg PO DAILY [facility] Last Admin: 10/04/18 11:52 Dose: 81 mg Budesonide (Pulmicort Respules) 0.5 mg IH [id number] [facility] Last Admin: 10/04/18 21:02 Dose: 0.5 mg Heparin Sodium (Porcine) (Heparin) 5,000 units SC Q8 [facility]; Protocol Last Admin: 10/05/18 05:37 Dose: 5,000 units Hydralazine HCl (Apresoline) 10 mg PO QID PRN PRN Reason: for sbp >160 Last Admin: 10/01/18 00:31 Dose: 10 mg Hydralazine HCl (Apresoline) 50 mg PO TID [facility] Last Admin: 10/04/18 19:01 Dose: 50 mg Meropenem/Sodium Chloride (Merrem Iv 500 Mg/Ns 50 Ml) 500 mg in 50 mls @ 100 mls/hr IVPB Q12 [facility]; Protocol Stop: 10/09/18 22:01 Last Admin: 10/04/18 21:43 Dose: 100 mls/hr Ondansetron HCl (Zofran Inj) 4 mg IVP Q4H PRN PRN Reason: Nausea/Vomiting Last Admin: 09/26/18 17:00 Dose: 4 mg Pantoprazole Sodium (Protonix Ec Tab) 40 mg PO 0600 [facility] Last Admin: 10/05/18 05:39 Dose: 40 mg Polyethylene Glycol (Miralax) 17 gm PO DAILY [facility] Last Admin: 10/04/18 12:51 Dose: 17 gm Risperidone (Risperdal Tab) 0.25 mg PO DAILY PRN; Protocol PRN Reason: Other Last Admin: 09/27/18 09:07 Dose: 0.25 mg - Labs Labs: 10/04/18 06:00 10/04/18 06:00 PT 17.4 SECONDS (9.4-12.5) H 09/27/18 08:00 INR 1.54 09/27/18 08:00 APTT 30.3 Seconds (26.9-38.3) 09/17/18 06:20 - Constitutional Appears: Non-toxic, No Acute Distress - Head Exam Head Exam: NORMAL INSPECTION, NORMOCEPHALIC - Eye Exam Eye Exam: Normal appearance Pupil Exam: NORMAL ACCOMODATION - ENT Exam ENT Exam: Mucous Membranes Moist - Respiratory Exam Respiratory Exam: Decreased Breath Sounds, Clear to Ausculation Bilateral, NORMAL BREATHING PATTERN - Cardiovascular Exam Cardiovascular Exam: +S1, +S2 Additional comments: right dialysis catheter - GI/Abdominal Exam GI & Abdominal Exam: Soft, Normal Bowel Sounds - Extremities Exam Additional comments: no left arm swelling - Neurological Exam Neurological Exam: Alert, Awake - Psychiatric Exam Psychiatric exam: Normal Affect, Normal Mood - Skin Skin Exam: Dry, Normal Color, Warm Assessment and Plan - Assessment and Plan (Free Text) Assessment: An 83 year old female fragile, who came in to the ER due to shoulder pain, found to have hemarthroses. 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 Found to bilateral pneumonia. Successfully extubated . History of anemia, dementia, DVT, on Coumadin, hypertension, hyperlipidemia, chronic kidney disease, history of hemodialysis, diabetes, failure to thrive. Sputum positive for yeast. On IV antibiotics. ID on consult. Pulmonary on consult. Nutritional support. Physical therapy. Left arm swelling. Ultrasound done and negative for DVT, small amount of non occlusive pericatheter thrombus in the left axillary vein. Resolved left arm swelling.Post insertion of inferior vena cava filter yesterday by Dr. Brown as recommended by Hematology. Cardiac status stable. Plan: Post inferior vena cave filter insertion yesterday No distress, awake, Cardiac status stable Heart rate stable Blood pressure controlled On Norvasc 10 mg daily, ASA 81 mg daily,Clonidine 0.2 mg/hr patch daily, Cardizem 60 mg every 6 hours Continue IV antibiotics per ID Continue current treatment Continue current medications Nutritional support Physical therapy Discharge planning Will follow up Plan and treatment discussed with Dr. Bird
[2018-10-05 06:56] LABS: BASO # 0.03 K/mm3 (0.0-2.0); BASO % 0.4 % (0.0-3.0); EOS # 0.1 (0.0-0.7); EOS % 1.6 % (1.5-5.0); HEMOGLOBIN 9.6 g/dL (12.0-16.0); LYMPH # 0.5 (1.2-3.4); LYMPH % 6.4 % (22.0-35.0); MEAN CELL VOLUME 92.3 fl (80.0-105.0); MEAN CORPUSCULAR HEMOGLOBIN 28.5 pg (25.0-35.0); MEAN CORPUSCULAR HGB CONC 30.9 g/dl (31.0-37.0); MEAN PLATELET VOLUME 10.2 fl (7.0-11.0); MONO # 0.4 (0.1-0.6); MONO % 4.9 % (1.0-6.0); RBC 3.37 10^6/uL (3.5-6.1); WHITE BLOOD COUNT 7.1 10^3/uL (4.5-11.0)
--- NOTE | 2018-10-05 07:21 | PN ---
DATE: 10/05/2018 PULMONARY PROGRESS NOTE SUBJECTIVE: The patient appears quite comfortable this morning. She is not short of breath at rest. PHYSICAL EXAMINATION VITAL SIGNS: Temperature is 97.8, pulse is 71, respirations 16/18, blood pressure 153/61. Oxygen saturation on nasal cannula is 100%. HEENT: Normocephalic, atraumatic. No JVD. CARDIOVASCULAR: Systolic ejection murmur at the lower left sternal border. No S3 gallop. LUNGS: Improved breath sounds with less crackles at the bases. No rhonchi. No wheezing. GASTROINTESTINAL: Abdomen is soft, nontender and nondistended. Bowel sounds are positive. EXTREMITIES: Mild edema. No cyanosis, no clubbing. Calves are nontender to palpation. SKIN: No acute rash. NEUROLOGIC: Limited at limit at the present time. IMPRESSION 1. Respiratory failure. 2. Bilateral pneumonia. 3. Bilateral pleural effusions. 4. Jfpra-ua-[id number] renal failure. 5. Severe anemia. 6. Rule out congestive heart failure. PLAN: The patient appears very comfortable this morning. She is not short of breath at rest. She does state to feeling much better overall. I did discuss the case with the night nurse at length. The night nurse stated the patient had a very good night. On physical exam, the patient's bronchospasm has primarily resolved. In addition, the oxygen saturation on nasal cannula is now 100%. I will continue with the current nebulizer treatments and inhaled steroids for now. The patient remains on antibiotic therapy - as per Infectious Disease. Input by Dr. Herring is noted. Temperatures have fully resolved. The leukocytosis has also fully resolved. In addition, as noted yesterday, the last chest x-ray was much improved. Clinical status of the patient is significantly improved overall. However, given the above, the future status/prognosis for this patient does remain guarded. I will discuss the above with Dr. Adamson. Charles Roland MD [email or web address]
[2018-10-05 07:33] LABS: CALCIUM 7.7 mg/dL (8.4-10.5)
[2018-10-05] MEDS: Budesonide 0.5 mg/2 ml Inhal Susp UD IH SCH ×2 (07:52→21:46)
[2018-10-05] MEDS: POLYETHYLENE GLYCOL 3350 17 GM/Dose PACKET PO SCH (09:20)
[2018-10-05] MEDS: MEROPENEM 500 MG in NS 500 MG/50 ML BAG IVPB SCH ×2 (09:20→22:07)
--- NOTE | 2018-10-05 13:38 | PN ---
DATE: 10/05/2018 SUBJECTIVE: The patient is in bed in no acute distress, nontoxic. She is doing well. PHYSICAL EXAMINATION: VITAL SIGNS: Temperature is 98, blood pressure is 160/70, respiratory rate 20, heart rate of 78. HEENT: Unremarkable. HEART: Normal S1, S2. ABDOMEN: Soft, nontender. LABORATORY EXAMINATION: Reveals a white count of 7.1, hemoglobin of 9, BUN of 56, creatinine of 3.1. Procalcitonin is 0.39. Microbiology is noted. MRSA is not detected. Blood cultures are negative and the patient is on meropenem. ASSESSMENT AND PLAN: This is an 83-year-old female with hypertension, diabetes, deep venous thrombosis, peripheral vascular disease, mitral and aortic regurgitation, admitted with sepsis, healthcare-associated pneumonia, developed a new healthcare-associated pneumonia on meropenem day #5 with complete 4 to 7 days of antibiotics. The patient is doing much better. Today is day #5 of 4 to 7 days of antibiotics. Should be able to discontinue the antibiotics within 24 hours. Urbano Herring MD
--- NOTE | 2018-10-05 14:45 | PN ---
DATE: 10/05/2018 SUBJECTIVE: The patient is currently seen on 3R. She is lying comfortable in bed, watching television. She has a right chest wall dialysis catheter. She has not received dialysis in several days. She has been maintaining a creatinine in the low 3 range. Her 24-hour urine was done, it showed a very low creatinine clearance, but I am uncertain that we were able to collect all urine. Only 190 mL of urine were collected. MEDICATIONS Medication list reviewed. The patient is on hydralazine, DuoNeb, Ecotrin, subcu heparin, meropenem, MiraLax, Norvasc, Pro-Stat, Protonix, Pulmicort, Risperdal, Tylenol and Zofran. OBJECTIVE: INTAKE/OUTPUT: Intake is 940, output is 155 mL. VITAL SIGNS: Blood pressure 167/78, pulse of 78, temperature 98.7, respiratory rate of 20. HEENT: Exam shows her to be normocephalic, atraumatic. Conjunctivae are pale. Sclerae are nonicteric. NECK: Supple. No neck vein distention. CHEST: Clear to auscultation and percussion with no rales, rhonchi or wheezing. Slight decreased breath sounds at the bases. CARDIOVASCULAR: Shows a regular rate and rhythm with a soft systolic murmur left lower sternal border. Positive AI/MR. No S3 no S4, no rub. ABDOMEN: Soft. Bowel sounds normal. No rebound, guarding or masses. EXTREMITIES: Show no lower extremity cyanosis, clubbing or edema. The patient does have a right chest wall dialysis catheter. LABORATORY DATA AND IMAGING STUDIES: CBC, white blood cell count 7.1, hemoglobin stable at 9.6 with platelet count of 182,000. Chemistry showed normal electrolytes. BUN 56 with a creatinine of 3.1. Glucose is 71. Calcium 7.7 with an albumin of 2.2, corrects to normal. Phosphorus 3.5 with a magnesium level of 1.8. Microbiology, sputum was positive for yeast, otherwise all cultures are negative. Initial urine culture was positive for beta hemolytic strep group B. ASSESSMENT: 1. Acute renal failure superimposed on chronic kidney disease stage III. This is in the setting of sepsis, pneumonia, urinary tract infection, with the requirement of acute dialysis. Her urine output appears to have fallen, she remains oliguric. Her baseline BUN is in the mid 30s, she is now running BUN of 56. Her baseline creatinine is in the upper 2 range, she is now running a creatinine of 3.1, so she is close to baseline levels. A 24-hour urine only showed 190 mL of urine, not certain if this is accurate with a creatinine clearance of only 4 mL per minute. 2. Status post metabolic acidosis. CO2 level is now excellent to 27. The patient is off bicarbonate supplements that is not had dialysis in multiple days. 3. History of hypertension. The patient remains hypotensive. She remains on current medication. To stabilize her blood pressure, we will avoid CRISTOBAL inhibitors and angiotensin receptor blockers. 4. History of anemia. Hemoglobin is stable in the mid 9 range. Aranesp on a p.r.n. basis. 5. History of dementia, stable. 6. History of aortic insufficiency, mitral regurgitation, stable. 7. 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 8. 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 9. History of pneumonia. Workup for pulmonary renal vasculitis was negative. The patient is completing a course of IV antibiotic therapy, she remains on meropenem. The patient was seen by Infectious Disease and her antibiotics were restarted because of the strong possibility of the healthcare-associated pneumonia. The patient will be followed by Pulmonary and ID. PLAN: 1. At present, no plans for dialysis, but we will need to monitor her labs on an almost daily basis. 2. Avoid all nephrotoxic agents and any medications that would raise her BUN and creatinine, such as CRISTOBAL inhibitors or angiotensin receptor blockers. 3. For right now, I will leave her dialysis catheter in place in her right chest wall. Should the patient be moved out of the hospital to a subacute rehab facility, at that point in time the dialysis catheter may be removed if dialysis is not reinitiated. Roderick Faith MD
[2018-10-05] MEDS: Prostat 15 g packet GT SCH (17:13)
--- NOTE | 2018-10-06 00:50 | PN ---
DATE: 10/05/2018 SUBJECTIVE: The patient is 83-year-old, seen and examined lying in bed, complained of back pain. No nausea, vomiting. No diarrhea. PHYSICAL EXAMINATION: VITAL SIGNS: The patient is afebrile, pulse 78, respirations 20, blood pressure 156/80. LUNGS: Bilateral fair airflow. No rhonchi or crackle. HEART: S1 and S2 audible. ABDOMEN: Soft, nontender. No rebound. No guarding. NEUROLOGIC: The patient is awake and alert, able to communicate. EXTREMITIES: Bilateral legs, no edema. LABORATORY DATA: WBC 7.1, hemoglobin 9.6, hematocrit 31, platelets 182. PT 17.4, INR 1.54. Chemistry: Sodium 140, potassium 4.5, chloride 107, CO2 of 27, BUN 56, creatinine 3.1, blood sugar of 71. ASSESSMENT: 1. Status post bilateral pneumonia, status post respiratory failure. 2. Acute on chronic renal failure, had dialysis done. She has triple lumen in her right side of the neck. 3. History of peripheral vascular disease. 4. History of deep venous thrombosis. PLAN: I spoke to Dr. Rand. There is no need for dialysis for now. The patient can be discharged, awaiting acceptance to subacute rehab. Torrie Adamson MD
[2018-10-06] MEDS: Albuterol-Ipratrop 3 mg / 0.5 (3 ml) UD IH SCH ×3 (02:29→19:35)
[2018-10-06] MEDS: Pantoprazole 40 mg EC Tab PO SCH (05:55)
--- NOTE | 2018-10-06 07:04 | CP.PCM.PN ---
Subjective - Date & Time of Evaluation Date of Evaluation: 10/06/18 Time of Evaluation: 06:30 - Subjective Subjective: Lyingi in bed, Awake, alert, no distress Reason for consultation and follow up: Cardiac evaluation and follow up, respiratory failure status post intubation, successfully extubated, ruled out CHF Seen and examined by me and Dr. Bird Objective - Vital Signs/Intake and Output Vital Signs (last 24 hours): Temp Pulse Resp BP Pulse Ox 97.5 F L 68 18 160/64 H 99 10/06/18 00:22 10/06/18 00:22 10/06/18 00:22 10/06/18 00:22 10/06/18 00:22 Intake and Output: 10/06/18 10/06/18 06:59 18:59 Intake Total 600 Balance 600 - Medications Medications: Current Medications Acetaminophen (Tylenol 325mg Tab) 650 mg PO Q4H PRN PRN Reason: Fever >100.4 F Last Admin: 10/05/18 22:49 Dose: 650 mg Albuterol/Ipratropium (Duoneb 3 Mg/0.5 Mg (3 Ml) Ud) 3 ml IH [id number] [facility] Last Admin: 10/06/18 02:29 Dose: 3 ml Amino Acid Protein (Prostat 15 G Packet) 15 gm GT DAILY [facility] Last Admin: 10/05/18 17:13 Dose: 15 gm Amlodipine Besylate (Norvasc) 10 mg PO DAILY [facility] Last Admin: 10/05/18 09:20 Dose: 10 mg Aspirin (Ecotrin) 81 mg PO DAILY [facility] Last Admin: 10/05/18 09:19 Dose: 81 mg Budesonide (Pulmicort Respules) 0.5 mg IH [id number] [facility] Last Admin: 10/05/18 21:46 Dose: 0.5 mg Heparin Sodium (Porcine) (Heparin) 5,000 units SC Q8 [facility]; Protocol Last Admin: 10/06/18 05:54 Dose: 5,000 units Hydralazine HCl (Apresoline) 10 mg PO QID PRN PRN Reason: for sbp >160 Last Admin: 10/01/18 00:31 Dose: 10 mg Hydralazine HCl (Apresoline) 50 mg PO TID [facility] Last Admin: 10/05/18 18:06 Dose: 50 mg Meropenem/Sodium Chloride (Merrem Iv 500 Mg/Ns 50 Ml) 500 mg in 50 mls @ 100 mls/hr IVPB Q12 [facility]; Protocol Stop: 10/09/18 22:01 Last Admin: 10/05/18 22:07 Dose: 100 mls/hr Ondansetron HCl (Zofran Inj) 4 mg IVP Q4H PRN PRN Reason: Nausea/Vomiting Last Admin: 09/26/18 17:00 Dose: 4 mg Pantoprazole Sodium (Protonix Ec Tab) 40 mg PO 0600 [facility] Last Admin: 10/06/18 05:55 Dose: 40 mg Polyethylene Glycol (Miralax) 17 gm PO DAILY [facility] Last Admin: 10/05/18 09:20 Dose: 17 gm Risperidone (Risperdal Tab) 0.25 mg PO DAILY [facility]; Protocol PRN Reason: Other Last Admin: 09/27/18 09:07 Dose: 0.25 mg - Labs Labs: 10/05/18 06:00 10/05/18 06:00 PT 17.4 SECONDS (9.4-12.5) H 09/27/18 08:00 INR 1.54 09/27/18 08:00 APTT 30.3 Seconds (26.9-38.3) 09/17/18 06:20 - Constitutional Appears: Non-toxic, No Acute Distress - Head Exam Head Exam: NORMAL INSPECTION, NORMOCEPHALIC - Eye Exam Eye Exam: Normal appearance Pupil Exam: NORMAL ACCOMODATION - Respiratory Exam Respiratory Exam: Decreased Breath Sounds, Clear to Ausculation Bilateral, NORMAL BREATHING PATTERN - Cardiovascular Exam Cardiovascular Exam: +S1, +S2 Additional comments: right IJ trialysis catheter - GI/Abdominal Exam GI & Abdominal Exam: Soft, Normal Bowel Sounds - Extremities Exam Extremities Exam: Full ROM, Normal Capillary Refill - Neurological Exam Neurological Exam: Alert, Awake - Psychiatric Exam Psychiatric exam: Normal Affect, Normal Mood - Skin Skin Exam: Dry, Normal Color Assessment and Plan - Assessment and Plan (Free Text) Assessment: An 83 year old female fragile, who came in to the ER due to shoulder pain, found to have hemarthroses. 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 Found to bilateral pneumonia. Successfully extubated . History of anemia, dementia, DVT, on Coumadin, hypertension, hyperlipidemia, chronic kidney disease, history of hemodialysis, diabetes, failure to thrive. Sputum positive for yeast. On IV antibiotics. ID on consult. Pulmonary on consult. Nutritional support. Physical therapy. Left arm swelling. Ultrasound done and negative for DVT, small amount of non occlusive pericatheter thrombus in the left axillary vein. Resolved left arm swelling.Post insertion of inferior vena cava filter done by Dr. Brown as recommended by Hematology. Cardiac status stable. Per Renal,no further hemodialysis at this time. Cardiac status stable. Discharge planning Plan: No distress, awake, Cardiac status stable Heart rate stable Blood pressure controlled On Norvasc 10 mg daily, ASA 81 mg daily,Clonidine 0.2 mg/hr patch daily, Cardizem 60 mg every 6 hours Continue IV antibiotics per ID Continue current treatment Continue current medications Nutritional support Physical therapy Per renal, no further hemodialysis at this time Discharge planning, awaiting placement to [facility] Will follow up Plan and treatment discussed with Dr. Bird
[2018-10-06 07:10] LABS: HEMOGLOBIN 9.2 g/dL (12.0-16.0); MEAN CELL VOLUME 92.9 fl (80.0-105.0); MEAN CORPUSCULAR HEMOGLOBIN 28.6 pg (25.0-35.0); MEAN CORPUSCULAR HGB CONC 30.8 g/dl (31.0-37.0); MEAN PLATELET VOLUME 9.6 fl (7.0-11.0); RBC 3.22 10^6/uL (3.5-6.1); RED CELL DISTRIBUTION WIDTH 15.9 % (11.5-14.5); WHITE BLOOD COUNT 5.7 10^3/uL (4.5-11.0)
[2018-10-06 07:50] LABS: ALB/GLOB RATIO 0.8 (1.1-1.8); ALBUMIN 2.2 g/dL (3.0-4.8); CALCIUM 7.9 mg/dL (8.4-10.5)
[2018-10-06] MEDS: Budesonide 0.5 mg/2 ml Inhal Susp UD IH SCH ×2 (08:13→19:35)
[2018-10-06] MEDS: Dextrose 5%/0.45% NS 1,000 ML IV SCH (09:27)
[2018-10-06] MEDS: MEROPENEM 500 MG in NS 500 MG/50 ML BAG IVPB SCH ×2 (09:30→21:39)
[2018-10-06] MEDS: POLYETHYLENE GLYCOL 3350 17 GM/Dose PACKET PO SCH (09:30)
--- NOTE | 2018-10-06 09:55 | PN ---
DATE: 10/06/2018 PULMONARY NOTE SUBJECTIVE: The patient appears comfortable this morning. She is not short of breath at rest. OBJECTIVE: VITAL SIGNS (Last noted in the computer): Temperature is 97.5, pulse 68, respirations 18, blood pressure 160/64. Oxygen saturation on nasal cannula is 99%. HEENT: Normocephalic, atraumatic. No JVD. CARDIOVASCULAR: Systolic ejection murmur at the lower left sternal border. No S3 gallop. LUNGS: Better breath sounds/less crackles at the bases. No rhonchi. No wheezing. EXTREMITIES: Mild edema. No cyanosis, no clubbing. Calves are nontender to palpation. GASTROINTESTINAL: Abdomen is soft, nontender and nondistended. Bowel sounds are positive. SKIN: No acute rash. NEUROLOGIC: Exam limited at the present time. IMPRESSION: 1. Respiratory failure. 2. Bilateral pneumonia. 3. Bilateral pleural effusions. 4. Duvzv-lo-kkiclii renal failure. 5. Severe anemia. 6. Rule out congestive heart failure. Plan: The patient appears comfortable this morning. She is not short of breath at rest. She does state to feeling better overall. On physical exam, there is no significant bronchospasm noted. In addition, there is no significant alveolar-arterial gradient. I will continue the current nebulizer treatments and inhaled steroids for now. The patient remains on antibiotic therapy - as per Infectious Disease. Input by Dr. Herring is noted. Temperatures have fully resolved. The leukocytosis has also fully resolved. Inputs by Cardiology and Renal are also noted. Clinical status of the patient is significantly improved overall. However, given the above, the future status/prognosis for this patient does remain guarded. I will discuss the above with Dr. Adamson. Charles Roland MD [facility]
[2018-10-06] MEDS: Oxycodone/Acetaminophen 5/325 mg Tab PO PRN (13:50)
[2018-10-06] MEDS: Prostat 15 g packet GT SCH (13:50)
--- NOTE | 2018-10-06 15:57 | PN ---
DATE: 10/06/2018 SUBJECTIVE: The patient is 83-year-old, seen and examined, seems to be much more awake and alert. Ate little better today. Complained of pain in the back. PHYSICAL EXAMINATION: VITAL SIGNS: She is afebrile. Pulse 68, respirations 18, blood pressure 168/70. LUNGS: Bilateral fair airflow. No rhonchi or crackles. HEART: S1, S2. Audible. No murmur. ABDOMEN: Soft, nontender. No rebound. No guarding. No oral thrush noted. LABORATORY DATA: WBC is 5.7, hemoglobin 9.2, hematocrit 29, platelets 171. PT 17.4. INR 1.54. Chemistries: Sodium 140, potassium 4.3, chloride 108, CO2 of 27, BUN 54, creatinine 3.4, blood sugar of 69. Albumin 2.2. ASSESSMENT: 1. Status post bilateral pneumonia, status post respiratory failure. 2. Acute on chronic renal failure, still has renal insufficiency, does not look uremic at all. 3. Peripheral vascular disease. 4. History of deep venous thrombosis. 5. Bilateral pleural effusion. 6. Anemia. PLAN: We will continue the patient on hydralazine. She has been started on IV fluids since her oral intake is poor. That might be the reason for her renal insufficiency. Continue her on heparin. She is on meropenem. She had inferior vena cava filter placed, but still we will continue on deep DVT prophylaxis. Outreach Director making arrangements for her disposition plan to be sent to subacute rehab. Torrie Adamson MD
--- NOTE | 2018-10-06 19:18 | CP.PCM.PN ---
Subjective - Date & Time of Evaluation Date of Evaluation: 10/06/18 Time of Evaluation: 06:55 - Subjective Subjective: Comfortable in bed, not in distress. Objective - Vital Signs/Intake and Output Vital Signs (last 24 hours): Temp Pulse Resp BP Pulse Ox 98.7 F 80 20 156/80 H 100 10/05/18 16:06 10/05/18 18:06 10/05/18 16:06 10/05/18 18:06 10/05/18 16:06 Intake and Output: 10/05/18 10/06/18 18:59 06:59 Intake Total 600 Balance 600 - Medications Medications: Current Medications Acetaminophen (Tylenol 325mg Tab) 650 mg PO Q4H PRN PRN Reason: Fever >100.4 F Last Admin: 10/05/18 14:48 Dose: 650 mg Albuterol/Ipratropium (Duoneb 3 Mg/0.5 Mg (3 Ml) Ud) 3 ml [id number] Last Admin: 10/05/18 21:46 Dose: 3 ml Amino Acid Protein (Prostat 15 G Packet) 15 gm GT DAILY [facility] Last Admin: 10/05/18 17:13 Dose: 15 gm Amlodipine Besylate (Norvasc) 10 mg PO DAILY [facility] Last Admin: 10/05/18 09:20 Dose: 10 mg Aspirin (Ecotrin) 81 mg PO DAILY [facility] Last Admin: 10/05/18 09:19 Dose: 81 mg Budesonide (Pulmicort Respules) 0.5 mg IH [id number] [facility] Last Admin: 10/05/18 21:46 Dose: 0.5 mg Heparin Sodium (Porcine) (Heparin) 5,000 units SC Q8 [facility]; Protocol Last Admin: 10/05/18 13:41 Dose: 5,000 units Hydralazine HCl (Apresoline) 10 mg PO QID PRN PRN Reason: for sbp >160 Last Admin: 10/01/18 00:31 Dose: 10 mg Hydralazine HCl (Apresoline) 50 mg PO TID [facility] Last Admin: 10/05/18 18:06 Dose: 50 mg Meropenem/Sodium Chloride (Merrem Iv 500 Mg/Ns 50 Ml) 500 mg in 50 mls @ 100 mls/hr IVPB Q12 [facility]; Protocol Stop: 10/09/18 22:01 Last Admin: 10/05/18 09:20 Dose: 100 mls/hr Ondansetron HCl (Zofran Inj) 4 mg IVP Q4H PRN PRN Reason: Nausea/Vomiting Last Admin: 09/26/18 17:00 Dose: 4 mg Pantoprazole Sodium (Protonix Ec Tab) 40 mg PO 0600 [facility] Last Admin: 10/05/18 05:39 Dose: 40 mg Polyethylene Glycol (Miralax) 17 gm PO DAILY [facility] Last Admin: 10/05/18 09:20 Dose: 17 gm Risperidone (Risperdal Tab) 0.25 mg PO DAILY [facility]; Protocol PRN Reason: Other Last Admin: 09/27/18 09:07 Dose: 0.25 mg - Labs Labs: 10/05/18 06:00 10/05/18 06:00 PT 17.4 SECONDS (9.4-12.5) H 09/27/18 08:00 INR 1.54 09/27/18 08:00 APTT 30.3 Seconds (26.9-38.3) 09/17/18 06:20 - Constitutional Appears: Chronically Ill - Head Exam Head Exam: NORMAL INSPECTION - Respiratory Exam Respiratory Exam: Decreased Breath Sounds - Cardiovascular Exam Cardiovascular Exam: +S1, +S2 - GI/Abdominal Exam GI & Abdominal Exam: Soft. absent: Tenderness Assessment and Plan - Assessment and Plan (Free Text) Plan: Assessment sepsis due to left sided hospital-acquired pneumonia history of coagulase negative staph in 2 out of 4 blood culture bottles history of left heel ulcer without evidence of infection chronic renal failure HTN DM long history of smoking dementia peripheral vascular disease aortic and mitral valve regurgitation Plan on Merrem day 7 of 7 days - will d/c antibiotics after today will continue to monitor clinically
--- NOTE | 2018-10-07 00:22 | PN ---
DATE: 10/06/2018 SUBJECTIVE: The patient is seen lying in bed. She is resting comfortably. Discussed with the nursing staff. The patient has a poor appetite and poor p.o. intake. PHYSICAL EXAMINATION: GENERAL: Elderly lady lying in bed. VITAL SIGNS: Blood pressure 154/96, heart rate 69, respiratory rate 20, temperature 97.8. HEENT: Normocephalic, atraumatic, positive pallor. NECK: Supple, no JVD. LUNGS: Bilateral equal entry, bilateral equal expansion, no rales. CARDIAC: S1 and S2, regular rate and rhythm, no murmur, no rub. ABDOMEN: Soft, nondistended, nontender, bowel sounds present. EXTREMITIES: No lower extremity edema. Intake and output, not charted. LABORATORY DATA: WBC 5.7, hemoglobin 9.2, hematocrit 29.9, platelets 171. Sodium 140, potassium 4.3, chloride 108, CO2 of 27, BUN 54, creatinine 3.4, glucose 69, calcium 7.9. CURRENT MEDICATIONS: Apresoline 50 t.i.d., DuoNeb, Ecotrin, heparin, meropenem 500 every 12 hours, MiraLax, amlodipine 10, Pro-Stat, Protonix, Pulmicort, Risperdal, Tylenol, Zofran. ASSESSMENT: 1. Acute kidney injury superimposed on chronic kidney disease stage IV, resolving acute kidney injury. Now patient is prerenal. The patient has poor p.o. intake. 2. Xkhth-to-koukzfc anemia, status post gastrointestinal blood loss, now hemoglobin is stable. 3. Status post respiratory failure, bilateral pneumonia. 4. History of hypertension. 5. Dementia. 6. Aortic insufficiency/mitral regurg. 7. Osteoarthritis. PLAN: 1. Low-dose IV fluids D5 half-normal at 60. 2. Push p.o. intake. 3. No plans for renal replacement therapy right now. 4. Avoid nephrotoxins. 5. Check labs in a.m. 6. Discussed with Dr. Adamson. Samantha Rand MD
[2018-10-07] MEDS: Albuterol-Ipratrop 3 mg / 0.5 (3 ml) UD IH SCH ×3 (05:14→13:41)
[2018-10-07] MEDS: Pantoprazole 40 mg EC Tab PO SCH (05:28)
[2018-10-07] MEDS: Dextrose 5%/0.45% NS 1,000 ML IV SCH (05:29)
--- NOTE | 2018-10-07 07:35 | CP.PCM.PN ---
Subjective - Date & Time of Evaluation Date of Evaluation: 10/07/18 Time of Evaluation: 06:50 - Subjective Subjective: Awake, alert, no distress Reason for consultation and follow up: Cardiac evaluation and follow up, respiratory failure status post intubation, successfully extubated, ruled out CHF Seen and examined by me and Dr. Mcnulty Objective - Vital Signs/Intake and Output Vital Signs (last 24 hours): Temp Pulse Resp BP Pulse Ox 97.8 F 69 20 154/96 H 100 10/06/18 06:00 10/06/18 18:38 10/06/18 06:00 10/06/18 18:38 10/06/18 06:00 Intake and Output: 10/07/18 10/07/18 06:59 18:59 Intake Total 720 0 Balance 720 0 - Medications Medications: Current Medications Acetaminophen (Tylenol 325mg Tab) 650 mg PO Q4H PRN PRN Reason: Fever >100.4 F Last Admin: 10/06/18 13:18 Dose: 650 mg Albuterol/Ipratropium (Duoneb 3 Mg/0.5 Mg (3 Ml) Ud) 3 ml IH [id number] [facility] Last Admin: 10/07/18 05:14 Dose: 3 ml Amino Acid Protein (Prostat 15 G Packet) 15 gm GT DAILY [facility] Last Admin: 10/06/18 13:50 Dose: 15 gm Amlodipine Besylate (Norvasc) 10 mg PO DAILY [facility] Last Admin: 10/06/18 09:31 Dose: 10 mg Aspirin (Ecotrin) 81 mg PO DAILY [facility] Last Admin: 10/06/18 09:30 Dose: 81 mg Budesonide (Pulmicort Respules) 0.5 mg IH [id number] [facility] Last Admin: 10/06/18 19:35 Dose: 0.5 mg Heparin Sodium (Porcine) (Heparin) 5,000 units SC Q8 [facility]; Protocol Last Admin: 10/07/18 05:28 Dose: 5,000 units Hydralazine HCl (Apresoline) 10 mg PO QID PRN PRN Reason: for sbp >160 Last Admin: 10/01/18 00:31 Dose: 10 mg Hydralazine HCl (Apresoline) 50 mg PO TID [facility] Last Admin: 10/06/18 18:38 Dose: 50 mg Meropenem/Sodium Chloride (Merrem Iv 500 Mg/Ns 50 Ml) 500 mg in 50 mls @ 100 mls/hr IVPB Q12 [facility]; Protocol Stop: 10/09/18 22:01 Last Admin: 10/06/18 21:39 Dose: 100 mls/hr Dextrose/Sodium Chloride (Dextrose 5%/0.45% Ns 1000 Ml) 1,000 mls @ 60 mls/hr IV .[id number] [facility] Last Admin: 10/07/18 05:29 Dose: 60 mls/hr Ondansetron HCl (Zofran Inj) 4 mg IVP Q4H PRN PRN Reason: Nausea/Vomiting Last Admin: 09/26/18 17:00 Dose: 4 mg Oxycodone/Acetaminophen (Percocet 5/325 Mg Tab) 1 tab PO Q6H PRN PRN Reason: Pain, severe (8-10) Stop: 10/09/18 13:42 Last Admin: 10/06/18 13:50 Dose: 1 tab Pantoprazole Sodium (Protonix Ec Tab) 40 mg PO 0600 [facility] Last Admin: 10/07/18 05:28 Dose: 40 mg Polyethylene Glycol (Miralax) 17 gm PO DAILY [facility] Last Admin: 10/06/18 09:30 Dose: 17 gm Risperidone (Risperdal Tab) 0.25 mg PO DAILY [facility]; Protocol PRN Reason: Other Last Admin: 09/27/18 09:07 Dose: 0.25 mg - Labs Labs: 10/06/18 06:45 10/06/18 06:45 PT 17.4 SECONDS (9.4-12.5) H 09/27/18 08:00 INR 1.54 09/27/18 08:00 APTT 30.3 Seconds (26.9-38.3) 09/17/18 06:20 - Constitutional Appears: Non-toxic, No Acute Distress - Head Exam Head Exam: NORMAL INSPECTION, NORMOCEPHALIC - Eye Exam Eye Exam: Normal appearance Pupil Exam: NORMAL ACCOMODATION - ENT Exam ENT Exam: Mucous Membranes Moist - Respiratory Exam Respiratory Exam: Decreased Breath Sounds, Clear to Ausculation Bilateral, NORMAL BREATHING PATTERN - Cardiovascular Exam Cardiovascular Exam: +S1, +S2 Additional comments: right IJ trialysis catheter - GI/Abdominal Exam GI & Abdominal Exam: Soft, Normal Bowel Sounds - Extremities Exam Extremities Exam: Full ROM, Normal Capillary Refill - Neurological Exam Neurological Exam: Alert, Awake - Psychiatric Exam Psychiatric exam: Normal Affect, Normal Mood - Skin Skin Exam: Dry, Normal Color, Warm Assessment and Plan - Assessment and Plan (Free Text) Assessment: An 83 year old female fragile, who came in to the ER due to shoulder pain, found to have hemarthroses. Admitted to the floor and post [employer] for respiratory distress requiring intubation and transferred to ICU. Found to bilateral pneumonia. Successfully extubated . History of anemia, dementia, DVT, on Coumadin, hypertension, hyperlipidemia, chronic kidney disease, history of hemodialysis, diabetes, failure to thrive. Sputum positive for yeast. On IV antibiotics. ID on consult. Pulmonary on consult. Nutritional support. Physical therapy. Left arm swelling. Ultrasound done and negative for DVT, small amount of non occlusive pericatheter thrombus in the left axillary vein. Resolved left arm swelling.Post insertion of inferior vena cava filter done by Dr. Brown as recommended by Hematology. Per Renal, no further hemodialysis at this time. suggest to discontinue trialysis catheter to prevent infection. Cardiac status stable. On IV fluids due to low oral intake. Gentle hydration. Discharge planning, awaiting placement. Plan: Low oral intake, on IV fluids, gentle hydration No distress, awake, Cardiac status stable Heart rate stable Blood pressure controlled On Norvasc 10 mg daily, ASA 81 mg daily,Clonidine 0.2 mg/hr patch daily, Cardizem 60 mg every 6 hours Continue IV antibiotics per ID Continue current treatment Continue current medications Nutritional support Assist with meals Physical therapy Per renal, no further hemodialysis at this time Discharge planning, awaiting placement to [facility] Will follow up Plan and treatment discussed with Dr. Mcnulty
[2018-10-07] MEDS: Budesonide 0.5 mg/2 ml Inhal Susp UD IH SCH (08:13)
[2018-10-07 08:25] LABS: ALB/GLOB RATIO 0.8 (1.1-1.8); ALBUMIN 2.2 g/dL (3.0-4.8); CALCIUM 7.8 mg/dL (8.4-10.5)
[2018-10-07 08:26] LABS: HEMOGLOBIN 9.1 g/dL (12.0-16.0); MEAN CELL VOLUME 93.7 fl (80.0-105.0); MEAN CORPUSCULAR HEMOGLOBIN 28.6 pg (25.0-35.0); MEAN CORPUSCULAR HGB CONC 30.5 g/dl (31.0-37.0); MEAN PLATELET VOLUME 9.8 fl (7.0-11.0); RBC 3.18 10^6/uL (3.5-6.1); RED CELL DISTRIBUTION WIDTH 16.2 % (11.5-14.5); WHITE BLOOD COUNT 5.3 10^3/uL (4.5-11.0)
[2018-10-07 09:00] VITALS: RESP 18
[2018-10-07] MEDS: POLYETHYLENE GLYCOL 3350 17 GM/Dose PACKET PO SCH (11:02)
[2018-10-07] MEDS: MEROPENEM 500 MG in NS 500 MG/50 ML BAG IVPB SCH (11:03)
[2018-10-07] MEDS: Prostat 15 g packet GT SCH (11:40)
--- NOTE | 2018-10-07 11:49 | PN ---
DATE: 10/07/2018 SUBJECTIVE: The patient appears comfortable this morning. She is not short of breath at rest. PHYSICAL EXAMINATION: VITAL SIGNS (last noted in the computer): Temperature 97.8, pulse 69, respirations 18, blood pressure 154/96. Oxygen saturation on nasal cannula - 100%. HEENT: Normocephalic, atraumatic. No JVD. CARDIOVASCULAR: Systolic ejection murmur at the lower left sternal border. No S3 gallop. LUNGS: Still somewhat decreased breath sounds at the bases with crackles (albeit less). No rhonchi. No wheezing. EXTREMITIES: Mild edema. No cyanosis. No clubbing. Calves are nontender to palpation. GASTROINTESTINAL: Abdomen is soft, nontender and nondistended. Bowel sounds are positive. SKIN: No acute rash. NEUROLOGIC: Exam limited at the present time. IMPRESSION: 1. Respiratory failure. 2. Bilateral pneumonia. 3. Bilateral pleural effusions. 4. Qkjkb-[id number] renal failure. 5. Severe anemia. 6. Rule out congestive heart failure. PLAN: The patient appears very comfortable this morning. She is not short of breath at rest. She does state to feeling much better overall. On physical exam, there is no significant bronchospasm noted. In addition, there is no significant alveolar-arterial gradient. I will continue with the current nebulizer treatments and inhaled steroids for now. The patient remains on antibiotic therapy - as per Infectious Disease. Temperatures have resolved. Leukocytosis has also resolved. Input by Dr. Herring is noted. Inputs by Renal and Cardiology are also noted. Repeat a.m. labs are pending. Clinical status of the patient is significantly improved overall. However, the future status/prognosis for this elderly patient does remain guarded. I did also review the physical therapy notes. Perhaps the patient would be a candidate for the transitional unit. I will discuss the above with Dr. Adamson later this morning. Charles Roland MD MTDD
[2018-10-07] MEDS: Oxycodone/Acetaminophen 5/325 mg Tab PO PRN (11:58)
[2018-10-07 16:40] VITALS: BP 148/62; PULSE 70; TEMP 97.4; O2SAT 97
--- NOTE | 2018-10-07 19:43 | CP.PCM.PN ---
Subjective - Date & Time of Evaluation Date of Evaluation: 10/07/18 Time of Evaluation: 06:30 - Subjective Subjective: Comfortable, no fevers, not in distress. Objective - Vital Signs/Intake and Output Vital Signs (last 24 hours): Temp Pulse Resp BP Pulse Ox 97.8 F 69 20 154/96 H 100 10/06/18 06:00 10/06/18 18:38 10/06/18 06:00 10/06/18 18:38 10/06/18 06:00 Intake and Output: 10/06/18 10/07/18 18:59 06:59 Intake Total 120 Output Total 100 Balance 20 - Medications Medications: Current Medications Acetaminophen (Tylenol 325mg Tab) 650 mg PO Q4H PRN PRN Reason: Fever >100.4 F Last Admin: 10/06/18 13:18 Dose: 650 mg Albuterol/Ipratropium (Duoneb 3 Mg/0.5 Mg (3 Ml) Ud) 3 ml IH [id number] [facility] Last Admin: 10/06/18 08:13 Dose: 3 ml Amino Acid Protein (Prostat 15 G Packet) 15 gm GT DAILY [facility] Last Admin: 10/06/18 13:50 Dose: 15 gm Amlodipine Besylate (Norvasc) 10 mg PO DAILY [facility] Last Admin: 10/06/18 09:31 Dose: 10 mg Aspirin (Ecotrin) 81 mg PO DAILY [facility] Last Admin: 10/06/18 09:30 Dose: 81 mg Budesonide (Pulmicort Respules) 0.5 mg IH [id number] [facility] Last Admin: 10/06/18 08:13 Dose: 0.5 mg Heparin Sodium (Porcine) (Heparin) 5,000 units SC Q8 [facility]; Protocol Last Admin: 10/06/18 13:34 Dose: 5,000 units Hydralazine HCl (Apresoline) 10 mg PO QID PRN PRN Reason: for sbp >160 Last Admin: 10/01/18 00:31 Dose: 10 mg Hydralazine HCl (Apresoline) 50 mg PO TID [facility] Last Admin: 10/06/18 18:38 Dose: 50 mg Meropenem/Sodium Chloride (Merrem Iv 500 Mg/Ns 50 Ml) 500 mg in 50 mls @ 100 mls/hr IVPB Q12 [facility]; Protocol Stop: 10/09/18 22:01 Last Admin: 10/06/18 09:30 Dose: 100 mls/hr Dextrose/Sodium Chloride (Dextrose 5%/0.45% Ns 1000 Ml) 1,000 mls @ 60 mls/hr IV .[id number] [facility] Last Admin: 10/06/18 09:27 Dose: 60 mls/hr Ondansetron HCl (Zofran Inj) 4 mg IVP Q4H PRN PRN Reason: Nausea/Vomiting Last Admin: 09/26/18 17:00 Dose: 4 mg Oxycodone/Acetaminophen (Percocet 5/325 Mg Tab) 1 tab PO Q6H PRN PRN Reason: Pain, severe (8-10) Stop: 10/09/18 13:42 Last Admin: 10/06/18 13:50 Dose: 1 tab Pantoprazole Sodium (Protonix Ec Tab) 40 mg PO 0600 [facility] Last Admin: 10/06/18 05:55 Dose: 40 mg Polyethylene Glycol (Miralax) 17 gm PO DAILY [facility] Last Admin: 10/06/18 09:30 Dose: 17 gm Risperidone (Risperdal Tab) 0.25 mg PO DAILY [facility]; Protocol PRN Reason: Other Last Admin: 09/27/18 09:07 Dose: 0.25 mg - Labs Labs: 10/06/18 06:45 10/06/18 06:45 PT 17.4 SECONDS (9.4-12.5) H 09/27/18 08:00 INR 1.54 09/27/18 08:00 APTT 30.3 Seconds (26.9-38.3) 09/17/18 06:20 - Constitutional Appears: Non-toxic, Chronically Ill - Head Exam Head Exam: NORMAL INSPECTION - Respiratory Exam Respiratory Exam: Decreased Breath Sounds - Cardiovascular Exam Cardiovascular Exam: +S1, +S2 - GI/Abdominal Exam GI & Abdominal Exam: Soft. absent: Tenderness Assessment and Plan - Assessment and Plan (Free Text) Plan: Assessment S/P sepsis due to left sided hospital-acquired pneumonia history of coagulase negative staph in 2 out of 4 blood culture bottles history of left heel ulcer without evidence of infection chronic renal failure HTN DM long history of smoking dementia peripheral vascular disease aortic and mitral valve regurgitation Plan S/P 7 days of Merrem day - monitor off antibiotics
--- NOTE | 2018-10-07 22:41 | PN ---
DATE: 10/07/2018 SUBJECTIVE: The patient is seen lying in bed. She is awake. She is alert. She is comfortable. She does not appear to be in any kind of distress. PHYSICAL EXAMINATION: VITAL SIGNS: Blood pressure 153/60, heart rate 69, respiratory rate 18, temperature 97.4. HEENT: Normocephalic, atraumatic. Positive pallor. NECK: Supple. No JVD. LUNGS: Bilateral equal entry. Bilateral equal expansion. CARDIAC: S1 and S2. Regular rate and rhythm. No murmur. No rub. ABDOMEN: Soft, nondistended, nontender. Bowel sounds present. EXTREMITIES: No lower extremity edema. INTAKE AND OUTPUT: 840/100. LABORATORY DATA: WBC 5, hemoglobin 9.1, hematocrit 30, platelets 180. Sodium 138, potassium 4.5, chloride 107, CO2 of 26, BUN 52, creatinine 3.3, glucose 67, calcium 7.8. Sputum culture, yeast. CURRENT MEDICATIONS: Hydralazine 50 mg t.i.d., D5 half-normal saline at 60 mL, DuoNeb, Ecotrin, Ativan, meropenem 500 mg every 12 hours, MiraLax, amlodipine 10 mg, Percocet, Pro-Stat, Protonix, Risperdal, Tylenol, Zofran. ASSESSMENT: 1. Acute kidney injury superimposed on chronic kidney disease stage 4, resolved acute kidney injury, now with prerenal azotemia. 2. Hypertension. 3. Status post pneumonia. 4. Status post gastrointestinal bleed. 5. Dementia. PLAN: 1. Push p.o. fluids. 2. Discontinue fluids at discharge. 3. Continue current antihypertensives. 4. Continue antibiotics as per ID recommendations. 5. ? Antifungals. 6. No objection to discharge from the Renal standpoint, remove PermCath prior to discharge. Samantha Rand MD
--- NOTE | 2018-10-08 00:09 | DS ---
HISTORY OF PRESENT ILLNESS: The patient is an 83-year-old who came to the emergency room, not feeling well. She was found to be supratherapeutic since she is on Coumadin for her history of DVT almost a year and a half ago so she was given blood transfusion. Her INR was reversed by a dose of vitamin K. She was found to have bilateral pneumonia. She was treated with IV antibiotic. Her respiratory status got worse. She ended up getting intubated and was transferred to ICU, improved from there, after sepsis had acute renal failure, underwent a couple of dialysis. Seems to be doing well now, eating and tolerating better. PHYSICAL EXAMINATION: VITAL SIGNS: She is afebrile. Pulse is 69, respiration 18 and blood pressure 153/60. LUNGS: Bilateral fair airflow. No rhonchi or crackle. HEART: S1, S2 audible. ABDOMEN: Soft and nontender. No rebound. No guarding. NEUROLOGIC: The patient is awake, alert and able to communicate. SKIN: She has sacral decubitus. 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 LABORATORY DATA: WBC is 5.3, hemoglobin 9.1, hematocrit 29.8 and platelet of 180. Chemistry; sodium 138, potassium 4.5, chloride 107, CO2 of 26, BUN 52, creatinine 3.3 and blood sugar 67. ASSESSMENT: 1. Acute on chronic renal failure. 2. History of bilateral pneumonia, improving. 3. Anemia, status post blood transfusion. Anemia of chronic disease. 4. Status post inferior vena cava filter placement. PLAN: The patient is referred to subacute rehab. Awaiting authorization. Once accepted the patient can be transferred to subacute rehab. She is still on a course of antibiotic that is meropenem. Continue DVT prophylaxis. Continue GI prophylaxis. The patient will be transferred to subacute rehab once accepted. Torrie Adamson MD
== END 2018-10-07 18:43 | DRG 166 ==
LOC: ED 00:26 → ERH 03:41 → 5RSO 04:32 → ERH 04:36 → 5RSO 05:22 → OBSVTOIN 09-14 11:53 → ICU 09-21 21:21 → 2RNO 09-29 05:26 → 3RNO 10-02 13:30
PROVIDERS: ADMIT Internal Medicine; ATTEND Internal Medicine
PROC: 3E0U33Z Introduction of Anti-inflammatory into Joints, Percutaneous Approach (ICD-10-PCS; 2018-09-12)
PROC: 3E0U3BZ Introduction of Anesthetic Agent into Joints, Percutaneous Approach (ICD-10-PCS; 2018-09-12)
PROC: 30233N1 Transfusion of Nonautologous Red Blood Cells into Peripheral Vein, Percutaneous Approach (ICD-10-PCS; 2018-09-13)
PROC: 5A1935Z Respiratory Ventilation, Less than 24 Consecutive Hours (ICD-10-PCS; 2018-09-18)
PROC: 5A1945Z Respiratory Ventilation, 24-96 Consecutive Hours (ICD-10-PCS; 2018-09-23)
PROC: 0BH18EZ Insertion of Endotracheal Airway into Trachea, Via Natural or Artificial Opening Endoscopic (ICD-10-PCS; 2018-09-23)
PROC: 05HM33Z Insertion of Infusion Device into Right Internal Jugular Vein, Percutaneous Approach (ICD-10-PCS; 2018-09-23)
PROC: B543ZZA Ultrasonography of Right Jugular Veins, Guidance (ICD-10-PCS; 2018-09-23)
PROC: 5A1D70Z Performance of Urinary Filtration, Intermittent, Less than 6 Hours Per Day (ICD-10-PCS; 2018-09-23)
PROC: 5A1D70Z Performance of Urinary Filtration, Intermittent, Less than 6 Hours Per Day (ICD-10-PCS; 2018-09-24)
PROC: 5A1D70Z Performance of Urinary Filtration, Intermittent, Less than 6 Hours Per Day (ICD-10-PCS; 2018-09-25)
PROC: 5A09357 Assistance with Respiratory Ventilation, Less than 24 Consecutive Hours, Continuous Positive Airway Pressure (ICD-10-PCS; 2018-09-26)
PROC: 02HV33Z Insertion of Infusion Device into Superior Vena Cava, Percutaneous Approach (ICD-10-PCS; 2018-10-01)
PROC: B54NZZA Ultrasonography of Left Upper Extremity Veins, Guidance (ICD-10-PCS; 2018-10-01)
PROC: 06H03DZ Insertion of Intraluminal Device into Inferior Vena Cava, Percutaneous Approach (ICD-10-PCS; principal; 2018-10-04)
DX: J18.1 Lobar pneumonia, unspecified organism (principal); A41.9 Sepsis, unspecified organism; N17.0 Acute kidney failure with tubular necrosis; R65.21 Severe sepsis with septic shock; J96.91 Respiratory failure, unspecified with hypoxia; M25.011 Hemarthrosis, right shoulder; N17.9 Acute kidney failure, unspecified; R04.2 Hemoptysis; N18.4 Chronic kidney disease, stage 4 (severe); I13.2 Hypertensive heart and chronic kidney disease with heart failure and with stage 5 chronic kidney disease, or end stage renal disease; I50.32 Chronic diastolic (congestive) heart failure; J44.0 Chronic obstructive pulmonary disease with (acute) lower respiratory infection; N25.81 Secondary hyperparathyroidism of renal origin; L97.429 Non-pressure chronic ulcer of left heel and midfoot with unspecified severity; I82.A12 Acute embolism and thrombosis of left axillary vein; E87.4 Mixed disorder of acid-base balance; E46 Unspecified protein-calorie malnutrition; N39.0 Urinary tract infection, site not specified; I82.519 Chronic embolism and thrombosis of unspecified femoral vein; M65.811 Other synovitis and tenosynovitis, right shoulder; I16.0 Hypertensive urgency; M75.31 Calcific tendinitis of right shoulder; F03.90 Unspecified dementia, unspecified severity, without behavioral disturbance, psychotic disturbance, mood disturbance, and anxiety; E11.22 Type 2 diabetes mellitus with diabetic chronic kidney disease; R79.1 Abnormal coagulation profile; T45.515A Adverse effect of anticoagulants, initial encounter; E87.5 Hyperkalemia; D63.1 Anemia in chronic kidney disease; D50.9 Iron deficiency anemia, unspecified; I48.0 Paroxysmal atrial fibrillation; I50.82 Biventricular heart failure; E87.6 Hypokalemia; E11.51 Type 2 diabetes mellitus with diabetic peripheral angiopathy without gangrene; M19.011 Primary osteoarthritis, right shoulder; E11.621 Type 2 diabetes mellitus with foot ulcer; E83.42 Hypomagnesemia; I08.3 Combined rheumatic disorders of mitral, aortic and tricuspid valves; E78.5 Hyperlipidemia, unspecified; L89.152 Pressure ulcer of sacral region, stage 2; R62.7 Adult failure to thrive; I45.0 Right fascicular block; B95.1 Streptococcus, group B, as the cause of diseases classified elsewhere; Y95 Nosocomial condition; Z68.20 Body mass index [BMI] 20.0-20.9, adult; Z79.01 Long term (current) use of anticoagulants; Z79.84 Long term (current) use of oral hypoglycemic drugs; Z87.891 Personal history of nicotine dependence